=== PATIENT | male | born 1955 | race Caucasian/White ===

== ENCOUNTER 2018-02-18 15:41 | Inpatient (IN) | payer OTHER ==
[~2018-02-18] VITALS: Ht 175.3 cm; Wt 86.9 kg
[~2018-02-18 15:41] MED LIST: ATOR10TA66 PO; CEFD300C3 PO; CETI10TA17 PO; PRM25T PO; QTP100T PO; SRTR100T PO; SULF1TAB38 PO; TRZ100T PO; VILA1TAB PO
[2018-02-18] MEDS ORDERED: NS IV 1000 ML 1,000 ML IV SCH (16:11)
[2018-02-18] MEDS ORDERED: KETOROLAC 30 MG/ML VIAL IVP ONE (16:15)
--- OUTSIDE RECORDS SUMMARY | 2018-02-18 16:15 | XMS REPORT | Continuity of Care Document ---
Author Author [facility] Organization [facility] Address Unknown Phone Unavailable Care Team Providers Care Reservation Manager Name Role Phone [facility] OF Insurance Providers Payer Name Policy Number Subscriber Name Relationship Self Pay Aron Harrell 01 Self / Same As Patient Advance Directives Directive Response Recorded Date Advance Directives N 11/30/12 9:01am Health Care Power of Media Marketing Manager N 10/13/11 10:27pm Organ Donor N 10/13/11 10:27pm Problems No Known Problems or Medical conditions. Family History History Response Recorded Date/Time Hx Family Cancer Y dad -skin cancer 10/12 10:53pm Hx Family Breast Cancer N 10/13/11 10: 53pm Hx Family Lung Cancer N 10/13/11 10:53pm Hx Family Colorectal Cancer N 10/13/11 10 :53pm Hx Family Cardiac Disorders N dad had 4 bypasses 10/13/11 10:53pm Hx Family Hypertension Y mom 10/13/11 10: 53pm Hx Family Myocardial Infarction Y dad passed from [place] 10/13/11 10:53pm Social History History Response Recorded Date/Time Alcohol Use Regular Use 11/30/12 9:01am Recreational Drug Use Y marijuana 9:01am Recent Foreign Travel N 11/30/12 9:01am Recent Infectious Disease Exposure N 9:01am Allergies, Adverse Reactions, Alerts Allergen Type Severity Reaction Last Updated No Known Drug Allergies 10/13/11 Medications Medication Dose Units Route Sig Qty Days Promethazine HCl (Phenergan 25 Mg) 1 Tab PO QID PRN 10 Vilazodone Hydrochloride (Viibryd) 1 Each PO DAILY Atorvastatin Calcium (Lipitor Tablet) 10 Mg PO DAILY Quetiapine Fumarate (Seroquel 100 Mg) 1 Tab PO HS Trimethoprim/Sulfamethoxazole (Bactrim Ds) 1 Ea PO BID 12 Cefdinir 1 Each PO BID 12 Trazodone HCl (Desyrel 100 Mg) 100 Mg PO HS Sertraline HCl (Zoloft) 200 Mg PO DAILY Cetirizine HCl (Cetirizine Hcl) 10 Mg PO DAILY Immunizations Name Given Type Date of Influenza Vaccine 02/06/11 H Response Recorded Date/Time Status not known Unknown Results No Known Relevant Diagnostic Tests, Laboratory Data and/or Discharge Summary. Procedures Procedure Code Date NONEXCIS DEBRID OF WOUND, INFECT, OR BURN 86.28 10/17/11 Encounters Encounter Location Date/Time Departed Emergency Room [facility] 8:49am Discharged Inpatient [facility] 9:47pm
--- OUTSIDE RECORDS SUMMARY | 2018-02-18 16:15 | XMS REPORT ---
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.42 Active Problem Other and unspecified hyperlipidemia 272.4 Active Problem Vascular disorder of skin 709.1 Active Problem Unspecified local infection of skin and subcutaneous tissue 686.9 Active Problem Trigger finger (acquired) 727.03 Active Problem Nonspecific elevation of levels of transaminase or lactic acid dehydrogenase (LDH) 790.4 Active Problem Spontaneous ecchymoses 782.7 Active Problem Edema 782.3 Active Assessment Dental examination V72.2 Active Problem Encounter for long-term (current) use of other medications V58.69 Active Problem Dissociative disorder or reaction, 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
--- OUTSIDE RECORDS SUMMARY | 2018-02-18 16:16 | XMS REPORT | Continuity of Care Document ---
Author Author [facility] Address Unknown Phone Unavailable Allergies There is no data. Medications There is no data. Problems Date Dx Coded Attending Type Code Diagnosis Diagnosed By 03/14/2011 THANH LEE PHD 728.71 Plantar Fascial Fibromatosis 03/14/2011 LANI PADILLA DO 728.71 Plantar Fascial Fibromatosis 03/14/2011 THANH LEE PHD 728.71 Plantar Fascial Fibromatosis 03/14/2011 RAJ SINGLETON DO 728.71 Plantar Fascial Fibromatosis 03/14/2011 728.71 Plantar Fascial Fibromatosis 03/14/2011 728.71 Plantar Fascial Fibromatosis 03/14/2011 728.71 Plantar Fascial Fibromatosis 03/14/2011 728.71 Plantar Fascial Fibromatosis 03/14/2011 728.71 Plantar Fascial Fibromatosis 03/14/2011 CORNELIO TOPETE PA-C 728.71 Plantar Fascial Fibromatosis 03/14/2011 THANH LEE PHD 728.71 Plantar Fascial Fibromatosis 03/14/2011 RAJ SINGLETON DO 728.71 Plantar Fascial Fibromatosis 03/14/2011 THANH LEE PHD 728.71 Plantar Fascial Fibromatosis 03/14/2011 ARTURO WELLS APRN 728.71 Plantar Fascial Fibromatosis 03/14/2011 THANH LEE PHD 728.71 Plantar Fascial Fibromatosis 03/14/2011 THANH LEE PHD 728.71 Plantar Fascial Fibromatosis 03/14/2011 THANH LEE PHD 728.71 Plantar Fascial Fibromatosis 03/14/2011 ARTURO WELLS APRN 728.71 Plantar Fascial Fibromatosis 03/14/2011 THANH LEE PHD 728.71 Plantar Fascial Fibromatosis 03/14/2011 RAJ SINGLETON DO 728.71 Plantar Fascial Fibromatosis 03/14/2011 MARY JANE ESTATE ATTORNEY, GRETA 728.71 Plantar Fascial Fibromatosis 03/14/2011 THANH LEE PHD 728.71 Plantar Fascial Fibromatosis 03/14/2011 MARY JANE ESTATE ATTORNEY, GRETA 728.71 Plantar Fascial Fibromatosis 03/14/2011 THANH LEE PHD 728.71 Plantar Fascial Fibromatosis 03/29/2011 THANH LEE PHD 311 DEPRESSIVE DISORDER NOT ELSEWHERE CLASSIFIED 03/29/2011 THANH LEE PHD 729.5 PAIN IN LIMB 03/29/2011 LANI PADILLA DO F 311 DEPRESSIVE DISORDER NOT ELSEWHERE CLASSIFIED 03/29/2011 LANI PADILLA DO F 729.5 PAIN IN LIMB 03/29/2011 THANH LEE PHD 311 DEPRESSIVE DISORDER NOT ELSEWHERE CLASSIFIED 03/29/2011 THANH LEE PHD 729.5 PAIN IN LIMB 03/29/2011 RAJ SINGLETON DO 311 DEPRESSIVE DISORDER NOT ELSEWHERE CLASSIFIED 03/29/2011 RAJ SINGLETON DO 729.5 Pain In Limb 03/29/2011 311 DEPRESSIVE DISORDER NOT ELSEWHERE CLASSIFIED 03/29/2011 729.5 Pain In Limb 03/29/2011 311 DEPRESSIVE DISORDER NOT ELSEWHERE CLASSIFIED 03/29/2011 729.5 Pain In Limb 03/29/2011 311 DEPRESSIVE DISORDER NOT ELSEWHERE CLASSIFIED 03/29/2011 729.5 Pain In Limb 03/29/2011 311 DEPRESSIVE DISORDER NOT ELSEWHERE CLASSIFIED 03/29/2011 729.5 Pain In Limb 03/29/2011 311 DEPRESSIVE DISORDER NOT ELSEWHERE CLASSIFIED 03/29/2011 729.5 Pain In Limb 03/29/2011 OCRNELIO TOPETE PA-C 311 DEPRESSIVE DISORDER NOT ELSEWHERE CLASSIFIED 03/29/2011 CORNELIO TOPETE PA-C 729.5 Pain In Limb 03/29/2011 THANH LEE PHD 311 DEPRESSIVE DISORDER NOT ELSEWHERE CLASSIFIED 03/29/2011 THANH LEE PHD 729.5 Pain In Limb 03/29/2011 RAJ SINGLETON DO 311 DEPRESSIVE DISORDER NOT ELSEWHERE CLASSIFIED 03/29/2011 RAJ SINGLETON DO 729.5 Pain In Limb 03/29/2011 THANH LEE PHD 311 DEPRESSIVE DISORDER NOT ELSEWHERE CLASSIFIED 03/29/2011 THANH LEE PHD 729.5 Pain In Limb 03/29/2011 PRISCILLA ESTATE ATTORNEYARTURO Porras 311 DEPRESSIVE DISORDER NOT ELSEWHERE CLASSIFIED 03/29/2011 PRISCILLA ESTATE ATTORNEYARTURO Porras 729.5 Pain In Limb 03/29/2011 THANH LEE PHD 311 DEPRESSIVE DISORDER NOT ELSEWHERE CLASSIFIED 03/29/2011 THANH LEE PHD 729.5 Pain In Limb 03/29/2011 THANH LEE PHD 311 DEPRESSIVE DISORDER NOT ELSEWHERE CLASSIFIED 03/29/2011 THANH LEE PHD 729.5 Pain In Limb 03/29/2011 THANH LEE PHD 311 DEPRESSIVE DISORDER NOT ELSEWHERE CLASSIFIED 03/29/2011 THANH LEE PHD 729.5 Pain In Limb 03/29/2011 ARTURO WELLS APRN 311 DEPRESSIVE DISORDER NOT ELSEWHERE CLASSIFIED 03/29/2011 WELLS ESTATE ATTORNEYARTURO Porras 729.5 Pain In Limb 03/29/2011 THANH LEE PHD 311 DEPRESSIVE DISORDER NOT ELSEWHERE CLASSIFIED 03/29/2011 THANH LEE PHD 729.5 Pain In Limb 03/29/2011 SINGLETON DO, RAJ K 311 DEPRESSIVE DISORDER NOT ELSEWHERE CLASSIFIED 03/29/2011 SINGLETON DO, RAJ K 729.5 Pain In Limb 03/29/2011 MARY JANE ESTATE ATTORNEY, GRETA 311 DEPRESSIVE DISORDER NOT ELSEWHERE CLASSIFIED 03/29/2011 MARY JANE ESTATE ATTORNEY, GRETA 729.5 Pain In Limb 03/29/2011 THANH LEE PHD 311 DEPRESSIVE DISORDER NOT ELSEWHERE CLASSIFIED 03/29/2011 THANH LEE PHD 729.5 Pain In Limb 03/29/2011 MARY JANE ESTATE ATTORNEY, GRETA 311 DEPRESSIVE DISORDER NOT ELSEWHERE CLASSIFIED 03/29/2011 MARY JANE ESTATE ATTORNEY, GRETA 729.5 Pain In Limb 03/29/2011 THANH LEE PHD 311 DEPRESSIVE DISORDER NOT ELSEWHERE CLASSIFIED 03/29/2011 THANH LEE PHD 729.5 Pain In Limb 03/30/2011 THANH LEE PHD 296.30 MO DEPRESSIVE RECURRENT UNSPECIFIED 03/30/2011 THANH LEE PHD 304.80 SA POLYSUB DEP 03/30/2011 THANH LEE PHD 307.47 SI DYSSOMNIA NOS 03/30/2011 WERDER DO, LANI F 296.30 MO DEPRESSIVE RECURRENT UNSPECIFIED 03/30/2011 WERDER DO, LANI F 304.80 SA POLYSUB DEP 03/30/2011 WERDER DO, LANI F 307.47 SI DYSSOMNIA NOS 03/30/2011 THANH LEE PHD 296.30 MO DEPRESSIVE RECURRENT UNSPECIFIED 03/30/2011 THANH LEE PHD 304.80 SA POLYSUB DEP 03/30/2011 THANH LEE PHD 307.47 SI DYSSOMNIA NOS 03/30/2011 SINGLETON DO, RAJ K 296.30 MO DEPRESSIVE RECURRENT UNSPECIFIED 03/30/2011 SINGLETON DO, RAJ K 304.80 SA POLYSUB DEP 03/30/2011 SINGLETON DO, RAJ K 307.47 SI DYSSOMNIA NOS 03/30/2011 296.30 MO DEPRESSIVE RECURRENT UNSPECIFIED 03/30/2011 304.80 SA POLYSUB DEP 03/30/2011 307.47 SI DYSSOMNIA NOS 03/30/2011 296.30 MO DEPRESSIVE RECURRENT UNSPECIFIED 03/30/2011 304.80 SA POLYSUB DEP 03/30/2011 307.47 SI DYSSOMNIA NOS 03/30/2011 296.30 MO DEPRESSIVE RECURRENT UNSPECIFIED 03/30/2011 304.80 SA POLYSUB DEP 03/30/2011 307.47 SI DYSSOMNIA NOS 03/30/2011 296.30 MO DEPRESSIVE RECURRENT UNSPECIFIED 03/30/2011 304.80 SA POLYSUB DEP 03/30/2011 307.47 SI DYSSOMNIA NOS 03/30/2011 296.30 MO DEPRESSIVE RECURRENT UNSPECIFIED 03/30/2011 304.80 SA POLYSUB DEP 03/30/2011 307.47 SI DYSSOMNIA NOS 03/30/2011 CORNELIO TOPETE PA-C 296.30 MO DEPRESSIVE RECURRENT UNSPECIFIED 03/30/2011 CORNELIO TOPETE PA-C 304.80 SA POLYSUB DEP 03/30/2011 CORNELIO TOPETE PA-C 307.47 SI DYSSOMNIA NOS 03/30/2011 THANH LEE PHD 296.30 MO DEPRESSIVE RECURRENT UNSPECIFIED 03/30/2011 THANH LEE PHD 304.80 SA POLYSUB DEP 03/30/2011 THANH LEE PHD 307.47 SI DYSSOMNIA NOS 03/30/2011 SINGLETON DO, RAJ K 296.30 MO DEPRESSIVE RECURRENT UNSPECIFIED 03/30/2011 SINGLETON DO, RAJ K 304.80 SA POLYSUB DEP 03/30/2011 SINGLETON DO, RAJ K 307.47 SI DYSSOMNIA NOS 03/30/2011 THANH LEE PHD 296.30 MO DEPRESSIVE RECURRENT UNSPECIFIED 03/30/2011 THANH LEE PHD 304.80 SA POLYSUB DEP 03/30/2011 THANH LEE PHD 307.47 SI DYSSOMNIA NOS 03/30/2011 WELLS ESTATE ATTORNEY, ARTURO REYEZ 296.30 MO DEPRESSIVE RECURRENT UNSPECIFIED 03/30/2011 WELLS ESTATE ATTORNEY, ARTURO ETIENNEH 304.80 SA POLYSUB DEP 03/30/2011 WELLS ESTATE ATTORNEY, ARTURO REYEZ 307.47 SI DYSSOMNIA NOS 03/30/2011 THANH LEE PHD 296.30 MO DEPRESSIVE RECURRENT UNSPECIFIED 03/30/2011 THANH LEE PHD 304.80 SA POLYSUB DEP 03/30/2011 THANH LEE PHD 307.47 SI DYSSOMNIA NOS 03/30/2011 THANH LEE PHD 296.30 MO DEPRESSIVE RECURRENT UNSPECIFIED 03/30/2011 THANH LEE PHD 304.80 SA POLYSUB DEP 03/30/2011 THANH LEE PHD 307.47 SI DYSSOMNIA NOS 03/30/2011 THANH LEE PHD 296.30 MO DEPRESSIVE RECURRENT UNSPECIFIED 03/30/2011 THANH LEE PHD 304.80 SA POLYSUB DEP 03/30/2011 THANH LEE PHD 307.47 SI DYSSOMNIA NOS 03/30/2011 WELLS ESTATE ATTORNEY, ARTURO REYEZ 296.30 MO DEPRESSIVE RECURRENT UNSPECIFIED 03/30/2011 WELLS ESTATE ATTORNEY, ARTURO ETIENNEH 304.80 SA POLYSUB DEP 03/30/2011 WELLS ESTATE ATTORNEY, ARTURO REYEZ 307.47 SI DYSSOMNIA NOS 03/30/2011 THANH LEE PHD 296.30 MO DEPRESSIVE RECURRENT UNSPECIFIED 03/30/2011 THANH LEE PHD 304.80 SA POLYSUB DEP 03/30/2011 THANH LEE PHD 307.47 SI DYSSOMNIA NOS 03/30/2011 RAJ SINGLETON DO K 296.30 MO DEPRESSIVE RECURRENT UNSPECIFIED 03/30/2011 RAJ SINGLETON DO K 304.80 SA POLYSUB DEP 03/30/2011 SINGLETON DORAJ K 307.47 SI DYSSOMNIA NOS 03/30/2011 MARY JANE ESTATE ATTORNEY, GRETA 296.30 MO DEPRESSIVE RECURRENT UNSPECIFIED 03/30/2011 MARY JANE ESTATE ATTORNEY, GRETA 304.80 SA POLYSUB DEP 03/30/2011 MARY JANE ESTATE ATTORNEY, GRETA 307.47 SI DYSSOMNIA NOS 03/30/2011 THANH LEE PHD 296.30 MO DEPRESSIVE RECURRENT UNSPECIFIED 03/30/2011 THANH LEE PHD 304.80 SA POLYSUB DEP 03/30/2011 THANH LEE PHD 307.47 SI DYSSOMNIA NOS 03/30/2011 MARY JANE ESTATE ATTORNEY, GRETA 296.30 MO DEPRESSIVE RECURRENT UNSPECIFIED 03/30/2011 MARY JANE ESTATE ATTORNEY, GRETA 304.80 SA POLYSUB DEP 03/30/2011 MARY JANE ESTATE ATTORNEY, GRETA 307.47 SI DYSSOMNIA NOS 03/30/2011 THANH LEE PHD 296.30 MO DEPRESSIVE RECURRENT UNSPECIFIED 03/30/2011 THANH LEE PHD 304.80 SA POLYSUB DEP 03/30/2011 THANH LEE PHD 307.47 SI DYSSOMNIA NOS 05/29/2011 THANH LEE PHD 296.32 MO DEPRESSIVE RECURRENT MODERATE 05/29/2011 LANI PADILLA DO 296.32 MO DEPRESSIVE RECURRENT MODERATE 05/29/2011 THANH LEE PHD 296.32 MO DEPRESSIVE RECURRENT MODERATE 05/29/2011 RAJ SINGLETON DO 296.32 MO DEPRESSIVE RECURRENT MODERATE 05/29/2011 296.32 MO DEPRESSIVE RECURRENT MODERATE 05/29/2011 296.32 MO DEPRESSIVE RECURRENT MODERATE 05/29/2011 296.32 MO DEPRESSIVE RECURRENT MODERATE 05/29/2011 296.32 MO DEPRESSIVE RECURRENT MODERATE 05/29/2011 296.32 MO DEPRESSIVE RECURRENT MODERATE 05/29/2011 CORNELIO TOPETE PA-C 296.32 MO DEPRESSIVE RECURRENT MODERATE 05/29/2011 THANH LEE PHD 296.32 MO DEPRESSIVE RECURRENT MODERATE 05/29/2011 RAJ SINGLETON DO 296.32 MO DEPRESSIVE RECURRENT MODERATE 05/29/2011 THANH LEE PHD 296.32 MO DEPRESSIVE RECURRENT MODERATE 05/29/2011 WELLS ESTATE ATTORNEY, ARTURO REYEZ 296.32 MO DEPRESSIVE RECURRENT MODERATE 05/29/2011 JESUS PULIDO, THANH Irwin 296.32 MO DEPRESSIVE RECURRENT MODERATE 05/29/2011 THANH LEE PHD 296.32 MO DEPRESSIVE RECURRENT MODERATE 05/29/2011 JESUS PULIDO, THANH Irwin 296.32 MO DEPRESSIVE RECURRENT MODERATE 05/29/2011 WELLS ESTATE ATTORNEY, ARTURO REYEZ 296.32 MO DEPRESSIVE RECURRENT MODERATE 05/29/2011 JESUS PULIDO, THANH Irwin 296.32 MO DEPRESSIVE RECURRENT MODERATE 05/29/2011 RAJ SINGLETON DO 296.32 MO DEPRESSIVE RECURRENT MODERATE 05/29/2011 MARY JANE ESTATE ATTORNEY, GRETA 296.32 MO DEPRESSIVE RECURRENT MODERATE 05/29/2011 THANH LEE PHD 296.32 MO DEPRESSIVE RECURRENT MODERATE 05/29/2011 MARY JANE ESTATE ATTORNEY, GRETA 296.32 MO DEPRESSIVE RECURRENT MODERATE 05/29/2011 THANH LEE PHD 296.32 MO DEPRESSIVE RECURRENT MODERATE 10/11/2011 THANH LEE PHD 111.0 PITYRIASIS VERSICOLOR 10/11/2011 THANH LEE PHD 272.4 OTHER AND UNSPECIFIED HYPERLIPIDEMIA 10/11/2011 LANI PADILLA DO F 111.0 PITYRIASIS VERSICOLOR 10/11/2011 LANI PADILLA DO F 272.4 OTHER AND UNSPECIFIED HYPERLIPIDEMIA 10/11/2011 THANH LEE PHD 111.0 PITYRIASIS VERSICOLOR 10/11/2011 THANH LEE PHD 272.4 OTHER AND UNSPECIFIED HYPERLIPIDEMIA 10/11/2011 RAJ SINGLETON DO 111.0 PITYRIASIS VERSICOLOR 10/11/2011 ARJ SINGLETON DO 272.4 OTHER AND UNSPECIFIED HYPERLIPIDEMIA 10/11/2011 111.0 PITYRIASIS VERSICOLOR 10/11/2011 272.4 OTHER AND UNSPECIFIED HYPERLIPIDEMIA 10/11/2011 111.0 PITYRIASIS VERSICOLOR 10/11/2011 272.4 OTHER AND UNSPECIFIED HYPERLIPIDEMIA 10/11/2011 111.0 PITYRIASIS VERSICOLOR 10/11/2011 272.4 OTHER AND UNSPECIFIED HYPERLIPIDEMIA 10/11/2011 111.0 PITYRIASIS VERSICOLOR 10/11/2011 272.4 OTHER AND UNSPECIFIED HYPERLIPIDEMIA 10/11/2011 111.0 PITYRIASIS VERSICOLOR 10/11/2011 272.4 OTHER AND UNSPECIFIED HYPERLIPIDEMIA 10/11/2011 CORNELIO TOPETE PA-C 111.0 PITYRIASIS VERSICOLOR 10/11/2011 CORNELIO TOPETE PA-C 272.4 OTHER AND UNSPECIFIED HYPERLIPIDEMIA 10/11/2011 THANH LEE PHD A 111.0 PITYRIASIS VERSICOLOR 10/11/2011 THANH LEE PHD A 272.4 OTHER AND UNSPECIFIED HYPERLIPIDEMIA 10/11/2011 SINGLETON NANCY REILLYA K 111.0 PITYRIASIS VERSICOLOR 10/11/2011 RAJ SINGLETON DO K 272.4 OTHER AND UNSPECIFIED HYPERLIPIDEMIA 10/11/2011 THANH LEE PHD A 111.0 PITYRIASIS VERSICOLOR 10/11/2011 THANH LEE PHD A 272.4 OTHER AND UNSPECIFIED HYPERLIPIDEMIA 10/11/2011 PRISCILLA LESTER ARTURO AISSATUO 111.0 PITYRIASIS VERSICOLOR 10/11/2011 PRISCILLA LESTER ARTURO AISSATOU 272.4 OTHER AND UNSPECIFIED HYPERLIPIDEMIA 10/11/2011 THANH LEE PHD A 111.0 PITYRIASIS VERSICOLOR 10/11/2011 THANH LEE PHD 272.4 OTHER AND UNSPECIFIED HYPERLIPIDEMIA 10/11/2011 THANH LEE PHD A 111.0 PITYRIASIS VERSICOLOR 10/11/2011 THANH LEE PHD A 272.4 OTHER AND UNSPECIFIED HYPERLIPIDEMIA 10/11/2011 THANH LEE PHD A 111.0 PITYRIASIS VERSICOLOR 10/11/2011 THANH LEE PHD A 272.4 OTHER AND UNSPECIFIED HYPERLIPIDEMIA 10/11/2011 PRISCILLA LESTER ARTURO AISSATOU 111.0 PITYRIASIS VERSICOLOR 10/11/2011 PRISCILLA LESTER ARTURO AISSATOU 272.4 OTHER AND UNSPECIFIED HYPERLIPIDEMIA 10/11/2011 THANH LEE PHD A 111.0 PITYRIASIS VERSICOLOR 10/11/2011 THANH LEE PHD A 272.4 OTHER AND UNSPECIFIED HYPERLIPIDEMIA 10/11/2011 SINGLETON NANCY REILLYA K 111.0 PITYRIASIS VERSICOLOR 10/11/2011 RAJ SINGLETON DO 272.4 OTHER AND UNSPECIFIED HYPERLIPIDEMIA 10/11/2011 MARY JANE ESTATE ATTORNEY, GRETA 111.0 PITYRIASIS VERSICOLOR 10/11/2011 MARY JANE ESTATE ATTORNEY, GRETA 272.4 OTHER AND UNSPECIFIED HYPERLIPIDEMIA 10/11/2011 THANH LEE PHD 111.0 PITYRIASIS VERSICOLOR 10/11/2011 THANH LEE PHD 272.4 OTHER AND UNSPECIFIED HYPERLIPIDEMIA 10/11/2011 MARY JANE ESTATE ATTORNEY, GRETA 111.0 PITYRIASIS VERSICOLOR 10/11/2011 MARY JANE ESTATE ATTORNEY, GRETA 272.4 OTHER AND UNSPECIFIED HYPERLIPIDEMIA 10/11/2011 THANH LEE PHD 111.0 PITYRIASIS VERSICOLOR 10/11/2011 THANH LEE PHD 272.4 OTHER AND UNSPECIFIED HYPERLIPIDEMIA 10/21/2011 THANH LEE PHD 686.9 UNSPECIFIED LOCAL INFECTION OF SKIN AND SUBCUTANEOUS TISSUE 10/21/2011 LANI PADILLA DO 686.9 UNSPECIFIED LOCAL INFECTION OF SKIN AND SUBCUTANEOUS TISSUE 10/21/2011 THANH LEE PHD 686.9 UNSPECIFIED LOCAL INFECTION OF SKIN AND SUBCUTANEOUS TISSUE 10/21/2011 RAJ SINGLETON DO 686.9 UNSPECIFIED LOCAL INFECTION OF SKIN AND SUBCUTANEOUS TISSUE 10/21/2011 686.9 UNSPECIFIED LOCAL INFECTION OF SKIN AND SUBCUTANEOUS TISSUE 10/21/2011 686.9 UNSPECIFIED LOCAL INFECTION OF SKIN AND SUBCUTANEOUS TISSUE 10/21/2011 686.9 UNSPECIFIED LOCAL INFECTION OF SKIN AND SUBCUTANEOUS TISSUE 10/21/2011 686.9 UNSPECIFIED LOCAL INFECTION OF SKIN AND SUBCUTANEOUS TISSUE 10/21/2011 686.9 UNSPECIFIED LOCAL INFECTION OF SKIN AND SUBCUTANEOUS TISSUE 10/21/2011 CORNELIO TOPETE PA-C 686.9 UNSPECIFIED LOCAL INFECTION OF SKIN AND SUBCUTANEOUS TISSUE 10/21/2011 THANH LEE PHD 686.9 UNSPECIFIED LOCAL INFECTION OF SKIN AND SUBCUTANEOUS TISSUE 10/21/2011 RAJ SINGLETON DO 686.9 UNSPECIFIED LOCAL INFECTION OF SKIN AND SUBCUTANEOUS TISSUE 10/21/2011 THANH LEE PHD 686.9 UNSPECIFIED LOCAL INFECTION OF SKIN AND SUBCUTANEOUS TISSUE 10/21/2011 ARTURO WELLS APRN 686.9 UNSPECIFIED LOCAL INFECTION OF SKIN AND SUBCUTANEOUS TISSUE 10/21/2011 THANH LEE PHD 686.9 UNSPECIFIED LOCAL INFECTION OF SKIN AND SUBCUTANEOUS TISSUE 10/21/2011 THANH LEE PHD 686.9 UNSPECIFIED LOCAL INFECTION OF SKIN AND SUBCUTANEOUS TISSUE 10/21/2011 THANH LEE PHD 686.9 UNSPECIFIED LOCAL INFECTION OF SKIN AND SUBCUTANEOUS TISSUE 10/21/2011 ARTURO WELLS APRN 686.9 UNSPECIFIED LOCAL INFECTION OF SKIN AND SUBCUTANEOUS TISSUE 10/21/2011 THANH LEE PHD 686.9 UNSPECIFIED LOCAL INFECTION OF SKIN AND SUBCUTANEOUS TISSUE 10/21/2011 SINGLETON RAJ REILLY 686.9 UNSPECIFIED LOCAL INFECTION OF SKIN AND SUBCUTANEOUS TISSUE 10/21/2011 GRETA HINTON APRN 686.9 UNSPECIFIED LOCAL INFECTION OF SKIN AND SUBCUTANEOUS TISSUE 10/21/2011 THANH LEE PHD 686.9 UNSPECIFIED LOCAL INFECTION OF SKIN AND SUBCUTANEOUS TISSUE 10/21/2011 GRETA HINTON APRN 686.9 UNSPECIFIED LOCAL INFECTION OF SKIN AND SUBCUTANEOUS TISSUE 10/21/2011 THANH LEE PHD 686.9 UNSPECIFIED LOCAL INFECTION OF SKIN AND SUBCUTANEOUS TISSUE 11/06/2011 THANH LEE PHD 782.3 EDEMA 11/06/2011 THANH LEE PHD 782.7 petichiae 11/06/2011 WERDER DO LANI F 782.3 EDEMA 11/06/2011 [facility] F 782.7 petichiae 11/06/2011 THANH LEE PHD 782.3 EDEMA 11/06/2011 THANH LEE PHD 782.7 petichiae 11/06/2011 SINGLETON DO, RAJ K 782.3 Edema 11/06/2011 SINGLETON DO, RAJ K 782.7 Petichiae 11/06/2011 782.3 Edema 11/06/2011 782.7 Petichiae 11/06/2011 782.3 Edema 11/06/2011 782.7 Petichiae 11/06/2011 782.3 Edema 11/06/2011 782.7 Petichiae 11/06/2011 782.3 Edema 11/06/2011 782.7 Petichiae 11/06/2011 782.3 Edema 11/06/2011 782.7 Petichiae 11/06/2011 CORNELIO TOPETE PA-C 782.3 Edema 11/06/2011 CORNELIO TOPETE PA-C 782.7 Petichiae 11/06/2011 BOEKHOUT PHD, THANH Irwin 782.3 Edema 11/06/2011 BOEKHOUT PHD, THANH Irwin 782.7 Petichiae 11/06/2011 SINGLETON DO, RAJ K 782.3 Edema 11/06/2011 SINGLETON DO, RAJ K 782.7 Petichiae 11/06/2011 BOEKHOUT PHD, THANH A 782.3 Edema 11/06/2011 BOEKHOUT PHD, THANH Irwin 782.7 Petichiae 11/06/2011 WELLS ESTATE ATTORNEY, ARTURO ETIENNEH 782.3 Edema 11/06/2011 WELLS ESTATE ATTORNEY, ARTURO AISSATOU 782.7 Petichiae 11/06/2011 BOEKHOUT PHD, THANH A 782.3 Edema 11/06/2011 BOEKHOUT PHD, THANH A 782.7 Petichiae 11/06/2011 BOEKHOUT PHD, THANH A 782.3 Edema 11/06/2011 BOEOUT PHD, THANH A 782.7 Petichiae 11/06/2011 BOEKHOUT PHD, THANH A 782.3 Edema 11/06/2011 BOEOUT PHD, THANH A 782.7 Petichiae 11/06/2011 WELLS ESTATE ATTORNEY, ARTURO AISSATOU 782.3 Edema 11/06/2011 WELLS ESTATE ATTORNEY, ARTURO AISSATOU 782.7 Petichiae 11/06/2011 BOEOUT PHD, THAHN A 782.3 Edema 11/06/2011 BOEOUT PHD, THANH A 782.7 Petichiae 11/06/2011 SINGLETON DO, RAJ K 782.3 Edema 11/06/2011 SINGLETON DO, RAJ K 782.7 Petichiae 11/06/2011 MARY JANE ESTATE ATTORNEY, GRETA 782.3 Edema 11/06/2011 MARY JANE ESTATE ATTORNEY, GRETA 782.7 Petichiae 11/06/2011 BOEKHOUT PHD, THANH A 782.3 Edema 11/06/2011 THANH LEE PHD 782.7 Petichiae 11/06/2011 GRETA HINTON APRN 782.3 Edema 11/06/2011 GRETA HINTON APRN 782.7 Petichiae 11/06/2011 THANH LEE PHD 782.3 Edema 11/06/2011 THANH LEE PHD 782.7 Petichiae 11/20/2011 THANH LEE PHD 709.1 VASCULAR DISORDERS OF SKIN 11/20/2011 LANI PADILLA DO 709.1 VASCULAR DISORDERS OF SKIN 11/20/2011 THANH LEE PHD 709.1 VASCULAR DISORDERS OF SKIN 11/20/2011 RAJ SINGLETON DO 709.1 Vascular Disorders Of Skin 11/20/2011 709.1 Vascular Disorders Of Skin 11/20/2011 709.1 Vascular Disorders Of Skin 11/20/2011 709.1 Vascular Disorders Of Skin 11/20/2011 709.1 Vascular Disorders Of Skin 11/20/2011 709.1 Vascular Disorders Of Skin 11/20/2011 EFREM CHANCE, CORNELIO Kwok 709.1 Vascular Disorders Of Skin 11/20/2011 THANH LEE PHD 709.1 Vascular Disorders Of Skin 11/20/2011 RAJ SINGLETON DO 709.1 Vascular Disorders Of Skin 11/20/2011 THANH LEE PHD 709.1 Vascular Disorders Of Skin 11/20/2011 ARTURO WELLS APRN 709.1 Vascular Disorders Of Skin 11/20/2011 THANH LEE PHD 709.1 Vascular Disorders Of Skin 11/20/2011 THANH LEE PHD 709.1 Vascular Disorders Of Skin 11/20/2011 THAHN LEE PHD 709.1 Vascular Disorders Of Skin 11/20/2011 ARTURO WELLS APRN 709.1 Vascular Disorders Of Skin 11/20/2011 THANH LEE PHD 709.1 Vascular Disorders Of Skin 11/20/2011 RAJ SINGLETON DO 709.1 Vascular Disorders Of Skin 11/20/2011 GRETA HINTON APRN 709.1 Vascular Disorders Of Skin 11/20/2011 THANH LEE PHD 709.1 Vascular Disorders Of Skin 11/20/2011 GRETA HINTON APRN 709.1 Vascular Disorders Of Skin 11/20/2011 THANH LEE PHD 709.1 Vascular Disorders Of Skin 2012 THANH LEE PHD 296.31 MO DEPRESSIVE RECURRENT MILD 2012 LANI PADILLA DO 296.31 MO DEPRESSIVE RECURRENT MILD 2012 THANH LEE PHD 296.31 MO DEPRESSIVE RECURRENT MILD 2012 RAJ SINGLETON DO 296.31 MO DEPRESSIVE RECURRENT MILD 2012 296.31 MO DEPRESSIVE RECURRENT MILD 2012 296.31 MO DEPRESSIVE RECURRENT MILD 2012 296.31 MO DEPRESSIVE RECURRENT MILD 2012 296.31 MO DEPRESSIVE RECURRENT MILD 2012 296.31 MO DEPRESSIVE RECURRENT MILD 2012 CORNELIO TOPETE PA-C 296.31 MO DEPRESSIVE RECURRENT MILD 2012 THANH LEE PHD 296.31 MO DEPRESSIVE RECURRENT MILD 2012 RAJ SINGLETON DO 296.31 MO DEPRESSIVE RECURRENT MILD 2012 THANH LEE PHD 296.31 MO DEPRESSIVE RECURRENT MILD 2012 ARTURO WELLS APRN 296.31 MO DEPRESSIVE RECURRENT MILD 2012 THANH LEE PHD 296.31 MO DEPRESSIVE RECURRENT MILD 2012 THANH LEE PHD 296.31 MO DEPRESSIVE RECURRENT MILD 2012 THANH LEE PHD 296.31 MO DEPRESSIVE RECURRENT MILD 2012 ARTURO WELLS APRN 296.31 MO DEPRESSIVE RECURRENT MILD 2012 THANH LEE PHD 296.31 MO DEPRESSIVE RECURRENT MILD 2012 RAJ SINGLETON DO 296.31 MO DEPRESSIVE RECURRENT MILD 2012 GRETA HINTON APRN 296.31 MO DEPRESSIVE RECURRENT MILD 2012 THANH LEE PHD 296.31 MO DEPRESSIVE RECURRENT MILD 2012 GRETA HINTON APRN 296.31 MO DEPRESSIVE RECURRENT MILD 2012 THANH LEE PHD 296.31 MO DEPRESSIVE RECURRENT MILD 11/30/2012 VITALY ELIAS, PARUL Larson Ot 276.51 DEHYDRATION 11/30/2012 PARUL HAIDER MD Ot 787.03 VOMITING ALONE 11/30/2012 PARUL HAIDER MD Ot 789.00 ABDOMINAL PAIN, UNSPECIFIED SITE 01/18/2013 727.03 TRIGGER FINGER (ACQUIRED) 01/18/2013 727.03 TRIGGER FINGER (ACQUIRED) 01/18/2013 727.03 TRIGGER FINGER (ACQUIRED) 01/18/2013 CORNELIO TOPETE PA-C 727.03 TRIGGER FINGER (ACQUIRED) 01/18/2013 JESUS PULIDO, THANH A 727.03 TRIGGER FINGER (ACQUIRED) 01/18/2013 RAJ SINGLETON DO 727.03 TRIGGER FINGER (ACQUIRED) 01/18/2013 JESUS PULIDO, THANH A 727.03 TRIGGER FINGER (ACQUIRED) 01/18/2013 ARTURO WELLS APRN 727.03 TRIGGER FINGER (ACQUIRED) 01/18/2013 JESUS PULIDO, THANH A 727.03 TRIGGER FINGER (ACQUIRED) 01/18/2013 THANH LEE PHD A 727.03 TRIGGER FINGER (ACQUIRED) 01/18/[facility] 727.03 TRIGGER FINGER (ACQUIRED) 01/18/2013 ARTURO WELLS APRN 727.03 TRIGGER FINGER (ACQUIRED) 01/18/2013 [facility] 727.03 TRIGGER FINGER (ACQUIRED) 01/18/2013 RAJ SINGLETON DO 727.03 TRIGGER FINGER (ACQUIRED) 01/18/2013 MARY JANE LESTER GRETA 727.03 TRIGGER FINGER (ACQUIRED) 01/18/2013 JESUS PULIDO THANH A 727.03 TRIGGER FINGER (ACQUIRED) 01/18/2013 MARY JANE LESTER GRETA 727.03 TRIGGER FINGER (ACQUIRED) 01/18/2013 JESUS PULIDO, THANH A 727.03 TRIGGER FINGER (ACQUIRED) 01/19/2013 790.4 ABNORMAL LFT ( ELEVATED) 01/19/2013 790.4 ABNORMAL LFT ( ELEVATED) 01/19/2013 CORNELIO TOPETE PA-C 790.4 ABNORMAL LFT (ELEVATED) 01/19/2013 THANH LEE PHD 790.4 ABNORMAL LFT (ELEVATED) 01/19/2013 RAJ SINGLETON DO 790.4 ABNORMAL LFT (ELEVATED) 01/19/2013 [facility], THANH A 790.4 ABNORMAL LFT (ELEVATED) 01/19/2013 PRISCILLA LESTER ARTURO ETIENNEH 790.4 ABNORMAL LFT (ELEVATED) 01/19/2013 [facility], THANH A 790.4 ABNORMAL LFT (ELEVATED) 01/19/2013 [facility], THANH A 790.4 ABNORMAL LFT (ELEVATED) 01/19/2013 [facility], THANH A 790.4 ABNORMAL LFT (ELEVATED) 01/19/2013 PRISCILLA LESTER ARTURO AISSATOU 790.4 ABNORMAL LFT (ELEVATED) 01/19/2013 PHD, THANH A 790.4 ABNORMAL LFT (ELEVATED) 01/19/2013 RAJ SINGLETON DO 790.4 ABNORMAL LFT (ELEVATED) 01/19/2013 GRETA HINTON APRN 790.4 ABNORMAL LFT (ELEVATED) 01/19/2013 [facility] PHD, THANH A 790.4 ABNORMAL LFT (ELEVATED) 01/19/2013 GRETA HINTON APRN 790.4 ABNORMAL LFT (ELEVATED) 01/19/2013 [facility] PHD, THANH A 790.4 ABNORMAL LFT (ELEVATED) 01/22/2013 070.70 HEPATITIS C, UNSPEC 01/22/2013 CORNELIO TOPETE PA-C 070.70 HEPATITIS C, UNSPEC 01/22/2013 JESUS PHD, THANH A 070.70 HEPATITIS C, UNSPEC 01/22/2013 RAJ SINGLETON DO 070.70 HEPATITIS C, UNSPEC 01/22/2013 PHD, THANH A 070.70 HEPATITIS C, UNSPEC 01/22/2013 PRISCILLA LESTER ARTURO AISSATOU 070.70 HEPATITIS C, UNSPEC 01/22/2013 [facility] PHD, THANH A 070.70 HEPATITIS C, UNSPEC 01/22/2013 [facility] PHD, THANH A 070.70 HEPATITIS C, UNSPEC 01/22/2013 [facility] PHD, THANH A 070.70 HEPATITIS C, UNSPEC 01/22/2013 ARTURO WELLS APRN 070.70 HEPATITIS C, UNSPEC 01/22/2013 PHD, THANH A 070.70 HEPATITIS C, UNSPEC 01/22/2013 RAJ SINGLETON DO 070.70 HEPATITIS C, UNSPEC 01/22/2013 MARY JANE ESTATE ATTORNEY, GRETA 070.70 HEPATITIS C, UNSPEC 01/22/2013 JESUS PULIDO, THANH Irwin 070.70 HEPATITIS C, UNSPEC 01/22/2013 MARY JANE ESTATE ATTORNEY, GRETA 070.70 HEPATITIS C, UNSPEC 01/22/2013 JESUS PULIDO, THANH Irwin 070.70 HEPATITIS C, UNSPEC 03/18/2013 RAJ SINGLETON DO 307.42 PERSISTENT DISORDER OF INITIATING OR MAINTAINING SLEEP 03/18/2013 THANH LEE PHD 307.42 PERSISTENT DISORDER OF INITIATING OR MAINTAINING SLEEP 03/18/2013 ARTURO WELLS APRN 307.42 PERSISTENT DISORDER OF INITIATING OR MAINTAINING SLEEP 03/18/2013 THANH LEE PHD 307.42 PERSISTENT DISORDER OF INITIATING OR MAINTAINING SLEEP 03/18/2013 THANH LEE PHD 307.42 PERSISTENT DISORDER OF INITIATING OR MAINTAINING SLEEP 03/18/2013 THANH LEE PHD 307.42 PERSISTENT DISORDER OF INITIATING OR MAINTAINING SLEEP 03/18/2013 ARTURO WELLS APRN 307.42 PERSISTENT DISORDER OF INITIATING OR MAINTAINING SLEEP 03/18/2013 THANH LEE PHD 307.42 PERSISTENT DISORDER OF INITIATING OR MAINTAINING SLEEP 03/18/2013 RAJ SINGLETON DO 307.42 PERSISTENT DISORDER OF INITIATING OR MAINTAINING SLEEP 03/18/2013 MARY JANE LESTER GRETA 307.42 PERSISTENT DISORDER OF INITIATING OR MAINTAINING SLEEP 03/18/2013 THANH LEE PHD 307.42 PERSISTENT DISORDER OF INITIATING OR MAINTAINING SLEEP 03/18/2013 MARY JANE ESTATE ATTORNEY, GRETA 307.42 PERSISTENT DISORDER OF INITIATING OR MAINTAINING SLEEP 03/18/2013 THANH LEE PHD 307.42 PERSISTENT DISORDER OF INITIATING OR MAINTAINING SLEEP 03/25/2013 RAJ SINGLETON DO 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 WITH INFLAMMATION 03/25/2013 THANH LEE PHD 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 WITH INFLAMMATION 03/25/2013 ARTURO WELLS APRN 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 WITH INFLAMMATION 03/25/2013 THANH LEE PHD 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 WITH INFLAMMATION 03/25/2013 THANH LEE PHD 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 WITH INFLAMMATION 03/25/2013 JESUS PULIDO, THANH Irwin 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 WITH INFLAMMATION 03/25/2013 PRISCILLA LESTER ARTURO AISSATOU 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 WITH INFLAMMATION 03/25/2013 JESUS PULIDO, THANH Irwin 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 WITH INFLAMMATION 03/25/2013 RAJ SINGLETON DO 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 WITH INFLAMMATION 03/25/2013 GRETA HINTON APRN 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 WITH INFLAMMATION 03/25/2013 THANH LEE PHD 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 WITH INFLAMMATION 03/25/2013 GRETA HINTON APRN 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 WITH INFLAMMATION 03/25/2013 HTANH LEE PHD 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 WITH INFLAMMATION 07/26/2013 ARTURO WELLS APRN 300.00 AN ANXIETY UNSPEC 07/26/2013 JESUS PULIDO, THANH A 300.00 AN ANXIETY UNSPEC 07/26/2013 JESUS PULIDO, THANH A 300.00 AN ANXIETY UNSPEC 07/26/2013 JESUS PULIDO, THANH A 300.00 AN ANXIETY UNSPEC 07/26/2013 ARTURO WELLS APRN 300.00 AN ANXIETY UNSPEC 07/26/2013 BOEGRAYSON PULIDO, THANH A 300.00 AN ANXIETY UNSPEC 07/26/2013 RAJ SINGLETON DO 300.00 AN ANXIETY UNSPEC 07/26/2013 GRETA HINTON APRN 300.00 AN ANXIETY UNSPEC 07/26/2013 BOEGRAYSON PULIDO, THANH A 300.00 AN ANXIETY UNSPEC 07/26/2013 GRETA HINTON APRN 300.00 AN ANXIETY UNSPEC 07/26/2013 JESUS PULIDO, THANH A 300.00 AN ANXIETY UNSPEC 11/30/2013 THANH LEE PHD V58.69 MEDICATION HIGH RISK 11/30/2013 ARTURO WELLS APRN V58.69 MEDICATION HIGH RISK 11/30/2013 THANH LEE PHD V58.69 MEDICATION HIGH RISK 11/30/2013 RAJ SINGLETON DO V58.69 MEDICATION HIGH RISK 11/30/2013 GRETA HINTON APRN V58.69 MEDICATION HIGH RISK 11/30/2013 JESUS PHD, THANH Irwin V58.69 MEDICATION HIGH RISK 11/30/2013 GRETA HINTON APRN V58.69 MEDICATION HIGH RISK 11/30/2013 JESUS PHD, THANH Irwin V58.69 MEDICATION HIGH RISK 04/07/2014 GRETA HINTON APRN 300.15 DS DISSOCIATIVE DIS NOS 04/07/2014 JESUS PULIDO, THANH Irwin 300.15 DS DISSOCIATIVE DIS NOS 04/07/2014 GRETA HINTON APRN 300.15 DS DISSOCIATIVE DIS NOS 04/07/2014 JESUS PULIDO, THANH Irwin 300.15 DS DISSOCIATIVE DIS NOS Procedures Code [place] [address] PSYCH PHARM MGMT 04/17/2012 50913 INDIV PSYTX 45/50 MIN 04/27/2012 75805 ROUTINE VENIPUNCTURE 05/29/2012 77143 CMP 05/29/2012 64105 LIPID PANEL 05/29/2012 [id number] GFR CALC (RESULT ONLY) 05/29/2012 98581 PSYTX PT&/FAMILY 45 MINUTES 06/22/2012 59678 PSYTX PT&/FAMILY 45 MINUTES 08/03/2012 93882 PSYCH IND W/MED CK 20 09/28/2012 10113 ROUTINE VENIPUNCTURE 01/19/2013 25495 CMP 01/19/2013 28614 LIPID PANEL 01/19/2013 3550106 GFR CALC (RESULT ONLY) 01/19/2013 66690 ROUTINE VENIPUNCTURE 01/22/2013 92292 FERRITIN 01/22/2013 28282 IRON SERUM 01/22/2013 30588 IRON BNDNG CAP 01/22/2013 [id number] HCV INDEX (RESULT ONLY) 01/22/2013 05610 HEPATITIS PROFILE 01/22/2013 IRGROUP IRON GROUP (Iron,TIBC, Ferritin) 01/25/2013 41297 ROUTINE VENIPUNCTURE 02/25/2013 73112 CBC 02/25/2013 55222 PT/INR 02/25/2013 45452 HEP C PCR QUANT (SERIAL) 03/02/2013 64391 PSYTX PT&/FAMILY 45 MINUTES 03/15/2013 96037 PSYTX PT&/FAMILY 45 MINUTES 05/24/2013 46193 PSYTX PT&/FAMILY 45 MINUTES 08/05/2013 02595 PSYTX PT&/FAMILY 45 MINUTES 09/30/2013 37090 PSYTX PT&/FAMILY 45 MINUTES 12/01/2013 76064 ROUTINE VENIPUNCTURE 12/31/2013 89106 CBC 12/31/2013 6535172 GFR CALC (RESULT ONLY) 12/31/2013 20455 CMP 12/31/2013 44944 LIPID PANEL 12/31/2013 02939 IRON SERUM 12/31/2013 27583 IRON BNDNG CAP 12/31/2013 12253 FERRITIN 12/31/2013 [id number] HCV INDEX (RESULT ONLY) 12/31/2013 73615 HEPATITIS PROFILE 12/31/2013 83827 PSYTX PT&/FAMILY 45 MINUTES 01/28/2014 33545 ROUTINE VENIPUNCTURE 02/15/2014 IRGROUP IRON GROUP (Iron,TIBC, Ferritin) 02/15/2014 [id number] GFR CALC (RESULT ONLY) 02/16/2014 98555 CMP 02/16/2014 62862 PSYTX PT&/FAMILY 45 MINUTES 04/19/2014 59610 PSYTX PT&/FAMILY 45 MINUTES 06/17/2014 Results There is no data. Encounters ACCT No. Visit Date/Time Discharge Status Pt. Type Provider Facility Loc./Unit Complaint [id number] 06/17/2014 13:26:00 06/17/2014 23:59:59 CLS Outpatient THANH LEE PHD [id number] 05/19/2014 15:54:00 05/19/2014 23:59:59 CLS Outpatient GRETA HINTON APRN [id number] 04/19/2014 09:49:00 04/19/2014 23:59:59 CLS Outpatient THANH LEE PHD [id number] 04/07/2014 14:04:00 04/07/2014 23:59:59 CLS Outpatient GRETA HINTON APRN [id number] 02/15/2014 14:46:00 02/15/2014 23:59:59 CLS Outpatient RAJ SINGLETON DO [id number] 01/28/2014 12:54:00 01/28/2014 23:59:59 CLS Outpatient THANH LEE PHD [id number] 12/31/2013 12:27:00 12/31/2013 23:59:59 CLS Outpatient ARTURO WELLS APRN [id number] 11/30/2013 14:05:00 11/30/2013 23:59:59 CLS Outpatient THANH LEE PHD [id number] 09/30/2013 13:52:00 09/30/2013 23:59:59 CLS Outpatient THANH LEE PHD [id number] 08/04/2013 13:55:00 08/04/2013 23:59:59 CLS Outpatient THANH LEE PHD [id number] 07/26/2013 11:22:00 07/26/2013 23:59:59 CLS Outpatient ARTURO WELLS APRN [id number] 05/21/2013 12:47:00 05/21/2013 23:59:59 CLS Outpatient THANH LEE PHD [id number] 03/25/2013 09:42:00 03/25/2013 23:59:59 CLS Outpatient MANI RAJ REILLY Lamine [id number] 03/12/2013 12:42:00 03/12/2013 23:59:59 CLS Outpatient THANH LEE PHD [id number] 02/25/2013 14:41:00 02/25/2013 23:59:59 CLS Outpatient CORNELIO TOPETE PA-C [id number] 07/31/2012 15:44:00 07/31/2012 23:59:59 CLS Outpatient [id number] 06/26/2012 10:41:00 06/26/2012 23:59:59 CLS Outpatient MANI RAJ REILLY [id number] 06/19/2012 10:42:00 06/19/2012 23:59:59 CLS Outpatient THANH LEE PHD [id number] 05/29/2012 09:43:00 05/29/2012 23:59:59 CLS Outpatient LANI PADILLA DO Doreen [id number] 04/15/2012 17:01:00 04/15/2012 23:59:59 CLS Outpatient THANH LEE PHD [id number] 01/23/2013 11:07:00 Document Registration [id number] 01/19/2013 08:08:00 Document Registration [id number] 01/18/2013 16:10:00 Document Registration [id number] 09/21/2012 15:07:00 Document Registration [id number] 11/30/2012 08:49:00 11/30/2012 11:15:00 DIS Emergency VITALY ELIAS, PARUL Larson [facility] ER VOMITING [id number] 02/18/2018 15:41:00 ACT Emergency NANO ELIAS, MICKY Browne [facility] ER LLQ SHARP PAIN
--- NOTE | 2018-02-18 16:17 | ED Abdominal Pain ---
General Chief Complaint: Abdominal/GI Problems Stated Complaint: LLQ SHARP PAIN Nursing Triage Note: PT STATES HE IS EXPERIENCING LLQ PAIN THAT BEGAN LAST NIGHT. PAIN IS REPORTED SHARP IN NATURE Sepsis Screen: No Definite Risk Source of Information: Patient, Family (daughter) Exam Limitations: No Limitations History of Present Illness Date Seen by Provider: Feb 18, 2018 Time Seen by Provider: 16:06 Initial Comments The patient presents to the ER by private conveyance with chief complaint that since yesterday evening around 9:00 [place] was sitting around and started having some aggressively worsening sharp pain to his left lower quadrant. No problems with bowel movements or dysuria. Bowel movements does not help either. No nausea vomiting. No fevers or chills. No history of abdominal surgeries. No history of diverticula or colonoscopies. He takes olanzapine for mood, mirtazapine for sleep and atorvastatin for cholesterol. It is not worse with movement but it is worse with pushing on his belly. His last oral intake was last night prior to the pain. He is not taking anything for the pain. Allergies and Home Medications Allergies Coded Allergies: No Known Drug Allergies (Unverified , 10/13/11) Home Medications Atorvastatin Calcium 10 Mg Tablet, 10 MG PO DAILY, (Reported) Promethazine Hcl 25 Mg Tablet, 1 TAB PO QID PRN Prescribed by: PARUL HAIDER on 11/30/12 1106 Quetiapine Fumarate 100 Mg Tablet, 1 TAB PO HS, (Reported) Vilazodone Hydrochloride 1 Each Tab.ds.pk, 1 EACH PO DAILY, (Reported) Patient Home Medication List Home Medication List Reviewed: Yes Review of Systems Review of Systems Constitutional: No chills, No diaphoresis, No fever EENTM: No Blurred Vision, No Double Vision Respiratory: Denies Cough, Denies Shortness of Air Cardiovascular: Denies Chest Pain, Denies Irregular Heart Rate, Denies Lightheadedness Gastrointestinal: Denies Constipated, Denies Diarrhea, Denies Nausea; Poor Appetite Genitourinary: Denies Burning, Denies Discharge, Denies Drainage Musculoskeletal: No back pain, No joint pain Past Rltooxs-Rblrxq-Ylijsq Hx Patient Social History Alcohol Use: Occasionally Uses Alcohol Beverage of Choice: Beer Recreational Drug Use: No Smoking Status: Never a Smoker Recent Foreign Travel: No Contact w/Someone Who Travel: No Recent Infectious Disease Expo: No Immunizations Up To Date Date of Influenza Vaccine: Feb 06, 2011 Past Medical History Reproductive Disorders: No Gastroesophageal Reflux Depression Family Medical History No Pertinent Family Hx Physical Exam Vital Signs Vital Signs - First Documented 02/18/18 16:06 Temp 98.0 Pulse 86 Resp 20 B/P (MAP) 140/78 (98) Pulse Ox 97 O2 Delivery Room Air Capillary Refill : Less Than 3 Seconds Height/Weight/BMI Height: 5'9.00" Weight: 193lbs. oz. 87.836408jq; BMI Method:Stated General Appearance: WD/WN, mild distress HEENT: PERRL/EOMI, pharynx normal Neck: non-tender, normal inspection Respiratory: chest non-tender, lungs clear, normal breath sounds, no respiratory distress, no accessory muscle use Cardiovascular: normal peripheral pulses, regular rate, rhythm Peripheral Pulses: 2+ Radial Pulses (R), 2+ Radial Pulses (L) Gastrointestinal: normal bowel sounds, no organomegaly, guarding (left lower quadrant); No rebound; tenderness (left lower quadrant), other (negative psoas sign or other mesenteric signs.) Extremities: normal range of motion, non-tender Neurologic/Psychiatric: alert, normal mood/affect, oriented x 3 Skin: normal color, warm/dry Focused Exam Lactate Level 02/18/18 16:55: Lactic Acid Level 1.27 Lactic Acid Level Laboratory Tests Test 02/18/18 16:55 Lactic Acid Level 1.27 MMOL/L (0.50-2.00) Progress/Results/Core Measures Results/Orders Lab Results Laboratory Tests Test 02/18/18 16:20 02/18/18 16:55 02/18/18 17:35 Range/Units White Blood Count 12.7 H 4.3-11.0 10^3/uL Red Blood Count 5.21 4.35-5.85 10^6/uL Hemoglobin 16.8 13.3-17.7 G/DL Hematocrit 48 40-54 % Mean Corpuscular Volume 92 80-99 FL Mean Corpuscular Hemoglobin 32 25-34 PG Mean Corpuscular Hemoglobin Concent 35 32-36 G/DL Red Cell Distribution Width 13.1 10.0-14.5 % Platelet Count 220 130-400 10^3/uL Mean Platelet Volume 9.4 7.4-10.4 FL Neutrophils (%) (Auto) 83 H 42-75 % Lymphocytes (%) (Auto) 8 L 12-44 % Monocytes (%) (Auto) 8 0-12 % Eosinophils (%) (Auto) 1 0-10 % Basophils (%) (Auto) 0 0-10 % Neutrophils # (Auto) 10.5 H 1.8-7.8 X 10^3 Lymphocytes # (Auto) 1.1 1.0-4.0 X 10^3 Monocytes # (Auto) 1.0 0.0-1.0 X 10^3 Eosinophils # (Auto) 0.1 0.0-0.3 10^3/uL Basophils # (Auto) 0.0 0.0-0.1 10^3/uL Sodium Level 138 135-145 MMOL/L Potassium Level 3.9 3.6-5.0 MMOL/L Chloride Level 105 98-107 MMOL/L Carbon Dioxide Level 22 21-32 MMOL/L Anion Gap 11 5-14 MMOL/L Blood Urea Nitrogen 9 7-18 MG/DL Creatinine 0.93 0.60-1.30 MG/DL Estimat Glomerular Filtration Rate > 60 BUN/Creatinine Ratio 10 Glucose Level 107 H 70-105 MG/DL Calcium Level 9.5 8.5-10.1 MG/DL Corrected Calcium 9.1 8.5-10.1 MG/DL Magnesium Level 2.2 1.8-2.4 MG/DL Total Bilirubin 1.3 H 0.1-1.0 MG/DL Aspartate Amino Transf (AST/SGOT) 17 5-34 U/L Alanine Aminotransferase (ALT/SGPT) 24 0-55 U/L Alkaline Phosphatase 85 40-136 U/L Total Protein 7.8 6.4-8.2 GM/DL Albumin 4.5 3.2-4.5 GM/DL Lactic Acid Level 1.27 0.50-2.00 MMOL/L Urine Color YELLOW Urine Clarity CLEAR Urine pH 5 5-9 Urine Specific [place] 1.005 L 1.016-1.022 Urine Protein 1+ H NEGATIVE Urine Glucose (UA) NEGATIVE NEGATIVE Urine Ketones 1+ H NEGATIVE Urine Nitrite NEGATIVE NEGATIVE Urine Bilirubin NEGATIVE NEGATIVE Urine Urobilinogen NORMAL NORMAL MG/DL Urine Leukocyte Esterase 2+ H NEGATIVE Urine RBC (Auto) 2+ H NEGATIVE Urine RBC 5-10 H /HPF Urine WBC 5-10 H /HPF Urine Crystals NONE /LPF Urine Bacteria FEW H /HPF Urine Casts NONE /LPF Urine Mucus NEGATIVE /LPF Urine Culture Indicated YES My Orders Orders - MICKY MCGILL Ct Abdomen/Pelvis W (02/18/18 16:11) Saline Lock/Iv-Start (02/18/18 16:11) Cbc With Automated Diff (02/18/18 16:11) Comprehensive Metabolic Panel (02/18/18 16:11) Lactic Acid Analyzer (02/18/18 16:11) Magnesium (02/18/18 16:11) Ua Culture If Indicated (02/18/18 16:11) Saline Lock/Iv-Start (02/18/18 16:11) Ns Iv 1000 Ml (Sodium Chloride 0.9%) (02/18/18 16:11) Ketorolac Injection (Toradol Injection) (02/18/18 16:15) Iohexol Injection (Omnipaque 350 Mg/Ml 1 (02/18/18 17:00) Ns (Ivpb) (Sodium Chloride 0.9%) (02/18/18 17:00) Metronidazole 500mg/100ml Ivpb (Flagyl 5 (02/18/18 18:00) Ciprofloxacin Iv 400mg/200ml (Cipro Iv S (02/18/18 18:00) Urine Culture (02/18/18 17:35) Medications Given in ED Current Medications Medications Dose Ordered Sig/Jan Route Start Time Stop Time Status Last Admin Dose Admin Ciprofloxacin/ Dextrose 200 ml @ 200 mls/hr ONCE ONCE IV 02/18/18 18:00 02/18/18 18:59 DC 02/18/18 18:25 200 MLS/HR Iohexol 100 ml ONCE ONCE IV 02/18/18 17:00 02/18/18 17:02 DC 02/18/18 17:11 100 ML Ketorolac Tromethamine 15 mg ONCE ONCE IVP 02/18/18 16:15 02/18/18 16:16 DC 02/18/18 16:31 15 MG Sodium Chloride 250 ml ONCE ONCE IV 02/18/18 17:00 02/18/18 17:02 DC 02/18/18 17:11 80 ML Vital Signs/I&O 02/18/18 16:06 Temp 98.0 Pulse 86 Resp 20 B/P (MAP) 140/78 (98) Pulse Ox 97 O2 Delivery Room Air Blood Pressure Mean: 98 Progress Progress Note : Time: 16:18 Progress Note Toradol for pain, 1 L normal saline IV, nothing by mouth and will get a CT of the abdomen pelvis with labs and urinalysis. Magnesium in case he has a low potassium. Diagnostic Imaging Diagonstic Imaging: CT (with contrast) Plain Films/CT/US/NM/MRI: abdomen, pelvis Comments VIA [facility]. [place] NAME: PRANAY HARRELL [facility] REC#: [id number] PT STATUS: REG ER : 1955 PHYSICIAN: MICKY MCGILL MD ADMIT DATE: 02/18/18/ER Draft Date of Exam:02/18/18 CT ABDOMEN/PELVIS W PROCEDURE: CT abdomen and pelvis with contrast. TECHNIQUE: Multiple contiguous axial images were obtained through the abdomen and pelvis after administration of intravenous contrast. INDICATION: Left lower quadrant pain. COMPARISON: None available. FINDINGS: Lower chest: There are a few scattered calcified granulomas within the right lung base. Otherwise, the lungs are clear. Peritoneum: No free intraperitoneal air or fluid. Liver and biliary system: There is a benign cavernous type hemangioma in the posterior superior right hepatic lobe, measuring 3.1 x 2.4 cm. The gallbladder is normal. No biliary duct dilation. Spleen and Pancreas: Spleen is normal. The pancreas enhances normally without mass lesion or peripancreatic inflammatory changes. Adrenals: Normal. tract: The kidneys enhance normally without suspicious mass or obstruction. Urinary bladder is distended without wall thickening. Prostate is normal. GI tract: Stomach is decompressed. No bowel obstruction. Sigmoid and descending colon diverticulosis with associated wall thickening and surrounding inflammation is indicative of acute diverticulitis. There is a solitary focus of loculated extraluminal air adjacent to the area of diverticulitis compatible with microperforation. No abscess formation. Normal appendix. Vasculature and Lymph nodes: Normal caliber aorta. No abdominal or pelvic lymphadenopathy. Musculoskeletal: No concerning osseous lesion. IMPRESSION: Acute diverticulitis of the sigmoid colon. There is a solitary punctate focus of contained microperforation. No abscess formation or bowel obstruction. Dictated on workstation # [id number] Dict: 02/18/18 174 Trans: 02/18/181747 [facility] [id number] Interpreted by: CRISTIANA BASILIO MD Electronically signed by: Reviewed: Reviewed by Me Departure Communication (Admissions) Time/Spoke to Admitting Phy: 17:55 Discussed case lab imaging findings with Dr. Chaves and he agrees with antibiotics and observation stay. He says that since the patient doesn't have any medical history he be willing to admit the patient himself and he will swing by the ER shortly to speak with the patient. Impression Primary Impression: Diverticulitis of intestine Qualified Codes: K57.20 - Diverticulitis of large intestine with perforation and abscess without bleeding Disposition: ADMITTED INPATIENT Condition: Stable Admissions Decision to Admit Reason: Admit from ER (General) Decision to Admit/Date: Feb 18, 2018 Time/Decision to Admit Time: 17:56 Departure-Patient Inst. Referrals: [facility] (PCP/Family) Primary Care Physician Copy Copies To 1: RAJ SINGLETON TITUS J Feb 18, 2018 16:17
[2018-02-18 16:34] LABS: BASOPHILS % (AUTO) 0 % (0-10); EOSINOPHILS # (AUTO) 0.1 10^3/uL (0.0-0.3); EOSINOPHILS % (AUTO) 1 % (0-10); HEMATOCRIT 48 % (40-54); HEMOGLOBIN 16.8 G/DL (13.3-17.7); LYMPHOCYTES # (AUTO) 1.1 X 10^3 (1.0-4.0); LYMPHOCYTES % (AUTO) 8 % (12-44); MEAN CORPUSCULAR HEMOGLOBIN 32 PG (25-34); MEAN CORPUSCULAR HGB CONC 35 G/DL (32-36); MEAN CORPUSCULAR VOLUME 92 FL (80-99); MEAN PLATELET VOLUME 9.4 FL (7.4-10.4); MONOCYTES % (AUTO) 8 % (0-12); NEUTROPHILS # (AUTO) 10.5 X 10^3 (1.8-7.8); NEUTROPHILS % (AUTO) 83 % (42-75); PLATELET COUNT 220 10^3/uL (130-400); RED BLOOD COUNT 5.21 10^6/uL (4.35-5.85); RED CELL DISTRIBUTION WIDTH 13.1 % (10.0-14.5); WHITE BLOOD COUNT 12.7 10^3/uL (4.3-11.0)
[2018-02-18 16:57] LABS: ALANINE AMINOTRANSFERASE 24 U/L (0-55); ALBUMIN 4.5 GM/DL (3.2-4.5); ALKALINE PHOSPHATASE 85 U/L (40-136); BILIRUBIN,TOTAL 1.3 MG/DL (0.1-1.0); BUN/CREATININE RATIO 10; CALCIUM 9.5 MG/DL (8.5-10.1); CARBON DIOXIDE 22 MMOL/L (21-32); CHLORIDE 105 MMOL/L (98-107); CREATININE SERUM 0.93 MG/DL (0.60-1.30); GFR ESTIMATED > 60; GLUCOSE 107 MG/DL (70-105); MAGNESIUM 2.2 MG/DL (1.8-2.4); POTASSIUM 3.9 MMOL/L (3.6-5.0); SODIUM 138 MMOL/L (135-145); TOTAL PROTEIN 7.8 GM/DL (6.4-8.2)
[2018-02-18] MEDS ORDERED: NS 250 ML (IVPB) BAG IV ONE (17:00)
[2018-02-18] MEDS ORDERED: IOHEXOL 350 MG/ML 100 ML (OMNIPAQUE 350) VIAL IV ONE (17:00)
--- NOTE | 2018-02-18 17:49 | Diagnostic Imaging Report ---
PROCEDURE: CT abdomen and pelvis with contrast. TECHNIQUE: Multiple contiguous axial images were obtained through the abdomen and pelvis after administration of intravenous contrast. INDICATION: Left lower quadrant pain. COMPARISON: None available. FINDINGS: Lower chest: There are a few scattered calcified granulomas within the right lung base. Otherwise, the lungs are clear. Peritoneum: No free intraperitoneal air or fluid. Liver and biliary system: There is a benign cavernous type hemangioma in the posterior superior right hepatic lobe, measuring 3.1 x 2.4 cm. The gallbladder is normal. No biliary duct dilation. Spleen and Pancreas: Spleen is normal. The pancreas enhances normally without mass lesion or peripancreatic inflammatory changes. Adrenals: Normal. tract: The kidneys enhance normally without suspicious mass or obstruction. Urinary bladder is distended without wall thickening. Prostate is normal. GI tract: Stomach is decompressed. No bowel obstruction. Sigmoid and descending colon diverticulosis with associated wall thickening and surrounding inflammation is indicative of acute diverticulitis. There is a solitary focus of loculated extraluminal air adjacent to the area of diverticulitis compatible with microperforation. No abscess formation. Normal appendix. Vasculature and Lymph nodes: Normal caliber aorta. No abdominal or pelvic lymphadenopathy. Musculoskeletal: No concerning osseous lesion. IMPRESSION: Acute diverticulitis of the sigmoid colon. There is a solitary punctate focus of contained microperforation. No abscess formation or bowel obstruction. Dictated by: Dictated on workstation # [id number]
[2018-02-18 17:52] LABS: BILIRUBIN,URINE NEGATIVE (NEGATIVE); CLARITY,URINE CLEAR; COLOR,URINE YELLOW; GLUCOSE, URINE (UA) NEGATIVE (NEGATIVE); KETONES,URINE 1+ (NEGATIVE); LEUKOCYTE ESTERASE ,URINE 2+ (NEGATIVE); NITRITE,URINE NEGATIVE (NEGATIVE); PH,URINE 5 (5-9); PROTEIN,URINE 1+ (NEGATIVE); UROBILINOGEN,URINE NORMAL (NORMAL)
[2018-02-18] MEDS ORDERED: CIPROFLOXACIN IV 400MG/200ML 200 ML IV ONE (18:00)
[2018-02-18] MEDS ORDERED: metroNIDAZOLE 500MG/100ML IVPB 100 ML IV ONE (18:00)
[2018-02-18 18:05] LABS: BACTERIA,URINE FEW /HPF
[2018-02-18] MEDS ORDERED: ONDANSETRON 4 MG/2 ML (SDV) Z0FRAN IVP PRN (18:30)
--- NOTE | 2018-02-18 18:35 | History & Physical-Surgical ---
History of Present Illness History of Present Illness Reason for visit/HPI HPI per ED:The patient presents to the ER by private conveyance with chief complaint that since yesterday evening around 9:00 [place] was sitting around and started having some aggressively worsening sharp pain to his left lower quadrant. No problems with bowel movements or dysuria. Bowel movements does not help either. No nausea vomiting. No fevers or chills. No history of abdominal surgeries. No history of diverticula or colonoscopies. He takes olanzapine for mood, mirtazapine for sleep and atorvastatin for cholesterol. It is not worse with movement but it is worse with pushing on his belly. His last oral intake was last night prior to the pain. He is not taking anything for the pain. When I spoke to pt he states pain is 6 out of 10, worse with movement. He denies any radiation of the pain. He says he has never had pain like this before; he had a colonoscopy at 48 but nothing since then. He thinks he was told he had polyps, but never told he needed a repeat of the colonoscopy. Date of Admission 02/18/18 Time Seen by Provider: 17:56 I consulted on this patient on 02/18/18 18:30 Attending Physician Admitting Physician [place] [place] Consult Allergies and Home Medications Allergies Coded Allergies: No Known Drug Allergies (Unverified , 10/13/11) Home Medications Atorvastatin Calcium 10 Mg Tablet, 10 MG PO DAILY, (Reported) Promethazine Hcl 25 Mg Tablet, 1 TAB PO QID PRN Prescribed by: PARUL HAIDER on 11/30/12 1106 Quetiapine Fumarate 100 Mg Tablet, 1 TAB PO HS, (Reported) Vilazodone Hydrochloride 1 Each Tab.ds.pk, 1 EACH PO DAILY, (Reported) Patient Home Medication List Home Medication List Reviewed: Yes Past Dopuxiy-Pucswu-Nmdlzk Hx Patient Social History Alcohol Use: Occasionally Uses Recreational Drug Use: No Smoking Status: Never a Smoker Recent Foreign Travel: No Contact w/Someone Who Travel: No Recent Infectious Disease Expo: No Immunizations Up To Date Date of Influenza Vaccine: Feb 06, 2011 Seasonal Allergies Seasonal Allergies: No Surgeries Surgeries: Orthopedic (thumb and shoulder) Respiratory History of Respiratory Disorde: No Cardiovascular History of Cardiac Disorders: No Neurological History of Neurological Disord: No Reproductive System Hx Reproductive Disorders: No Gastrointestinal Gastrointestinal Disorders: Gastroesophageal Reflux Musculoskeletal History of Musculoskeletal Dis: No Endocrine History of Endocrine Disorders: No HEENT History of HEENT Disorders: No Cancer History of Cancer: No Psychosocial History of Psychiatric Problem: No Behavioral Health Disorders: Depression Integumentary History of Skin or Integumenta: Yes Skin/Integumentary Disorders: Eczema Blood Transfusions History of Blood Disorders: No Family Medical History Significant Family History: CAD Over 55 Years Old (Father), Stroke (Mother) Review of Systems Constitutional: chills; No diaphoresis, No weakness EENTM: No double vision, No eye pain, No mouth swelling, No epistaxis Respiratory: No dyspnea on exertion, No hemoptysis, No short of breath Cardiovascular: No chest pain, No edema, No palpitations Gastrointestinal: LLQ, abdominal pain, diarrhea; No melena, No vomiting Genitourinary: No dysuria, No frequency Musculoskeletal: joint pain, joint swelling, muscle stiffness Skin: dryness; No hx of skin cancer Psychiatric/Neurological: Denies Anxiety, Denies Depressed, Denies Seizure, Denies Tremors pt denies any abnormal bleeding or bruising, denies heat or cold intolerance Physical Exam Vital Signs Vital Signs - First Documented 02/18/18 16:06 Temp 98.0 Pulse 86 Resp 20 B/P (MAP) 140/78 (98) Pulse Ox 97 O2 Delivery Room Air Capillary Refill : Less Than 3 Seconds Height, Weight, BMI Height: 5'9.00" Weight: 193lbs. oz. 87.756635ii; BMI Method:Stated General Appearance: WD/WN, Mild Distress Eyes: Bilateral Eye PERRL, Bilateral Eye EOMI HEENT: Pharynx Normal, Moist Mucous Membranes Neck: Full Range of Motion, Normal Inspection, Non Tender, Supple Respiratory: Chest Non Tender, Lungs Clear, Normal Breath Sounds, No Accessory Muscle Use, No Respiratory Distress Cardiovascular: Regular Rate, Rhythm, No Edema, Normal Peripheral Pulses Gastrointestinal: Normal Bowel Sounds, No Organomegaly, Soft, Guarding ( voluntary with deep palpation); No Rebound; Tenderness (LLQ) Extremity: Normal Capillary Refill, Non Tender, No Calf Tenderness, No Pedal Edema Neurologic/Psychiatric: Alert, Oriented x3, No Motor/Sensory Deficits, Normal Mood/Affect, intake clerk II-XII Norm as Tested Skin: Normal Color, Warm/Dry Lymphatic: No Adenopathy (neck, axilla or groin) Data Review Labs Laboratory Tests 02/18/18 16:20: White Blood Count 12.7H, Red Blood Count 5.21, Hemoglobin 16.8, Hematocrit 48, Mean Corpuscular Volume 92, Mean Corpuscular Hemoglobin 32, Mean Corpuscular Hemoglobin Concent 35, Red Cell Distribution Width 13.1, Platelet Count 220, Mean Platelet Volume 9.4, Neutrophils (%) (Auto) 83H, Lymphocytes (%) (Auto) 8L , Monocytes (%) (Auto) 8, Eosinophils (%) (Auto) 1, Basophils (%) (Auto) 0, Neutrophils # (Auto) 10.5H, Lymphocytes # (Auto) 1.1, Monocytes # (Auto) 1.0, Eosinophils # (Auto) 0.1, Basophils # (Auto) 0.0, Sodium Level 138, Potassium Level 3.9, Chloride Level 105, Carbon Dioxide Level 22, Anion Gap 11, Blood Urea Nitrogen 9, Creatinine 0.93, Estimat Glomerular Filtration Rate > 60, BUN/ Creatinine Ratio 10, Glucose Level 107H, Calcium Level 9.5, Corrected Calcium 9.1, Magnesium Level 2.2, Total Bilirubin 1.3H, Aspartate Amino Transf (AST/SGOT ) 17, Alanine Aminotransferase (ALT/SGPT) 24, Alkaline Phosphatase 85, Total Protein 7.8, Albumin 4.5 02/18/18 16:55: Lactic Acid Level 1.27 02/18/18 17:35: Urine Color YELLOW, Urine Clarity CLEAR, Urine pH 5, Urine Specific [place] 1.005L, Urine Protein 1+H, Urine Glucose (UA) NEGATIVE, Urine Ketones 1+H, Urine Nitrite NEGATIVE, Urine Bilirubin NEGATIVE, Urine Urobilinogen NORMAL, Urine Leukocyte Esterase 2+H, Urine RBC (Auto) 2+H, Urine RBC 5-10H, Urine WBC 5 -10H, Urine Crystals NONE, Urine Bacteria FEWH, Urine Casts NONE, Urine Mucus NEGATIVE, Urine Culture Indicated YES Assessment/Plan Assessment/Plan Admission Diagonsis Acute Diverticulitis Admission Status: Observation Assessment/Plan Acute Diverticulitis Plan is to admit for observation, NPO, IV fluids, IV ABX, pain control with IV meds, anti-emetics. When pt's WBC comes down and pain improves we can start on liquid diet and advance slowly. I spoke to pt regarding decreasing red meat (which increases pressure as it moves through colon, thereby worsening diverticulitis) and he will need a colonoscopy as an outpt for screening (he is 5-10 yrs overdue). He understood our plan and all questions answered to his and his 's satisfaction. ALBERTO WHITE DO Feb 18, 2018 18:35
--- OUTSIDE RECORDS SUMMARY | 2018-02-18 19:09 | XMS REPORT | Continuity of Care Document ---
Author Author [facility] Address Unknown Phone Unavailable Allergies There [...] 728.71 Plantar Fascial Fibromatosis 03/14/2011 MARY JANE [employer] S[employer] PROGRAM COORDINATOR, GRETA 728.71 Plantar Fascial Fibromatosis 03/14/2011 THANH LEE PHD 728.71 Plantar Fascial Fibromatosis 03/14/2011 [employer] PROGRAM COORDINATOR, GRETA 728.71 Plantar Fascial Fibromatosis 03/14/2011 THANH [...] CLASSIFIED 03/29/2011 729.5 Pain In Limb 03/29/2011 CORNELIO TOPETE PA-C 311 DEPRESSIVE DISORDER NOT ELSEWHERE [...] PHD 729.5 Pain In Limb 03/29/2011 PRISCILLA [employer] PROGRAM COORDINATORARTURO Porras 311 DEPRESSIVE DISORDER NOT ELSEWHERE CLASSIFIED 03/29/2011 [employer] PROGRAM COORDINATORARTURO Porras 729.5 Pain In Limb 03/29/2011 THANH [...] DEPRESSIVE DISORDER NOT ELSEWHERE CLASSIFIED 03/29/2011 WELLS [employer] PROGRAM COORDINATORARTURO Porras 729.5 Pain In Limb 03/29/2011 THANH LEE PHD 311 DEPRESSIVE DISORDER NOT ELSEWHERE CLASSIFIED 03/29/2011 THANH LEE PHD 729.5 Pain In Limb 03/29/2011 SINGLETON DO, RAJ K 311 DEPRESSIVE DISORDER NOT ELSEWHERE CLASSIFIED 03/29/2011 SINGLETON DO, RAJ K 729.5 Pain In Limb 03/29/2011 [employer] PROGRAM COORDINATOR, GRETA 311 DEPRESSIVE DISORDER NOT ELSEWHERE CLASSIFIED 03/29/2011 [employer] S[employer] PROGRAM COORDINATOR, GRETA 729.5 Pain In Limb 03/29/2011 THANH LEE PHD 311 DEPRESSIVE DISORDER NOT ELSEWHERE CLASSIFIED 03/29/2011 THANH LEE PHD 729.5 Pain In Limb 03/29/2011 [employer] PROGRAM COORDINATOR, GRETA 311 DEPRESSIVE DISORDER NOT ELSEWHERE CLASSIFIED 03/29/2011 [employer] PROGRAM COORDINATOR, GRETA 729.5 Pain In Limb 03/29/2011 THANH [...] LEE PHD 304.80 SA POLYSUB DEP 03/30/2011 THNAH LEE PHD 307.47 SI DYSSOMNIA NOS 03/30/2011 [employer] COORDINATOR, ARTURO REYEZ 296.30 MO DEPRESSIVE RECURRENT UNSPECIFIED 03/30/2011 [employer] PROGRAM COORDINATOR, ARTURO ETIENNEH 304.80 SA POLYSUB DEP 03/30/2011 [employer] PROGRAM COORDINATOR, ARTURO REYEZ 307.47 SI DYSSOMNIA NOS 03/30/2011 [...] PHD 307.47 SI DYSSOMNIA NOS 03/30/2011 [employer] PROGRAM COORDINATOR, ARTURO REYEZ 296.30 MO DEPRESSIVE RECURRENT UNSPECIFIED 03/30/2011 [employer] PROGRAM COORDINATOR, ARTURO ETIENNEH 304.80 SA POLYSUB DEP 03/30/2011 [employer] PROGRAM COORDINATOR, ARTURO REYEZ 307.47 SI DYSSOMNIA NOS 03/30/2011 THANH LEE PHD 296.30 MO DEPRESSIVE RECURRENT UNSPECIFIED 03/30/2011 THANH LEE PHD 304.80 SA POLYSUB DEP 03/30/2011 THANH LEE PHD 307.47 SI DYSSOMNIA NOS 03/30/2011 RAJ SINGLETON DO K 296.30 MO DEPRESSIVE RECURRENT UNSPECIFIED 03/30/2011 RAJ SINGLETON DO K 304.80 SA POLYSUB DEP 03/30/2011 SINGLETON DORAJ K 307.47 SI DYSSOMNIA NOS 03/30/2011 [employer] PROGRAM COORDINATOR, GRETA 296.30 MO DEPRESSIVE RECURRENT UNSPECIFIED 03/30/2011 [employer] PROGRAM COORDINATOR, GRETA 304.80 SA POLYSUB DEP 03/30/2011 [employer] PROGRAM COORDINATOR, GRETA 307.47 SI DYSSOMNIA NOS 03/30/2011 THANH LEE PHD 296.30 MO DEPRESSIVE RECURRENT UNSPECIFIED 03/30/2011 THANH LEE PHD 304.80 SA POLYSUB DEP 03/30/2011 THANH LEE PHD 307.47 SI DYSSOMNIA NOS 03/30/2011 [employer] PROGRAM COORDINATOR, GRETA 296.30 MO DEPRESSIVE RECURRENT UNSPECIFIED 03/30/2011 [employer] S[employer] PROGRAM COORDINATOR, GRETA 304.80 SA POLYSUB DEP 03/30/2011 [employer] S[employer] PROGRAM COORDINATOR, GRETA 307.47 SI DYSSOMNIA NOS 03/30/2011 THANH [...] 296.32 MO DEPRESSIVE RECURRENT MODERATE 05/29/2011 [employer] PROGRAM COORDINATOR, ARTURO REYEZ 296.32 MO DEPRESSIVE RECURRENT MODERATE 05/29/2011 JESUS PULIDO, THANH Irwin 296.32 MO DEPRESSIVE RECURRENT MODERATE 05/29/2011 THANH LEE PHD 296.32 MO DEPRESSIVE RECURRENT MODERATE 05/29/2011 JESUS PULIDO, THANH Irwin 296.32 MO DEPRESSIVE RECURRENT MODERATE 05/29/2011 [employer] PROGRAM COORDINATOR, ARTURO REYEZ 296.32 MO DEPRESSIVE RECURRENT MODERATE 05/29/2011 JESUS PULIDO, THANH Irwin 296.32 MO DEPRESSIVE RECURRENT MODERATE 05/29/2011 RAJ SINGLETON DO 296.32 MO DEPRESSIVE RECURRENT MODERATE 05/29/2011 [employer] PROGRAM COORDINATOR, GRETA 296.32 MO DEPRESSIVE RECURRENT MODERATE 05/29/2011 THANH LEE PHD 296.32 MO DEPRESSIVE RECURRENT MODERATE 05/29/2011 [employer] PROGRAM COORDINATOR, GRETA 296.32 MO DEPRESSIVE RECURRENT MODERATE 05/29/2011 [...] RAJ SINGLETON DO 111.0 PITYRIASIS VERSICOLOR 10/11/2011 RAJ SINGLETON DO [...] A 272.4 OTHER AND UNSPECIFIED HYPERLIPIDEMIA 10/11/2011 PRISCLILA LESTER ARTURO AISSATOU 111.0 PITYRIASIS VERSICOLOR 10/11/2011 PRISCILLA LESTER ARTURO AISSATOU 272.4 OTHER AND UNSPECIFIED HYPERLIPIDEMIA 10/11/2011 THANH LEE PHD A 111.0 PITYRIASIS VERSICOLOR 10/11/2011 THANH LEE PHD A 272.4 OTHER AND UNSPECIFIED HYPERLIPIDEMIA 10/11/2011 SINGLETON NANCY REILLYA K 111.0 PITYRIASIS VERSICOLOR 10/11/2011 RAJ SINGLETON DO 272.4 OTHER AND UNSPECIFIED HYPERLIPIDEMIA 10/11/2011 [employer] PROGRAM COORDINATOR, GRETA 111.0 PITYRIASIS VERSICOLOR 10/11/2011 [employer] S[employer] PROGRAM COORDINATOR, GRETA 272.4 OTHER AND UNSPECIFIED HYPERLIPIDEMIA 10/11/2011 THANH LEE PHD 111.0 PITYRIASIS VERSICOLOR 10/11/2011 THANH LEE PHD 272.4 OTHER AND UNSPECIFIED HYPERLIPIDEMIA 10/11/2011 [employer] S[employer] PROGRAM COORDINATOR, GRETA 111.0 PITYRIASIS VERSICOLOR 10/11/2011 [employer] PROGRAM COORDINATOR, GRETA 272.4 OTHER AND UNSPECIFIED HYPERLIPIDEMIA 10/11/2011 [...] WERDER DO LANI F 782.3 EDEMA 11/06/2011 [facility] DO LANI F 782.7 petichiae 11/06/2011 THANH [...] PHD, THANH Irwin 782.7 Petichiae 11/06/2011 [employer]GRAM COORDINATOR, ARTURO ETIENNEH 782.3 Edema 11/06/2011 [employer] PROGRAM COORDINATOR, ARTURO AISSATOU 782.7 Petichiae 11/06/2011 [facility] PHD, THANH A 782.3 Edema 11/06/2011 [facility] PHD, THANH A 782.7 Petichiae 11/06/2011 [facility] PHD, THANH A 782.3 Edema 11/06/2011 [facility] PHD, THANH A 782.7 Petichiae 11/06/2011 [facility] PHD, HTANH A 782.3 Edema 11/06/2011 [facility] PHD, THANH A 782.7 Petichiae 11/06/2011 [employer] PROGRAM COORDINATOR, ARTURO AISSATOU 782.3 Edema 11/06/2011 [employer] PROGRAM COORDINATOR, ARTURO AISSATOU 782.7 Petichiae 11/06/2011 [facility] PHD, THANH A 782.3 Edema 11/06/2011 [facility] PHD, THANH A 782.7 Petichiae 11/06/2011 SINGLETON DO, RAJ K 782.3 Edema 11/06/2011 SINGLETON DO, RAJ K 782.7 Petichiae 11/06/2011 [employer] PROGRAM COORDINATOR, GRETA 782.3 Edema 11/06/2011 [employer] S[employer] PROGRAM COORDINATOR, GRETA 782.7 Petichiae 11/06/2011 [facility] PHD, THANH [...] PHD A 727.03 TRIGGER FINGER (ACQUIRED) 01/18/2013 [facility] , THANH A 727.03 TRIGGER FINGER (ACQUIRED) 01/18/2013 ARTURO WELLS APRN 727.03 TRIGGER FINGER (ACQUIRED) 01/18/2013 [facility] , THANH A 727.03 TRIGGER FINGER (ACQUIRED) [...] SINGLETON DO 790.4 ABNORMAL LFT (ELEVATED) 01/19/2013 [facility] PHD, THANH A 790.4 ABNORMAL LFT (ELEVATED) 01/19/2013 PRISCILLA LESTER ARTURO ETIENNEH 790.4 ABNORMAL LFT (ELEVATED) 01/19/2013 [facility] PHD, THANH A 790.4 ABNORMAL LFT (ELEVATED) 01/19/2013 [facility] PHD, THANH A 790.4 ABNORMAL LFT (ELEVATED) 01/19/2013 [facility] PHD, THANH A 790.4 ABNORMAL LFT (ELEVATED) 01/19/2013 PRISCILLA LESTER ARTURO AISSATOU 790.4 ABNORMAL LFT (ELEVATED) 01/19/2013 PHD, THANH A 790.4 ABNORMAL LFT (ELEVATED) 01/19/2013 RAJ SINGLETON DO 790.4 ABNORMAL LFT (ELEVATED) 01/19/2013 GRETA HINTON APRN 790.4 ABNORMAL LFT (ELEVATED) 01/19/2013 [facility] PHD, THANH A 790.4 ABNORMAL LFT (ELEVATED) 01/19/2013 GRETA HINTON APRN 790.4 ABNORMAL LFT (ELEVATED) 01/19/2013 [facility] PHD, THANH A 790.4 ABNORMAL LFT [...] 070.70 HEPATITIS C, UNSPEC 01/22/2013 [employer] PROGRAM COORDINATOR, GRETA 070.70 HEPATITIS C, UNSPEC 01/22/2013 JESUS PULIDO, THANH Irwin 070.70 HEPATITIS C, UNSPEC 01/22/2013 [employer] PROGRAM COORDINATOR, GRETA 070.70 HEPATITIS C, UNSPEC 01/22/2013 JESUS [...] OR MAINTAINING SLEEP 03/18/2013 MARY JANE LESTER GREAT 307.42 PERSISTENT DISORDER OF INITIATING OR MAINTAINING SLEEP 03/18/2013 THANH LEE PHD 307.42 PERSISTENT DISORDER OF INITIATING OR MAINTAINING SLEEP 03/18/2013 [employer] PROGRAM COORDINATOR, GRETA 307.42 PERSISTENT DISORDER OF INITIATING OR [...] Procedures Code [place] [address] PSYCH PHARM MGMT 04/17/2012 45754 INDIV PSYTX 45/50 MIN 04/27/2012 09384 ROUTINE VENIPUNCTURE 05/29/2012 87832 CMP 05/29/2012 37948 LIPID PANEL 05/29/2012 [id number] GFR CALC (RESULT ONLY) 05/29/2012 73733 PSYTX PT&/FAMILY 45 MINUTES 06/22/2012 50015 PSYTX PT&/FAMILY 45 MINUTES 08/03/2012 25628 PSYCH IND W/MED CK 20 09/28/2012 57010 ROUTINE VENIPUNCTURE 01/19/2013 88046 CMP 01/19/2013 00628 LIPID PANEL 01/19/2013 [id number] GFR CALC (RESULT ONLY) 01/19/2013 54935 ROUTINE VENIPUNCTURE 01/22/2013 28992 FERRITIN 01/22/2013 35768 IRON SERUM 01/22/2013 46173 IRON BNDNG CAP 01/22/2013 [id number] HCV INDEX (RESULT ONLY) 01/22/2013 39573 HEPATITIS PROFILE 01/22/2013 [facility] IRON GROUP (Iron,TIBC, Ferritin) 01/25/2013 36757 ROUTINE VENIPUNCTURE 02/25/2013 12830 CBC 02/25/2013 93724 PT/INR 02/25/2013 44906 HEP C PCR QUANT (SERIAL) 03/02/2013 31089 PSYTX PT&/FAMILY 45 MINUTES 03/15/2013 43458 PSYTX PT&/FAMILY 45 MINUTES 05/24/2013 48859 PSYTX PT&/FAMILY 45 MINUTES 08/05/2013 90626 PSYTX PT&/FAMILY 45 MINUTES 09/30/2013 06265 PSYTX PT&/FAMILY 45 MINUTES 12/01/2013 73080 ROUTINE VENIPUNCTURE 12/31/2013 01387 CBC 12/31/2013 [id number] GFR CALC (RESULT ONLY) 12/31/2013 12751 CMP 12/31/2013 51939 LIPID PANEL 12/31/2013 65590 IRON SERUM 12/31/2013 61243 IRON BNDNG CAP 12/31/2013 50402 FERRITIN 12/31/2013 3699856 HCV INDEX (RESULT ONLY) 12/31/2013 06211 HEPATITIS PROFILE 12/31/2013 21010 PSYTX PT&/FAMILY 45 MINUTES 01/28/2014 63771 ROUTINE VENIPUNCTURE 02/15/2014 [facility] IRON GROUP (Iron,TIBC, Ferritin) 02/15/2014 [id number] GFR CALC (RESULT ONLY) 02/16/2014 79991 CMP 02/16/2014 61196 PSYTX PT&/FAMILY 45 MINUTES 04/19/2014 29243 PSYTX PT&/FAMILY 45 MINUTES 06/17/2014 Results There is no data. Encounters ACCT No. Visit Date/Time Discharge Status Pt. Type Provider Facility Loc./Unit Complaint [id number] 06/17/2014 13:26:00 06/17/2014 23:59:59 CLS Outpatient THANH LEE PHD [id number] 05/19/2014 15:54:00 05/19/2014 23:59:59 CLS Outpatient GRETA HINTON APRN [id number] 04/19/2014 09:49:00 04/19/2014 23:59:59 CLS Outpatient THANH LEE PHD [id number] 04/07/2014 14:04:00 04/07/2014 23:59:59 CLS Outpatient GRETA HINTON APRN [id number] 02/15/2014 14:46:00 02/15/2014 23:59:59 CLS Outpatient RAJ SINGLETON DO [id number] 01/28/2014 12:54:00 01/28/2014 23:59:59 CLS Outpatient THANH LEE PHD [id number] 12/31/2013 12:27:00 12/31/2013 23:59:59 CLS Outpatient ARTURO WELLS APRN [id number] 11/30/2013 14:05:00 11/30/2013 23:59:59 CLS Outpatient THANH LEE PHD [id number] 09/30/2013 13:52:00 09/30/2013 23:59:59 CLS Outpatient THANH LEE PHD [id number] 08/04/2013 13:55:00 08/04/2013 23:59:59 CLS Outpatient THANH LEE PHD [id number] 07/26/2013 11:22:00 07/26/2013 23:59:59 CLS Outpatient ARTURO WELLS APRN [id number] 05/21/2013 12:47:00 05/21/2013 23:59:59 CLS Outpatient THANH LEE PHD [id number] 03/25/2013 09:42:00 03/25/2013 23:59:59 CLS Outpatient MANI RAJ REILLY Lamine [id number] 03/12/2013 12:42:00 03/12/2013 23:59:59 CLS Outpatient HTANH LEE PHD [id number] 02/25/2013 14:41:00 02/25/2013 23:59:59 CLS Outpatient CORNELIO TOPETE PA-C [id number] 07/31/2012 15:44:00 07/31/2012 23:59:59 CLS Outpatient [id number] 06/26/2012 10:41:00 06/26/2012 23:59:59 CLS Outpatient MANI RAJ REILLY [id number] 06/19/2012 10:42:00 06/19/2012 23:59:59 CLS Outpatient THANH LEE PHD [id number] 05/29/2012 09:43:00 05/29/2012 23:59:59 CLS Outpatient LANI PADILLA DO Doreen [id number] 04/15/2012 17:01:00 04/15/2012 23:59:59 CLS Outpatient THANH LEE PHD [id number] 01/23/2013 11:07:00 Document Registration [id number] 01/19/2013 08:08:00 Document Registration [id number] 01/18/2013 16:10:00 Document Registration [id number] 09/21/2012 15:07:00 Document Registration [id number] 11/30/2012 08:49:00 11/30/2012 11:15:00 DIS Emergency VITALY ELIAS, PARUL Larson [facility] ER VOMITING [id number] 02/18/2018 18:27:00 ACT Inpatient ALBERTO WHITE DO [facility] 4TH DIVERTICULITIS
[2018-02-18 19:15] VITALS: BP 124/74
[2018-02-18] MEDS: LACTATED RINGERS 1,000 ML IV SCH (20:25)
[2018-02-18] MEDS: morphine INJ 4 MG/ML 1 ML (VIAL/SYRINGE) IVP PRN ×2 (20:30→22:46)
[2018-02-18] MEDS: metroNIDAZOLE 500MG/100ML IVPB 100 ML IV SCH (22:14)
[2018-02-18 23:49] VITALS: BP 108/65
[2018-02-19] MEDS: morphine INJ 4 MG/ML 1 ML (VIAL/SYRINGE) IVP PRN ×8 (01:34→23:13)
[2018-02-19] MEDS: LACTATED RINGERS 1,000 ML IV SCH ×5 (01:34→20:44)
[2018-02-19 04:09] VITALS: BP 119/72
[2018-02-19] MEDS: metroNIDAZOLE 500MG/100ML IVPB 100 ML IV SCH ×3 (05:19→22:56)
[2018-02-19 05:59] LABS: BASOPHILS % (AUTO) 0 % (0-10); EOSINOPHILS % (AUTO) 0 % (0-10); HEMATOCRIT 42 % (40-54); HEMOGLOBIN 14.3 G/DL (13.3-17.7); LYMPHOCYTES % (AUTO) 10 % (12-44); MEAN CORPUSCULAR HEMOGLOBIN 32 PG (25-34); MEAN CORPUSCULAR HGB CONC 34 G/DL (32-36); MEAN CORPUSCULAR VOLUME 94 FL (80-99); MEAN PLATELET VOLUME 9.6 FL (7.4-10.4); MONOCYTES # (AUTO) 1.1 X 10^3 (0.0-1.0); MONOCYTES % (AUTO) 11 % (0-12); NEUTROPHILS % (AUTO) 79 % (42-75); PLATELET COUNT 175 10^3/uL (130-400); RED BLOOD COUNT 4.46 10^6/uL (4.35-5.85); WHITE BLOOD COUNT 10.1 10^3/uL (4.3-11.0)
[2018-02-19 06:41] LABS: ALANINE AMINOTRANSFERASE 17 U/L (0-55); ALBUMIN 3.5 GM/DL (3.2-4.5); ALKALINE PHOSPHATASE 63 U/L (40-136); BILIRUBIN,TOTAL 1.4 MG/DL (0.1-1.0); BUN/CREATININE RATIO 12; CALCIUM 8.5 MG/DL (8.5-10.1); CARBON DIOXIDE 18 MMOL/L (21-32); CHLORIDE 105 MMOL/L (98-107); CREATININE SERUM 0.83 MG/DL (0.60-1.30); GFR ESTIMATED > 60; GLUCOSE 118 MG/DL (70-105); POTASSIUM 3.6 MMOL/L (3.6-5.0); SODIUM 136 MMOL/L (135-145); TOTAL PROTEIN 5.8 GM/DL (6.4-8.2)
[2018-02-19] MEDS: CIPROFLOXACIN IV 400MG/200ML 200 ML IV SCH ×2 (07:36→18:15)
[2018-02-19 08:00] VITALS: BP 119/72
[2018-02-19] MEDS ORDERED: ATOR20TA66 PO (08:49)
[2018-02-19] MEDS ORDERED: MIRT30TA6 PO (08:49)
[2018-02-19] MEDS ORDERED: OLAN20TA16 PO (08:49)
--- NOTE | 2018-02-19 10:37 | Progress Note ---
Subjective Time Seen by Provider: 10:01 Subjective/Events-last exam Pt seen and examined, states he still has moderate LLQ pain. He thinks it might be "a little better" than yesterday. Pt denies N/V and has not had any flatus or BM. Review of Systems General: No Chills, No Night Sweats Pulmonary: No Dyspnea, No Cough Cardiovascular: No: Chest Pain, Palpitations Gastrointestinal: Abdominal Pain Focused Exam Lactate Level 02/18/18 16:55: Lactic Acid Level 1.27 Objective Exam Vital Signs Date Time Temp Pulse Resp B/P (MAP) Pulse Ox O2 Delivery O2 Flow Rate FiO2 02/19/18 09:18 99.8 02/19/18 08:00 Room Air 02/19/18 08:00 100.3 95 18 119/72 (88) 95 Room Air 02/19/18 04:09 98.3 87 17 119/72 (88) 95 Room Air 02/18/18 23:49 99.8 99 18 108/65 (79) 95 Room Air 02/18/18 20:30 99.7 02/18/18 19:15 100.8 98 16 124/74 (91) 97 Room Air 02/18/18 19:15 Room Air 02/18/18 19:09 98.0 89 20 125/79 (98) 97 Room Air 02/18/18 16:06 98.0 86 20 140/78 (98) 97 Room Air I & O 02/19/18 07:00 Intake Total 2400 ml Balance 2400 ml Capillary Refill : Less Than 3 Seconds General Appearance: WD/WN, Mild Distress HEENT: Pharynx Normal, Moist Mucous Membranes Neck: Full Range of Motion, Normal Inspection, Non Tender, Supple Respiratory: Chest Non Tender, Lungs Clear, Normal Breath Sounds, No Accessory Muscle Use, No Respiratory Distress Cardiovascular: Regular Rate, Rhythm, No Edema, Normal Peripheral Pulses Peripheral Pulses: 2+ Radial Pulses (R), 2+ Radial Pulses (L) Gastrointestinal: normal bowel sounds, no organomegaly, guarding (left lower quadrant); No rebound; tenderness (left lower quadrant), other (negative psoas sign or other mesenteric signs.) Extremity: Normal Capillary Refill, Non Tender, No Calf Tenderness, No Pedal Edema Neurologic/Psychiatric: Alert, Oriented x3, No Motor/Sensory Deficits, Normal Mood/Affect, can patcher II-XII Norm as Tested Skin: Normal Color, Warm/Dry Lymphatic: No Adenopathy (neck, axilla or groin) Results Lab Laboratory Tests 02/18/18 16:20: White Blood Count 12.7H, Red Blood Count 5.21, Hemoglobin 16.8, Hematocrit 48, Mean Corpuscular Volume 92, Mean Corpuscular Hemoglobin 32, Mean Corpuscular Hemoglobin Concent 35, Red Cell Distribution Width 13.1, Platelet Count 220, Mean Platelet Volume 9.4, Neutrophils (%) (Auto) 83H, Lymphocytes (%) (Auto) 8L , Monocytes (%) (Auto) 8, Eosinophils (%) (Auto) 1, Basophils (%) (Auto) 0, Neutrophils # (Auto) 10.5H, Lymphocytes # (Auto) 1.1, Monocytes # (Auto) 1.0, Eosinophils # (Auto) 0.1, Basophils # (Auto) 0.0, Sodium Level 138, Potassium Level 3.9, Chloride Level 105, Carbon Dioxide Level 22, Anion Gap 11, Blood Urea Nitrogen 9, Creatinine 0.93, Estimat Glomerular Filtration Rate > 60, BUN/ Creatinine Ratio 10, Glucose Level 107H, Calcium Level 9.5, Corrected Calcium 9.1, Magnesium Level 2.2, Total Bilirubin 1.3H, Aspartate Amino Transf (AST/SGOT ) 17, Alanine Aminotransferase (ALT/SGPT) 24, Alkaline Phosphatase 85, Total Protein 7.8, Albumin 4.5 02/18/18 16:55: Lactic Acid Level 1.27 02/18/18 17:35: Urine Color YELLOW, Urine Clarity CLEAR, Urine pH 5, Urine Specific Hamel 1.005L, Urine Protein 1+H, Urine Glucose (UA) NEGATIVE, Urine Ketones 1+H, Urine Nitrite NEGATIVE, Urine Bilirubin NEGATIVE, Urine Urobilinogen NORMAL, Urine Leukocyte Esterase 2+H, Urine RBC (Auto) 2+H, Urine RBC 5-10H, Urine WBC 5 -10H, Urine Crystals NONE, Urine Bacteria FEWH, Urine Casts NONE, Urine Mucus NEGATIVE, Urine Culture Indicated YES 02/19/18 05:15: White Blood Count 10.1, Red Blood Count 4.46, Hemoglobin 14.3, Hematocrit 42, Mean Corpuscular Volume 94, Mean Corpuscular Hemoglobin 32, Mean Corpuscular Hemoglobin Concent 34, Red Cell Distribution Width 13.0, Platelet Count 175, Mean Platelet Volume 9.6, Neutrophils (%) (Auto) 79H, Lymphocytes (%) (Auto) 10L , Monocytes (%) (Auto) 11, Eosinophils (%) (Auto) 0, Basophils (%) (Auto) 0, Neutrophils # (Auto) 8.0H, Lymphocytes # (Auto) 1.0, Monocytes # (Auto) 1.1H, Eosinophils # (Auto) 0.0, Basophils # (Auto) 0.0, Sodium Level 136, Potassium Level 3.6, Chloride Level 105, Carbon Dioxide Level 18L, Anion Gap 13, Blood Urea Nitrogen 10, Creatinine 0.83, Estimat Glomerular Filtration Rate > 60, BUN/ Creatinine Ratio 12, Glucose Level 118H, Calcium Level 8.5, Corrected Calcium 8.9, Total Bilirubin 1.4H, Aspartate Amino Transf (AST/SGOT) 12, Alanine Aminotransferase (ALT/SGPT) 17, Alkaline Phosphatase 63, Total Protein 5.8L, Albumin 3.5 Assessment/Plan Assessment/Plan Assessment/Plan Acute Diverticulitis Pt still has moderate LLQ pain; CT shows contained small perforation and his pain is all in LLQ, no surgery needed at this time. Will continue NPO, IV fluids, IV ABX, pain control with IV meds, anti-emetics. WBC is normal but pain hasn't improved; will keep on ice chips only for now. I spoke to pt regarding decreasing red meat (which increases pressure as it moves through colon, thereby worsening diverticulitis) and he will need a colonoscopy as an outpt for screening (he is 5-10 yrs overdue). Clinical Quality Measures DVT/VTE Risk/Contraindication: Risk Factor Score Per Nursin RFS Level Per Nursing on Admit: 2=Moderate ALBERTO WHITE DO Feb 19, 2018 10:37
[2018-02-19 12:00] VITALS: BP 145/73
[2018-02-19 15:55] VITALS: BP 128/64
[2018-02-19 19:55] VITALS: BP 124/80
[2018-02-20 00:39] VITALS: BP 111/67
[2018-02-20 04:06] VITALS: BP 134/68
[2018-02-20] MEDS: LACTATED RINGERS 1,000 ML IV SCH ×4 (04:32→23:43)
[2018-02-20] MEDS: morphine INJ 4 MG/ML 1 ML (VIAL/SYRINGE) IVP PRN ×7 (05:55→23:47)
[2018-02-20] MEDS: metroNIDAZOLE 500MG/100ML IVPB 100 ML IV SCH ×3 (05:57→21:25)
[2018-02-20] MEDS: CIPROFLOXACIN IV 400MG/200ML 200 ML IV SCH ×2 (06:55→18:25)
[2018-02-20 08:00] VITALS: BP 109/70
--- NOTE | 2018-02-20 08:28 | Progress Note ---
Subjective Date Seen by Provider: Feb 20, 2018 Time Seen by Provider: 07:55 Subjective/Events-last exam Pt seen and evaluated by me (student), he reports he is still having LLQ pain rated 5/10. Denies N/V. No bowel movements. Denies fevers or chills. Dr. Chaves I evaluated pt at 10:01, pt states he is feeling better but still with the LLQ. He would like to eat and also wants to get out of here. Review of Systems General: No Chills, No Fatigue, No Malaise HEENT: No Head Aches, No Dysphasia Pulmonary: No Dyspnea, No Cough Cardiovascular: No: Chest Pain, Palpitations Gastrointestinal: Abdominal Pain; No: Nausea, Vomiting Genitourinary: No Dysuria, No Frequency Musculoskeletal: No: neck pain, back pain Neurological: No: Weakness, Numbness, Incoordination, Change in speech, Confusion Focused Exam Lactate Level 02/18/18 16:55: Lactic Acid Level 1.27 Objective Exam Vital Signs Date Time Temp Pulse Resp B/P (MAP) Pulse Ox O2 Delivery O2 Flow Rate FiO2 02/20/18 04:06 98.2 85 20 134/68 (90) 94 Room Air 02/20/18 00:39 97.5 84 20 111/67 (82) 95 Room Air 02/19/18 20:00 Room Air 02/19/18 19:55 99.4 86 22 124/80 (95) 94 Room Air 02/19/18 16:38 99.6 02/19/18 15:55 101.4 85 13 128/64 (85) 94 02/19/18 14:28 100.1 02/19/18 12:00 100.3 82 20 145/73 (97) 94 Room Air 02/19/18 09:18 99.8 I & O 02/20/18 07:00 Intake Total 2600 ml Output Total 2300 ml Balance 300 ml Capillary Refill : Less Than 3 Seconds General Appearance: No Apparent Distress, WD/WN HEENT: PERRL/EOMI, Pharynx Normal, Moist Mucous Membranes Neck: Full Range of Motion, Normal Inspection, Non Tender, Supple Respiratory: Chest Non Tender, Lungs Clear, Normal Breath Sounds, No Accessory Muscle Use, No Respiratory Distress Cardiovascular: Regular Rate, Rhythm, No Edema, Normal Peripheral Pulses Peripheral Pulses: 2+ Radial Pulses (R), 2+ Radial Pulses (L) Gastrointestinal: normal bowel sounds, no organomegaly, guarding (left lower quadrant); No rebound; tenderness (left lower quadrant, localized pain just to this side, however he is very tender with even light palpation.), other ( negative psoas sign or other mesenteric signs.) Extremity: Normal Capillary Refill, Non Tender, No Calf Tenderness, No Pedal Edema Neurologic/Psychiatric: Alert, Oriented x3, No Motor/Sensory Deficits, Normal Mood/Affect, 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 I discussed the reasons why he could not eat and why he was going to have to spend more time in the hospital. We discussed the possible course of repeated diverticulitis attacks and possible need for surgery in future. That is what we are trying to avoid at this time. He understood but was obviously dissapointed about not eating and not going home. I did a full physical exam and agree with findings; plus updated some to my exam. Pt will need a colonoscopy as an outpt for screening (he is 5-10 yrs overdue). 02/20/18 student A/P: Pt still reporting LLQ abdominal pain rated 5/10. Will continue NPO (except ice chips), IV fluids, and symptom control and reassess tomorrow. Clinical Quality Measures DVT/VTE Risk/Contraindication: Risk Factor Score Per Nursin RFS Level Per Nursing on Admit: 2=Moderate DOMINGA MENESES MEDICAL STUDENT Feb 20, 2018 08:28 ALBERTO CHAVES DO Feb 20, 2018 10:30
[2018-02-20 12:00] VITALS: BP 121/74
[2018-02-20 16:15] VITALS: BP 111/70
[2018-02-20 19:53] VITALS: BP 108/71
[2018-02-21 00:02] VITALS: BP 135/74
[2018-02-21 03:24] VITALS: BP 117/68
[2018-02-21] MEDS: metroNIDAZOLE 500MG/100ML IVPB 100 ML IV SCH ×3 (05:01→22:15)
[2018-02-21] MEDS: CIPROFLOXACIN IV 400MG/200ML 200 ML IV SCH ×2 (06:02→18:29)
[2018-02-21 06:03] LABS: BASOPHILS % (AUTO) 0 % (0-10); EOSINOPHILS # (AUTO) 0.2 10^3/uL (0.0-0.3); EOSINOPHILS % (AUTO) 3 % (0-10); HEMATOCRIT 40 % (40-54); HEMOGLOBIN 13.9 G/DL (13.3-17.7); LYMPHOCYTES # (AUTO) 1.4 X 10^3 (1.0-4.0); LYMPHOCYTES % (AUTO) 21 % (12-44); MEAN CORPUSCULAR HGB CONC 35 G/DL (32-36); MEAN CORPUSCULAR VOLUME 94 FL (80-99); MEAN PLATELET VOLUME 9.8 FL (7.4-10.4); MONOCYTES # (AUTO) 0.7 X 10^3 (0.0-1.0); MONOCYTES % (AUTO) 11 % (0-12); NEUTROPHILS # (AUTO) 4.2 X 10^3 (1.8-7.8); NEUTROPHILS % (AUTO) 66 % (42-75); PLATELET COUNT 170 10^3/uL (130-400); RED BLOOD COUNT 4.28 10^6/uL (4.35-5.85); RED CELL DISTRIBUTION WIDTH 12.8 % (10.0-14.5); WHITE BLOOD COUNT 6.5 10^3/uL (4.3-11.0)
[2018-02-21] MEDS: morphine INJ 4 MG/ML 1 ML (VIAL/SYRINGE) IVP PRN ×3 (06:03→22:16)
[2018-02-21 06:04] LABS: MEAN CORPUSCULAR HEMOGLOBIN 32 PG (25-34)
[2018-02-21 06:20] LABS: ALANINE AMINOTRANSFERASE 12 U/L (0-55); ALBUMIN 3.5 GM/DL (3.2-4.5); ALKALINE PHOSPHATASE 56 U/L (40-136); BILIRUBIN,TOTAL 0.9 MG/DL (0.1-1.0); BUN/CREATININE RATIO 9; CARBON DIOXIDE 18 MMOL/L (21-32); CHLORIDE 104 MMOL/L (98-107); GFR ESTIMATED > 60; GLUCOSE 91 MG/DL (70-105); POTASSIUM 3.8 MMOL/L (3.6-5.0); SODIUM 136 MMOL/L (135-145); TOTAL PROTEIN 6.4 GM/DL (6.4-8.2)
[2018-02-21 08:38] VITALS: BP 117/79
[2018-02-21] MEDS: LACTATED RINGERS 1,000 ML IV SCH ×3 (09:02→16:53)
[2018-02-21 11:52] VITALS: BP 114/76
[2018-02-21 16:44] VITALS: BP 132/77
[2018-02-21 20:55] VITALS: BP 127/77
--- NOTE | 2018-02-21 22:18 | Progress Note ---
Subjective Date Seen by Provider: Feb 21, 2018 Time Seen by Provider: 14:17 Subjective/Events-last exam patient feeling better. Continues to have less pain in the LLQ, but not completely gone yet. wbc normal range today. wanting food. Denies n/v feve sweats chills shortness of breath or chest pain. Objective Exam Vital Signs Date Time Temp Pulse Resp B/P (MAP) Pulse Ox O2 Delivery O2 Flow Rate FiO2 02/21/18 20:55 98.3 62 18 127/77 (94) 97 Room Air 02/21/18 20:00 Room Air 02/21/18 16:44 98.2 67 18 132/77 (95) 94 Room Air 02/21/18 11:52 98.7 63 18 114/76 (89) 96 Room Air 02/21/18 08:38 99.4 68 18 117/79 (92) 96 Room Air 02/21/18 07:39 Room Air 02/21/18 03:24 98.0 65 18 117/68 (84) 95 Room Air 02/21/18 00:14 97.7 02/21/18 00:02 100.0 73 20 135/74 (94) 98 Room Air I & O 02/21/18 07:00 Intake Total 2550 ml Output Total 3450 ml Balance -900 ml Capillary Refill : Less Than 3 SecondsLess Than 3 Seconds General Appearance: No Apparent Distress, WD/WN HEENT: PERRL/EOMI, Pharynx Normal, Moist Mucous Membranes Neck: Full Range of Motion, Normal Inspection, Non Tender, Supple Respiratory: Chest Non Tender, Lungs Clear, Normal Breath Sounds, No Accessory Muscle Use, No Respiratory Distress Cardiovascular: Regular Rate, Rhythm, No Edema, Normal Peripheral Pulses Peripheral Pulses: 2+ Radial Pulses (R), 2+ Radial Pulses (L) Gastrointestinal: normal bowel sounds, no organomegaly; No rebound; tenderness (left lower quadrant, pain left lower quadrant), other (negative psoas sign or other mesenteric signs.) Extremity: Normal Capillary Refill, Non Tender, No Calf Tenderness, No Pedal Edema Neurologic/Psychiatric: Alert, Oriented x3, No Motor/Sensory Deficits, Normal Mood/Affect, 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 Skin: Normal Color, Warm/Dry Lymphatic: No Adenopathy (neck, axilla or groin) Results Lab Laboratory Tests 02/21/18 05:27: White Blood Count 6.5, Red Blood Count 4.28L, Hemoglobin 13.9, Hematocrit 40, Mean Corpuscular Volume 94, Mean Corpuscular Hemoglobin 32, Mean Corpuscular Hemoglobin Concent 35, Red Cell Distribution Width 12.8, Platelet Count 170, Mean Platelet Volume 9.8, Neutrophils (%) (Auto) 66, Lymphocytes (%) (Auto) 21, Monocytes (%) (Auto) 11, Eosinophils (%) (Auto) 3, Basophils (%) (Auto) 0, Neutrophils # (Auto) 4.2, Lymphocytes # (Auto) 1.4, Monocytes # (Auto) 0.7, Eosinophils # (Auto) 0.2, Basophils # (Auto) 0.0, Sodium Level 136, Potassium Level 3.8, Chloride Level 104, Carbon Dioxide Level 18L, Anion Gap 14, Blood Urea Nitrogen 7, Creatinine 0.80, Estimat Glomerular Filtration Rate > 60, BUN/ Creatinine Ratio 9, Glucose Level 91, Calcium Level 9.0, Corrected Calcium 9.4, Total Bilirubin 0.9, Aspartate Amino Transf (AST/SGOT) 12, Alanine Aminotransferase (ALT/SGPT) 12, Alkaline Phosphatase 56, Total Protein 6.4, Albumin 3.5 Microbiology 02/18/18 Urine Culture - Final, Complete NO GROWTH Assessment/Plan Assessment/Plan Assessment/Plan acute diverticultiits llq abdominal pain. patient states pain conntinues to improve wbc in normal range will start on clear liquids but informed patient to keep it limited continue abx Clinical Quality Measures DVT/VTE Risk/Contraindication: Risk Factor Score Per Nursin RFS Level Per Nursing on Admit: 2=Moderate MOE VILLA DO Feb 21, 2018 22:18
[2018-02-22] VITALS: BP 112/75
[2018-02-22] MEDS: LACTATED RINGERS 1,000 ML IV SCH ×4 (03:53→22:43)
[2018-02-22 04:00] VITALS: BP 121/67
--- NOTE | 2018-02-22 04:35 | Progress Note ---
Subjective Date Seen by Provider: Feb 22, 2018 Time Seen by Provider: 04:33 Subjective/Events-last exam feeling about the same as yesterday. tolerating clears. Had a bm. Denies n/v fever sweats chills shortness of breath or chest pain. Objective Exam Vital Signs Date Time Temp Pulse Resp B/P (MAP) Pulse Ox O2 Delivery O2 Flow Rate FiO2 02/22/18 04:00 99.4 59 20 121/67 (85) 95 Room Air 02/22/18 00:00 99.5 60 20 112/75 (87) 95 Room Air 02/21/18 20:55 98.3 62 18 127/77 (94) 97 Room Air 02/21/18 20:00 Room Air 02/21/18 16:44 98.2 67 18 132/77 (95) 94 Room Air 02/21/18 11:52 98.7 63 18 114/76 (89) 96 Room Air 02/21/18 08:38 99.4 68 18 117/79 (92) 96 Room Air 02/21/18 07:39 Room Air I & O 02/22/18 07:00 Intake Total 2044 ml Output Total 2300 ml Balance -256 ml Capillary Refill : Less Than 3 SecondsLess Than 3 Seconds General Appearance: No Apparent Distress, WD/WN HEENT: PERRL/EOMI, Pharynx Normal, Moist Mucous Membranes Neck: Full Range of Motion, Normal Inspection, Non Tender, Supple Respiratory: Chest Non Tender, Lungs Clear, Normal Breath Sounds, No Accessory Muscle Use, No Respiratory Distress Cardiovascular: Regular Rate, Rhythm, No Edema, Normal Peripheral Pulses Peripheral Pulses: 2+ Radial Pulses (R), 2+ Radial Pulses (L) Gastrointestinal: normal bowel sounds, no organomegaly; No rebound; tenderness (left lower quadrant, pain left lower quadrant about same as yesterday.), other (negative psoas sign or other mesenteric signs.) Extremity: Normal Capillary Refill, Non Tender, No Calf Tenderness, No Pedal Edema Neurologic/Psychiatric: Alert, Oriented x3, No Motor/Sensory Deficits, Normal Mood/Affect, rope tier II-XII Norm as Tested Skin: Normal Color, Warm/Dry Lymphatic: No Adenopathy (neck, axilla or groin) Results Lab Laboratory Tests 02/21/18 05:27: White Blood Count 6.5, Red Blood Count 4.28L, Hemoglobin 13.9, Hematocrit 40, Mean Corpuscular Volume 94, Mean Corpuscular Hemoglobin 32, Mean Corpuscular Hemoglobin Concent 35, Red Cell Distribution Width 12.8, Platelet Count 170, Mean Platelet Volume 9.8, Neutrophils (%) (Auto) 66, Lymphocytes (%) (Auto) 21, Monocytes (%) (Auto) 11, Eosinophils (%) (Auto) 3, Basophils (%) (Auto) 0, Neutrophils # (Auto) 4.2, Lymphocytes # (Auto) 1.4, Monocytes # (Auto) 0.7, Eosinophils # (Auto) 0.2, Basophils # (Auto) 0.0, Sodium Level 136, Potassium Level 3.8, Chloride Level 104, Carbon Dioxide Level 18L, Anion Gap 14, Blood Urea Nitrogen 7, Creatinine 0.80, Estimat Glomerular Filtration Rate > 60, BUN/ Creatinine Ratio 9, Glucose Level 91, Calcium Level 9.0, Corrected Calcium 9.4, Total Bilirubin 0.9, Aspartate Amino Transf (AST/SGOT) 12, Alanine Aminotransferase (ALT/SGPT) 12, Alkaline Phosphatase 56, Total Protein 6.4, Albumin 3.5 Microbiology 02/18/18 Urine Culture - Final, Complete NO GROWTH Assessment/Plan Assessment/Plan Assessment/Plan acute diverticultiits llq abdominal pain. pain about same as yesterday- pain control repeat labs in am stay on clear today continue abx Clinical Quality Measures DVT/VTE Risk/Contraindication: Risk Factor Score Per Nursin RFS Level Per Nursing on Admit: 2=Moderate MOE VILLA DO Feb 22, 2018 04:35
[2018-02-22] MEDS: metroNIDAZOLE 500MG/100ML IVPB 100 ML IV SCH ×3 (05:51→22:43)
[2018-02-22] MEDS: morphine INJ 4 MG/ML 1 ML (VIAL/SYRINGE) IVP PRN (05:54)
[2018-02-22] MEDS: CIPROFLOXACIN IV 400MG/200ML 200 ML IV SCH ×2 (07:01→18:45)
[2018-02-22 08:00] VITALS: BP 112/74
[2018-02-22 12:28] VITALS: BP 136/63
[2018-02-22 16:00] VITALS: BP 134/74
[2018-02-22 20:00] VITALS: BP 119/70
[2018-02-23] VITALS: BP 114/66
[2018-02-23 04:00] VITALS: BP 131/77
[2018-02-23] MEDS: metroNIDAZOLE 500MG/100ML IVPB 100 ML IV SCH ×2 (05:32→15:04)
[2018-02-23] MEDS: LACTATED RINGERS 1,000 ML IV SCH ×2 (05:32→11:48)
[2018-02-23 06:25] LABS: HEMOGLOBIN 13.1 G/DL (13.3-17.7); MEAN PLATELET VOLUME 9.8 FL (7.4-10.4); RED BLOOD COUNT 4.14 10^6/uL (4.35-5.85); RED CELL DISTRIBUTION WIDTH 12.5 % (10.0-14.5); WHITE BLOOD COUNT 4.8 10^3/uL (4.3-11.0)
[2018-02-23] MEDS: CIPROFLOXACIN IV 400MG/200ML 200 ML IV SCH (06:44)
[2018-02-23 06:54] LABS: BUN/CREATININE RATIO 7; CALCIUM 8.7 MG/DL (8.5-10.1); CARBON DIOXIDE 21 MMOL/L (21-32); CHLORIDE 109 MMOL/L (98-107); CREATININE SERUM 0.71 MG/DL (0.60-1.30); GFR ESTIMATED > 60; GLUCOSE 110 MG/DL (70-105); POTASSIUM 3.2 MMOL/L (3.6-5.0); SODIUM 137 MMOL/L (135-145)
[2018-02-23 08:28] VITALS: BP 124/74
--- NOTE | 2018-02-23 11:10 | Progress Note ---
Subjective Time Seen by Provider: 11:01 Subjective/Events-last exam Pt seen and examined, states he feels "great". He is tolerating clears, +BM and states no pain "unless I move". Pt is eager to go home. Review of Systems General: No Chills Pulmonary: No Dyspnea, No Cough Cardiovascular: No: Chest Pain Gastrointestinal: No: Nausea, Vomiting, Diarrhea, Constipation Objective Exam Vital Signs Date Time Temp Pulse Resp B/P (MAP) Pulse Ox O2 Delivery O2 Flow Rate FiO2 02/23/18 08:28 98.0 70 18 124/74 (91) 96 Room Air 02/23/18 04:00 98.9 63 20 131/77 (95) 95 Room Air 02/23/18 00:00 98.2 59 20 114/66 (82) 95 Room Air 02/22/18 20:00 Room Air 02/22/18 20:00 98.4 61 20 119/70 (86) 96 Room Air 02/22/18 16:00 100.5 60 24 134/74 (94) 97 Room Air 02/22/18 12:28 98.6 68 20 136/63 (87) 96 Room Air I & O 02/23/18 07:00 Intake Total 4180 ml Output Total 2075 ml Balance 2105 ml Capillary Refill : Less Than 3 SecondsLess Than 3 Seconds General Appearance: No Apparent Distress, WD/WN HEENT: PERRL/EOMI, Pharynx Normal, Moist Mucous Membranes Respiratory: Chest Non Tender, Lungs Clear, Normal Breath Sounds, No Accessory Muscle Use, No Respiratory Distress Cardiovascular: Regular Rate, Rhythm, No Edema, Normal Peripheral Pulses Peripheral Pulses: 2+ Radial Pulses (R), 2+ Radial Pulses (L) Gastrointestinal: normal bowel sounds, no organomegaly; No rebound; tenderness (left lower quadrant very minimal even with deep palpation), other Extremity: Normal Capillary Refill, Non Tender, No Calf Tenderness, No Pedal Edema Neurologic/Psychiatric: Alert, Oriented x3, No Motor/Sensory Deficits, Normal Mood/Affect, 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 Norm as Tested Skin: Normal Color, Warm/Dry Lymphatic: No Adenopathy (neck, axilla or groin) Results Lab Laboratory Tests 02/23/18 05:39: White Blood Count 4.8, Red Blood Count 4.14L, Hemoglobin 13.1L, Hematocrit 39L, Mean Corpuscular Volume 93, Mean Corpuscular Hemoglobin 32, Mean Corpuscular Hemoglobin Concent 34, Red Cell Distribution Width 12.5, Platelet Count 211, Mean Platelet Volume 9.8, Sodium Level 137, Potassium Level 3.2L, Chloride Level 109H, Carbon Dioxide Level 21, Anion Gap 7, Blood Urea Nitrogen 5L, Creatinine 0.71, Estimat Glomerular Filtration Rate > 60, BUN/Creatinine Ratio 7 , Glucose Level 110H, Calcium Level 8.7 Microbiology 02/18/18 Urine Culture - Final, Complete NO GROWTH Assessment/Plan Assessment/Plan Assessment/Plan Acute diverticultiits LLQ abdominal pain. Pain is much improved will switch to oral ABX and start soft diet; if he tolerates diet he can go home today. Clinical Quality Measures DVT/VTE Risk/Contraindication: Risk Factor Score Per Nursin RFS Level Per Nursing on Admit: 2=Moderate ALBERTO WHITE DO Feb 23, 2018 11:10
[2018-02-23] MEDS ORDERED: CIPR-242 PO (11:15)
[2018-02-23] MEDS ORDERED: METR500T PO (11:15)
--- NOTE | 2018-02-23 11:16 | Discharge Inst-Surgical ---
Discharge Inst-Surgical Depart Medication/Instructions New, Converted or Re-Newed RX: Transmitted to Pharmacy Patient Instructions Follow up Appt: Make appointment for 1 week. Instructions: No strenuous activity. May shower in 24 hours, no tub bath or soaking. Use incentive spirometer at home as directed. No Smoking Symptoms to Report: Appetite Changes, Extremity Discoloration, Numbness/Tingling, Swelling Increased , Bleeding Excessive, Eyesight Changes, Pain Increased, Urine Color Change, Constipation(Persistent), Fever over 101 degree F, Pain/Pressure in chest, Urinating Difficulty, Cough Up/Vomit Blood, Heart Beat Irreg/Pounding, Pain/ Pressure in jaw, Cramps in feet or legs, Lightheadedness, Pain/Pressure in shoulder, Diarrhea(Persistent), Memory Changes Suddenly, Questions/Concerns, Weight gain consecutive days, Dizziness/Fainting, Nausea/Vomiting, Shortness of Breath, Weight gain over 2 pounds If questions or concerns contact your physician Or seek help at emergency department. Activity Activity as Tolerated: Yes Diet Discharge Diet: Low Residue Skin/Wound Care Bathing Instructions: ALBERTO Waddell DO Feb 23, 2018 11:16
[2018-02-23 12:43] VITALS: BP 128/64
--- OUTSIDE RECORDS SUMMARY | 2018-02-25 14:45 | XMS REPORT | Continuity of Care Document ---
Author Author [facility] of [facility] of [facility] Address Unknown Phone Unavailable Allergies Active Description Code Type Severity Reaction Onset Reported/Identified Relationship to Patient Clinical Status Yes No Known Drug Allergies [id number] Drug Allergy Unknown N/A 10/13/2011 Medications There is no data. Problems Date [...] 728.71 Plantar Fascial Fibromatosis 03/14/2011 MARY JANE SPORTS EQUIPMENT REPAIRER, GRETA 728.71 Plantar Fascial Fibromatosis 03/14/2011 THANH LEE PHD 728.71 Plantar Fascial Fibromatosis 03/14/2011 MARY JANE SPORTS EQUIPMENT REPAIRER, GRETA 728.71 Plantar Fascial Fibromatosis 03/14/2011 THANH [...] NOT ELSEWHERE CLASSIFIED 03/29/2011 RAJ SINGLETON DO K 729.5 Pain In Limb 03/29/2011 311 DEPRESSIVE [...] Pain In Limb 03/29/2011 RAJ SINGLETON DO K 311 DEPRESSIVE DISORDER NOT ELSEWHERE CLASSIFIED 03/29/2011 SINGLETON DO, RAJ K 729.5 Pain In Limb 03/29/2011 BOEJUDEOUT PHD, THANH A 311 DEPRESSIVE DISORDER NOT ELSEWHERE CLASSIFIED 03/29/2011 THANH LEE PHD A 729.5 Pain In Limb 03/29/2011 ARTURO WELLS APRN 311 DEPRESSIVE DISORDER NOT ELSEWHERE CLASSIFIED 03/29/2011 PRISCILLA SPORTS EQUIPMENT REPAIRERARTURO Porras 729.5 Pain In Limb 03/29/2011 BOEOUT THANH PULIDO A 311 DEPRESSIVE DISORDER NOT ELSEWHERE CLASSIFIED 03/29/2011 BOEOUT PHDTHANH A 729.5 Pain In Limb 03/29/2011 BOEOUT PHDTHANH A 311 DEPRESSIVE DISORDER NOT ELSEWHERE CLASSIFIED 03/29/2011 [facility] THANH PULIDO A 729.5 Pain In Limb 03/29/2011 BOEOUT THANH PULIDO A 311 DEPRESSIVE DISORDER NOT ELSEWHERE CLASSIFIED 03/29/2011 [facility] THANH PULIDO A 729.5 Pain In Limb 03/29/2011 ARTURO WELLS APRN 311 DEPRESSIVE DISORDER NOT ELSEWHERE CLASSIFIED 03/29/2011 WELLS ARTURO LESTER 729.5 Pain In Limb 03/29/2011 BOETHANH BARRAZA PHD A 311 DEPRESSIVE DISORDER NOT ELSEWHERE CLASSIFIED 03/29/2011 THANH LEE PHD A 729.5 Pain In Limb 03/29/2011 SINGLETON DO, RAJ K 311 DEPRESSIVE DISORDER NOT ELSEWHERE CLASSIFIED 03/29/2011 SINGLETON DO, RAJ K 729.5 Pain In Limb 03/29/2011 MARY JANE SPORTS EQUIPMENT REPAIRER, GRETA 311 DEPRESSIVE DISORDER NOT ELSEWHERE CLASSIFIED 03/29/2011 MARY JANE SPORTS EQUIPMENT REPAIRER, GRETA 729.5 Pain In Limb 03/29/2011 BOETHANH GALICIA PHD A 311 DEPRESSIVE DISORDER NOT ELSEWHERE CLASSIFIED 03/29/2011 BOETHANH GALICIA PHD A 729.5 Pain In Limb 03/29/2011 MARY JANE SPORTS EQUIPMENT REPAIRER, GRETA 311 DEPRESSIVE DISORDER NOT ELSEWHERE CLASSIFIED 03/29/2011 MARY JANE SPORTS EQUIPMENT REPAIRER, GRETA 729.5 Pain In Limb 03/29/2011 BOETHANH GALICIA PHD A 311 DEPRESSIVE DISORDER NOT ELSEWHERE CLASSIFIED 03/29/2011 THANH LEE PHD A 729.5 Pain In Limb 03/30/2011 THANH LEE PHD A 296.30 MO DEPRESSIVE RECURRENT UNSPECIFIED 03/30/2011 THANH LEE PHD 304.80 SA POLYSUB DEP 03/30/2011 THANH LEE PHD 307.47 SI DYSSOMNIA NOS 03/30/2011 LANI PADILLA DO F 296.30 MO DEPRESSIVE RECURRENT UNSPECIFIED 03/30/2011 VALERIE REILLY, LANI F 304.80 SA POLYSUB DEP 03/30/2011 LANI PADILLA DO F 307.47 SI DYSSOMNIA NOS 03/30/2011 THANH [...] PHD 296.30 MO DEPRESSIVE RECURRENT UNSPECIFIED 03/30/2011 JESUS PULIDO, THANH Irwin 304.80 SA POLYSUB DEP 03/30/2011 JESUS PULIDO, THANH Irwin 307.47 SI DYSSOMNIA NOS 03/30/2011 SINGLETON DO, RAJ K 296.30 MO DEPRESSIVE RECURRENT UNSPECIFIED 03/30/2011 SINGLETON DO, RAJ K 304.80 SA POLYSUB DEP 03/30/2011 SINGLETON DO, RAJ K 307.47 SI DYSSOMNIA NOS 03/30/2011 JESUS PULIDO, THANH Irwin 296.30 MO DEPRESSIVE RECURRENT UNSPECIFIED 03/30/2011 JESUS PULIDO, THANH Irwin 304.80 SA POLYSUB DEP 03/30/2011 JESUS PULIDO, THANH Irwin 307.47 SI DYSSOMNIA NOS 03/30/2011 WELLS TREVON, ARTURO REYEZ 296.30 MO DEPRESSIVE RECURRENT UNSPECIFIED 03/30/2011 WELLS TREVON, ARTURO REYEZ 304.80 SA POLYSUB DEP 03/30/2011 ARTURO WELLS APRN 307.47 SI DYSSOMNIA NOS 03/30/2011 THANH LEE PHD 296.30 MO DEPRESSIVE RECURRENT UNSPECIFIED 03/30/2011 JESUS PULIDO, THANH Irwin 304.80 SA POLYSUB DEP 03/30/2011 THANH ELE PHD 307.47 SI DYSSOMNIA NOS 03/30/2011 THANH LEE PHD 296.30 MO DEPRESSIVE RECURRENT UNSPECIFIED 03/30/2011 JESUS PULIDO, THANH Irwin 304.80 SA POLYSUB DEP 03/30/2011 THANH LEE PHD 307.47 SI DYSSOMNIA NOS 03/30/2011 THANH LEE PHD 296.30 MO DEPRESSIVE RECURRENT UNSPECIFIED 03/30/2011 THANH LEE PHD 304.80 SA POLYSUB DEP 03/30/2011 THANH LEE PHD 307.47 SI DYSSOMNIA NOS 03/30/2011 WELLSTISHA LESTER, ARTURO REYEZ 296.30 MO DEPRESSIVE RECURRENT UNSPECIFIED 03/30/2011 WELLS SPORTS EQUIPMENT REPAIRER, ARTURO REYEZ 304.80 SA POLYSUB DEP 03/30/2011 PRISCILLA LESTER, ARTURO REYEZ 307.47 SI DYSSOMNIA NOS 03/30/2011 THANH LEE PHD 296.30 MO DEPRESSIVE RECURRENT UNSPECIFIED 03/30/2011 THANH LEE PHD 304.80 SA POLYSUB DEP 03/30/2011 THANH LEE PHD 307.47 SI DYSSOMNIA NOS 03/30/2011 SINGLETON DO, RAJ K 296.30 MO DEPRESSIVE RECURRENT UNSPECIFIED 03/30/2011 SINGLETON DO, RAJ K 304.80 SA POLYSUB DEP 03/30/2011 SINGLETON DO, RAJ K 307.47 SI DYSSOMNIA NOS 03/30/2011 MARY JANE SPORTS EQUIPMENT REPAIRER, GRETA 296.30 MO DEPRESSIVE RECURRENT UNSPECIFIED 03/30/2011 MARY JANE SPORTS EQUIPMENT REPAIRER, GRETA 304.80 SA POLYSUB DEP 03/30/2011 MARY JANE SPORTS EQUIPMENT REPAIRER, GRETA 307.47 SI DYSSOMNIA NOS 03/30/2011 THANH LEE PHD 296.30 MO DEPRESSIVE RECURRENT UNSPECIFIED 03/30/2011 THANH LEE PHD 304.80 SA POLYSUB DEP 03/30/2011 THANH LEE PHD 307.47 SI DYSSOMNIA NOS 03/30/2011 MARY JANE SPORTS EQUIPMENT REPAIRER, GRETA 296.30 MO DEPRESSIVE RECURRENT UNSPECIFIED 03/30/2011 MARY JANE SPORTS EQUIPMENT REPAIRER, GRETA 304.80 SA POLYSUB DEP 03/30/2011 MARY JANE SPORTS EQUIPMENT REPAIRER, GRETA 307.47 SI DYSSOMNIA NOS 03/30/2011 THANH LEE PHD 296.30 MO DEPRESSIVE RECURRENT UNSPECIFIED 03/30/2011 THANH LEE PHD 304.80 SA POLYSUB DEP 03/30/2011 THANH LEE PHD 307.47 SI DYSSOMNIA NOS 05/29/2011 THANH LEE PHD 296.32 MO DEPRESSIVE RECURRENT MODERATE 05/29/2011 LANI PADILLA DO 296.32 MO DEPRESSIVE RECURRENT MODERATE 05/29/2011 THANH LEE PHD 296.32 MO DEPRESSIVE RECURRENT MODERATE 05/29/2011 RAJ SINGLETON DO K 296.32 MO DEPRESSIVE RECURRENT MODERATE 05/29/2011 296.32 MO DEPRESSIVE RECURRENT MODERATE 05/29/2011 296.32 MO DEPRESSIVE RECURRENT MODERATE 05/29/2011 296.32 MO DEPRESSIVE RECURRENT MODERATE 05/29/2011 296.32 MO DEPRESSIVE RECURRENT MODERATE 05/29/2011 296.32 MO DEPRESSIVE RECURRENT MODERATE 05/29/2011 TOPETE PA-C, CORNELIO M 296.32 MO DEPRESSIVE RECURRENT MODERATE 05/29/2011 THANH LEE PHD 296.32 MO DEPRESSIVE RECURRENT MODERATE 05/29/2011 RAJ SINGLETON DO 296.32 MO DEPRESSIVE RECURRENT MODERATE 05/29/2011 THANH LEE PHD 296.32 MO DEPRESSIVE RECURRENT MODERATE 05/29/2011 PRISCILLA LESTERARTURO 296.32 MO DEPRESSIVE RECURRENT MODERATE 05/29/2011 THANH LEE PHD 296.32 MO DEPRESSIVE RECURRENT MODERATE 05/29/2011 THANH LEE PHD 296.32 MO DEPRESSIVE RECURRENT MODERATE 05/29/2011 THANH LEE PHD 296.32 MO DEPRESSIVE RECURRENT MODERATE 05/29/2011 PRISCILLA LESTERARTURO 296.32 MO DEPRESSIVE RECURRENT MODERATE 05/29/2011 THANH LEE PHD 296.32 MO DEPRESSIVE RECURRENT MODERATE 05/29/2011 RAJ SINGLETON DO 296.32 MO DEPRESSIVE RECURRENT MODERATE 05/29/2011 MARY JANE SPORTS EQUIPMENT REPAIRER, GRETA 296.32 MO DEPRESSIVE RECURRENT MODERATE 05/29/2011 THANH LEE PHD 296.32 MO DEPRESSIVE RECURRENT MODERATE 05/29/2011 MARY JANE SPORTS EQUIPMENT REPAIRER, GRETA 296.32 MO DEPRESSIVE RECURRENT MODERATE 05/29/2011 THANH LEE PHD 296.32 MO DEPRESSIVE RECURRENT MODERATE 10/11/2011 THANH LEE PHD 111.0 PITYRIASIS VERSICOLOR 10/11/2011 THANH LEE PHD 272.4 OTHER AND UNSPECIFIED HYPERLIPIDEMIA 10/11/2011 LANI PADILLA DO 111.0 PITYRIASIS VERSICOLOR 10/11/2011 LANI PADILLA DO 272.4 OTHER AND UNSPECIFIED HYPERLIPIDEMIA 10/11/2011 THANH [...] PHD 272.4 OTHER AND UNSPECIFIED HYPERLIPIDEMIA 10/11/2011 SINGLETON DO RAJ K 111.0 PITYRIASIS VERSICOLOR 10/11/2011 SINGLETON DO RAJ K 272.4 OTHER AND UNSPECIFIED HYPERLIPIDEMIA 10/11/2011 THANH LEE PHD 111.0 PITYRIASIS VERSICOLOR 10/11/2011 THANH LEE PHD 272.4 OTHER AND UNSPECIFIED HYPERLIPIDEMIA 10/11/2011 ARTURO WELLS APRN 111.0 PITYRIASIS VERSICOLOR 10/11/2011 ARTURO WELLS APRN 272.4 OTHER AND UNSPECIFIED HYPERLIPIDEMIA 10/11/2011 THANH LEE PHD A 111.0 PITYRIASIS VERSICOLOR 10/11/2011 THANH LEE PHD 272.4 OTHER AND UNSPECIFIED HYPERLIPIDEMIA 10/11/2011 THANH LEE PHD A 111.0 PITYRIASIS VERSICOLOR 10/11/2011 THANH LEE PHD A 272.4 OTHER AND UNSPECIFIED HYPERLIPIDEMIA 10/11/2011 THANH LEE PHD A 111.0 PITYRIASIS VERSICOLOR 10/11/2011 THANH LEE PHD 272.4 OTHER AND UNSPECIFIED HYPERLIPIDEMIA 10/11/2011 PRISCILLA LESTER ARTURO AISSATOU 111.0 PITYRIASIS VERSICOLOR 10/11/2011 ARTURO WELLS APRN 272.4 OTHER AND UNSPECIFIED HYPERLIPIDEMIA 10/11/2011 THANH LEE PHD A 111.0 PITYRIASIS VERSICOLOR 10/11/2011 THANH LEE PHD 272.4 OTHER AND UNSPECIFIED HYPERLIPIDEMIA 10/11/2011 RAJ SINGLETON DO 111.0 PITYRIASIS VERSICOLOR 10/11/2011 RAJ SINGLETON DO 272.4 OTHER AND UNSPECIFIED HYPERLIPIDEMIA 10/11/2011 MARY JANE SPORTS EQUIPMENT REPAIRER, GRETA 111.0 PITYRIASIS VERSICOLOR 10/11/2011 MARY JANE SPORTS EQUIPMENT REPAIRER, GRETA 272.4 OTHER AND UNSPECIFIED HYPERLIPIDEMIA 10/11/2011 THANH LEE PHD 111.0 PITYRIASIS VERSICOLOR 10/11/2011 THANH LEE PHD 272.4 OTHER AND UNSPECIFIED HYPERLIPIDEMIA 10/11/2011 MARY JANE SPORTS EQUIPMENT REPAIRER, GRETA 111.0 PITYRIASIS VERSICOLOR 10/11/2011 MARY JANE SPORTS EQUIPMENT REPAIRER, GRETA 272.4 OTHER AND UNSPECIFIED HYPERLIPIDEMIA 10/11/2011 [...] INFECTION OF SKIN AND SUBCUTANEOUS TISSUE 10/21/2011 PRISCILLA LESTERARTURO 686.9 UNSPECIFIED LOCAL INFECTION OF SKIN AND SUBCUTANEOUS TISSUE 10/21/2011 BOEGRAYSON PULIDO, THANH Irwin 686.9 UNSPECIFIED LOCAL INFECTION OF SKIN AND SUBCUTANEOUS TISSUE 10/21/2011 BOEGRAYSON PULIDO, THANH Irwin 686.9 UNSPECIFIED LOCAL INFECTION OF SKIN AND SUBCUTANEOUS TISSUE 10/21/2011 BOEGRAYSON PULIDO, THANH Irwin 686.9 UNSPECIFIED LOCAL INFECTION OF SKIN AND SUBCUTANEOUS TISSUE 10/21/2011 PRISCILLA LESTER ARTURO REYEZ 686.9 UNSPECIFIED LOCAL INFECTION OF SKIN AND SUBCUTANEOUS TISSUE 10/21/2011 THANH LEE PHD 686.9 UNSPECIFIED LOCAL INFECTION OF SKIN AND SUBCUTANEOUS TISSUE 10/21/2011 RAJ SINGLETON DO 686.9 UNSPECIFIED LOCAL INFECTION OF SKIN AND SUBCUTANEOUS TISSUE 10/21/2011 MARY JANE LESTER, GRETA 686.9 UNSPECIFIED LOCAL INFECTION OF SKIN AND SUBCUTANEOUS TISSUE 10/21/2011 THANH LEE PHD 686.9 UNSPECIFIED LOCAL INFECTION OF SKIN AND SUBCUTANEOUS TISSUE 10/21/2011 MARY JANE LESTER, GRETA 686.9 UNSPECIFIED LOCAL INFECTION OF SKIN AND SUBCUTANEOUS TISSUE 10/21/2011 THANH LEE PHD 686.9 UNSPECIFIED LOCAL INFECTION OF SKIN AND SUBCUTANEOUS TISSUE 11/06/2011 THANH LEE PHD 782.3 EDEMA 11/06/2011 THANH LEE PHD 782.7 petichiae 11/06/2011 LANI PADILLA DO F 782.3 EDEMA 11/06/2011 LANI PADILLA DO F 782.7 petichiae 11/06/2011 THANH LEE PHD 782.3 EDEMA 11/06/2011 THANH LEE PHD 782.7 petichiae 11/06/2011 SINGLETON RAJ REILLY K 782.3 Edema 11/06/2011 SINGLETON DORAJ K 782.7 Petichiae 11/06/2011 782.3 Edema 11/06/2011 782.7 Petichiae 11/06/2011 782.3 Edema 11/06/2011 782.7 Petichiae 11/06/2011 782.3 Edema 11/06/2011 782.7 Petichiae 11/06/2011 782.3 Edema 11/06/2011 782.7 Petichiae 11/06/2011 782.3 Edema 11/06/2011 782.7 Petichiae 11/06/2011 EFREM CHANCE, CORNELIO Kwok 782.3 Edema 11/06/2011 EFREM CHANCE, CORNELIO Kwok 782.7 Petichiae 11/06/2011 BOEGRAYSON PHD, THANH A 782.3 Edema 11/06/2011 BOEOUT PHD, THANH A 782.7 Petichiae 11/06/2011 SINGLETON DO, RAJ K 782.3 Edema 11/06/2011 SINGLETON DO, RAJ K 782.7 Petichiae 11/06/2011 BOEJUDEOUT PHD, THANH A 782.3 Edema 11/06/2011 BOEJUDEOUT PHD, THANH A 782.7 Petichiae 11/06/2011 WELLS SPORTS EQUIPMENT REPAIRER, ARTURO AISSATOU 782.3 Edema 11/06/2011 WELLS SPORTS EQUIPMENT REPAIRER, [facility] 782.7 Petichiae 11/06/2011 BOEOUT PHD, THANH A 782.3 Edema 11/06/2011 [facility], THANH A 782.7 Petichiae 11/06/2011 BOEOUT PHD, THANH A 782.3 Edema 11/06/2011 BOEOUT PHD, THANH A 782.7 Petichiae 11/06/2011 BOEOUT PHD, THANH A 782.3 Edema 11/06/2011 [facility] PHD, THANH A 782.7 Petichiae 11/06/2011 WELLS SPORTS EQUIPMENT REPAIRER, [facility] 782.3 Edema 11/06/2011 WELLS SPORTS EQUIPMENT REPAIRER, [facility] 782.7 Petichiae 11/06/2011 BOEOUT PHD, THANH A 782.3 Edema 11/06/2011 BOEJUDEOUT PHD, THANH A 782.7 Petichiae 11/06/2011 SINGLETON DO, RAJ K 782.3 Edema 11/06/2011 SINGLETON DO, RAJ K 782.7 Petichiae 11/06/2011 MARY JANE SPORTS EQUIPMENT REPAIRER, GRETA 782.3 Edema 11/06/2011 MARY JANE SPORTS EQUIPMENT REPAIRER, GRETA 782.7 Petichiae 11/06/2011 THANH LEE PHD 782.3 [...] APRN 296.31 MO DEPRESSIVE RECURRENT MILD 2012 BOEKHOUT PHD, THANH A 296.31 MO DEPRESSIVE RECURRENT MILD 11/30/2012 VITALY ELIAS, PARUL Larson Ot 276.51 DEHYDRATION 11/30/2012 VITALY ELIAS, PARUL Larson Ot 787.03 VOMITING ALONE 11/30/2012 VITALY ELIAS, PARUL Larson Ot 789.00 ABDOMINAL PAIN, UNSPECIFIED SITE 01/18/2013 [...] THANH A 727.03 TRIGGER FINGER (ACQUIRED) 01/18/2013 JESUS PULIDO, THANH A 727.03 TRIGGER FINGER (ACQUIRED) 01/18/2013 JESUS PULIDO, THANH A 727.03 TRIGGER FINGER (ACQUIRED) 01/18/2013 ARTURO WELLS APRN 727.03 TRIGGER FINGER (ACQUIRED) 01/18/2013 JESUS PULIDO, THANH A 727.03 TRIGGER FINGER (ACQUIRED) 01/18/2013 RAJ SINGLETON DO 727.03 TRIGGER FINGER (ACQUIRED) 01/18/2013 GRETA HINTON APRN 727.03 TRIGGER FINGER (ACQUIRED) 01/18/2013 THANH LEE PHD A 727.03 TRIGGER FINGER (ACQUIRED) 01/18/2013 GRETA HINTON APRN 727.03 TRIGGER FINGER (ACQUIRED) 01/18/2013 THANH LEE PHD A 727.03 TRIGGER FINGER (ACQUIRED) 01/19/2013 790.4 ABNORMAL LFT ( ELEVATED) 01/19/2013 790.4 ABNORMAL LFT ( ELEVATED) 01/19/2013 CORNELIO TOPETE PA-C 790.4 ABNORMAL LFT (ELEVATED) 01/19/2013 JEANNA LEE PHDCK A 790.4 ABNORMAL LFT (ELEVATED) 01/19/2013 RAJ SINGLETON DO 790.4 ABNORMAL LFT (ELEVATED) 01/19/[facility] PHD, THANH A 790.4 ABNORMAL LFT (ELEVATED) 01/19/2013 ARTURO WELLS APRN 790.4 ABNORMAL LFT (ELEVATED) 01/19/2013 PHD, THANH A 790.4 ABNORMAL LFT (ELEVATED) 01/19/2013[facility] PHD, THANH A 790.4 ABNORMAL LFT (ELEVATED) 01/19/2013 PHD, THANH A 790.4 ABNORMAL LFT (ELEVATED) 01/19/2013 ARTURO WELLS APRN 790.4 ABNORMAL LFT (ELEVATED) 01/19/2013 [facility] PHD, THANH A 790.4 ABNORMAL LFT (ELEVATED) 01/19/2013 RAJ SINGLETON DO 790.4 ABNORMAL LFT (ELEVATED) 01/19/2013 GRETA HINTON APRN 790.4 ABNORMAL LFT (ELEVATED) 01/19/2013[facility] PHD, THANH A 790.4 ABNORMAL LFT (ELEVATED) 01/19/2013 GRETA HINTON APRN 790.4 ABNORMAL LFT (ELEVATED) 01/19/2013 [facility] PHD, THANH A 790.4 ABNORMAL LFT (ELEVATED) 01/22/2013 070.70 HEPATITIS C, UNSPEC 01/22/2013 CORNELIO TOPETE PA-C 070.70 HEPATITIS C, UNSPEC 01/22/2013[facility] PHD, THANH A 070.70 HEPATITIS C, UNSPEC 01/22/2013 RAJ SINGLETON DO 070.70 HEPATITIS C, UNSPEC 01/22/2013[facility] PHD, THANH A 070.70 HEPATITIS C, UNSPEC 01/22/2013 ARTURO WELLS APRN 070.70 HEPATITIS C, UNSPEC 01/22/2013[facility] PHD, THANH A 070.70 HEPATITIS C, UNSPEC 01/22/2013 PHD, THANH A 070.70 HEPATITIS C, UNSPEC 01/22/2013 PHD, THANH A 070.70 HEPATITIS C, UNSPEC 01/22/2013 ARTURO WELLS APRN 070.70 HEPATITIS C, UNSPEC 01/22/2013 JESUS PULIDO, THANH Irwin 070.70 HEPATITIS C, UNSPEC 01/22/2013 RAJ SINGLETON DO 070.70 HEPATITIS C, UNSPEC 01/22/2013 MARY JANE SPORTS EQUIPMENT REPAIRER, GRETA 070.70 HEPATITIS C, UNSPEC 01/22/2013 JESUS PULIDO, THANH Irwin 070.70 HEPATITIS C, UNSPEC 01/22/2013 MARY JANE SPORTS EQUIPMENT REPAIRER, GRETA 070.70 HEPATITIS C, UNSPEC 01/22/2013 JESUS [...] DISORDER OF INITIATING OR MAINTAINING SLEEP 03/18/2013 GRETA HINTON APRN 307.42 PERSISTENT DISORDER OF INITIATING OR MAINTAINING SLEEP 03/18/2013 THANH LEE PHD 307.42 PERSISTENT DISORDER OF INITIATING OR MAINTAINING SLEEP 03/18/2013 GRETA HINTON APRN 307.42 PERSISTENT DISORDER OF INITIATING OR [...] EXTREMITIES WITH INFLAMMATION 03/25/2013 PRISCILLA LESTER ARTURO REYEZ 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 WITH [...] VEINS OF LOWER EXTREMITIES WITH INFLAMMATION 07/26/2013 PRISCILLA LESTER ARTURO REYEZ 300.00 AN ANXIETY UNSPEC 07/26/2013 JESUS PULIDO, THANH Irwin 300.00 AN ANXIETY UNSPEC 07/26/2013 THANH LEE PHD 300.00 AN ANXIETY UNSPEC 07/26/2013 JESUS PULIDO, THANH Irwin 300.00 AN ANXIETY UNSPEC 07/26/2013 PRISCILLA LESTER ARTURO REYEZ 300.00 AN ANXIETY UNSPEC 07/26/2013 THANH LEE PHD 300.00 AN ANXIETY UNSPEC 07/26/2013 RAJ SINGLETON DO 300.00 AN ANXIETY UNSPEC 07/26/2013 GRETA HINTON APRN 300.00 AN ANXIETY UNSPEC 07/26/2013 JESUS PULIDO, THANH A 300.00 AN ANXIETY UNSPEC 07/26/2013 GRETA HINTON APRN 300.00 AN ANXIETY UNSPEC 07/26/2013 JESUS PULIDO, THANH A 300.00 AN ANXIETY UNSPEC 11/30/2013 THANH LEE PHD V58.69 MEDICATION HIGH RISK 11/30/2013 PRISCILLA LESTER ARTURO REYEZ V58.69 MEDICATION HIGH RISK 11/30/2013 THANH LEE PHD V58.69 MEDICATION HIGH RISK 11/30/2013 RAJ SINGLETON DO V58.69 MEDICATION HIGH RISK 11/30/2013 GRETA HINTON APRN V58.69 MEDICATION HIGH RISK 11/30/2013 JESUS PULIDO, THANH Irwin V58.69 MEDICATION HIGH RISK 11/30/2013 GRETA HINTON APRN V58.69 MEDICATION HIGH RISK 11/30/2013 JESUS PULIDO, THANH Irwin V58.69 MEDICATION HIGH RISK 04/07/2014 GRETA HINTON APRN 300.15 DS DISSOCIATIVE DIS NOS 04/07/2014 JESUS PULIDO, THANH Irwin 300.15 DS DISSOCIATIVE DIS NOS 04/07/2014 GRETA HINTON APRN 300.15 DS DISSOCIATIVE DIS NOS 04/07/2014 JESUS PULIDO, THANH Irwin 300.15 DS DISSOCIATIVE DIS NOS Procedures Code [place] [address] PSYCH PHARM MGMT 04/17/2012 61962 INDIV PSYTX 45/50 MIN 04/27/2012 65005 ROUTINE VENIPUNCTURE 05/29/2012 86933 CMP 05/29/2012 15044 LIPID PANEL 05/29/2012 [id number] GFR CALC (RESULT ONLY) 05/29/2012 87315 PSYTX PT&/FAMILY 45 MINUTES 06/22/2012 14865 PSYTX PT&/FAMILY 45 MINUTES 08/03/2012 54344 PSYCH IND W/MED CK 20 09/28/2012 97337 ROUTINE VENIPUNCTURE 01/19/2013 29018 CMP 01/19/2013 10879 LIPID PANEL 01/19/2013 [id number] GFR CALC (RESULT ONLY) 01/19/2013 94983 ROUTINE VENIPUNCTURE 01/22/2013 02945 FERRITIN 01/22/2013 80947 IRON SERUM 01/22/2013 07892 IRON BNDNG CAP 01/22/2013 [id number] HCV INDEX (RESULT ONLY) 01/22/2013 15732 HEPATITIS PROFILE 01/22/2013 IRGROUP IRON GROUP (Iron,TIBC, Ferritin) 01/25/2013 64909 ROUTINE VENIPUNCTURE 02/25/2013 61918 CBC 02/25/2013 77933 PT/INR 02/25/2013 84424 HEP C PCR QUANT (SERIAL) 03/02/2013 91040 PSYTX PT&/FAMILY 45 MINUTES 03/15/2013 33551 PSYTX PT&/FAMILY 45 MINUTES 05/24/2013 41604 PSYTX PT&/FAMILY 45 MINUTES 08/05/2013 01138 PSYTX PT&/FAMILY 45 MINUTES 09/30/2013 58272 PSYTX PT&/FAMILY 45 MINUTES 12/01/2013 49656 ROUTINE VENIPUNCTURE 12/31/2013 81552 CBC 12/31/2013 [id number] GFR CALC (RESULT ONLY) 12/31/2013 46330 CMP 12/31/2013 15820 LIPID PANEL 12/31/2013 72190 IRON SERUM 12/31/2013 01286 IRON BNDNG CAP 12/31/2013 54263 FERRITIN 12/31/2013 [id number] HCV INDEX (RESULT ONLY) 12/31/2013 50790 HEPATITIS PROFILE 12/31/2013 22319 PSYTX PT&/FAMILY 45 MINUTES 01/28/2014 49281 ROUTINE VENIPUNCTURE 02/15/2014 IRGROUP IRON GROUP (Iron,TIBC, Ferritin) 02/15/2014 [id number] GFR CALC (RESULT ONLY) 02/16/2014 95420 CMP 02/16/2014 80713 PSYTX PT&/FAMILY 45 MINUTES 04/19/2014 97317 PSYTX PT&/FAMILY 45 MINUTES 06/17/2014 Results Test Result Range Complete blood count (CBC) with automated white blood cell (WBC) differential - 02/18/18 16:20 Blood leukocytes automated count (number/volume) 12.7 10*3/uL 4.3-11.0 Blood erythrocytes automated count (number/volume) 5.21 10*6/uL 4.35-5.85 Venous blood hemoglobin measurement (mass/volume) 16.8 g/dL 13.3-17.7 Blood hematocrit (volume fraction) 48 % 40-54 Automated erythrocyte mean corpuscular volume 92 [foz_us] 80-99 Automated erythrocyte mean corpuscular hemoglobin (mass per erythrocyte) 32 pg 25-34 Automated erythrocyte mean corpuscular hemoglobin concentration measurement ( mass/volume) 35 g/dL 32-36 Automated erythrocyte distribution width ratio 13.1 % 10.0-14.5 Automated blood platelet count (count/volume) 220 10*3/uL 130-400 Automated blood platelet mean volume measurement 9.4 [foz_us] 7.4-10.4 Automated blood neutrophils/100 leukocytes 83 % 42-75 Automated blood lymphocytes/100 leukocytes 8 % 12-44 Blood monocytes/100 leukocytes 8 % 0-12 Automated blood eosinophils/100 leukocytes 1 % 0-10 Automated blood basophils/100 leukocytes 0 % 0-10 Blood neutrophils automated count (number/volume) 10.5 10*3 1.8-7.8 Blood lymphocytes automated count (number/volume) 1.1 10*3 1.0-4.0 Blood monocytes automated count (number/volume) 1.0 10*3 0.0-1.0 Automated eosinophil count 0.1 10*3/uL 0.0-0.3 Automated blood basophil count (count/volume) 0.0 10*3/uL 0.0-0.1 Comprehensive metabolic panel - 02/18/18 16:20 Serum or plasma sodium measurement (moles/volume) 138 mmol/L 135-145 Serum or plasma potassium measurement (moles/volume) 3.9 mmol/L 3.6-5.0 Serum or plasma chloride measurement (moles/volume) 105 mmol/L 98-107 Carbon dioxide 22 mmol/L 21-32 Serum or plasma anion gap determination (moles/volume) 11 mmol/L 5-14 Serum or plasma urea nitrogen measurement (mass/volume) 9 mg/dL 7-18 Serum or plasma creatinine measurement (mass/volume) 0.93 mg/dL 0.60-1.30 Serum or plasma urea nitrogen/creatinine mass ratio 10 NRG Serum or plasma creatinine measurement with calculation of estimated glomerular filtration rate > NRG Serum or plasma glucose measurement (mass/volume) 107 mg/dL 70-105 Serum or plasma calcium measurement (mass/volume) 9.5 mg/dL 8.5-10.1 Serum or plasma total bilirubin measurement (mass/volume) 1.3 mg/dL 0.1-1.0 Serum or plasma alkaline phosphatase measurement (enzymatic activity/volume) 85 U/L 40-136 Serum or plasma aspartate aminotransferase measurement (enzymatic activity/ volume) 17 U/L 5-34 Serum or plasma alanine aminotransferase measurement (enzymatic activity/volume ) 24 U/L 0-55 Serum or plasma protein measurement (mass/volume) 7.8 g/dL 6.4-8.2 Serum or plasma albumin measurement (mass/volume) 4.5 g/dL 3.2-4.5 CALCIUM CORRECTED 9.1 mg/dL 8.5-10.1 Magnesium - 02/18/18 16:20 Magnesium 2.2 mg/dL 1.8-2.4 Blood lactic acid measurement (moles/volume) - 02/18/18 16:55 Blood lactic acid measurement (moles/volume) 1.27 mmol/L 0.50-2.00 Complete urinalysis with reflex to culture - 02/18/18 17:35 Urine color determination YELLOW NRG Urine clarity determination CLEAR NRG Urine pH measurement by test strip 5 5-9 Specific gravity of urine by test strip 1.005 1.016- 1.022 Urine protein assay by test strip, semi-quantitative 1+ NEGATIVE Urine glucose detection by automated test strip NEGATIVE NEGATIVE Erythrocytes detection in urine sediment by light microscopy 2+ NEGATIVE Urine ketones detection by automated test strip 1+ NEGATIVE Urine nitrite detection by test strip NEGATIVE NEGATIVE Urine total bilirubin detection by test strip NEGATIVE NEGATIVE Urine urobilinogen measurement by automated test strip (mass/volume) NORMAL NORMAL Urine leukocyte esterase detection by dipstick 2+ NEGATIVE Automated urine sediment erythrocyte count by microscopy (number/high power field) [HPF] NRG Automated urine sediment leukocyte count by microscopy (number/high power field ) [HPF] NRG Bacteria detection in urine sediment by light microscopy FEW NRG Crystals detection in urine sediment by light microscopy NONE NRG Casts detection in urine sediment by light microscopy NONE NRG Mucus detection in urine sediment by light microscopy NEGATIVE NRG Complete urinalysis with reflex to culture YES NRG Bacterial urine culture - 02/18/18 17:35 Bacterial urine culture NG NRG Complete blood count (CBC) with automated white blood cell (WBC) differential - 02/19/18 05:15 Blood leukocytes automated count (number/volume) 10.1 10*3/uL 4.3-11.0 Blood erythrocytes automated count (number/volume) 4.46 10*6/uL 4.35-5.85 Venous blood hemoglobin measurement (mass/volume) 14.3 g/dL 13.3-17.7 Blood hematocrit (volume fraction) 42 % 40-54 Automated erythrocyte mean corpuscular volume 94 [foz_us] 80-99 Automated erythrocyte mean corpuscular hemoglobin (mass per erythrocyte) 32 pg 25-34 Automated erythrocyte mean corpuscular hemoglobin concentration measurement ( mass/volume) 34 g/dL 32-36 Automated erythrocyte distribution width ratio 13.0 % 10.0-14.5 Automated blood platelet count (count/volume) 175 10*3/uL 130-400 Automated blood platelet mean volume measurement 9.6 [foz_us] 7.4-10.4 Automated blood neutrophils/100 leukocytes 79 % 42-75 Automated blood lymphocytes/100 leukocytes 10 % 12-44 Blood monocytes/100 leukocytes 11 % 0-12 Automated blood eosinophils/100 leukocytes 0 % 0-10 Automated blood basophils/100 leukocytes 0 % 0-10 Blood neutrophils automated count (number/volume) 8.0 10*3 1.8-7.8 Blood lymphocytes automated count (number/volume) 1.0 10*3 1.0-4.0 Blood monocytes automated count (number/volume) 1.1 10*3 0.0-1.0 Automated eosinophil count 0.0 10*3/uL 0.0-0.3 Automated blood basophil count (count/volume) 0.0 10*3/uL 0.0-0.1 Comprehensive metabolic panel - 02/19/18 05:15 Serum or plasma sodium measurement (moles/volume) 136 mmol/L 135-145 Serum or plasma potassium measurement (moles/volume) 3.6 mmol/L 3.6-5.0 Serum or plasma chloride measurement (moles/volume) 105 mmol/L 98-107 Carbon dioxide 18 mmol/L 21-32 Serum or plasma anion gap determination (moles/volume) 13 mmol/L 5-14 Serum or plasma urea nitrogen measurement (mass/volume) 10 mg/dL 7-18 Serum or plasma creatinine measurement (mass/volume) 0.83 mg/dL 0.60-1.30 Serum or plasma urea nitrogen/creatinine mass ratio 12 NRG Serum or plasma creatinine measurement with calculation of estimated glomerular filtration rate > NRG Serum or plasma glucose measurement (mass/volume) 118 mg/dL 70-105 Serum or plasma calcium measurement (mass/volume) 8.5 mg/dL 8.5-10.1 Serum or plasma total bilirubin measurement (mass/volume) 1.4 mg/dL 0.1-1.0 Serum or plasma alkaline phosphatase measurement (enzymatic activity/volume) 63 U/L 40-136 Serum or plasma aspartate aminotransferase measurement (enzymatic activity/ volume) 12 U/L 5-34 Serum or plasma alanine aminotransferase measurement (enzymatic activity/volume ) 17 U/L 0-55 Serum or plasma protein measurement (mass/volume) 5.8 g/dL 6.4-8.2 Serum or plasma albumin measurement (mass/volume) 3.5 g/dL 3.2-4.5 CALCIUM CORRECTED 8.9 mg/dL 8.5-10.1 Complete blood count (CBC) with automated white blood cell (WBC) differential - 02/21/18 05:27 Blood leukocytes automated count (number/volume) 6.5 10*3/uL 4.3-11.0 Blood erythrocytes automated count (number/volume) 4.28 10*6/uL 4.35-5.85 Venous blood hemoglobin measurement (mass/volume) 13.9 g/dL 13.3-17.7 Blood hematocrit (volume fraction) 40 % 40-54 Automated erythrocyte mean corpuscular volume 94 [foz_us] 80-99 Automated erythrocyte mean corpuscular hemoglobin (mass per erythrocyte) 32 pg 25-34 Automated erythrocyte mean corpuscular hemoglobin concentration measurement ( mass/volume) 35 g/dL 32-36 Automated erythrocyte distribution width ratio 12.8 % 10.0-14.5 Automated blood platelet count (count/volume) 170 10*3/uL 130-400 Automated blood platelet mean volume measurement 9.8 [foz_us] 7.4-10.4 Automated blood neutrophils/100 leukocytes 66 % 42-75 Automated blood lymphocytes/100 leukocytes 21 % 12-44 Blood monocytes/100 leukocytes 11 % 0-12 Automated blood eosinophils/100 leukocytes 3 % 0-10 Automated blood basophils/100 leukocytes 0 % 0-10 Blood neutrophils automated count (number/volume) 4.2 10*3 1.8-7.8 Blood lymphocytes automated count (number/volume) 1.4 10*3 1.0-4.0 Blood monocytes automated count (number/volume) 0.7 10*3 0.0-1.0 Automated eosinophil count 0.2 10*3/uL 0.0-0.3 Automated blood basophil count (count/volume) 0.0 10*3/uL 0.0-0.1 Comprehensive metabolic panel - 02/21/18 05:27 Serum or plasma sodium measurement (moles/volume) 136 mmol/L 135-145 Serum or plasma potassium measurement (moles/volume) 3.8 mmol/L 3.6-5.0 Serum or plasma chloride measurement (moles/volume) 104 mmol/L 98-107 Carbon dioxide 18 mmol/L 21-32 Serum or plasma anion gap determination (moles/volume) 14 mmol/L 5-14 Serum or plasma urea nitrogen measurement (mass/volume) 7 mg/dL 7-18 Serum or plasma creatinine measurement (mass/volume) 0.80 mg/dL 0.60-1.30 Serum or plasma urea nitrogen/creatinine mass ratio 9 NRG Serum or plasma creatinine measurement with calculation of estimated glomerular filtration rate > NRG Serum or plasma glucose measurement (mass/volume) 91 mg/dL 70-105 Serum or plasma calcium measurement (mass/volume) 9.0 mg/dL 8.5-10.1 Serum or plasma total bilirubin measurement (mass/volume) 0.9 mg/dL 0.1-1.0 Serum or plasma alkaline phosphatase measurement (enzymatic activity/volume) 56 U/L 40-136 Serum or plasma aspartate aminotransferase measurement (enzymatic activity/ volume) 12 U/L 5-34 Serum or plasma alanine aminotransferase measurement (enzymatic activity/volume ) 12 U/L 0-55 Serum or plasma protein measurement (mass/volume) 6.4 g/dL 6.4-8.2 Serum or plasma albumin measurement (mass/volume) 3.5 g/dL 3.2-4.5 CALCIUM CORRECTED 9.4 mg/dL 8.5-10.1 Automated blood complete blood count (hemogram) panel - 02/23/18 05:39 Blood leukocytes automated count (number/volume) 4.8 10*3/uL 4.3-11.0 Blood erythrocytes automated count (number/volume) 4.14 10*6/uL 4.35-5.85 Venous blood hemoglobin measurement (mass/volume) 13.1 g/dL 13.3-17.7 Blood hematocrit (volume fraction) 39 % 40-54 Automated erythrocyte mean corpuscular volume 93 [foz_us] 80-99 Automated erythrocyte mean corpuscular hemoglobin (mass per erythrocyte) 32 pg 25-34 Automated erythrocyte mean corpuscular hemoglobin concentration measurement ( mass/volume) 34 g/dL 32-36 Automated erythrocyte distribution width ratio 12.5 % 10.0-14.5 Automated blood platelet count (count/volume) 211 10*3/uL 130-400 Automated blood platelet mean volume measurement 9.8 [foz_us] 7.4-10.4 Whole blood basic metabolic panel - 02/23/18 05:39 Serum or plasma sodium measurement (moles/volume) 137 mmol/L 135-145 Serum or plasma potassium measurement (moles/volume) 3.2 mmol/L 3.6-5.0 Serum or plasma chloride measurement (moles/volume) 109 mmol/L 98-107 Carbon dioxide 21 mmol/L 21-32 Serum or plasma anion gap determination (moles/volume) 7 mmol/L 5-14 Serum or plasma urea nitrogen measurement (mass/volume) 5 mg/dL 7-18 Serum or plasma creatinine measurement (mass/volume) 0.71 mg/dL 0.60-1.30 Serum or plasma urea nitrogen/creatinine mass ratio 7 NRG Serum or plasma creatinine measurement with calculation of estimated glomerular filtration rate > NRG Serum or plasma glucose measurement (mass/volume) 110 mg/dL 70-105 Serum or plasma calcium measurement (mass/volume) 8.7 mg/dL 8.5-10.1 Encounters ACCT No. Visit Date/Time Discharge Status Pt. Type Provider Facility Loc./Unit Complaint [id number] 06/17/2014 13:26:00 06/17/2014 23:59:59 [facility] Outpatient THANH LEE PHD [id number] 05/19/2014 15:54:00 05/19/2014 23:59:59 [facility] Outpatient GRETA HINTON APRN [id number] 04/19/2014 09:49:00 04/19/2014 23:59:59 [facility] Outpatient THANH LEE PHD [id number] 04/07/2014 14:04:00 04/07/2014 23:59:59 [facility] Outpatient GRETA HINTON APRN [id number] 02/15/2014 14:46:00 02/15/2014 23:59:59 CLS Outpatient RAJ SINGLETON DO [id number] 01/28/2014 12:54:00 01/28/2014 23:59:59 [facility] Outpatient THANH LEE PHD [id number] 12/31/2013 12:27:00 12/31/2013 23:59:59 [facility] Outpatient ARTURO WELLS APRN [id number] 11/30/2013 14:05:00 11/30/2013 23:59:59 [facility] Outpatient THANH LEE PHD [id number] 09/30/2013 13:52:00 09/30/2013 23:59:59 [facility] Outpatient THANH LEE PHD [id number] 08/04/2013 13:55:00 08/04/2013 23:59:59 [facility] Outpatient THANH LEE PHD [id number] 07/26/2013 11:22:00 07/26/2013 23:59:59 C[facility] Outpatient ARTURO WELLS APRN [id number] 05/21/2013 12:47:00 05/21/2013 23:59:59 [facility] Outpatient THANH LEE PHD [id number] 03/25/2013 09:42:00 03/25/2013 23:59:59 CLS Outpatient RAJ SINGLETON DO [id number] 03/12/2013 12:42:00 03/12/2013 23:59:59 [facility] Outpatient THANH LEE PHD [id number] 02/25/2013 14:41:00 02/25/2013 23:59:59 CLS Outpatient CORNELIO TOPETE PA-C [id number] 07/31/2012 15:44:00 07/31/2012 23:59:59 CLS Outpatient [id number] 06/26/2012 10:41:00 06/26/2012 23:59:59 CLS Outpatient RAJ SINGLETON DO [id number] 06/19/2012 10:42:00 06/19/2012 23:59:59 [facility] Outpatient THANH LEE PHD [id number] 05/29/2012 09:43:00 05/29/2012 23:59:59 CLS Outpatient LANI PADILLA DO [id number] 04/15/2012 17:01:00 04/15/2012 23:59:59 CLS Outpatient THANH LEE PHD [id number] 01/23/2013 11:07:00 Document Registration [id number] 01/19/2013 08:08:00 Document Registration [id number] 01/18/2013 16:10:00 Document Registration [id number] 09/21/2012 15:07:00 Document Registration [id number] 02/18/2018 19:15:00 02/23/2018 15:55:00 DIS Inpatient ALBERTO WHITE DO [facility] 4TH DIVERTICULITIS [id number] 11/30/2012 08:49:00 11/30/2012 11:15:00 DIS Emergency VITALY ELIAS, PARUL Larson [facility] ER VOMITING
--- NOTE | 2018-03-09 16:22 | Discharge Summary ---
Diagnosis/Chief Complaint Date of Admission Feb 18, 2018 at 19:15 Date of Discharge Feb 23, 2018 at 15:55 Admission Diagnosis Admission Diagnosis Acute Diverticulitis Discharge Diagnosis Acute Diverticulitis with mini-perforation Reason Hospital Visit HPI per ED:The patient presents to the ER by private conveyance with chief complaint that since yesterday evening around 9:00 [place] was sitting around and started having some aggressively worsening sharp pain to his left lower quadrant. No problems with bowel movements or dysuria. Bowel movements does not help either. No nausea vomiting. No fevers or chills. No history of abdominal surgeries. No history of diverticula or colonoscopies. He takes olanzapine for mood, mirtazapine for sleep and atorvastatin for cholesterol. It is not worse with movement but it is worse with pushing on his belly. His last oral intake was last night prior to the pain. He is not taking anything for the pain. When I spoke to pt he states pain is 6 out of 10, worse with movement. He denies any radiation of the pain. He says he has never had pain like this before; he had a colonoscopy at 48 but nothing since then. He thinks he was told he had polyps, but never told he needed a repeat of the colonoscopy. Discharge Summary Procedures: none Discharge Physical Examination Allergies: Coded Allergies: No Known Drug Allergies (Unverified , 10/13/11) General Appearance: Alert, Oriented X3 HEENT: PERRLA, EOMI Cardiovascular: Regular Rate, No Murmurs Abdominal: Normal Bowel Sounds, Soft Hospital Course Patient is a 63-year-old male who presented on February 18 with left lower quadrant pain, elevated white count and CT scan was read as acute diverticulitis with small perforation. Patient was admitted to the hospital with IV fluids IV antibiotics pain control and he was nothing by mouth. Plan was to make sure that he did not develop into an acute abdomen he only had localized tenderness. Waiting to make sure he did not have diffuse tenderness which would indicate need for surgery. Patient slowly over the next few days improved; pain got better, white count came down. Once this occurred we were able to finally start feeding him liquids. Once he was tolerating liquids and passing gas, he then had a bowel movement and subsequently was started on a soft diet. He was sent home in stable condition, to follow-up in the office to schedule a colonoscopy because has not had one needs one for screening and to look at the diverticula. Discharge Instructions to patient/family Please see electronic discharge instructions given to patient. Discharge Medications Reviewed and agree with Discharge Medication list on patient's Discharge Instruction sheet Clinical Quality Measures DVT/VTE Risk/Contraindication: Risk Factor Score Per Nursin RFS Level Per Nursing on Admit: 2=Moderate ALBERTO WHITE DO Mar 09, 2018 16:22
== END 2018-02-23 15:55 | disposition home or self-care (01) | DRG 392 ==
LOC: ER 15:41 → EDUNIT# 15:41 → UNDOADMOB 18:27 → 4TH 18:27 → UNDOADMOB 19:15 → 4TH 19:15 → UNDODISOB 02-23 15:55
PROVIDERS: ADMIT Surgery; ATTEND Surgery
DX: K57.20 Diverticulitis of large intestine with perforation and abscess without bleeding (principal); K21.9 Gastro-esophageal reflux disease without esophagitis; F32.9 Major depressive disorder, single episode, unspecified; Z79.899 Other long term (current) drug therapy
CPT/HCPCS: 36415; 74177; 80048; 80053; 81000; 83605; 83735; 85025; 85027; 87088; 96374

== ENCOUNTER 2018-03-26 14:33 | Outpatient (CLI) | payer OTHER ==
[~2018-03-26] VITALS: Ht 175.3 cm; Wt 86.6 kg
[~2018-03-26 14:33] MED LIST changes: +ATOR20TA66 PO; +CIPR-242 PO; +METR500T PO; +MIRT30TA6 PO; +OLAN20TA16 PO
== END 2018-03-26 14:39 | disposition home or self-care (01) ==
LOC: PREOP 14:33
PROVIDERS: ATTEND Surgery
DX: Z01.818 Encounter for other preprocedural examination (principal)

== ENCOUNTER → 2018-03-30 | Day surgery (SDC) | payer OTHER ==
[~2018-03-30] VITALS: Ht 175.3 cm; Wt 86.6 kg
[~2018-03-30] MED LIST changes: +LACTATED RINGERS 1,000 ML IV ONE; +LACTATED RINGERS 1,000 ML IV STA; +LIDOCAINE PF 2% 5 ML (XYLOCAINE) VIAL ONE; +proPOfol 200 MG/20 ML (DIPRIVAN) VIAL IV ONE
--- OUTSIDE RECORDS SUMMARY | 2018-03-30 11:52 | XMS REPORT | Continuity of Care Document ---
Author Author Formerly [facility] Address Unknown Phone Unavailable Allergies Active Description Code Type Severity Reaction Onset Reported/Identified Relationship to Patient Clinical Status Yes No Known Drug Allergies [id number] Drug Allergy Unknown N/A 10/13/2011 Medications There [...] 728.71 Plantar Fascial Fibromatosis 03/14/2011 MARY JANE FOAM TANK LAMINATOR, GRETA 728.71 Plantar Fascial Fibromatosis 03/14/2011 THANH LEE PHD 728.71 Plantar Fascial Fibromatosis 03/14/2011 MARY JANE FOAM TANK LAMINATOR, GRETA 728.71 Plantar Fascial Fibromatosis 03/14/2011 THANH [...] DEPRESSIVE DISORDER NOT ELSEWHERE CLASSIFIED 03/29/2011 PRISCILLA FOAM TANK LAMINATORARTURO Porras 729.5 Pain In Limb 03/29/2011 [facility] THANH PULIDO A 311 DEPRESSIVE DISORDER NOT ELSEWHERE CLASSIFIED 03/29/2011 [facility] PHDTHANH A 729.5 Pain In Limb 03/29/2011 [facility]EOUT PHDTHANH A 311 DEPRESSIVE DISORDER NOT ELSEWHERE CLASSIFIED 03/29/2011 [facility] THANH PULIDO A 729.5 Pain In Limb 03/29/2011 BOEOUT THANH PULIDO A 311 DEPRESSIVE DISORDER NOT ELSEWHERE CLASSIFIED 03/29/2011 [facility] THANH PULIDO A 729.5 Pain In Limb [...] 729.5 Pain In Limb 03/29/2011 MARY JANE FOAM TANK LAMINATOR, GRETA 311 DEPRESSIVE DISORDER NOT ELSEWHERE CLASSIFIED 03/29/2011 MARY JANE FOAM TANK LAMINATOR, GRETA 729.5 Pain In Limb 03/29/2011 BOETHANH GALICIA PHD A 311 DEPRESSIVE DISORDER NOT ELSEWHERE CLASSIFIED 03/29/2011 BOETHANH GALICIA PHD A 729.5 Pain In Limb 03/29/2011 MARY JANE FOAM TANK LAMINATOR, GRETA 311 DEPRESSIVE DISORDER NOT ELSEWHERE CLASSIFIED 03/29/2011 MARY JANE FOAM TANK LAMINATOR, GRETA 729.5 Pain In Limb 03/29/2011 BOETHANH [...] PHD 296.30 MO DEPRESSIVE RECURRENT UNSPECIFIED 03/30/2011 THAHN LEE PHD 304.80 SA POLYSUB DEP 03/30/2011 [...] 296.30 MO DEPRESSIVE RECURRENT UNSPECIFIED 03/30/2011 WELLS FOAM TANK LAMINATOR, ARTURO REYEZ 304.80 SA POLYSUB DEP 03/30/2011 [...] 307.47 SI DYSSOMNIA NOS 03/30/2011 MARY JANE FOAM TANK LAMINATOR, GRETA 296.30 MO DEPRESSIVE RECURRENT UNSPECIFIED 03/30/2011 MARY JANE FOAM TANK LAMINATOR, GRETA 304.80 SA POLYSUB DEP 03/30/2011 MARY JANE FOAM TANK LAMINATOR, GRETA 307.47 SI DYSSOMNIA NOS 03/30/2011 THANH LEE PHD 296.30 MO DEPRESSIVE RECURRENT UNSPECIFIED 03/30/2011 THANH LEE PHD 304.80 SA POLYSUB DEP 03/30/2011 THANH LEE PHD 307.47 SI DYSSOMNIA NOS 03/30/2011 MARY JANE FOAM TANK LAMINATOR, GRETA 296.30 MO DEPRESSIVE RECURRENT UNSPECIFIED 03/30/2011 MARY JANE FOAM TANK LAMINATOR, GRETA 304.80 SA POLYSUB DEP 03/30/2011 MARY JANE FOAM TANK LAMINATOR, GRETA 307.47 SI DYSSOMNIA NOS 03/30/2011 THANH [...] MO DEPRESSIVE RECURRENT MODERATE 05/29/2011 MARY JANE FOAM TANK LAMINATOR, GRETA 296.32 MO DEPRESSIVE RECURRENT MODERATE 05/29/2011 THANH LEE PHD 296.32 MO DEPRESSIVE RECURRENT MODERATE 05/29/2011 MARY JANE FOAM TANK LAMINATOR, GRETA 296.32 MO DEPRESSIVE RECURRENT MODERATE 05/29/2011 [...] OTHER AND UNSPECIFIED HYPERLIPIDEMIA 10/11/2011 MARY JANE FOAM TANK LAMINATOR, GRETA 111.0 PITYRIASIS VERSICOLOR 10/11/2011 MARY JANE FOAM TANK LAMINATOR, GRETA 272.4 OTHER AND UNSPECIFIED HYPERLIPIDEMIA 10/11/2011 THANH LEE PHD 111.0 PITYRIASIS VERSICOLOR 10/11/2011 THANH LEE PHD 272.4 OTHER AND UNSPECIFIED HYPERLIPIDEMIA 10/11/2011 MARY JANE FOAM TANK LAMINATOR, GRETA 111.0 PITYRIASIS VERSICOLOR 10/11/2011 MARY JANE FOAM TANK LAMINATOR, GRETA 272.4 OTHER AND UNSPECIFIED HYPERLIPIDEMIA 10/11/2011 THANH LEE PHD 111.0 PITYRIASIS VERSICOLOR 10/11/2011 THANH LEE PHD 272.4 OTHER AND UNSPECIFIED HYPERLIPIDEMIA 10/21/2011 THANH LEE PHD 686.9 UNSPECIFIED LOCAL INFECTION OF SKIN AND SUBCUTANEOUS TISSUE 10/21/2011 LNAI PADILLA DO 686.9 UNSPECIFIED LOCAL INFECTION OF [...] INFECTION OF SKIN AND SUBCUTANEOUS TISSUE 10/21/2011 THAHN LEE PHD 686.9 UNSPECIFIED LOCAL INFECTION OF [...] PHD, THANH A 782.7 Petichiae 11/06/2011 WELLS FOAM TANK LAMINATOR, ARTURO AISSATOU 782.3 Edema 11/06/2011 WELLS FOAM TANK LAMINATOR, [facility] 782.7 Petichiae 11/06/2011 [facility] PHD, THANH A 782.3 Edema 11/06/2011 [facility] PHD, THANH A 782.7 Petichiae 11/06/2011 [facility] PHD, THANH A 782.3 Edema 11/06/2011 [facility] PHD, THANH A 782.7 Petichiae 11/06/2011 [facility] PHD, THANH A 782.3 Edema 11/06/2011 [facility] PHD, THANH A 782.7 Petichiae 11/06/2011 WELLS FOAM TANK LAMINATOR, [facility] 782.3 Edema 11/06/2011 WELLS FOAM TANK LAMINATOR, [facility] 782.7 Petichiae 11/06/2011 [facility] PHD, THANH A 782.3 Edema 11/06/2011 BOEJUDEOUT PHD, THANH A 782.7 Petichiae 11/06/2011 SINGLETON DO, RAJ K 782.3 Edema 11/06/2011 SINGLETON DO, RAJ K 782.7 Petichiae 11/06/2011 MARY JANE FOAM TANK LAMINATOR, GRETA 782.3 Edema 11/06/2011 MARY JANE FOAM TANK LAMINATOR, GRETA 782.7 Petichiae 11/06/2011 THANH LEE PHD [...] PHD 296.31 MO DEPRESSIVE RECURRENT MILD 2012 LNAI PADILLA DO 296.31 MO DEPRESSIVE RECURRENT MILD [...] RAJ SINGLETON DO 790.4 ABNORMAL LFT (ELEVATED) 01/19/2013[facility] PHD, THANH A 790.4 ABNORMAL LFT (ELEVATED) 01/19/2013 ARTURO WELLS APRN 790.4 ABNORMAL LFT (ELEVATED) 01/19/2013 PHD, THANH A 790.4 ABNORMAL LFT (ELEVATED) 01/19/2013[facility] PHD, THANH A 790.4 ABNORMAL LFT (ELEVATED) 01/19/2013 PHD, THANH A 790.4 ABNORMAL LFT (ELEVATED) 01/19/2013 ARTURO WELLS APRN 790.4 ABNORMAL LFT (ELEVATED) 01/19/2013 [facility] PHD, THANH A 790.4 ABNORMAL LFT (ELEVATED) 01/19/2013 RAJ SINGLETON DO 790.4 ABNORMAL LFT (ELEVATED) 01/19/2013 GRETA HINTON APRN 790.4 ABNORMAL LFT (ELEVATED) 01/19/2013[facility] PHD, THANH A 790.4 ABNORMAL LFT (ELEVATED) 01/19/2013 GRETA HINTON APRN 790.4 ABNORMAL LFT (ELEVATED) 01/19/2013 [facility] PHD, THANH A 790.4 ABNORMAL LFT (ELEVATED) 01/22/2013 070.70 HEPATITIS C, UNSPEC 01/22/2013 CORNELIO TOPETE PA-C 070.70 HEPATITIS C, UNSPEC 01/22/2013[facility] PHD, THANH A 070.70 HEPATITIS C, UNSPEC 01/22/2013 RAJ SINGLETON DO 070.70 HEPATITIS C, UNSPEC 01/22/2013[facility] PHD, THANH A 070.70 HEPATITIS C, UNSPEC 01/22/2013 ARTURO WELLS APRN 070.70 HEPATITIS C, UNSPEC 01/22/2013[facility] PHD, THANH A 070.70 HEPATITIS C, UNSPEC 01/22/2013 PHD, THANH A 070.70 HEPATITIS C, UNSPEC 01/22/2013 PHD, THANH A 070.70 HEPATITIS C, UNSPEC 01/22/2013 ARTURO WELLS APRN 070.70 HEPATITIS C, UNSPEC 01/22/2013 JESUS PULIDO, THANH Irwin 070.70 HEPATITIS C, UNSPEC 01/22/2013 RAJ SINGLETON DO 070.70 HEPATITIS C, UNSPEC 01/22/2013 MARY JANE FOAM TANK LAMINATOR, GRETA 070.70 HEPATITIS C, UNSPEC 01/22/2013 JESUS PULIDO, THANH Irwin 070.70 HEPATITIS C, UNSPEC 01/22/2013 MARY JANE FOAM TANK LAMINATOR, GRETA 070.70 HEPATITIS C, UNSPEC 01/22/2013 JESUS [...] SINGLETON DO V58.69 MEDICATION HIGH RISK 11/30/2013 MARY JANE FOAM TANK LAMINATOR, GRETA V58.69 MEDICATION HIGH RISK 11/30/2013 JESUS PHD, THANH Irwin V58.69 MEDICATION HIGH RISK 11/30/2013 MARY JANE FOAM TANK LAMINATOR, GRETA V58.69 MEDICATION HIGH RISK 11/30/2013 JESUS PHD, THANH Irwin V58.69 MEDICATION HIGH RISK 04/07/2014 MARY JANE LESTER, GRETA 300.15 DS DISSOCIATIVE DIS NOS 04/07/2014 JESUS PHD, THANH Irwin 300.15 DS DISSOCIATIVE DIS NOS 04/07/2014 MARY JANE LESTER, GRETA 300.15 DS DISSOCIATIVE DIS NOS 04/07/2014 JESUS PHD, THANH Irwin 300.15 DS DISSOCIATIVE DIS NOS 02/23/2018 CINDY REILLY, ALBERTO B Ot F32.9 MAJOR DEPRESSIVE DISORDER, SINGLE EPISOD 02/23/2018 CINDY REILLY, ALBERTO B Ot K21.9 GASTRO-ESOPHAGEAL REFLUX DISEASE WITHOUT 02/23/2018 DELMARIVEL DO, ALBERTO B Ot 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 02/23/2018 DELMARIVEL DO, ALBERTO B Ot R82.99 OTHER ABNORMAL FINDINGS IN URINE 02/23/2018 CINDY REILLY, ALBERTO B Ot Z79.899 OTHER PENITENTIARY (CURRENT) DRUG THERAPY 02/25/2018 CINDY REILLY, ALBERTO B Ot F32.9 MAJOR DEPRESSIVE DISORDER, SINGLE EPISOD 02/25/2018 JOLEENMARIVEL REILLY, ALBERTO B Ot K21.9 GASTRO-ESOPHAGEAL REFLUX DISEASE WITHOUT 02/25/2018 DELMAN DO, ALBERTO B Ot 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 02/25/2018 DELMAN DO, ALBERTO B Ot R82.99 OTHER ABNORMAL FINDINGS IN URINE 02/25/2018 DELMARIVEL DO, ALBERTO B Ot Z79.899 OTHER PENITENTIARY (CURRENT) DRUG THERAPY 03/26/2018 CINDY REILLY ALBERTO B Ot Z01.818 ENCOUNTER FOR OTHER PREPROCEDURAL EXAMIN Procedures Code [place] [address] PSYCH PHARM MGMT 04/17/2012 62888 INDIV PSYTX 45/50 MIN 04/27/2012 48463 ROUTINE VENIPUNCTURE 05/29/2012 91514 CMP 05/29/2012 24987 LIPID PANEL 05/29/2012 [id number] GFR CALC (RESULT ONLY) 05/29/2012 23392 PSYTX PT&/FAMILY 45 MINUTES 06/22/2012 87491 PSYTX PT&/FAMILY 45 MINUTES 08/03/2012 48654 PSYCH IND W/MED CK 20 09/28/2012 52759 ROUTINE VENIPUNCTURE 01/19/2013 39564 CMP 01/19/2013 28315 LIPID PANEL 01/19/2013 5914791 GFR CALC (RESULT ONLY) 01/19/2013 36473 ROUTINE VENIPUNCTURE 01/22/2013 87112 FERRITIN 01/22/2013 41693 IRON SERUM 01/22/2013 87821 IRON BNDNG CAP 01/22/2013 1073419 HCV INDEX (RESULT ONLY) 01/22/2013 31237 HEPATITIS PROFILE 01/22/2013 IRGROUP IRON GROUP (Iron,TIBC, Ferritin) 01/25/2013 83456 ROUTINE VENIPUNCTURE 02/25/2013 64075 CBC 02/25/2013 86445 PT/INR 02/25/2013 22248 HEP C PCR QUANT (SERIAL) 03/02/2013 55480 PSYTX PT&/FAMILY 45 MINUTES 03/15/2013 61615 PSYTX PT&/FAMILY 45 MINUTES 05/24/2013 14626 PSYTX PT&/FAMILY 45 MINUTES 08/05/2013 79184 PSYTX PT&/FAMILY 45 MINUTES 09/30/2013 67618 PSYTX PT&/FAMILY 45 MINUTES 12/01/2013 45224 ROUTINE VENIPUNCTURE 12/31/2013 59359 CBC 12/31/2013 8720558 GFR CALC (RESULT ONLY) 12/31/2013 34661 CMP 12/31/2013 82777 LIPID PANEL 12/31/2013 10187 IRON SERUM 12/31/2013 85391 IRON BNDNG CAP 12/31/2013 17873 FERRITIN 12/31/2013 2296974 HCV INDEX (RESULT ONLY) 12/31/2013 95246 HEPATITIS PROFILE 12/31/2013 76809 PSYTX PT&/FAMILY 45 MINUTES 01/28/2014 65568 ROUTINE VENIPUNCTURE 02/15/2014 IRGROUP IRON GROUP (Iron,TIBC, Ferritin) 02/15/2014 [id number] GFR CALC (RESULT ONLY) 02/16/2014 46463 CMP 02/16/2014 83107 PSYTX PT&/FAMILY 45 MINUTES 04/19/2014 07921 PSYTX PT&/FAMILY 45 MINUTES 06/17/2014 Results Test [...] Status Pt. Type Provider Facility Loc./Unit Complaint [id number] 06/17/2014 13:26:00 06/17/2014 23:59:59 CLS Outpatient THANH LEE PHD [id number] 05/19/2014 15:54:00 05/19/2014 23:59:59 CLS Outpatient MARY JANE GRETA LESTER [id number] 04/19/2014 09:49:00 04/19/2014 23:59:59 CLS Outpatient THANH LEE PHD [id number] 04/07/2014 14:04:00 04/07/2014 23:59:59 CLS Outpatient GRETA HINTON APRN [id number] 02/15/2014 14:46:00 02/15/2014 23:59:59 CLS Outpatient RAJ SINGLETON DO [id number] 01/28/2014 12:54:00 01/28/2014 23:59:59 CLS Outpatient THANH LEE PHD [id number] 12/31/2013 12:27:00 12/31/2013 23:59:59 CLS Outpatient WELLS FOAM TANK LAMINATORARTURO [id number] 11/30/2013 14:05:00 11/30/2013 23:59:59 CLS Outpatient THANH LEE PHD [id number] 09/30/2013 13:52:00 09/30/2013 23:59:59 CLS Outpatient THANH LEE PHD [id number] 08/04/2013 13:55:00 08/04/2013 23:59:59 CLS Outpatient THANH LEE PHD [id number] 07/26/2013 11:22:00 07/26/2013 23:59:59 CLS Outpatient WELLS FOAM TANK LAMINATORARTURO [id number] 05/21/2013 12:47:00 05/21/2013 23:59:59 CLS Outpatient THANH LEE PHD [id number] 03/25/2013 09:42:00 03/25/2013 23:59:59 CLS Outpatient RAJ SINGLETON DO [id number] 03/12/2013 12:42:00 03/12/2013 23:59:59 CLS Outpatient THANH LEE PHD [id number] 02/25/2013 14:41:00 02/25/2013 23:59:59 CLS Outpatient CORNELIO TOPETE PA-C [id number] 07/31/2012 15:44:00 07/31/2012 23:59:59 CLS Outpatient [id number] 06/26/2012 10:41:00 06/26/2012 23:59:59 CLS Outpatient MANI RAJ REILLY [id number] 06/19/2012 10:42:00 06/19/2012 23:59:59 CLS Outpatient THANH LEE PHD [id number] 05/29/2012 09:43:00 05/29/2012 23:59:59 CLS Outpatient VALERIE LANI [id number] 04/15/2012 17:01:00 04/15/2012 23:59:59 CLS Outpatient THANH LEE PHD [id number] 01/23/2013 11:07:00 Document Registration [id number] 01/19/2013 08:08:00 Document Registration [id number] 01/18/2013 16:10:00 Document Registration [id number] 09/21/2012 15:07:00 Document Registration [id number] 03/26/2018 14:33:00 03/26/2018 14:39:00 DIS Outpatient ALBERTO WHITE DO [facility] PREOP COLONOSCOPY [id number] 02/18/2018 19:15:00 02/23/2018 15:55:00 DIS Inpatient ALBERTO WHITE DO [facility] 4TH DIVERTICULITIS [id number] 11/30/2012 08:49:00 11/30/2012 11:15:00 DIS Emergency PARUL HAIDER MD [facility] ER VOMITING [id number] 03/30/2018 13:00:00 PEN Preadmit ALBERTO WHITE DO [facility] ENDO SCREENING
[2018-03-30 12:14] VITALS: BP 127/82
--- NOTE | 2018-03-30 12:23 | Progress Note-Pre Operative ---
Pre-Operative Progress Note H&P Reviewed The H&P was reviewed, patient examined and no changes noted. Time Seen by Provider: 12:21 Date H&P Reviewed: Mar 30, 2018 Time H&P Reviewed: 12:22 Pre-Operative Diagnosis: Screening colonoscopy ALBERTO WHITE DO Mar 30, 2018 12:23
--- NOTE | 2018-03-30 14:07 | Progress Note-Post Operative ---
Post-Operative Progess Note Surgeon (s)/Manufacturing Production Technician (s) Surgeon ALBERTO WHITE DO Manufacturing Production Technician: none Pre-Operative Diagnosis Screening colonoscopy Post-Operative Diagnosis Polyps Diverticula Int Hemorrhoids Procedure & Operative Findings Date of Procedure 03/30/18 Procedure Performed/Findings Colon with snare Colon with tattoo Anesthesia Type IV sedation by DOCUMENTATION SPECIALIST Estimated Blood Loss Estimated blood loss (mL): scant Specimens/Packing Specimens Removed polyps - Desc, Transverse, ascending ALBERTO WHITE DO Mar 30, 2018 14:07
--- NOTE | 2018-03-30 14:08 | Endoscopy Discharge Instruct ---
Endo Procedure/Findings Findings 1.: Polyp 2.: Diverticulosis 3.: Internal Hemorrhoids Discharge Instructions - Activity: You might feel a little sleepy until tomorrow. This is due to the medicine you received to relax you. Until tomorrow, you should: NOT drive a car, operate machinery or power tools. NOT drink any alcoholic beverages. NOT make any important decisions or sign importortant papers. Do not return to work until tomorrow, unless otherwise instructed. Resume previous activities tomorrow. Diet: Start by taking liquids. If you tolerate liquids, advance to solid food. Make appointment for one week. Instructions: 1.: Colonoscopy in 1 year Notify Physician - If you experience excessive bleeding, unusual abdominal pain, fever, or chest pain, contact your doctor immediately. Follow-Up: - I have received and understand the above instructions and will call my doctor if I have any further questions. Patient Signature Date Nurse Signature Other (Relationship) ALBERTO WHITE DO Mar 30, 2018 14:08
[2018-03-30 14:20] VITALS: BP 109/68
--- NOTE | 2018-03-30 14:42 | Anesthesia-General Post-Op ---
MAC Patient Condition Mental Status/LOC: Same as Preop Cardiovascular: Satisfactory Nausea/Vomiting: Absent Respiratory: Satisfactory Pain: Controlled Complications: Absent Post Op Complications Complications None Follow Up Care/Instructions Patient Instructions None needed. Anesthesiology Discharge Order Discharge Order Patient is doing well, no complaints, stable vital signs, no apparent adverse anesthesia problems. No complications reported per nursing. JOANNA BAY CRNA Mar 30, 2018 14:42
[2018-03-30 14:50] VITALS: BP 125/79
[2018-03-30 14:55] VITALS: BP 125/79
--- NOTE | 2018-03-31 04:42 | OPERATIVE REPORT ---
DATE OF SERVICE: PREOPERATIVE DIAGNOSES: 1. Screening colonoscopy: 2. History of diverticula. POSTOPERATIVE DIAGNOSES: 1. Colon polyps. 2. Diverticula. 3. Internal hemorrhoids. PROCEDURE: Colonoscopy with snare polypectomy. SURGEON: Eduardo Chaves DO. CLIENT SUPPORT MANAGER: None. ANESTHESIA: IV sedation by the SHAREPOINT CONSULTANT. SPECIMEN: Multiple polyps, I believe about 4 polyps from the transverse colon, one from the descending colon, two from the ascending colon and then another 4 to 5 from the transverse colon. BLOOD LOSS: Scant. FLUIDS: Per anesthesia. POSTOPERATIVE CONDITION: Stable. INDICATION FOR PROCEDURE: The patient is a 63-year-old male who has had a colonoscopy in over probably 15 years and needed one for screening. He did have a history of diverticula. FINDINGS: The patient had large diverticula in the sigmoid and descending colon, but then he had multiple polyps, most of them were small, but he had 2 or 3 very large polyps, large polyps from the transverse colon. He had two in the ascending colon and one polyp in the descending colon and anywhere from 3 to 9 in the transverse colon, unsure of how many we took out. PROCEDURE NOTE: After informed consent was obtained, the patient was brought to the endoscopy suite, placed in the bed left lateral decubitus position. He was administered IV sedation by the SHAREPOINT CONSULTANT who then monitored his vitals the entire time, heart rate, blood pressure and pulse ox and the scope was inserted through the rectum and into the sigmoid up to the descending colon and on the way up, saw some diverticula and took a picture of this and then noted a polyp in the descending colon, did snare polypectomy to this, continued up to the transverse colon, saw another large polyp, did snare polypectomy of this and then sought two or three more polyps, removed these as well. I then continued all the way to the cecum. In the ascending colon, saw 2 polyps, did a snare polypectomy of these and then pushed toward the cecum, took a picture of the appendiceal orifice, noted the ileocecal valve and then slowly withdrew the scope insufflating to look circumferentially at the crabtree looking at the cecum up the ascending colon to the hepatic flexure and then into the transverse colon, saw two or three more large polyps, couple of them had to be taken in one or two bites, removed all of them, they look like they are bigger than 1 cm, finally we able to get all the polyps. There was a little bit of bleeding from the bottom of the polyps, but removed them all. Then continued down the transverse colon, splenic flexure into descending colon, then down into sigmoid and finally in the rectum, retroflexed in the rectal vault, saw some minimal internal hemorrhoids, took a picture of this. At this point, then removed the scope. The patient tolerated the procedure and he was recovered in the endoscopy suite and then sent home in stable condition. Job ID: [id number] DocumentID: [id number] Dictated Date: 03/30/2018 21:53:28 Oncology Technician Date: 03/31/2018 04:42:21 Dictated By: DO DARIO DIXON
== END | disposition home or self-care (01) ==
LOC: ENDO 11:45
PROVIDERS: ATTEND Surgery
DX: Z12.11 Encounter for screening for malignant neoplasm of colon (principal); D12.4 Benign neoplasm of descending colon; D12.3 Benign neoplasm of transverse colon; D12.2 Benign neoplasm of ascending colon; K57.30 Diverticulosis of large intestine without perforation or abscess without bleeding; K64.8 Other hemorrhoids; E78.5 Hyperlipidemia, unspecified; F32.9 Major depressive disorder, single episode, unspecified; Z87.19 Personal history of other diseases of the digestive system; Z86.19 Personal history of other infectious and parasitic diseases
CPT/HCPCS: 88305

== ENCOUNTER 2019-03-08 05:46 | Outpatient (CLI) | payer OTHER ==
[~2019-03-08] VITALS: Ht 175 cm; Wt 85.0 kg
[~2019-03-08 05:46] MED LIST changes: -LACTATED RINGERS 1,000 ML IV ONE; -LACTATED RINGERS 1,000 ML IV STA; -LIDOCAINE PF 2% 5 ML (XYLOCAINE) VIAL ONE; -OLAN20TA16 PO; +OLAN20TA34 PO; -proPOfol 200 MG/20 ML (DIPRIVAN) VIAL IV ONE
[2019-03-08] MEDS ORDERED: MIRT15TA6 PO (14:59)
[2019-03-08] MEDS ORDERED: DULO20CA19 PO (14:59)
[2019-03-08] MEDS ORDERED: ATOR20TA66 PO (15:02)
== END 2019-03-08 15:30 | disposition home or self-care (01) ==
LOC: PREOP 05:46
PROVIDERS: ATTEND Surgery
DX: Z01.818 Encounter for other preprocedural examination (principal)

== ENCOUNTER 2019-03-15 07:43 | Day surgery (SDC) | payer OTHER ==
[~2019-03-15] VITALS: Ht 175 cm; Wt 85.0 kg
[~2019-03-15 07:43] MED LIST changes: +DULO20CA19 PO; +MIRT15TA6 PO
[2019-03-15 07:55] VITALS: BP 133/80
[2019-03-15] MEDS ORDERED: LACTATED RINGERS 1,000 ML IV PRN (08:00)
[2019-03-15] MEDS ORDERED: LACTATED RINGERS 1,000 ML IV ONE (08:03)
--- NOTE | 2019-03-15 08:52 | Progress Note-Pre Operative ---
Pre-Operative Progress Note H&P Reviewed The H&P was reviewed, patient examined and no changes noted. Time Seen by Provider: 08:50 Date H&P Reviewed: Mar 15, 2019 Time H&P Reviewed: 08:51 Pre-Operative Diagnosis: pesonal hx of colon polyps ALBERTO WHITE DO Mar 15, 2019 08:52
[2019-03-15] MEDS ORDERED: PROPOFOL INJECTION 50 ML IV ONE (09:42)
[2019-03-15] MEDS ORDERED: MIDAZOLAM 2 MG/2 ML (VERSED) VIAL ONE (09:42)
[2019-03-15 10:10] VITALS: BP 108/71
--- NOTE | 2019-03-15 10:14 | Progress Note-Post Operative ---
Post-Operative Progess Note Surgeon (s)/Sister Superior (s) Surgeon ALBERTO WHITE DO Sister Superior: none Pre-Operative Diagnosis pesonal hx of colon polyps Post-Operative Diagnosis Polyp diverticula internal hemorrhoids Procedure & Operative Findings Date of Procedure 03/15/19 Procedure Performed/Findings colon with hot bx Anesthesia Type IV sedation by PUBLIC SPEAKING INSTRUCTOR Estimated Blood Loss Estimated blood loss (mL): scant Specimens/Packing Specimens Removed Descending colon polyp ALBERTO WHITE DO Mar 15, 2019 10:14
[2019-03-15 10:15] VITALS: BP 108/69
--- NOTE | 2019-03-15 10:15 | Endoscopy Discharge Instruct ---
Endo Procedure/Findings Findings 1.: Polyp 2.: Diverticulosis 3.: Internal Hemorrhoids Discharge Instructions - Activity: You might feel a little sleepy until tomorrow. This is due to the medicine you received to relax you. Until tomorrow, you should: NOT drive a car, operate machinery or power tools. NOT drink any alcoholic beverages. NOT make any important decisions or sign importortant papers. Do not return to work until tomorrow, unless otherwise instructed. Resume previous activities tomorrow. Diet: Start by taking liquids. If you tolerate liquids, advance to solid food. make an appointment for one week Notify Physician - If you experience excessive bleeding, unusual abdominal pain, fever, or chest pain, contact your doctor immediately. ALBERTO WHITE DO Mar 15, 2019 10:15
[2019-03-15 10:25] VITALS: BP 118/74
[2019-03-15 10:30] VITALS: BP 118/81
[2019-03-15 10:50] VITALS: BP 118/81
--- NOTE | 2019-03-17 00:16 | OPERATIVE REPORT ---
DATE OF SERVICE: 03/15/2019 PREOPERATIVE DIAGNOSIS: History of multiple polyps. POSTOPERATIVE DIAGNOSES: 1. Colon polyp. 2. Diverticula. 3. Internal hemorrhoids. PROCEDURE: Colonoscopy with hot biopsy. SURGEON: Eduardo Chaves DO. COUNTER INSTALLER: None. ANESTHESIA: IV sedation by the SIGNALS OFFICER. SPECIMEN: Polyp from the descending colon. BLOOD LOSS: Scant. FLUIDS: Per anesthesia. POSTOPERATIVE CONDITION: Stable. INDICATION FOR PROCEDURE: The patient is a 64-year-old male who had multiple polyps removed during his last colonoscopy, so may need a repeat in one year. FINDINGS: The patient had one polyp in the descending colon. He also had diverticula throughout the colon and he had some internal hemorrhoids. PROCEDURE NOTE: After informed consent was obtained, the patient was brought to the endoscopy suite and placed in bed in the left lateral decubitus position. He was administered IV sedation by the SIGNALS OFFICER who then monitored his vitals the entire time, heart rate, blood pressure and pulse ox and the scope was inserted, pushed all the way about 150 cm, able to get to the cecum. On the way in, noted diverticula, took a picture of this, able to get all the way to cecum, took a picture of appendiceal orifice, noted the ileocecal valve and then slowly withdrew the scope insufflating the circumferential wall looking at the cecum, up the ascending colon to the hepatic flexure, then down the transverse colon, the splenic flexure into the descending colon. In the descending colon, saw small polyp, I elected to do a hot biopsy of this, able to remove it almost completely and then continued down through the sigmoid into the rectum. Retroflexed the rectal vault, saw some minimal internal hemorrhoids, took a picture of this and then removed the scope. The patient tolerated the procedure, recovered in endoscopy suite. Job ID: [id number] DocumentID: [id number] Dictated Date: 03/16/2019 17:17:40 Cold Rolling Supervisor Date: 03/17/2019 00:15:39 Dictated By: EDUARDO CHAVES DO [facility]
== END 2019-03-15 11:00 ==
LOC: ENDO 07:43
PROVIDERS: ATTEND Surgery
DX: Z12.11 Encounter for screening for malignant neoplasm of colon (principal); D12.4 Benign neoplasm of descending colon; K57.30 Diverticulosis of large intestine without perforation or abscess without bleeding; K64.8 Other hemorrhoids; F32.9 Major depressive disorder, single episode, unspecified; E78.5 Hyperlipidemia, unspecified; Z86.010 Personal history of colon polyps; Z80.9 Family history of malignant neoplasm, unspecified; Z83.3 Family history of diabetes mellitus; Z79.899 Other long term (current) drug therapy
CPT/HCPCS: 88305

== ENCOUNTER 2020-01-01 18:57 | Emergency (ER) | payer OTHER ==
[~2020-01-01] VITALS: Ht 175 cm; Wt 86.4 kg
[2020-01-01 19:00] VITALS: BP 174/94
--- OUTSIDE RECORDS SUMMARY | 2020-01-01 19:02 | XMS REPORT ---
Author Author Aron Mendes Doctor Organization [facility] Address Unknown Phone Unavailable Care Team Providers Care Homicide Squad Lieutenant Name Role Phone Migration, Doctor Unavailable Unavailable PROBLEMS Type Condition ICD9-CM Code ILN45-VD Code Onset Dates Condition S tatus SNOMED Code Problem Nonspecific elevation of lev els of transaminase or lactic acid dehydrogenase (LDH) 790.4 Active 87122736 2 Problem Encounter for long-term (current) use of other medications V58.69 Active 255291746 Problem Edema 782.3 Active 385188529 Problem Spontaneous ecchymoses 782.7 Active 322448113 Problem Trigger finger (acquired) 727.03 Acti ve 8375993 Problem 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 Active 16355775 Problem 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 .42 Active 88749866 Problem 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 Active 07061246 Problem Unspecified local infection of skin and subcutaneous tissu e 686.9 Active 092103401 Problem Unspecified viral hepatitis C without hepatic coma 070.70 Active 87199431 Problem Vascular disorder of skin 709.1 Acti ve 25058212 Problem Dissociative disorder or reaction, 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 Active 62356473 Problem Anxiety state, unspecified 300.00 Act bessy 263003604 Problem Other and unspecified hyperlipidemia 272.4 Active 52286582 Problem Major depressive disorder, recurrent episode, mild 296.31 Active 39107756 ALLERGIES No Information ENCOUNTERS Encounter Location Date Diagnosis [facility] [address] [facility] [id number] [address] [place] [address] [id number] Nov, Encounter for other specifie d administrative purpose Z02.89 [facility] [address] [facility] [id number] [address] [place] [address] [id number] October, Dental examination Z01.20 an d Dental caries K02.9 [facility] [address] [facility] [id number] [address] [place] [address] Jan, Edema 782.3 and Family histo ry of coronary artery disease V17.3 [facility] [address] [id number] [address] [place] [address] Jan, Edema 782.3 and Family histo ry of coronary artery disease V17.3 [facility] [address] [id number] [address] [place] [address] [id number] Dec, Dental examination V72.2 [facility] [address] [id number] [address] [place] [address] Sep, [facility] [address] [id number] [address] [place] [address] Sep, [facility] [address] [id number] [address] [place] [address] Aug, [facility] [address] [id number] [address] [place] [address] Aug, [facility] [address] [id number] [address] [place] [address] Jun, [facility] [address] [id number] [address] [place] [address] Jun, [facility] [address] [id number] [address] [place] [address] Jun, [facility] [address] [id number] [address] [place] [address] Jun, [facility] [address] [id number] [address] [place] [address] May, [facility] [address] [id number] [address] [place] [address] May, [facility] [address] [id number] [address] [place] [address] Apr, [facility] [address] [id number] [address] [place] [address] Apr, [facility] [address] [id number] [address] [place] [address], [place] [address] Mar, [facility] [address] [id number] [address] [place] [address], [place] [address] Mar, [facility] [address] [id number] [address] [place] [address], [place] [address] Feb, [facility] [address] [id number] [address] [place] [address], [place] [address] Feb, [facility] [address] [id number] [address] [place] [address], [place] [address] Feb, [facility] [address] [id number] [address] [place] [address], [place] [address] Jan, [facility] [address] [id number] [address] [place] [address], [place] [address] Jan, [facility] [address] [id number] [address] [place] [address], [place] [address] Jan, [facility] [address] [id number] [address] [place] [address], [place] [address] Dec, [facility] [address] [id number] [address] [place] [address], [place] [address] Dec, [facility] [address] [id number] [address] [place] [address], [place] [address] Nov, [facility] [address] [id number] [address] [place] [address], [place] [address] Nov, [facility] [address] [id number] [address] [place] [address], [place] [address] Nov, [facility] [address] [id number] [address] [place] [address], [place] [address] Nov, [facility] [address] [id number] [address] [place] [address], [place] [address] Nov, [facility] [address] [id number] [address] [place] [address], [place] [address] Nov, [facility] [address] [id number] [address] [place] [address], [place] [address] October, [facility] [address] [id number] [address] [place] [address], [place] [address] October, [facility] [address] [id number] [address] [place] [address], [place] [address] Sep, [facility] [address] [id number] [address] [place] [address], [place] [address] Sep, [facility] [address] [id number] [address] [place] [address], [place] [address] Jul, [facility] [address] [id number] [address] [place] [address], [place] [address] Jul, [facility] [address] [id number] [address] [place] [address], [place] [address] Jul, [facility] [address] [id number] [address] [place] [address], [place] [address] Jul, [facility] [address] [id number] [address] [place] [address], [place] [address] May, [facility] [address] [id number] [address] [place] [address], [place] [address] May, [facility] [address] [id number] [address] [place] [address], [place] [address] May, [facility] [address] [id number] [address] [place] [address], [place] [address] May, [facility] [address] [id number] [address] [place] [address], [place] [address] Mar, [facility] [address] [id number] [address] [place] [address], [place] [address] Mar, [facility] [address] [id number] [address] [place] [address], [place] [address] Mar, [facility] [address] [id number] [address] [place] [address] [place] [address] 10 Mar, 2013 [facility] [address] [id number] [address] [place] [address], [place] [address] 04 Mar, 2013 [facility] [address] [id number] [address] [place] [address], [place] [address] 24 Feb, 2013 [facility] [address] [id number] [address] [place] [address], [place] [address] 19 Feb, 2013 [facility] [address] [id number] [address] [place] [address], [place] [address] 16 Feb, 2013 [facility] [address] [id number] [address] [place] [address], [place] [address] Jan, [facility] [address] [id number] [address] [place] [address], [place] [address] Jan, [facility] [place] [address] [id number] [address] [place] [address], [place] [address] Jan, [facility] [address] [id number] [address] [place] [address], [place] [address] Jan, [facility] [address] [id number] [address] [place] [address], [place] [address] Jan, [facility] [place] [address] [id number] [address] [place] [address], [place] [address] Jan, [facility] [address] [id number] [address] [place] [address], [place] [address] Jan, [facility] [address] [id number] [address] [place] [address], [place] [address] Dec, [facility] [address] [id number] [address] [place] [address], [place] [address] Dec, [facility] [address] [id number] [address] [place] [address], [place] [address] Dec, [facility] [address] [id number] [address] [place] [address], [place] [address] Nov, [facility] [address] [id number] [address] [place] [address], [place] [address] October, [facility] [address] [id number] [address] [place] [address], [place] [address] October, [facility] [address] [id number] [address] [place] [address], [place] [address] Sep, [facility] [address] [id number] [address] [place] [address], [place] [address] Jul, [facility] [address] [id number] [address] [place] [address], [place] [address] Jul, [facility] [address] [id number] [address] [place] [address], [place] [address] Jun, [facility] [address] [id number] [address] [place] [address], [place] [address] Jun, [facility] [place] [address] [id number] [address] [place] [address], [place] [address] Jun, [facility] [place] [address] [id number] [address] [place] [address], [place] [address] Jun, [facility] [address] [id number] [address] [place] [address], [place] [address] Jun, [facility] [address] [id number] [address] [place] [address], [place] [address] May, [facility] [address] [id number] [address] [place] [address], [place] [address] May, [facility] [address] [id number] [address] [place] [address], [place] [address] May, [facility] [address] [id number] [address] [place] [address], [place] [address] May, [facility] [address] [id number] [address] [place] [address], [place] [address] Apr, [facility] [address] [id number] [place] [address] 20 Apr, 2012 [facility] [address] [id number] [address] [place] [address], [place] [address] 16 Apr, 2012 [facility] [address] [id number] [address] [place] [address], [place] [address] 16 Apr, 2012 [facility] [address] [id number] [address] [place] [address], [place] [address] 13 Apr, 2012 [facility] [address] [id number] [address] [place] [address] 13 Apr, 2012 [facility] [address] [id number] [address] [place] [address], [place] [address] 13 Apr, 2012 [facility] [address] [id number] [address] [place] [address] 13 Apr, 2012 [facility] [address] [id number] [address] [place] [address], [place] [address] Apr, [facility] [address] [id number] [address] [place] [address] Apr, [facility] [address] [id number] [address] [place] [address], [place] [address] Mar, [facility] [address] [id number] [address] [place] [address], [place] [address] Mar, [facility] [address] [id number] [address] [place] [address] Mar, [facility] [address] [id number] [address] [place] [address] Mar, [facility] [address] [id number] [address] [place] [address], [place] [address] Mar, [facility] [address] [id number] [address] [place] [address] Mar, [facility] [address] [id number] [address] [place] [address] Mar, [facility] [address] [id number] [address] [place] [address], [place] [address] Mar, [facility] [place] [address] [id number] [address] [place] [address], [place] [address] Feb, [facility] [address] [id number] [address] [place] [address], [place] [address] Jan, [facility] [place] [address] [id number] [address] [place] [address], [place] [address] Jan, [facility] [address] [id number] [address] [place] [address], [place] [address] Dec, [facility] [place] [address] [id number] [address] [place] [address], [place] [address] Nov, [facility] [place] [address] [id number] [address] [place] [address], [place] [address] Nov, [facility] [place] [address] [id number] [address] [place] [address], [place] [address] Nov, [facility] [place] [address] [id number] [address] [place] [address], [place] [address] Nov, [facility] [place] [address] [id number] [address] [place] [address], [place] [address] Nov, [facility] [address] [id number] [address] [place] [address], [place] [address] Nov, [facility] [place] [address] [id number] [address] [place] [address], [place] [address] October, [facility] [address] [id number] [address] [place] [address], [place] [address] October, [facility] [address] [id number] [address] [place] [address], [place] [address] October, [facility] [address] [id number] [address] [place] [address], [place] [address] October, [facility] [address] [id number] [address] [place] [address], [place] [address] October, [facility] [address] [id number] [address] [place] [address], [place] [address] October, [facility] [address] [id number] [address] [place] [address], [place] [address] October, [facility] [address] [id number] [address] [place] [address], [place] [address] Sep, [facility] [address] [id number] [address] [place] [address], [place] [address] Sep, [facility] [address] [id number] [address] [place] [address], [place] [address] Aug, [facility] [address] [id number] [address] [place] [address], [place] [address] 15 Aug, 2011 [facility] [address] [id number] [address] [place] [address], [place] [address] Aug, [facility] [address] [id number] [address] [place] [address], [place] [address] Aug, [facility] [address] [id number] [address] [place] [address], [place] [address] Jul, [facility] [address] [id number] [address] [place] [address], [place] [address] Jul, [facility] [address] [id number] [address] [place] [address], [place] [address] Jul, [facility] [address] [id number] [address] [place] [address], [place] [address] Jul, [facility] [address] [id number] [address] [place] [address], [place] [address] May, [facility] [address] [id number] [address] [place] [address], [place] [address] May, [facility] [address] [id number] [address] [place] [address], [place] [address] May, [facility] [address] [id number] [address] [place] [address] Apr, [facility] [address] [facility] [id number] [address] [place] [address] Mar, [facility] [address] [facility] [id number] [address] [place] [address] Mar, IMMUNIZATIONS No Known Immunizations SOCIAL HISTORY Never Assessed REASON FOR VISIT PLAN OF CARE VITAL SIGNS MEDICATIONS Unknown Medications RESULTS No Results PROCEDURES No Known procedures INSTRUCTIONS MEDICATIONS ADMINISTERED No Known Medications MEDICAL (GENERAL) HISTORY Type Description Date Medical History depression Medical History hyperlipidemia Hospitalization History staph in right leg
--- OUTSIDE RECORDS SUMMARY | 2020-01-01 19:02 | XMS REPORT ---
Author Author Aron Mendes Doctor Organization [facility] Address Unknown Phone Unavailable Care Team Providers Care [employer] Faculty Member Name Role Phone Migration, Doctor Unavailable Unavailable PROBLEMS Type Condition ICD9-CM Code QEX25-TD Code Onset Dates Condition S tatus SNOMED Code Problem Nonspecific elevation of lev els of transaminase or lactic acid dehydrogenase (LDH) 790.4 Active 84917519 2 Problem Encounter for long-term (current) use of other medications V58.69 Active 419236155 Problem Edema 782.3 Active 288500394 Problem Spontaneous ecchymoses 782.7 Active 155713524 Problem Trigger finger (acquired) 727.03 Acti ve 3924467 Problem 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 Active 22031470 Problem 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 .42 Active 83213764 Problem 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 Active 31620869 Problem Unspecified local infection of skin and subcutaneous tissu e 686.9 Active 469920076 Problem Unspecified viral hepatitis C without hepatic coma 070.70 Active 60125045 Problem Vascular disorder of skin 709.1 Acti ve 71127179 Problem Dissociative disorder or reaction, 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 Active 54685081 Problem Anxiety state, unspecified 300.00 Act bessy 934581211 Problem Other and unspecified hyperlipidemia 272.4 Active 38327651 Problem Major depressive disorder, recurrent episode, mild 296.31 Active 49090724 ALLERGIES No Information ENCOUNTERS Encounter Location Date Diagnosis [facility] [address] [facility] [id number] [address] [place] [address] [id number] Nov, Encounter for other specifie d administrative purpose Z02.89 [facility] [address] [facility] [id number] [address] [place] [address] [id number] October, Dental examination Z01.20 an d Dental caries K02.9 [facility] [address] [facility] [id number] [address] [place] [phone] Jan, Edema 782.3 and Family histo ry of coronary artery disease V17.3 [facility] [address] [id number] [address] [place] [phone] Jan, Edema 782.3 and Family histo ry of coronary artery disease V17.3 [facility] [address] [id number] [address] [place] [address] [id number] Dec, Dental examination V72.2 [facility] [address] [id number] [address] [place] [phone] Sep, [facility] [address] [id number] [address] [place] [phone] Sep, [facility] [address] [id number] [address] [place] [phone] Aug, [facility] [address] [id number] [address] [place] [phone] Aug, [facility] [address] [id number] [address] [place] [phone] Jun, [facility] [address] [id number] [address] [place] [phone] Jun, [facility] [address] [id number] [address] [place] [phone] Jun, [facility] [address] [id number] [address] [place] [phone] Jun, [facility] [address] [id number] [address] [place] [phone] May, [facility] [address] [id number] [address] [place] [phone] May, [facility] [address] [id number] [address] [place] [phone] Apr, [facility] [address] [id number] [address] [place] [phone] Apr, [facility] [address] [id number] [address] [place] [address], [place] [address] Mar, [facility] [address] [id number] [address] [place] [address], [place] [address] Mar, [facility] [address] [id number] [address] [place] [address], [place] [address] Feb, [facility] [address] [id number] [address] [place] [address], [place] [address] Feb, [facility] [address] [id number] [address] [place] [address], [place] [address] Feb, [facility] [address] [id number] [address] [place] [address], [place] [address] Jan, [facility] [address] [id number] [address] [place] [address], [place] [address] Jan, [facility] [address] [id number] [address] [place] [address], [place] [address] Jan, [facility] [address] [id number] [address] [place] [address], [place] [address] Dec, [facility] [address] [id number] [address] [place] [address], [place] [address] Dec, [facility] [address] [id number] [address] [place] [address], [place] [address] Nov, [facility] [address] [id number] [address] [place] [address], [place] [address] Nov, [facility] [address] [id number] [address] [place] [address], [place] [address] Nov, [facility] [address] [id number] [address] [place] [address], [place] [address] Nov, [facility] [address] [id number] [address] [place] [address], [place] [address] Nov, [facility] [address] [id number] [address] [place] [address], [place] [address] Nov, [facility] [address] [id number] [address] [place] [address], [place] [address] October, [facility] [address] [id number] [address] [place] [address], [place] [address] October, [facility] [address] [id number] [address] [place] [address], [place] [address] Sep, [facility] [address] [id number] [address] [place] [address], [place] [address] Sep, [facility] [address] [id number] [address] [place] [address], [place] [address] Jul, [facility] [address] [id number] [address] [place] [address], [place] [address] Jul, [facility] [address] [id number] [address] [place] [address], [place] [address] Jul, [facility] [address] [id number] [address] [place] [address], [place] [address] Jul, [facility] [address] [id number] [address] [place] [address], [place] [address] May, [facility] [address] [id number] [address] [place] [address], [place] [address] May, [facility] [address] [id number] [address] [place] [address], [place] [address] May, [facility] [address] [id number] [address] [place] [address], [place] [address] May, [facility] [address] [id number] [address] [place] [address], [place] [address] Mar, [facility] [address] [id number] [address] [place] [address], [place] [address] Mar, [facility] [address] [id number] [address] [place] [address], [place] [address] Mar, [facility] [address] [id number] [address] [place] [address] [place] [address] 10 Mar, 2013 [facility] [address] [id number] [address] [place] [address], [place] [address] 04 Mar, 2013 [facility] [address] [id number] [address] [place] [address], [place] [address] 24 Feb, 2013 [facility] [address] [id number] [address] [place] [address], [place] [address] 19 Feb, 2013 [facility] [address] [id number] [address] [place] [address], [place] [address] 16 Feb, 2013 [facility] [address] [id number] [address] [place] [address], [place] [address] Jan, [facility] [address] [id number] [address] [place] [address], [place] [address] Jan, [facility] [address] [id number] [address] [place] [address], [place] [address] Jan, [facility] [address] [id number] [address] [place] [address], [place] [address] Jan, [facility] [address] [id number] [address] [place] [address], [place] [address] Jan, [facility] [address] [id number] [address] [place] [address], [place] [address] Jan, [facility] [address] [id number] [address] [place] [address], [place] [address] Jan, [facility] [address] [id number] [address] [place] [address], [place] [address] Dec, [facility] [address] [id number] [address] [place] [address], [place] [address] Dec, [facility] [address] [id number] [address] [place] [address], [place] [address] Dec, [facility] [address] [id number] [address] [place] [address], [place] [address] Nov, [facility] [address] [id number] [address] [place] [address], [place] [address] October, [facility] [address] [id number] [address] [place] [address], [place] [address] October, [facility] [address] [id number] [address] [place] [address], [place] [address] Sep, [facility] [address] [id number] [address] [place] [address], [place] [address] Jul, [facility] [address] [id number] [address] [place] [address], [place] [address] Jul, [facility] [address] [id number] [address] [place] [address], [place] [address] Jun, [facility] [address] [id number] [address] [place] [address], [place] [address] Jun, [facility] [address] [id number] [address] [place] [address], [place] [address] Jun, [facility] [address] [id number] [address] [place] [address], [place] [address] Jun, [facility] [address] [id number] [address] [place] [address], [place] [address] Jun, [facility] [address] [id number] [address] [place] [address], [place] [address] May, [facility] [address] [id number] [address] [place] [address], [place] [address] May, [facility] [address] [id number] [address] [place] [address], [place] [address] May, [facility] [address] [id number] [address] [place] [address], [place] [address] May, [facility] [address] [id number] [address] [place] [address], [place] [address] Apr, [facility] [address] [id number] [address] [address] 20 Apr, 2012 [facility] [address] [id number] [address] [place] [address], [place] [address] 16 Apr, 2012 [facility] [address] [id number] [address] [place] [address], [place] [address] 16 Apr, 2012 [facility] [address] [id number] [address] [place] [address], [place] [address] 13 Apr, 2012 [facility] [address] [id number] [address] [place] [id number] 13 Apr, 2012 [facility] [address] [id number] [address] [place] [address], [place] [address] 13 Apr, 2012 [facility] [address] [id number] [address] [place] [id number] 13 Apr, 2012 [facility] [address] [id number] [address] [place] [address], [place] [address] Apr, [facility] [address] [id number] [address] [place] [address] Apr, [facility] [address] [id number] [address] [place] [address], [place] [address] Mar, [facility] [address] [id number] [address] [place] [address], [place] [address] Mar, [facility] [address] [id number] [address] [place] [address] Mar, [facility] [address] [id number] [address] [place] [address] Mar, [facility] [address] [id number] [address] [place] [address], [place] [address] Mar, [facility] [address] [id number] [address] [place] [phone] Mar, [facility] [address] [id number] [address] [place] [address] Mar, [facility] [address] [id number] [address] [place] [address], [place] [address] Mar, [facility] [address] [id number] [address] [place] [address], [place] [address] Feb, [facility] [address] [id number] [address] [place] [address], [place] [address] Jan, [facility] [address] [id number] [address] [place] [address], [place] [address] Jan, [facility] [address] [id number] [address] [place] [address], [place] [address] Dec, [facility] [address] [id number] [address] [place] [address], [place] [address] Nov, [facility] [address] [id number] [address] [place] [address], [place] [address] Nov, [facility] [address] [id number] [address] [place] [address], [place] [address] Nov, [facility] [address] [id number] [address] [place] [address], [place] [address] Nov, [facility] [address] [id number] [address] [place] [address], [place] [address] Nov, [facility] [address] [id number] [address] [place] [address], [place] [address] Nov, [facility] [address] [id number] [address] [place] [address], [place] [address] October, [facility] [address] [id number] [address] [place] [address], [place] [address] October, [facility] [address] [id number] [address] [place] [address], [place] [address] October, [facility] [address] [id number] [address] [place] [address], [place] [address] October, [facility] [address] [id number] [address] [place] [address], [place] [address] October, [facility] [address] [id number] [address] [place] [address], [place] [address] October, [facility] [address] [id number] [address] [place] [address], [place] [address] October, [facility] [address] [id number] [address] [place] [address], [place] [address] Sep, [facility] [address] [id number] [address] [place] [address], [place] [address] Sep, [facility] [address] [id number] [address] [place] [address], [place] [address] Aug, [facility] [address] [id number] [address] [place] [address], [place] [address] 15 Aug, 2011 [facility] [address] [id number] [address] [place] [address], [place] [address] Aug, [facility] [address] [id number] [address] [place] [address], [place] [address] Aug, [facility] [address] [id number] [address] [place] [address], [place] [address] Jul, [facility] [address] [id number] [address] [place] [address], [place] [address] Jul, [facility] [address] [id number] [address] [place] [address], [place] [address] Jul, [facility] [address] [id number] [address] [place] [address], [place] [address] Jul, [facility] [address] [id number] [address] [place] [address], [place] [address] May, [facility] [address] [id number] [address] [place] [address], [place] [address] May, [facility] [address] [id number] [address] [place] [address], [place] [address] May, [facility] [address] [id number] [address] [place] [address] Apr, [facility] [address] [facility] [id number] [address] [place] [address] Mar, [facility] [address] [facility] [id number] [address] [place] [address] Mar, IMMUNIZATIONS No Known Immunizations SOCIAL HISTORY Never Assessed REASON FOR VISIT PLAN OF CARE VITAL SIGNS MEDICATIONS Unknown Medications RESULTS No Results PROCEDURES No Known procedures INSTRUCTIONS MEDICATIONS ADMINISTERED No Known Medications MEDICAL (GENERAL) HISTORY Type Description Date Medical History depression Medical History hyperlipidemia Hospitalization History staph in right leg
--- OUTSIDE RECORDS SUMMARY | 2020-01-01 19:03 | XMS REPORT ---
Author Author Aron LEE [facility] Address [address] [place] [address] Care Team Providers Care District Ranger Name Role Phone HTANH LEE Unavailable PROBLEMS Type Condition ICD9-CM Code ULL89-LU Code Onset Dates Condition S tatus SNOMED Code Problem Nonspecific elevation of lev els of transaminase or lactic acid dehydrogenase (LDH) 790.4 Active 97295786 2 Problem Encounter for long-term (current) use of other medications V58.69 Active 594312499 Problem Edema 782.3 Active 480193692 Problem Spontaneous ecchymoses 782.7 Active 606112446 Problem Trigger finger (acquired) 727.03 Acti ve 2993324 Problem 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 Active 41983667 Problem 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 .42 Active 88534270 Problem 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 Active 42401211 Problem Unspecified local infection of skin and subcutaneous tissu e 686.9 Active 157459151 Problem Unspecified viral hepatitis C without hepatic coma 070.70 Active 67282705 Problem Vascular disorder of skin 709.1 Acti ve 58112623 Problem Dissociative disorder or reaction, 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 Active 79933613 Problem Anxiety state, unspecified 300.00 Act bessy 889756451 Problem Other and unspecified hyperlipidemia 272.4 Active 16407084 Problem Major depressive disorder, recurrent episode, mild 296.31 Active 07689801 ALLERGIES No Information ENCOUNTERS Encounter Location Date Diagnosis [facility] [id number] [place] [id number] Nov, Encounter for other specifie d administrative purpose Z02.89 [facility] [address] [facility] [id number] [address] [place] [address] [id number] October, Dental examination Z01.20 an d Dental caries K02.9 [facility] [address] [id number] [address] [place] [id number] 14 Jan, 2015 Edema 782.3 and Family histo ry of coronary artery disease V17.3 [facility] [address] [id number] [address] [place] [id number] 07 Jan, 2015 Edema 782.3 and Family histo ry of coronary artery disease V17.3 [facility] [address] [id number] [address] [place] [address] [id number] Dec, Dental examination V72.2 [facility] [address] [id number] [address] [place] [address] Sep, [facility] [address] [id number] [address] [place] [address] Sep, [facility] [address] [id number] [address] [place] [address] Aug, [facility] [address] [id number] [address] [place] [address] Aug, [facility] [address] [id number] [address] [place] [phone] Jun, [facility] [address] [id number] [address] [place] [phone] Jun, [facility] [address] [id number] [address] [place] [address] Jun, [facility] [address] [id number] [address] [place] [address] Jun, [facility] [address] [id number] [address] [place] [phone] May, [facility] [address] [id number] [address] [place] [phone] May, [facility] [address] [id number] [address] [place] [phone] Apr, [facility] [address] [id number] [address] [place] [address] [place] [address] Apr, [facility] [address] [id number] [address] [place] [address], [place] [address] Mar, [facility] [address] [id number] [address] [place] [address], [place] [address] Mar, [facility] [address] [id number] [address] [place] [address], [place] [address] Feb, [facility] [address] [id number] [address] [place] [address], [place] [address] Feb, [facility] [address] [id number] [address] [place] [address], [place] [address] Feb, [facility] [address] [id number] [address] [place] [address], [place] [address] Jan, [facility] [address] [id number] [address] [place] [address], [place] [address] Jan, [facility] [address] [id number] [address] [place] [address], [place] [address] Jan, [facility] [address] [id number] [address] [place] [address], [place] [address] Dec, [facility] [address] [id number] [address] [place] [address], [place] [address] Dec, [facility] [address] [id number] [address] [place] [address], [place] [address] Nov, [facility] [address] [id number] [address] [place] [address], [place] [address] Nov, [facility] [address] [id number] [address] [place] [address], [place] [address] Nov, [facility] [address] [id number] [address] [place] [address], [place] [address] Nov, [facility] [address] [id number] [address] [place] [address], [place] [address] Nov, [facility] [address] [id number] [address] [place] [address], [place] [address] Nov, [facility] [address] [id number] [address] [place] [address], [place] [address] October, [facility] [address] [id number] [address] [place] [address], [place] [address] October, [facility] [address] [id number] [address] [place] [address], [place] [address] Sep, [facility] [address] [id number] [address] [place] [address], [place] [address] Sep, [facility] [address] [id number] [address] [place] [address], [place] [address] Jul, [facility] [address] [id number] [address] [place] [address], [place] [address] Jul, [facility] [address] [id number] [address] [place] [address], [place] [address] Jul, [facility] [address] [id number] [address] [place] [address], [place] [address] Jul, [facility] [address] [id number] [address] [place] [address], [place] [address] May, [facility] [address] [id number] [address] [place] [address], [place] [address] May, [facility] [address] [id number] [address] [place] [address], [place] [address] May, [facility] [address] [id number] [address] [place] [address], [place] [address] May, [facility] [address] [id number] [address] [place] [address], [place] [address] Mar, [facility] [address] [id number] [address] [place] [address], [place] [address] Mar, [facility] [address] [id number] [address] [place] [address], [place] [address] Mar, [facility] [address] [id number] [address] [place] [address], [place] [address] Mar, [facility] [address] [id number] [address] [place] [address], [place] [address] 04 Mar, 2013 [facility] [address] [id number] [address] [place] [address], [place] [address] 24 Feb, 2013 [facility] [address] [id number] [address] [place] [address], [place] [address] 19 Feb, 2013 [facility] [address] [id number] [address] [place] [address], [place] [address] 16 Feb, 2013 [facility] [address] [id number] [address] [place] [address], [place] [address] Jan, [facility] [address] [id number] [address] [place] [address], [place] [address] Jan, [facility] [address] [id number] [address] [place] [address], [place] [address] Jan, [facility] [address] [id number] [address] [place] [address], [place] [address] Jan, [facility] [address] [id number] [address] [place] [address], [place] [address] Jan, [facility] [address] [id number] [address] [place] [address], [place] [address] Jan, [facility] [address] [id number] [address] [place] [address], [place] [address] Jan, [facility] [address] [id number] [address] [place] [address], [place] [address] Dec, [facility] [address] [id number] [address] [place] [address], [place] [address] Dec, [facility] [address] [id number] [address] [place] [address], [place] [address] Dec, [facility] [address] [id number] [address] [place] [address], [place] [address] 10 Nov, 2012 [facility] [address] [id number] [address] [place] [address], [place] [address] October, [facility] [address] [id number] [address] [place] [address], [place] [address] October, [facility] [address] [id number] [address] [place] [address], [place] [address] Sep, [facility] [address] [id number] [address] [place] [address], [place] [address] Jul, [facility] [address] [id number] [address] [place] [address], [place] [address] Jul, [facility] [address] [id number] [address] [place] [address], [place] [address] Jun, [facility] [address] [id number] [address] [place] [address], [place] [address] Jun, [facility] [address] [id number] [address] [place] [address], [place] [address] Jun, [facility] [address] [id number] [address] [place] [address], [place] [address] Jun, [facility] [address] [id number] [address] [place] [address], [place] [address] Jun, [facility] [address] [id number] [address] [place] [address], [place] [address] May, [facility] [address] [id number] [address] [place] [address], [place] [address] May, [facility] [address] [id number] [address] [place] [address], [place] [address] May, [facility] [address] [id number] [address] [place] [address], [place] [address] May, [facility] [address] [id number] [address] [place] [address], [place] [address] 20 Apr, 2012 [facility] [address] [id number] [address] [place] [address], [place] [address] 20 Apr, 2012 [facility] [address] [id number] [address] [place] [address], [place] [address] 16 Apr, 2012 [facility] [address] [id number] [address] [place] [address], [place] [address] 16 Apr, 2012 [facility] [address] [id number] [address] [place] [address], [place] [address] 13 Apr, 2012 [facility] [address] [id number] [address] [place] [address], [place] [address] 13 Apr, 2012 [facility] [address] [id number] [address] [place] [address], [place] [address] 13 Apr, 2012 [facility] [address] [id number] [address] [place] [address], [place] [address] Apr, [facility] [address] [id number] [address] [place] [address], [place] [address] Apr, [facility] [address] [id number] [address] [place] [address], [place] [address] Apr, [facility] [address] [id number] [address] [place] [address], [place] [address] Mar, [facility] [address] [id number] [address] [place] [address], [place] [address] Mar, [facility] [address] [id number] [address] [place] [address] Mar, [facility] [address] [id number] [address] [place] [address], [place] [address] Mar, [facility] [address] [id number] [address] [place] [address], [place] [address] Mar, [facility] [address] [id number] [address] [place] [address], [place] [address] 10 Mar, 2012 [facility] [address] [id number] [address] [place] [address], [place] [address] Mar, [facility] [address] [id number] [address] [place] [address], [place] [address] Mar, [facility] [address] [id number] [address] [place] [address], [place] [address] Feb, [facility] [address] [id number] [address] [place] [address], [place] [address] Jan, [facility] [address] [id number] [address] [place] [address], [place] [address] Jan, [facility] [address] [id number] [address] [place] [address], [place] [address] Dec, [facility] [address] [id number] [address] [place] [address], [place] [address] Nov, [facility] [address] [id number] [address] [place] [address], [place] [address] Nov, [facility] [address] [id number] [address] [place] [address], [place] [address] Nov, [facility] [address] [id number] [address] [place] [address], [place] [address] Nov, [facility] [address] [id number] [address] [place] [address], [place] [address] Nov, [facility] [address] [id number] [address] [place] [address], [place] [address] Nov, [facility] [address] [id number] [address] [place] [address], [place] [address] October, [facility] [address] [id number] [address] [place] [address], [place] [address] October, [facility] [address] [id number] [address] [place] [address], [place] [address] October, [facility] [address] [id number] [address] [place] [address], [place] [address] October, [facility] [address] [id number] [address] [place] [address], [place] [address] October, [facility] [address] [id number] [address] [place] [address], [place] [address] October, [facility] [address] [id number] [address] [place] [address], [place] [address] October, [facility] [address] [id number] [address] [place] [address], [place] [address] Sep, [facility] [address] [id number] [address] [place] [address], [place] [address] Sep, [facility] [address] [id number] [address] [place] [address], [place] [address] Aug, [facility] [address] [id number] [address] [place] [address], [place] [address] Aug, [facility] [address] [id number] [address] [place] [address], [place] [address] Aug, [facility] [address] [id number] [address] [place] [address], [place] [address] Aug, [facility] [address] [id number] [address] [place] [address], [place] [address] Jul, [facility] [address] [id number] [address] [place] [address], [place] [address] Jul, [facility] [address] [id number] [address] [place] [address], [place] [address] Jul, [facility] [address] [id number] [address] [place] [address], [place] [address] Jul, [facility] [address] [id number] [address] [place] [address], [place] [address] May, [facility] [address] [id number] [address] [place] [address], [place] [address] May, [facility] [address] [id number] [address] [place] [address] May, [facility] [address] [facility] [id number] [address] [place] [address] Apr, [facility] [address] [facility] [id number] [address] [place] [address] Mar, [facility] [address] [facility] [id number] [address] [place] [address] Mar, IMMUNIZATIONS No Known Immunizations SOCIAL HISTORY Never Assessed REASON FOR VISIT PLAN OF CARE VITAL SIGNS MEDICATIONS Unknown Medications RESULTS No Results PROCEDURES No Known procedures INSTRUCTIONS MEDICATIONS ADMINISTERED No Known Medications MEDICAL (GENERAL) HISTORY Type Description Date Medical History depression Medical History hyperlipidemia Hospitalization History staph in right leg
--- OUTSIDE RECORDS SUMMARY | 2020-01-01 19:03 | XMS REPORT ---
Author Author Aron Mendes Doctor Organization [facility] Address Unknown Phone Unavailable Care Team Providers Care Kosher Inspector Name Role Phone Migration, Doctor Unavailable Unavailable PROBLEMS Type Condition ICD9-CM Code JVR64-CB Code Onset Dates Condition S tatus SNOMED Code Problem Nonspecific elevation of lev els of transaminase or lactic acid dehydrogenase (LDH) 790.4 Active 80703607 2 Problem Encounter for long-term (current) use of other medications V58.69 Active 084788589 Problem Edema 782.3 Active 685242138 Problem Spontaneous ecchymoses 782.7 Active 130467666 Problem Trigger finger (acquired) 727.03 Acti ve 9741994 Problem 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 Active 66799923 Problem 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 .42 Active 25665978 Problem 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 Active 64296805 Problem Unspecified local infection of skin and subcutaneous tissu e 686.9 Active 689822204 Problem Unspecified viral hepatitis C without hepatic coma 070.70 Active 72222656 Problem Vascular disorder of skin 709.1 Acti ve 44243361 Problem Dissociative disorder or reaction, 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 [id number] [address] [place] [address] [phone] Nov, Encounter for other specifie d administrative purpose Z02.89 [facility] [address] [facility] [id number] [address] [place] [address] [id number] October, Dental examination Z01.20 an d Dental caries K02.9 [facility] [address] [facility] [id number] [address] [place] [phone] Jan, Edema 782.3 and Family histo ry of coronary artery disease V17.3 [facility] [address] [id number] [address] [place] [phone] Jan, Edema 782.3 and Family histo ry of coronary artery disease V17.3 [facility] [address] [id number] [address] [place] [address] [id number] Dec, Dental examination V72.2 [facility] [address] [id number] [address] [place] [phone] Sep, [facility] [address] [id number] [address] [place] [phone] Sep, [facility] [address] [id number] [address] [place] [phone] Aug, [facility] [address] [id number] [address] [place] [phone] Aug, [facility] [address] [id number] [address] [place] [phone] Jun, [facility] [address] [id number] [address] [place] [phone] Jun, [facility] [address] [id number] [address] [place] [phone] Jun, [facility] [address] [id number] [address] [place] [phone] Jun, [facility] [address] [id number] [address] [place] [phone] May, [facility] [address] [id number] [address] [place] [phone] May, [facility] [address] [id number] [address] [place] [phone] Apr, [facility] [address] [id number] [address] [place] [phone] Apr, [facility] [address] [id number] [address] [place] [address], [place] [address] Mar, [facility] [address] [id number] [address] [place] [address], [place] [address] Mar, [facility] [address] [id number] [address] [place] [address], [place] [address] Feb, [facility] [address] [id number] [address] [place] [address], [place] [phone] Feb, [facility] [address] [id number] [address] [place] [address], [place] [address] Feb, [facility] [address] [id number] [address] [place] [address], [place] [phone] Jan, [facility] [address] [id number] [address] [place] [address], [place] [address] Jan, [facility] [address] [id number] [address] [place] [address], [place] [address] Jan, [facility] [address] [id number] [address] [place] [address], [place] [address] Dec, [facility] [address] [id number] [address] [place] [address], [place] [address] Dec, [facility] [address] [id number] [address] [place] [address], [place] [address] Nov, [facility] [address] [id number] [address] [place] [address], [place] [address] Nov, [facility] [address] [id number] [address] [place] [address], [place] [address] Nov, [facility] [address] [id number] [address] [place] [address], [place] [address] Nov, [facility] [address] [id number] [address] [place] [address], [place] [address] Nov, [facility] [address] [id number] [address] [place] [address], [place] [address] Nov, [facility] [address] [id number] [address] [place] [address], [place] [address] October, [facility] [address] [id number] [address] [place] [address], [place] [address] October, [facility] [address] [id number] [address] [place] [address], [place] [address] Sep, [facility] [address] [id number] [address] [place] [address], [place] [address] Sep, [facility] [address] [id number] [address] [place] [address], [place] [address] Jul, [facility] [address] [id number] [address] [place] [address], [place] [address] Jul, [facility] [address] [id number] [address] [place] [address], [place] [address] Jul, [facility] [address] [id number] [address] [place] [address], [place] [address] Jul, [facility] [address] [id number] [address] [place] [address], [place] [address] May, [facility] [address] [id number] [address] [place] [address], [place] [phone] May, [facility] [address] [id number] [address] [place] [address], [place] [address] May, [facility] [address] [id number] [address] [place] [address], [place] [address] May, [facility] [address] [id number] [address] [place] [address], [place] [address] Mar, [facility] [address] [id number] [address] [place] [address], [place] [address] Mar, [facility] [address] [id number] [address] [place] [address], [place] [address] Mar, [facility] [address] [id number] [address] [place] [address] [place] [phone] 10 Mar, 2013 [facility] [address] [id number] [address] [place] [address], [place] [address] 04 Mar, 2013 [facility] [address] [id number] [address] [place] [address], [place] [address] 24 Feb, 2013 [facility] [address] [id number] [address] [place] [address], [place] [address] 19 Feb, 2013 [facility] [address] [id number] [address] [place] [address], [place] [address] 16 Feb, 2013 [facility] [address] [id number] [address] [place] [address], [place] [address] Jan, [facility] [address] [id number] [address] [place] [address], [place] [address] Jan, [facility] [address] [id number] [address] [place] [address], [place] [phone] Jan, [facility] [address] [id number] [address] [place] [address], [place] [address] Jan, [facility] [address] [id number] [address] [place] [address], [place] [address] Jan, [facility] [address] [id number] [address] [place] [address], [place] [address] Jan, [facility] [address] [id number] [address] [place] [address], [place] [address] Jan, [facility] [address] [id number] [address] [place] [address], [place] [address] Dec, [facility] [address] [id number] [address] [place] [address], [place] [address] Dec, [facility] [address] [id number] [address] [place] [address], [place] [address] Dec, [facility] [address] [id number] [address] [place] [address], [place] [address] Nov, [facility] [address] [id number] [address] [place] [address], [place] [address] October, [facility] [address] [id number] [address] [place] [address], [place] [address] October, [facility] [address] [id number] [address] [place] [address], [place] [address] Sep, [facility] [address] [id number] [address] [place] [address], [place] [address] Jul, [facility] [address] [id number] [address] [place] [address], [place] [address] Jul, [facility] [address] [id number] [address] [place] [address], [place] [address] Jun, [facility] [address] [id number] [address] [place] [address], [place] [address] Jun, [facility] [address] [id number] [address] [place] [address], [place] [address] Jun, [facility] [address] [id number] [address] [place] [address], [place] [address] Jun, [facility] [address] [id number] [address] [place] [address], [place] [address] Jun, [facility] [address] [id number] [address] [place] [address], [place] [address] May, [facility] [address] [id number] [address] [place] [address], [place] [address] May, [facility] [address] [id number] [address] [place] [address], [place] [address] May, [facility] [address] [id number] [address] [place] [address], [place] [address] May, [facility] [address] [id number] [address] [place] [address], [place] [address] Apr, [facility] [address] [id number] [place] [address] 20 Apr, 2012 [facility] [address] [id number] [address] [place] [address], [place] [address] 16 Apr, 2012 [facility] [address] [id number] [address] [place] [address], [place] [address] 16 Apr, 2012 [facility] [address] [id number] [address] [place] [address], [place] [address] 13 Apr, 2012 [facility] [address] [id number] [address] [place] [phone] 13 Apr, 2012 [facility] [address] [id number] [address] [place] [address], [place] [address] 13 Apr, 2012 [facility] [address] [id number] [address] [place] [phone] 13 Apr, 2012 [facility] [address] [id number] [address] [place] [address], [place] [address] Apr, [facility] [address] [id number] [address] [place] [phone] Apr, [facility] [address] [id number] [address] [place] [address], [place] [phone] Mar, [facility] [address] [id number] [address] [place] [address], [place] [address] Mar, [facility] [address] [id number] [address] [place] [phone] Mar, [facility] [address] [id number] [address] [place] [phone] Mar, [facility] [address] [id number] [address] [place] [address], [place] [address] Mar, [facility] [address] [id number] [address] [place] [phone] Mar, [facility] [address] [id number] [address] [place] [phone] Mar, [facility] [address] [id number] [address] [place] [address], [place] [address] Mar, [facility] [address] [id number] [address] [place] [address], [place] [address] Feb, [facility] [address] [id number] [address] [place] [address], [place] [address] Jan, [facility] [address] [id number] [address] [place] [address], [place] [address] Jan, [facility] [address] [id number] [address] [place] [address], [place] [address] Dec, [facility] [address] [id number] [address] [place] [address], [place] [phone] Nov, [facility] [address] [id number] [address] [place] [address], [place] [address] Nov, [facility] [address] [id number] [address] [place] [address], [place] [address] Nov, [facility] [address] [id number] [address] [place] [address], [place] [address] Nov, [facility] [address] [id number] [address] [place] [address], [place] [address] Nov, [facility] [address] [id number] [address] [place] [address], [place] [address] Nov, [facility] [address] [id number] [address] [place] [address], [place] [address] October, [facility] [address] [id number] [address] [place] [address], [place] [address] October, [facility] [address] [id number] [address] [place] [address], [place] [address] October, [facility] [address] [id number] [address] [place] [address], [place] [address] October, [facility] [address] [id number] [address] [place] [address], [place] [address] October, [facility] [address] [id number] [address] [place] [address], [place] [address] October, [facility] [address] [id number] [address] [place] [address], [place] [address] October, [facility] [address] [id number] [address] [place] [address], [place] [address] Sep, [facility] [address] [id number] [address] [place] [address], [place] [address] Sep, [facility] [address] [id number] [address] [place] [address], [place] [address] Aug, [facility] [address] [id number] [address] [place] [address], [place] [address] 15 Aug, 2011 [facility] [address] [id number] [address] [place] [address], [place] [address] Aug, [facility] [address] [id number] [address] [place] [address], [place] [address] Aug, [facility] [address] [id number] [address] [place] [address], [place] [phone] Jul, [facility] [address] [id number] [address] [place] [address], [place] [address] Jul, [facility] [address] [id number] [address] [place] [address], [place] [address] Jul, [facility] [address] [id number] [address] [place] [address], [place] [address] Jul, [facility] [address] [id number] [address] [place] [address], [place] [address] May, [facility] [address] [id number] [address] [place] [address], [place] [address] May, [facility] [address] [id number] [address] [place] [address], [place] [address] May, [facility] [address] [id number] [address] [place] [phone] Apr, [facility] [address] [facility] [id number] [address] [place] [phone] Mar, [facility] [address] [facility] [id number] [address] [place] [phone] Mar, IMMUNIZATIONS No Known Immunizations SOCIAL HISTORY Never Assessed REASON FOR VISIT PLAN OF CARE VITAL SIGNS Height 69 in 2013-03-25 Weight 195.4 lbs 2013-03-25 Temperature 97.4 degrees Fahrenheit 2013-03-25 Heart Rate 84 bpm 2013-03-25 Respiratory Rate 18 2013-03-25 Blood pressure systolic 118 mmHg 2013-03-25 Blood pressure diastolic 72 mmHg 2013-03-25 MEDICATIONS Unknown Medications RESULTS No Results PROCEDURES No Known procedures INSTRUCTIONS MEDICATIONS ADMINISTERED No Known Medications MEDICAL (GENERAL) HISTORY Type Description Date Medical History depression Medical History hyperlipidemia Hospitalization History staph in right leg
--- OUTSIDE RECORDS SUMMARY | 2020-01-01 19:03 | XMS REPORT ---
Author Author Aron Lackey [facility] Address [address] [place] [address] Care Team Providers Care Cutting Supervisor Name Role Phone DaryaDARIAEN Unavailable PROBLEMS Type Condition ICD9-CM Code FNW18-PV Code Onset Dates Condition S tatus SNOMED Code Problem Nonspecific elevation of lev els of transaminase or lactic acid dehydrogenase (LDH) 790.4 Active 79626882 2 Problem Encounter for long-term (current) use of other medications V58.69 Active 157566108 Problem Edema 782.3 Active 259943064 Problem Spontaneous ecchymoses 782.7 Active 797272102 Problem Trigger finger (acquired) 727.03 Acti ve 1115899 Problem 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 Active 54050259 Problem 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 .42 Active 93887311 Problem 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 Active 80232243 Problem Unspecified local infection of skin and subcutaneous tissu e 686.9 Active 179407301 Problem Unspecified viral hepatitis C without hepatic coma 070.70 Active 63291546 Problem Vascular disorder of skin 709.1 Acti ve 65733590 Problem Dissociative disorder or reaction, 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 Active 62045389 Problem Anxiety state, unspecified 300.00 Act bessy 439790945 Problem Other and unspecified hyperlipidemia 272.4 Active 58443518 Problem Major depressive disorder, recurrent episode, mild 296.31 Active 12099614 ALLERGIES No Information ENCOUNTERS Encounter Location Date Diagnosis [facility] [id number] [place] [id number] Nov, Encounter for other specifie d administrative purpose Z02.89 [facility] [address] [id number] [address] [place] [address] [id number] October, Dental examination Z01.20 an d Dental caries K02.9 [facility] [address] [id number] [address] [place] [id number] 14 Jan, 2015 Edema 782.3 and Family histo ry of coronary artery disease V17.3 [facility] [address] [id number] [address] [place] [id number] 07 Jan, 2015 Edema 782.3 and Family histo ry of coronary artery disease V17.3 [facility] [address] [id number] [address] [place] [address] [id number] Dec, Dental examination V72.2 [facility] [address] [id number] [address] [place] [id number] Sep, [facility] [address] [id number] [address] [place] [id number] Sep, [facility] [address] [id number] [address] [place] [id number] Aug, [facility] [address] [id number] [address] [place] [id number] Aug, [facility] [address] [id number] [address] [place] [id number] Jun, [facility] [address] [id number] [address] [place] [phone] Jun, [facility] [address] [id number] [address] [place] [id number] Jun, [facility] [address] [id number] [address] [place] [id number] Jun, [facility] [address] [id number] [address] [place] [phone] May, [facility] [address] [id number] [address] [place] [id number] May, [facility] [address] [id number] [address] [place] [id number] Apr, [facility] [address] [id number] [address] [place] [address], [place] [address] Apr, [facility] [address] [id number] [address] [place] [address], [place] [address] Mar, [facility] [address] [id number] [address] [place] [address], [place] [address] Mar, [facility] [address] [id number] [address] [place] [address], [place] [address] Feb, [facility] [address] [id number] [address] [place] [address], [place] [address] Feb, [facility] [address] [id number] [address] [place] [address], [place] [address] Feb, [facility] [address] [id number] [address] [place] [address], [place] [address] Jan, [facility] [address] [id number] [address] [place] [address], [place] [address] Jan, [facility] [address] [id number] [address] [place] [address], [place] [address] Jan, [facility] [address] [id number] [address] [place] [address], [place] [address] Dec, [facility] [address] [id number] [address] [place] [address], [place] [address] Dec, [facility] [address] [id number] [address] [place] [address], [place] [address] Nov, [facility] [address] [id number] [address] [place] [address], [place] [address] Nov, [facility] [address] [id number] [address] [place] [address], [place] [address] Nov, [facility] [address] [id number] [address] [place] [address], [place] [address] Nov, [facility] [address] [id number] [address] [place] [address], [place] [address] Nov, [facility] [address] [id number] [address] [place] [address], [place] [address] Nov, [facility] [address] [id number] [address] [place] [address], [place] [address] October, [facility] [address] [id number] [address] [place] [address], [place] [address] October, [facility] [address] [id number] [address] [place] [address], [place] [address] Sep, [facility] [address] [id number] [address] [place] [address], [place] [address] Sep, [facility] [address] [id number] [address] [place] [address], [place] [address] Jul, [facility] [address] [id number] [address] [place] [address], [place] [address] Jul, [facility] [address] [id number] [address] [place] [address], [place] [address] Jul, [facility] [address] [id number] [address] [place] [address], [place] [address] Jul, [facility] [address] [id number] [address] [place] [address], [place] [address] May, [facility] [address] [id number] [address] [place] [address], [place] [address] May, [facility] [address] [id number] [address] [place] [address], [place] [address] May, [facility] [address] [id number] [address] [place] [address], [place] [address] May, [facility] [address] [id number] [address] [place] [address], [place] [address] Mar, [facility] [address] [id number] [address] [place] [address], [place] [address] Mar, [facility] [address] [id number] [address] [place] [address] [place] [address] 10 Mar, 2013 [facility] [address] [id number] [address] [place] [address], [place] [address] 10 Mar, 2013 [facility] [address] [id number] [address] [place] [address], [place] [address] 04 Mar, 2013 [facility] [address] [id number] [address] [place] [address], [place] [address] 24 Feb, 2013 [facility] [address] [id number] [address] [place] [address], [place] [address] 19 Feb, 2013 [facility] [address] [id number] [address] [place] [address], [place] [address] 16 Feb, 2013 [facility] [address] [id number] [address] [place] [address], [place] [address] Jan, [facility] [address] [id number] [address] [place] [address], [place] [address] Jan, [facility] [address] [id number] [address] [place] [address], [place] [address] Jan, [facility] [address] [id number] [address] [place] [address], [place] [address] Jan, [facility] [address] [id number] [address] [place] [address], [place] [address] Jan, [facility] [address] [id number] [address] [place] [address], [place] [address] Jan, [facility] [address] [id number] [address] [place] [address], [place] [address] Jan, [facility] [address] [id number] [address] [place] [address], [place] [address] Dec, [facility] [address] [id number] [address] [place] [address], [place] [address] Dec, [facility] [address] [id number] [address] [place] [address], [place] [address] Dec, [facility] [address] [id number] [address] [place] [address], [place] [address] 10 Nov, 2012 [facility] [address] [id number] [address] [place] [address], [place] [address] October, [facility] [address] [id number] [address] [place] [address], [place] [address] October, [facility] [address] [id number] [address] [place] [address], [place] [address] Sep, [facility] [address] [id number] [address] [place] [address], [place] [address] Jul, [facility] [address] [id number] [address] [place] [address], [place] [address] Jul, [facility] [address] [id number] [address] [place] [address], [place] [address] Jun, [facility] [address] [id number] [address] [place] [address], [place] [address] Jun, [facility] [address] [id number] [address] [place] [address], [place] [address] Jun, [facility] [address] [id number] [address] [place] [address], [place] [address] Jun, [facility] [address] [id number] [address] [place] [address], [place] [address] Jun, [facility] [address] [id number] [address] [place] [address], [place] [address] May, [facility] [address] [id number] [address] [place] [address], [place] [address] May, [facility] [address] [id number] [address] [place] [address], [place] [address] May, [facility] [address] [id number] [address] [place] [address], [place] [address] 14 May, 2012 [facility] [address] [id number] [place] [address] 20 Apr, 2012 [facility] [address] [id number] [address] [place] [address], [place] [address] 20 Apr, 2012 [facility] [address] [id number] [address] [place] [address], [place] [address] 16 Apr, 2012 [facility] [address] [id number] [address] [place] [address], [place] [address] 16 Apr, 2012 [facility] [address] [id number] [address] [place] [id number] 13 Apr, 2012 [facility] [address] [id number] [address] [place] [address], [place] [address] Apr, [facility] [address] [id number] [address] [place] [id number] 13 Apr, 2012 [facility] [address] [id number] [address] [place] [address], [place] [address] Apr, [facility] [address] [id number] [address] [place] [address] Apr, [facility] [address] [id number] [address] [place] [id number] 07 Apr, 2012 [facility] [address] [id number] [address] [place] [address], [place] [address] Mar, [facility] [address] [id number] [address] [place] [id number] Mar, [facility] [address] [id number] [address] [place] [address] Mar, [facility] [address] [id number] [address] [place] [address], [place] [address] Mar, [facility] [address] [id number] [address] [place] [address] Mar, [facility] [address] [id number] [address] [place] [id number] 10 Mar, 2012 [facility] [address] [id number] [address] [place] [address], [place] [address] Mar, [facility] [address] [id number] [address] [place] [address], [place] [address] Mar, [facility] [address] [id number] [address] [place] [address], [place] [address] Feb, [facility] [address] [id number] [address] [place] [address], [place] [address] Jan, [facility] [address] [id number] [address] [place] [address], [place] [address] Jan, [facility] [address] [id number] [address] [place] [address], [place] [address] Dec, [facility] [address] [id number] [address] [place] [address], [place] [address] Nov, [facility] [address] [id number] [address] [place] [address], [place] [address] Nov, [facility] [address] [id number] [address] [place] [address], [place] [address] Nov, [facility] [address] [id number] [address] [place] [address], [place] [address] Nov, [facility] [address] [id number] [address] [place] [address], [place] [address] Nov, [facility] [address] [id number] [address] [place] [address], [place] [address] Nov, [facility] [address] [id number] [address] [place] [address], [place] [address] October, [facility] [address] [id number] [address] [place] [address], [place] [address] October, [facility] [address] [id number] [address] [place] [address], [place] [address] October, [facility] [address] [id number] [address] [place] [address], [place] [address] October, [facility] [address] [id number] [address] [place] [address], [place] [address] October, [facility] [address] [id number] [address] [place] [address], [place] [address] October, [facility] [address] [id number] [address] [place] [address], [place] [address] October, [facility] [address] [id number] [address] [place] [address], [place] [address] Sep, [facility] [address] [id number] [address] [place] [address], [place] [address] Sep, [facility] [address] [id number] [address] [place] [address], [place] [address] Aug, [facility] [address] [id number] [address] [place] [address], [place] [address] 15 Aug, 2011 [facility] [address] [id number] [address] [place] [address], [place] [address] Aug, [facility] [address] [id number] [address] [place] [address], [place] [address] Aug, [facility] [address] [id number] [address] [place] [address], [place] [address] Jul, [facility] [address] [id number] [address] [place] [address], [place] [address] Jul, [facility] [address] [id number] [address] [place] [address], [place] [address] Jul, [facility] [address] [id number] [address] [place] [address], [place] [address] Jul, [facility] [address] [id number] [address] [place] [address], [place] [address] May, [facility] [address] [id number] [address] [place] [address], [place] [address] May, [facility] [address] [id number] [address] [place] [address] May, [facility] [address] [facility] [id number] [address] [place] [address] Apr, [facility] [address] [facility] [id number] [address] [place] [address] Mar, [facility] [address] [facility] [id number] [address] [place] [address] Mar, IMMUNIZATIONS No Known Immunizations SOCIAL HISTORY Never Assessed REASON FOR VISIT PLAN OF CARE VITAL SIGNS MEDICATIONS Unknown Medications RESULTS No Results PROCEDURES No Known procedures INSTRUCTIONS MEDICATIONS ADMINISTERED No Known Medications MEDICAL (GENERAL) HISTORY Type Description Date Medical History depression Medical History hyperlipidemia Hospitalization History staph in right leg
--- OUTSIDE RECORDS SUMMARY | 2020-01-01 19:03 | XMS REPORT ---
Author Author Aron Lackey [facility] Address [address] [place] [address] Care Team Providers [employer] Name Role Phone DaryaDARIAEN Unavailable PROBLEMS Type Condition ICD9-CM Code BKI02-BH Code Onset Dates Condition S tatus SNOMED Code Problem Nonspecific elevation of lev els of transaminase or lactic acid dehydrogenase (LDH) 790.4 Active 31168141 2 Problem Encounter for long-term (current) use of other medications V58.69 Active 297057512 Problem Edema 782.3 Active 708022962 Problem Spontaneous ecchymoses 782.7 Active 444098016 Problem Trigger finger (acquired) 727.03 Acti ve 0584736 Problem 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 Active 17985673 Problem 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 .42 Active 04822026 Problem 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 Active 99204602 Problem Unspecified local infection of skin and subcutaneous tissu e 686.9 Active 758704578 Problem Unspecified viral hepatitis C without hepatic coma 070.70 Active 87369057 Problem Vascular disorder of skin 709.1 Acti ve 37199545 Problem Dissociative disorder or reaction, 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 Active 83338269 Problem Anxiety state, unspecified 300.00 Act bessy 850494319 Problem Other and unspecified hyperlipidemia 272.4 Active 54116996 Problem Major depressive disorder, recurrent episode, mild 296.31 Active 01822916 ALLERGIES No Information ENCOUNTERS Encounter Location Date Diagnosis [facility] [id number] [place] [id number] Nov, Encounter for other specifie d administrative purpose Z02.89 [facility] [address] [id number] [address] [place] [address] [id number] October, Dental examination Z01.20 an d Dental caries K02.9 [facility] [address] [id number] [address] [place] [id number] 14 Jan, 2015 Edema 782.3 and Family histo ry of coronary artery disease V17.3 [facility] [address] [id number] [address] [place] [id number] 07 Jan, 2015 Edema 782.3 and Family histo ry of coronary artery disease V17.3 [facility] [address] [id number] [address] [place] [address] [id number] Dec, Dental examination V72.2 [facility] [address] [id number] [address] [place] [address] Sep, [facility] [address] [id number] [address] [place] [address] Sep, [facility] [address] [id number] [address] [place] [address] Aug, [facility] [address] [id number] [address] [place] [address] Aug, [facility] [address] [id number] [address] [place] [phone] Jun, [facility] [address] [id number] [address] [place] [address] Jun, [facility] [address] [id number] [address] [place] [address] Jun, [facility] [address] [id number] [address] [place] [phone] Jun, [facility] [address] [id number] [address] [place] [phone] May, [facility] [address] [id number] [address] [place] [phone] May, [facility] [address] [id number] [address] [place] [phone] Apr, [facility] [address] [id number] [address] [place] [address], [place] [address] Apr, [facility] [address] [id number] [address] [place] [address], [place] [address] Mar, [facility] [address] [id number] [address] [place] [address], [place] [address] Mar, [facility] [address] [id number] [address] [place] [address], [place] [address] Feb, [facility] [address] [id number] [address] [place] [address], [place] [address] Feb, [facility] [address] [id number] [address] [place] [address], [place] [address] Feb, [facility] [address] [id number] [address] [place] [address], [place] [address] Jan, [facility] [address] [id number] [address] [place] [address], [place] [address] Jan, [facility] [address] [id number] [address] [place] [address], [place] [address] Jan, [facility] [address] [id number] [address] [place] [address], [place] [address] Dec, [facility] [address] [id number] [address] [place] [address], [place] [address] Dec, [facility] [address] [id number] [address] [place] [address], [place] [address] Nov, [facility] [address] [id number] [address] [place] [address], [place] [address] Nov, [facility] [address] [id number] [address] [place] [address], [place] [address] Nov, [facility] [address] [id number] [address] [place] [address], [place] [address] Nov, [facility] [address] [id number] [address] [place] [address], [place] [address] Nov, [facility] [address] [id number] [address] [place] [address], [place] [address] Nov, [facility] [address] [id number] [address] [place] [address], [place] [address] October, [facility] [address] [id number] [address] [place] [address], [place] [address] October, [facility] [address] [id number] [address] [place] [address], [place] [address] Sep, [facility] [address] [id number] [address] [place] [address], [place] [address] Sep, [facility] [address] [id number] [address] [place] [address], [place] [address] Jul, [facility] [address] [id number] [address] [place] [address], [place] [address] Jul, [facility] [address] [id number] [address] [place] [address], [place] [address] Jul, [facility] [address] [id number] [address] [place] [address], [place] [address] Jul, [facility] [address] [id number] [address] [place] [address], [place] [address] May, [facility] [address] [id number] [address] [place] [address], [place] [address] May, [facility] [address] [id number] [address] [place] [address], [place] [address] May, [facility] [address] [id number] [address] [place] [address], [place] [address] May, [facility] [address] [id number] [address] [place] [address], [place] [address] Mar, [facility] [address] [id number] [address] [place] [address], [place] [address] Mar, [facility] [address] [id number] [address] [place] [address] [place] [address] 10 Mar, 2013 [facility] [address] [id number] [address] [place] [address], [place] [address] 10 Mar, 2013 [facility] [address] [id number] [address] [place] [address], [place] [address] 04 Mar, 2013 [facility] [address] [id number] [address] [place] [address], [place] [address] 24 Feb, 2013 [facility] [address] [id number] [address] [place] [address], [place] [address] 19 Feb, 2013 [facility] [address] [id number] [address] [place] [address], [place] [address] 16 Feb, 2013 [facility] [address] [id number] [address] [place] [address], [place] [address] Jan, [facility] [address] [id number] [address] [place] [address], [place] [address] Jan, [facility] [address] [id number] [address] [place] [address], [place] [address] Jan, [facility] [address] [id number] [address] [place] [address], [place] [address] Jan, [facility] [address] [id number] [address] [place] [address], [place] [address] Jan, [facility] [address] [id number] [address] [place] [address], [place] [address] Jan, [facility] [address] [id number] [address] [place] [address], [place] [address] Jan, [facility] [address] [id number] [address] [place] [address], [place] [address] Dec, [facility] [address] [id number] [address] [place] [address], [place] [address] Dec, [facility] [address] [id number] [address] [place] [address], [place] [address] Dec, [facility] [address] [id number] [address] [place] [address], [place] [address] 10 Nov, 2012 [facility] [address] [id number] [address] [place] [address], [place] [address] October, [facility] [address] [id number] [address] [place] [address], [place] [address] October, [facility] [address] [id number] [address] [place] [address], [place] [address] Sep, [facility] [address] [id number] [address] [place] [address], [place] [address] Jul, [facility] [address] [id number] [address] [place] [address], [place] [address] Jul, [facility] [address] [id number] [address] [place] [address], [place] [address] Jun, [facility] [address] [id number] [address] [place] [address], [place] [address] Jun, [facility] [address] [id number] [address] [place] [address], [place] [address] Jun, [facility] [address] [id number] [address] [place] [address], [place] [address] Jun, [facility] [address] [id number] [address] [place] [address], [place] [address] Jun, [facility] [address] [id number] [address] [place] [address], [place] [address] May, [facility] [address] [id number] [address] [place] [address], [place] [address] May, [facility] [address] [id number] [address] [place] [address], [place] [address] May, [facility] [address] [id number] [address] [place] [address], [place] [address] 14 May, 2012 [facility] [address] [id number] [place] [address] 20 Apr, 2012 [facility] [address] [id number] [address] [place] [address], [place] [address] 20 Apr, 2012 [facility] [address] [id number] [address] [place] [address], [place] [address] 16 Apr, 2012 [facility] [address] [id number] [address] [place] [address], [place] [address] 16 Apr, 2012 [facility] [address] [id number] [address] [place] [address] 13 Apr, 2012 [facility] [address] [id number] [address] [place] [address], [place] [address] Apr, [facility] [address] [id number] [address] [place] [address] 13 Apr, 2012 [facility] [address] [id number] [address] [place] [address], [place] [address] Apr, [facility] [address] [id number] [address] [place] [address] Apr, [facility] [address] [id number] [address] [place] [address] 07 Apr, 2012 [facility] [address] [id number] [address] [place] [address], [place] [address] Mar, [facility] [address] [id number] [address] [place] [address] Mar, [facility] [address] [id number] [address] [place] [address] Mar, [facility] [address] [id number] [address] [place] [address], [place] [address] Mar, [facility] [address] [id number] [address] [place] [address] Mar, [facility] [address] [id number] [address] [place] [address] 10 Mar, 2012 [facility] [address] [id number] [address] [place] [address], [place] [address] Mar, [facility] [address] [id number] [address] [place] [address], [place] [address] Mar, [facility] [address] [id number] [address] [place] [address], [place] [address] Feb, [facility] [address] [id number] [address] [place] [address], [place] [address] Jan, [facility] [address] [id number] [address] [place] [address], [place] [address] Jan, [facility] [address] [id number] [address] [place] [address], [place] [address] Dec, [facility] [address] [id number] [address] [place] [address], [place] [address] Nov, [facility] [address] [id number] [address] [place] [address], [place] [address] Nov, [facility] [address] [id number] [address] [place] [address], [place] [address] Nov, [facility] [address] [id number] [address] [place] [address], [place] [address] Nov, [facility] [address] [id number] [address] [place] [address], [place] [address] Nov, [facility] [address] [id number] [address] [place] [address], [place] [address] Nov, [facility] [address] [id number] [address] [place] [address], [place] [address] October, [facility] [address] [id number] [address] [place] [address], [place] [address] October, [facility] [address] [id number] [address] [place] [address], [place] [address] October, [facility] [address] [id number] [address] [place] [address], [place] [address] October, [facility] [address] [id number] [address] [place] [address], [place] [address] October, [facility] [address] [id number] [address] [place] [address], [place] [address] October, [facility] [address] [id number] [address] [place] [address], [place] [address] October, [facility] [address] [id number] [address] [place] [address], [place] [address] Sep, [facility] [address] [id number] [address] [place] [address], [place] [address] Sep, [facility] [address] [id number] [address] [place] [address], [place] [address] Aug, [facility] [address] [id number] [address] [place] [address], [place] [address] 15 Aug, 2011 [facility] [address] [id number] [address] [place] [address], [place] [address] Aug, [facility] [address] [id number] [address] [place] [address], [place] [address] Aug, [facility] [address] [id number] [address] [place] [address], [place] [address] Jul, [facility] [address] [id number] [address] [place] [address], [place] [address] Jul, [facility] [address] [id number] [address] [place] [address], [place] [address] Jul, [facility] [address] [id number] [address] [place] [address], [place] [address] Jul, [facility] [address] [id number] [address] [place] [address], [place] [address] May, [facility] [address] [id number] [address] [place] [address], [place] [address] May, [facility] [address] [id number] [address] [place] [address] May, [facility] [address] [facility] [id number] [address] [place] [address] Apr, [facility] [address] [facility] [id number] [address] [place] [address] Mar, [facility] [address] [facility] [id number] [address] [place] [address] Mar, IMMUNIZATIONS No Known Immunizations SOCIAL HISTORY Never Assessed REASON FOR VISIT PLAN OF CARE VITAL SIGNS MEDICATIONS Unknown Medications RESULTS No Results PROCEDURES No Known procedures INSTRUCTIONS MEDICATIONS ADMINISTERED No Known Medications MEDICAL (GENERAL) HISTORY Type Description Date Medical History depression Medical History hyperlipidemia Hospitalization History staph in right leg
--- OUTSIDE RECORDS SUMMARY | 2020-01-01 19:03 | XMS REPORT ---
Author Author Aron LEE [facility] Address [address] [place] [address] Care Team Providers Care Surveillance Director Name Role Phone THANH LEE Unavailable PROBLEMS Type Condition ICD9-CM Code PIA88-YA Code Onset Dates Condition S tatus SNOMED Code Problem Nonspecific elevation of lev els of transaminase or lactic acid dehydrogenase (LDH) 790.4 Active 33746555 2 Problem Encounter for long-term (current) use of other medications V58.69 Active 925966557 Problem Edema 782.3 Active 657877429 Problem Spontaneous ecchymoses 782.7 Active 158733124 Problem Trigger finger (acquired) 727.03 Acti ve 9102093 Problem 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 Active 05772422 Problem 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 .42 Active 72087287 Problem 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 Active 23136107 Problem Unspecified local infection of skin and subcutaneous tissu e 686.9 Active 361521165 Problem Unspecified viral hepatitis C without hepatic coma 070.70 Active 34734795 Problem Vascular disorder of skin 709.1 Acti ve 14823158 Problem Dissociative disorder or reaction, 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 Active 60304780 Problem Anxiety state, unspecified 300.00 Act bessy 955020229 Problem Other and unspecified hyperlipidemia 272.4 Active 76751929 Problem Major depressive disorder, recurrent episode, mild 296.31 Active 07355352 ALLERGIES No Information ENCOUNTERS Encounter Location Date Diagnosis [facility] [id number] [place] [address] [id number] Nov, Encounter for other specifie d administrative purpose Z02.89 [facility] [address] [facility] [id number] [address] [place] [address] [id number] October, Dental examination Z01.20 an d Dental caries K02.9 [facility] [address] [id number] [address] [place] [address] 14 Jan, 2015 Edema 782.3 and Family histo ry of coronary artery disease V17.3 [facility] [address] [id number] [address] [place] [address] 07 Jan, 2015 Edema 782.3 and Family histo ry of coronary artery disease V17.3 [facility] [address] [id number] [address] [place] [address] [id number] Dec, Dental examination V72.2 [facility] [address] [id number] [address] [place] [address] Sep, [facility] [address] [id number] [address] [place] [address] Sep, [facility] [address] [id number] [address] [place] [address] Aug, [facility] [address] [id number] [address] [place] [address] Aug, [facility] [address] [id number] [address] [place] [address] Jun, [facility] [address] [id number] [address] [place] [address] Jun, [facility] [address] [id number] [address] [place] [address] Jun, [facility] [address] [id number] [address] [place] [address] Jun, [facility] [address] [id number] [address] [place] [address] May, [facility] [address] [id number] [address] [place] [address] May, [facility] [address] [id number] [address] [place] [address] Apr, [facility] [address] [id number] [address] [place] [address] [place] [address] Apr, [facility] [address] [id number] [address] [place] [address], [place] [address] Mar, [facility] [address] [id number] [address] [place] [address], [place] [address] Mar, [facility] [address] [id number] [address] [place] [address], [place] [address] Feb, [facility] [address] [id number] [address] [place] [address], [place] [address] Feb, [facility] [address] [id number] [address] [place] [address], [place] [address] Feb, [facility] [address] [id number] [address] [place] [address], [place] [address] Jan, [facility] [address] [id number] [address] [place] [address], [place] [address] Jan, [facility] [address] [id number] [address] [place] [address], [place] [address] Jan, [facility] [address] [id number] [address] [place] [address], [place] [address] Dec, [facility] [address] [id number] [address] [place] [address], [place] [address] Dec, [facility] [address] [id number] [address] [place] [address], [place] [address] Nov, [facility] [address] [id number] [address] [place] [address], [place] [address] Nov, [facility] [address] [id number] [address] [place] [address], [place] [address] Nov, [facility] [address] [id number] [address] [place] [address], [place] [address] Nov, [facility] [address] [id number] [address] [place] [address], [place] [address] Nov, [facility] [address] [id number] [address] [place] [address], [place] [address] Nov, [facility] [address] [id number] [address] [place] [address], [place] [address] October, [facility] [address] [id number] [address] [place] [address], [place] [address] October, [facility] [address] [id number] [address] [place] [address], [place] [address] Sep, [facility] [address] [id number] [address] [place] [address], [place] [address] Sep, [facility] [address] [id number] [address] [place] [address], [place] [address] Jul, [facility] [address] [id number] [address] [place] [address], [place] [address] Jul, [facility] [address] [id number] [address] [place] [address], [place] [address] Jul, [facility] [address] [id number] [address] [place] [address], [place] [address] Jul, [facility] [address] [id number] [address] [place] [address], [place] [address] May, [facility] [address] [id number] [address] [place] [address], [place] [address] May, [facility] [address] [id number] [address] [place] [address], [place] [address] May, [facility] [address] [id number] [address] [place] [address], [place] [address] May, [facility] [address] [id number] [address] [place] [address], [place] [address] Mar, [facility] [address] [id number] [address] [place] [address], [place] [address] Mar, [facility] [address] [id number] [address] [place] [address], [place] [address] Mar, [facility] [address] [id number] [address] [place] [address], [place] [address] Mar, [facility] [address] [id number] [address] [place] [address], [place] [address] 04 Mar, 2013 [facility] [address] [id number] [address] [place] [address], [place] [address] 24 Feb, 2013 [facility] [address] [id number] [address] [place] [address], [place] [address] 19 Feb, 2013 [facility] [address] [id number] [address] [place] [address], [place] [address] 16 Feb, 2013 [facility] [address] [id number] [address] [place] [address], [place] [address] Jan, [facility] [address] [id number] [address] [place] [address], [place] [address] Jan, [facility] [address] [id number] [address] [place] [address], [place] [address] Jan, [facility] [address] [id number] [address] [place] [address], [place] [address] Jan, [facility] [address] [id number] [address] [place] [address], [place] [address] Jan, [facility] [address] [id number] [address] [place] [address], [place] [address] Jan, [facility] [address] [id number] [address] [place] [address], [place] [address] Jan, [facility] [address] [id number] [address] [place] [address], [place] [address] Dec, [facility] [address] [id number] [address] [place] [address], [place] [address] Dec, [facility] [address] [id number] [address] [place] [address], [place] [address] Dec, [facility] [address] [id number] [address] [place] [address], [place] [address] 10 Nov, 2012 [facility] [address] [id number] [address] [place] [address], [place] [address] October, [facility] [address] [id number] [address] [place] [address], [place] [address] October, [facility] [address] [id number] [address] [place] [address], [place] [address] Sep, [facility] [address] [id number] [address] [place] [address], [place] [address] Jul, [facility] [address] [id number] [address] [place] [address], [place] [address] Jul, [facility] [address] [id number] [address] [place] [address], [place] [address] Jun, [facility] [address] [id number] [address] [place] [address], [place] [address] Jun, [facility] [address] [id number] [address] [place] [address], [place] [address] Jun, [facility] [address] [id number] [address] [place] [address], [place] [address] Jun, [facility] [address] [id number] [address] [place] [address], [place] [address] Jun, [facility] [address] [id number] [address] [place] [address], [place] [address] May, [facility] [address] [id number] [address] [place] [address], [place] [address] May, [facility] [address] [id number] [address] [place] [address], [place] [address] May, [facility] [address] [id number] [address] [place] [address], [place] [address] May, [facility] [address] [id number] [address] [place] [address], [place] [address] 20 Apr, 2012 [facility] [address] [id number] [address] [place] [address], [place] [address] 20 Apr, 2012 [facility] [address] [id number] [address] [place] [address], [place] [address] 16 Apr, 2012 [facility] [address] [id number] [address] [place] [address], [place] [address] 16 Apr, 2012 [facility] [address] [id number] [address] [place] [address], [place] [address] 13 Apr, 2012 [facility] [address] [id number] [address] [place] [address], [place] [address] 13 Apr, 2012 [facility] [address] [id number] [address] [place] [address], [place] [address] 13 Apr, 2012 [facility] [address] [id number] [address] [place] [address], [place] [address] Apr, [facility] [address] [id number] [address] [place] [address], [place] [address] Apr, [facility] [address] [id number] [address] [place] [address], [place] [address] Apr, [facility] [address] [id number] [address] [place] [address], [place] [address] Mar, [facility] [address] [id number] [address] [place] [address], [place] [address] Mar, [facility] [address] [id number] [address] [place] [address] Mar, [facility] [address] [id number] [address] [place] [address], [place] [address] Mar, [facility] [address] [id number] [address] [place] [address], [place] [address] Mar, [facility] [address] [id number] [address] [place] [address], [place] [address] 10 Mar, 2012 [facility] [address] [id number] [address] [place] [address], [place] [address] Mar, [facility] [address] [id number] [address] [place] [address], [place] [address] Mar, [facility] [address] [id number] [address] [place] [address], [place] [address] Feb, [facility] [address] [id number] [address] [place] [address], [place] [address] Jan, [facility] [address] [id number] [address] [place] [address], [place] [address] Jan, [facility] [address] [id number] [address] [place] [address], [place] [address] Dec, [facility] [address] [id number] [address] [place] [address], [place] [address] Nov, [facility] [address] [id number] [address] [place] [address], [place] [address] Nov, [facility] [address] [id number] [address] [place] [address], [place] [address] Nov, [facility] [address] [id number] [address] [place] [address], [place] [address] Nov, [facility] [address] [id number] [address] [place] [address], [place] [address] Nov, [facility] [address] [id number] [address] [place] [address], [place] [address] Nov, [facility] [address] [id number] [address] [place] [address], [place] [address] October, [facility] [address] [id number] [address] [place] [address], [place] [address] October, [facility] [address] [id number] [address] [place] [address], [place] [address] October, [facility] [address] [id number] [address] [place] [address], [place] [address] October, [facility] [address] [id number] [address] [place] [address], [place] [address] October, [facility] [address] [id number] [address] [place] [address], [place] [address] October, [facility] [address] [id number] [address] [place] [address], [place] [address] October, [facility] [address] [id number] [address] [place] [address], [place] [address] Sep, [facility] [address] [id number] [address] [place] [address], [place] [address] Sep, [facility] [address] [id number] [address] [place] [address], [place] [address] Aug, [facility] [address] [id number] [address] [place] [address], [place] [address] Aug, [facility] [address] [id number] [address] [place] [address], [place] [address] Aug, [facility] [address] [id number] [address] [place] [address], [place] [address] Aug, [facility] [address] [id number] [address] [place] [address], [place] [address] Jul, [facility] [address] [id number] [address] [place] [address], [place] [address] Jul, [facility] [address] [id number] [address] [place] [address], [place] [address] Jul, [facility] [address] [id number] [address] [place] [address], [place] [address] Jul, [facility] [address] [id number] [address] [place] [address], [place] [address] May, [facility] [address] [id number] [address] [place] [address], [place] [address] May, [facility] [address] [id number] [address] [place] [address] May, [facility] [address] [facility] [id number] [address] [place] [address] Apr, [facility] [address] [facility] [id number] [address] [place] [address] Mar, [facility] [address] [facility] [id number] [address] [place] [address] Mar, IMMUNIZATIONS No Known Immunizations SOCIAL HISTORY Never Assessed REASON FOR VISIT PLAN OF CARE VITAL SIGNS MEDICATIONS Unknown Medications RESULTS No Results PROCEDURES Procedure Date Ordered Result Body Site PSYTX PT&/FAMILY 45 MINUTES December 28, 2012 INSTRUCTIONS MEDICATIONS ADMINISTERED No Known Medications MEDICAL (GENERAL) HISTORY Type Description Date Medical History depression Medical History hyperlipidemia Hospitalization History staph in right leg
--- OUTSIDE RECORDS SUMMARY | 2020-01-01 19:03 | XMS REPORT ---
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 Name Role Phone Migration, Doctor Unavailable Unavailable PROBLEMS Type Condition ICD9-CM Code UVR04-CZ Code Onset Dates Condition S tatus SNOMED Code Problem Nonspecific elevation of lev els of transaminase or lactic acid dehydrogenase (LDH) 790.4 Active 92707803 2 Problem Encounter for long-term (current) use of other medications V58.69 Active 148775901 Problem Edema 782.3 Active 134022702 Problem Spontaneous ecchymoses 782.7 Active 014321716 Problem Trigger finger (acquired) 727.03 Acti ve 6213302 Problem 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 Active 58789261 Problem 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 .42 Active 02261511 Problem 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 Active 01805452 Problem Unspecified local infection of skin and subcutaneous tissu e 686.9 Active 901245114 Problem Unspecified viral hepatitis C without hepatic coma 070.70 Active 34907660 Problem Vascular disorder of skin 709.1 Acti ve 03283116 Problem Dissociative disorder or reaction, 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 Active 80002493 Problem Anxiety state, unspecified 300.00 Act bessy 194365342 Problem Other and unspecified hyperlipidemia 272.4 Active 87925555 Problem Major depressive disorder, recurrent episode, mild 296.31 Active 39402148 ALLERGIES No Information ENCOUNTERS Encounter Location Date Diagnosis [facility] [address] [facility] [id number] [address] [place] [address] [id number] Nov, Encounter for other specifie d administrative purpose Z02.89 [facility] [address] [facility] [id number] [address] [place] [address] [id number] October, Dental examination Z01.20 an d Dental caries K02.9 [facility] [address] [facility] [id number] [address] [place] [address] Jan, Edema 782.3 and Family histo ry of coronary artery disease V17.3 [facility] [address] [id number] [address] [place] [address] Jan, Edema 782.3 and Family histo ry of coronary artery disease V17.3 [facility] [address] [id number] [address] [place] [address] [id number] Dec, Dental examination V72.2 [facility] [address] [id number] [address] [place] [address] Sep, [facility] [address] [id number] [address] [place] [address] Sep, [facility] [address] [id number] [address] [place] [address] Aug, [facility] [address] [id number] [address] [place] [address] Aug, [facility] [address] [id number] [address] [place] [address] Jun, [facility] [address] [id number] [address] [place] [address] Jun, [facility] [address] [id number] [address] [place] [address] Jun, [facility] [address] [id number] [address] [place] [address] Jun, [facility] [address] [id number] [address] [place] [address] May, [facility] [address] [id number] [address] [place] [address] May, [facility] [address] [id number] [address] [place] [address] Apr, [facility] [address] [id number] [address] [place] [address] Apr, [facility] [address] [id number] [address] [place] [address], [place] [address] Mar, [facility] [address] [id number] [address] [place] [address], [place] [address] Mar, [facility] [address] [id number] [address] [place] [address], [place] [address] Feb, [facility] [address] [id number] [address] [place] [address], [place] [address] Feb, [facility] [address] [id number] [address] [place] [address], [place] [address] Feb, [facility] [address] [id number] [address] [place] [address], [place] [address] Jan, [facility] [address] [id number] [address] [place] [address], [place] [address] Jan, [facility] [address] [id number] [address] [place] [address], [place] [address] Jan, [facility] [address] [id number] [address] [place] [address], [place] [address] Dec, [facility] [address] [id number] [address] [place] [address], [place] [address] Dec, [facility] [address] [id number] [address] [place] [address], [place] [address] Nov, [facility] [address] [id number] [address] [place] [address], [place] [address] Nov, [facility] [address] [id number] [address] [place] [address], [place] [address] Nov, [facility] [address] [id number] [address] [place] [address], [place] [address] Nov, [facility] [address] [id number] [address] [place] [address], [place] [address] Nov, [facility] [address] [id number] [address] [place] [address], [place] [address] Nov, [facility] [address] [id number] [address] [place] [address], [place] [address] October, [facility] [address] [id number] [address] [place] [address], [place] [address] October, [facility] [address] [id number] [address] [place] [address], [place] [address] Sep, [facility] [address] [id number] [address] [place] [address], [place] [address] Sep, [facility] [address] [id number] [address] [place] [address], [place] [address] Jul, [facility] [address] [id number] [address] [place] [address], [place] [address] Jul, [facility] [address] [id number] [address] [place] [address], [place] [address] Jul, [facility] [address] [id number] [address] [place] [address], [place] [address] Jul, [facility] [address] [id number] [address] [place] [address], [place] [address] May, [facility] [address] [id number] [address] [place] [address], [place] [address] May, [facility] [address] [id number] [address] [place] [address], [place] [address] May, [facility] [address] [id number] [address] [place] [address], [place] [address] May, [facility] [address] [id number] [address] [place] [address], [place] [address] Mar, [facility] [address] [id number] [address] [place] [address], [place] [address] Mar, [facility] [address] [id number] [address] [place] [address], [place] [address] Mar, [facility] [address] [id number] [address] [place] [address] [place] [address] 10 Mar, 2013 [facility] [address] [id number] [address] [place] [address], [place] [address] 04 Mar, 2013 [facility] [address] [id number] [address] [place] [address], [place] [address] 24 Feb, 2013 [facility] [address] [id number] [address] [place] [address], [place] [address] 19 Feb, 2013 [facility] [address] [id number] [address] [place] [address], [place] [address] 16 Feb, 2013 [facility] [address] [id number] [address] [place] [address], [place] [address] Jan, [facility] [address] [id number] [address] [place] [address], [place] [address] Jan, [facility] [address] [id number] [address] [place] [address], [place] [address] Jan, [facility] [address] [id number] [address] [place] [address], [place] [address] Jan, [facility] [address] [id number] [address] [place] [address], [place] [address] Jan, [facility] [address] [id number] [address] [place] [address], [place] [address] Jan, [facility] [address] [id number] [address] [place] [address], [place] [address] Jan, [facility] [address] [id number] [address] [place] [address], [place] [address] Dec, [facility] [address] [id number] [address] [place] [address], [place] [address] Dec, [facility] [address] [id number] [address] [place] [address], [place] [address] Dec, [facility] [address] [id number] [address] [place] [address], [place] [address] Nov, [facility] [address] [id number] [address] [place] [address], [place] [address] October, [facility] [address] [id number] [address] [place] [address], [place] [address] October, [facility] [address] [id number] [address] [place] [address], [place] [address] Sep, [facility] [address] [id number] [address] [place] [address], [place] [address] Jul, [facility] [address] [id number] [address] [place] [address], [place] [address] Jul, [facility] [address] [id number] [address] [place] [address], [place] [address] Jun, [facility] [address] [id number] [address] [place] [address], [place] [address] Jun, [facility] [address] [id number] [address] [place] [address], [place] [address] Jun, [facility] [address] [id number] [address] [place] [address], [place] [address] Jun, [facility] [address] [id number] [address] [place] [address], [place] [address] Jun, [facility] [address] [id number] [address] [place] [address], [place] [address] May, [facility] [address] [id number] [address] [place] [address], [place] [address] May, [facility] [address] [id number] [address] [place] [address], [place] [address] May, [facility] [address] [id number] [address] [place] [address], [place] [address] May, [facility] [address] [id number] [address] [place] [address], [place] [address] Apr, [facility] [address] [id number] [address] [address] 20 Apr, 2012 [facility] [address] [id number] [address] [place] [address], [place] [address] 16 Apr, 2012 [facility] [address] [id number] [address] [place] [address], [place] [address] 16 Apr, 2012 [facility] [address] [id number] [address] [place] [address], [place] [address] 13 Apr, 2012 [facility] [address] [id number] [address] [place] [address] 13 Apr, 2012 [facility] [address] [id number] [address] [place] [address], [place] [address] 13 Apr, 2012 [facility] [address] [id number] [address] [place] [address] 13 Apr, 2012 [facility] [address] [id number] [address] [place] [address], [place] [address] Apr, [facility] [address] [id number] [address] [place] [address] Apr, [facility] [address] [id number] [address] [place] [address], [place] [address] Mar, [facility] [address] [id number] [address] [place] [address], [place] [address] Mar, [facility] [address] [id number] [address] [place] [address] Mar, [facility] [address] [id number] [address] [place] [address] Mar, [facility] [address] [id number] [address] [place] [address], [place] [address] Mar, [facility] [address] [id number] [address] [place] [address] Mar, [facility] [address] [id number] [address] [place] [address] Mar, [facility] [address] [id number] [address] [place] [address], [place] [address] Mar, [facility] [address] [id number] [address] [place] [address], [place] [address] Feb, [facility] [address] [id number] [address] [place] [address], [place] [address] Jan, [facility] [address] [id number] [address] [place] [address], [place] [address] Jan, [facility] [address] [id number] [address] [place] [address], [place] [address] Dec, [facility] [address] [id number] [address] [place] [address], [place] [address] Nov, [facility] [address] [id number] [address] [place] [address], [place] [address] Nov, [facility] [address] [id number] [address] [place] [address], [place] [address] Nov, [facility] [address] [id number] [address] [place] [address], [place] [address] Nov, [facility] [address] [id number] [address] [place] [address], [place] [address] Nov, [facility] [address] [id number] [address] [place] [address], [place] [address] Nov, [facility] [address] [id number] [address] [place] [address], [place] [address] October, [facility] [address] [id number] [address] [place] [address], [place] [address] October, [facility] [address] [id number] [address] [place] [address], [place] [address] October, [facility] [address] [id number] [address] [place] [address], [place] [address] October, [facility] [address] [id number] [address] [place] [address], [place] [address] October, [facility] [address] [id number] [address] [place] [address], [place] [address] October, [facility] [address] [id number] [address] [place] [address], [place] [address] October, [facility] [address] [id number] [address] [place] [address], [place] [address] Sep, [facility] [address] [id number] [address] [place] [address], [place] [address] Sep, [facility] [address] [id number] [address] [place] [address], [place] [address] Aug, [facility] [address] [id number] [address] [place] [address], [place] [address] 15 Aug, 2011 [facility] [address] [id number] [address] [place] [address], [place] [address] Aug, [facility] [address] [id number] [address] [place] [address], [place] [address] Aug, [facility] [address] [id number] [address] [place] [address], [place] [address] Jul, [facility] [address] [id number] [address] [place] [address], [place] [address] Jul, [facility] [address] [id number] [address] [place] [address], [place] [address] Jul, [facility] [address] [id number] [address] [place] [address], [place] [address] Jul, [facility] [address] [id number] [address] [place] [address], [place] [address] May, [facility] [address] [id number] [address] [place] [address], [place] [address] May, [facility] [address] [id number] [address] [place] [address], [place] [address] May, [facility] [address] [id number] [address] [place] [address] Apr, [facility] [address] [facility] [id number] [address] [place] [address] Mar, [facility] [address] [facility] [id number] [address] [place] [address] Mar, IMMUNIZATIONS No Known Immunizations SOCIAL HISTORY Never Assessed REASON FOR VISIT PLAN OF CARE VITAL SIGNS MEDICATIONS Unknown Medications RESULTS No Results PROCEDURES Procedure Date Ordered Result Body Site LIPID PANEL Jan 19, 2013 COMPREHEN METABOLIC PANEL Jan 19, 2013 VENIPUNCT, ROUTINE* Jan 19, 2013 INSTRUCTIONS MEDICATIONS ADMINISTERED No Known Medications MEDICAL (GENERAL) HISTORY Type Description Date Medical History depression Medical History hyperlipidemia Hospitalization History staph in right leg
--- OUTSIDE RECORDS SUMMARY | 2020-01-01 19:03 | XMS REPORT ---
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 Role Phone THANH LEE Unavailable PROBLEMS Type Condition ICD9-CM Code NFM28-TD Code Onset Dates Condition S tatus SNOMED Code Problem Nonspecific elevation of lev els of transaminase or lactic acid dehydrogenase (LDH) 790.4 Active 72368025 2 Problem Encounter for long-term (current) use of other medications V58.69 Active 486997765 Problem Edema 782.3 Active 139751339 Problem Spontaneous ecchymoses 782.7 Active 710639676 Problem Trigger finger (acquired) 727.03 Acti ve 0530654 Problem 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 Active 28383392 Problem 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 .42 Active 88593203 Problem 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 Active 93585954 Problem Unspecified local infection of skin and subcutaneous tissu e 686.9 Active 533404797 Problem Unspecified viral hepatitis C without hepatic coma 070.70 Active 52331935 Problem Vascular disorder of skin 709.1 Acti ve 04351335 Problem Dissociative disorder or reaction, 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 Active 94551935 Problem Anxiety state, unspecified 300.00 Act bessy 561127662 Problem Other and unspecified hyperlipidemia 272.4 Active 12913064 Problem Major depressive disorder, recurrent episode, mild 296.31 Active [id number] ALLERGIES No Information ENCOUNTERS Encounter Location Date Diagnosis [facility] [id number] [place] [id number] Nov, Encounter for other specifie d administrative purpose Z02.89 [facility] [address] [facility] [id number] [address] [place] [address] [id number] October, Dental examination Z01.20 an d Dental caries K02.9 [facility] [address] [id number] [address] [place] [id number] 14 Jan, 2015 Edema 782.3 and Family histo ry of coronary artery disease V17.3 [facility] [address] [id number] [address] [place] [id number] 07 Jan, 2015 Edema 782.3 and Family histo ry of coronary artery disease V17.3 [facility] [address] [id number] [address] [place] [address] [id number] Dec, Dental examination V72.2 [facility] [address] [id number] [address] [place] [id number] Sep, [facility] [address] [id number] [address] [place] [id number] Sep, [facility] [address] [id number] [address] [place] [id number] Aug, [facility] [address] [id number] [address] [place] [id number] Aug, [facility] [address] [id number] [address] [place] [id number] Jun, [facility] [address] [id number] [address] [place] [id number] Jun, [facility] [address] [id number] [address] [place] [id number] Jun, [facility] [address] [id number] [address] [place] [id number] Jun, [facility] [address] [id number] [address] [place] [id number] May, [facility] [address] [id number] [address] [place] [id number] May, [facility] [address] [id number] [address] [place] [id number] Apr, [facility] [address] [id number] [address] [place] [address] [place] [address] Apr, [facility] [address] [id number] [address] [place] [address], [place] [address] Mar, [facility] [address] [id number] [address] [place] [address], [place] [address] Mar, [facility] [address] [id number] [address] [place] [address], [place] [address] Feb, [facility] [address] [id number] [address] [place] [address], [place] [address] Feb, [facility] [address] [id number] [address] [place] [address], [place] [address] Feb, [facility] [address] [id number] [address] [place] [address], [place] [address] Jan, [facility] [address] [id number] [address] [place] [address], [place] [address] Jan, [facility] [address] [id number] [address] [place] [address], [place] [address] Jan, [facility] [address] [id number] [address] [place] [address], [place] [address] Dec, [facility] [address] [id number] [address] [place] [address], [place] [address] Dec, [facility] [address] [id number] [address] [place] [address], [place] [address] Nov, [facility] [address] [id number] [address] [place] [address], [place] [address] Nov, [facility] [address] [id number] [address] [place] [address], [place] [address] Nov, [facility] [address] [id number] [address] [place] [address], [place] [address] Nov, [facility] [address] [id number] [address] [place] [address], [place] [address] Nov, [facility] [address] [id number] [address] [place] [address], [place] [address] Nov, [facility] [address] [id number] [address] [place] [address], [place] [address] October, [facility] [address] [id number] [address] [place] [address], [place] [address] October, [facility] [address] [id number] [address] [place] [address], [place] [address] Sep, [facility] [address] [id number] [address] [place] [address], [place] [address] Sep, [facility] [address] [id number] [address] [place] [address], [place] [address] Jul, [facility] [address] [id number] [address] [place] [address], [place] [address] Jul, [facility] [address] [id number] [address] [place] [address], [place] [address] Jul, [facility] [address] [id number] [address] [place] [address], [place] [address] Jul, [facility] [address] [id number] [address] [place] [address], [place] [address] May, [facility] [address] [id number] [address] [place] [address], [place] [address] May, [facility] [address] [id number] [address] [place] [address], [place] [address] May, [facility] [address] [id number] [address] [place] [address], [place] [address] May, [facility] [address] [id number] [address] [place] [address], [place] [address] Mar, [facility] [address] [id number] [address] [place] [address], [place] [address] Mar, [facility] [address] [id number] [address] [place] [address], [place] [address] Mar, [facility] [address] [id number] [address] [place] [address], [place] [address] Mar, [facility] [address] [id number] [address] [place] [address], [place] [address] 04 Mar, 2013 [facility] [address] [id number] [address] [place] [address], [place] [address] 24 Feb, 2013 [facility] [address] [id number] [address] [place] [address], [place] [address] 19 Feb, 2013 [facility] [address] [id number] [address] [place] [address], [place] [address] 16 Feb, 2013 [facility] [address] [id number] [address] [place] [address], [place] [address] Jan, [facility] [address] [id number] [address] [place] [address], [place] [address] Jan, [facility] [address] [id number] [address] [place] [address], [place] [address] Jan, [facility] [address] [id number] [address] [place] [address], [place] [address] Jan, [facility] [address] [id number] [address] [place] [address], [place] [address] Jan, [facility] [address] [id number] [address] [place] [address], [place] [address] Jan, [facility] [address] [id number] [address] [place] [address], [place] [address] Jan, [facility] [address] [id number] [address] [place] [address], [place] [address] Dec, [facility] [address] [id number] [address] [place] [address], [place] [address] Dec, [facility] [address] [id number] [address] [place] [address], [place] [address] Dec, [facility] [address] [id number] [address] [place] [address], [place] [address] 10 Nov, 2012 [facility] [address] [id number] [address] [place] [address], [place] [address] October, [facility] [address] [id number] [address] [place] [address], [place] [address] October, [facility] [address] [id number] [address] [place] [address], [place] [address] Sep, [facility] [address] [id number] [address] [place] [address], [place] [address] Jul, [facility] [address] [id number] [address] [place] [address], [place] [address] Jul, [facility] [address] [id number] [address] [place] [address], [place] [address] Jun, [facility] [address] [id number] [address] [place] [address], [place] [address] Jun, [facility] [address] [id number] [address] [place] [address], [place] [address] Jun, [facility] [address] [id number] [address] [place] [address], [place] [address] Jun, [facility] [address] [id number] [address] [place] [address], [place] [address] Jun, [facility] [address] [id number] [address] [place] [address], [place] [address] May, [facility] [address] [id number] [address] [place] [address], [place] [address] May, [facility] [address] [id number] [address] [place] [address], [place] [address] May, [facility] [address] [id number] [address] [place] [address], [place] [address] May, [facility] [address] [id number] [address] [place] [address], [place] [address] 20 Apr, 2012 [facility] [address] [id number] [address] [place] [address], [place] [address] 20 Apr, 2012 [facility] [address] [id number] [address] [place] [address], [place] [address] 16 Apr, 2012 [facility] [address] [id number] [address] [place] [address], [place] [address] 16 Apr, 2012 [facility] [address] [id number] [address] [place] [address], [place] [address] 13 Apr, 2012 [facility] [address] [id number] [address] [place] [address], [place] [address] 13 Apr, 2012 [facility] [address] [id number] [address] [place] [address], [place] [address] 13 Apr, 2012 [facility] [address] [id number] [address] [place] [address], [place] [address] Apr, [facility] [address] [id number] [address] [place] [address], [place] [address] Apr, [facility] [address] [id number] [address] [place] [address], [place] [address] Apr, [facility] [address] [id number] [address] [place] [address], [place] [address] Mar, [facility] [address] [id number] [address] [place] [address], [place] [address] Mar, [facility] [address] [id number] [address] [place] [address] Mar, [facility] [address] [id number] [address] [place] [address], [place] [address] Mar, [facility] [address] [id number] [address] [place] [address], [place] [address] Mar, [facility] [address] [id number] [address] [place] [address], [place] [address] 10 Mar, 2012 [facility] [address] [id number] [address] [place] [address], [place] [address] Mar, [facility] [address] [id number] [address] [place] [address], [place] [address] Mar, [facility] [address] [id number] [address] [place] [address], [place] [address] Feb, [facility] [address] [id number] [address] [place] [address], [place] [address] Jan, [facility] [address] [id number] [address] [place] [address], [place] [address] Jan, [facility] [address] [id number] [address] [place] [address], [place] [address] Dec, [facility] [address] [id number] [address] [place] [address], [place] [address] Nov, [facility] [address] [id number] [address] [place] [address], [place] [address] Nov, [facility] [address] [id number] [address] [place] [address], [place] [address] Nov, [facility] [address] [id number] [address] [place] [address], [place] [address] Nov, [facility] [address] [id number] [address] [place] [address], [place] [address] Nov, [facility] [address] [id number] [address] [place] [address], [place] [address] Nov, [facility] [address] [id number] [address] [place] [address], [place] [address] October, [facility] [address] [id number] [address] [place] [address], [place] [address] October, [facility] [address] [id number] [address] [place] [address], [place] [address] October, [facility] [address] [id number] [address] [place] [address], [place] [address] October, [facility] [address] [id number] [address] [place] [address], [place] [address] October, [facility] [address] [id number] [address] [place] [address], [place] [address] October, [facility] [address] [id number] [address] [place] [address], [place] [address] October, [facility] [address] [id number] [address] [place] [address], [place] [address] Sep, [facility] [address] [id number] [address] [place] [address], [place] [address] Sep, [facility] [address] [id number] [address] [place] [address], [place] [address] Aug, [facility] [address] [id number] [address] [place] [address], [place] [address] Aug, [facility] [address] [id number] [address] [place] [address], [place] [address] Aug, [facility] [address] [id number] [address] [place] [address], [place] [address] Aug, [facility] [address] [id number] [address] [place] [address], [place] [address] Jul, [facility] [address] [id number] [address] [place] [address], [place] [address] Jul, [facility] [address] [id number] [address] [place] [address], [place] [address] Jul, [facility] [address] [id number] [address] [place] [address], [place] [address] Jul, [facility] [address] [id number] [address] [place] [address], [place] [address] May, [facility] [address] [id number] [address] [place] [address], [place] [address] May, [facility] [address] [id number] [address] [place] [address] May, [facility] [address] [facility] [id number] [address] [place] [address] Apr, [facility] [address] [facility] [id number] [address] [place] [address] Mar, [facility] [address] [facility] [id number] [address] [place] [address] Mar, IMMUNIZATIONS No Known Immunizations SOCIAL HISTORY Never Assessed REASON FOR VISIT PLAN OF CARE VITAL SIGNS MEDICATIONS Unknown Medications RESULTS No Results PROCEDURES Procedure Date Ordered Result Body Site PSYTX PT&/FAMILY 45 MINUTES May 21, 2013 INSTRUCTIONS MEDICATIONS ADMINISTERED No Known Medications MEDICAL (GENERAL) HISTORY Type Description Date Medical History depression Medical History hyperlipidemia Hospitalization History staph in right leg
--- OUTSIDE RECORDS SUMMARY | 2020-01-01 19:04 | XMS REPORT ---
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 Name Role Phone Migration, Doctor Unavailable Unavailable PROBLEMS Type Condition ICD9-CM Code BJA82-BD Code Onset Dates Condition S tatus SNOMED Code Problem Nonspecific elevation of lev els of transaminase or lactic acid dehydrogenase (LDH) 790.4 Active 84622155 2 Problem Encounter for long-term (current) use of other medications V58.69 Active 320616788 Problem Edema 782.3 Active 302662759 Problem Spontaneous ecchymoses 782.7 Active 288708093 Problem Trigger finger (acquired) 727.03 Acti ve 1937809 Problem 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 Active 40973418 Problem 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 .42 Active 51072897 Problem 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 Active 20248010 Problem Unspecified local infection of skin and subcutaneous tissu e 686.9 Active 811177647 Problem Unspecified viral hepatitis C without hepatic coma 070.70 Active 43886663 Problem Vascular disorder of skin 709.1 Acti ve 40562390 Problem Dissociative disorder or reaction, 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 Active 51930075 Problem Anxiety state, unspecified 300.00 Act bessy 993057363 Problem Other and unspecified hyperlipidemia 272.4 Active 57130637 Problem Major depressive disorder, recurrent episode, mild 296.31 Active 08404534 ALLERGIES No Information ENCOUNTERS Encounter Location Date Diagnosis [facility] [address] [facility] [id number] [address] [place] [address] [id number] Nov, Encounter for other specifie d administrative purpose Z02.89 [facility] [address] [facility] [id number] [address] [place] [address] [id number] October, Dental examination Z01.20 an d Dental caries K02.9 [facility] [address] [facility] [id number] [address] [place] [address] Jan, Edema 782.3 and Family histo ry of coronary artery disease V17.3 [facility] [address] [id number] [address] [place] [address] Jan, Edema 782.3 and Family histo ry of coronary artery disease V17.3 [facility] [address] [id number] [address] [place] [address] [id number] Dec, Dental examination V72.2 [facility] [address] [id number] [address] [place] [address] Sep, [facility] [address] [id number] [address] [place] [address] Sep, [facility] [address] [id number] [address] [place] [address] Aug, [facility] [address] [id number] [address] [place] [address] Aug, [facility] [address] [id number] [address] [place] [id number] Jun, [facility] [address] [id number] [address] [place] [address] Jun, [facility] [address] [id number] [address] [place] [address] Jun, [facility] [address] [id number] [address] [place] [address] Jun, [facility] [address] [id number] [address] [place] [address] May, [facility] [address] [id number] [address] [place] [address] May, [facility] [address] [id number] [address] [place] [address] Apr, [facility] [address] [id number] [address] [place] [address] Apr, [facility] [address] [id number] [address] [place] [address], [place] [address] Mar, [facility] [address] [id number] [address] [place] [address], [place] [address] Mar, [facility] [address] [id number] [address] [place] [address], [place] [address] Feb, [facility] [address] [id number] [address] [place] [address], [place] [address] Feb, [facility] [address] [id number] [address] [place] [address], [place] [address] Feb, [facility] [address] [id number] [address] [place] [address], [place] [address] Jan, [facility] [address] [id number] [address] [place] [address], [place] [address] Jan, [facility] [address] [id number] [address] [place] [address], [place] [address] Jan, [facility] [address] [id number] [address] [place] [address], [place] [address] Dec, [facility] [address] [id number] [address] [place] [address], [place] [address] Dec, [facility] [address] [id number] [address] [place] [address], [place] [address] Nov, [facility] [address] [id number] [address] [place] [address], [place] [address] Nov, [facility] [address] [id number] [address] [place] [address], [place] [address] Nov, [facility] [address] [id number] [address] [place] [address], [place] [address] Nov, [facility] [address] [id number] [address] [place] [address], [place] [address] Nov, [facility] [address] [id number] [address] [place] [address], [place] [address] Nov, [facility] [address] [id number] [address] [place] [address], [place] [address] October, [facility] [address] [id number] [address] [place] [address], [place] [address] October, [facility] [address] [id number] [address] [place] [address], [place] [address] Sep, [facility] [address] [id number] [address] [place] [address], [place] [address] Sep, [facility] [address] [id number] [address] [place] [address], [place] [address] Jul, [facility] [address] [id number] [address] [place] [address], [place] [address] Jul, [facility] [address] [id number] [address] [place] [address], [place] [address] Jul, [facility] [address] [id number] [address] [place] [address], [place] [address] Jul, [facility] [address] [id number] [address] [place] [address], [place] [address] May, [facility] [address] [id number] [address] [place] [address], [place] [address] May, [facility] [address] [id number] [address] [place] [address], [place] [address] May, [facility] [address] [id number] [address] [place] [address], [place] [address] May, [facility] [address] [id number] [address] [place] [address], [place] [address] Mar, [facility] [address] [id number] [address] [place] [address], [place] [address] Mar, [facility] [address] [id number] [address] [place] [address], [place] [address] Mar, [facility] [address] [id number] [address] [place] [address] [place] [address] 10 Mar, 2013 [facility] [address] [id number] [address] [place] [address], [place] [address] 04 Mar, 2013 [facility] [address] [id number] [address] [place] [address], [place] [address] 24 Feb, 2013 [facility] [address] [id number] [address] [place] [address], [place] [address] 19 Feb, 2013 [facility] [address] [id number] [address] [place] [address], [place] [address] 16 Feb, 2013 [facility] [address] [id number] [address] [place] [address], [place] [address] Jan, [facility] [address] [id number] [address] [place] [address], [place] [address] Jan, [facility] [address] [id number] [address] [place] [address], [place] [address] Jan, [facility] [address] [id number] [address] [place] [address], [place] [address] Jan, [facility] [address] [id number] [address] [place] [address], [place] [address] Jan, [facility] [address] [id number] [address] [place] [address], [place] [address] Jan, [facility] [address] [id number] [address] [place] [address], [place] [address] Jan, [facility] [address] [id number] [address] [place] [address], [place] [address] Dec, [facility] [address] [id number] [address] [place] [address], [place] [address] Dec, [facility] [address] [id number] [address] [place] [address], [place] [address] Dec, [facility] [address] [id number] [address] [place] [address], [place] [address] Nov, [facility] [address] [id number] [address] [place] [address], [place] [address] October, [facility] [address] [id number] [address] [place] [address], [place] [address] October, [facility] [address] [id number] [address] [place] [address], [place] [address] Sep, [facility] [address] [id number] [address] [place] [address], [place] [address] Jul, [facility] [address] [id number] [address] [place] [address], [place] [address] Jul, [facility] [address] [id number] [address] [place] [address], [place] [address] Jun, [facility] [address] [id number] [address] [place] [address], [place] [address] Jun, [facility] [address] [id number] [address] [place] [address], [place] [address] Jun, [facility] [address] [id number] [address] [place] [address], [place] [address] Jun, [facility] [address] [id number] [address] [place] [address], [place] [address] Jun, [facility] [address] [id number] [address] [place] [address], [place] [address] May, [facility] [address] [id number] [address] [place] [address], [place] [address] May, [facility] [address] [id number] [address] [place] [address], [place] [address] May, [facility] [address] [id number] [address] [place] [address], [place] [address] May, [facility] [address] [id number] [address] [place] [address], [place] [address] Apr, [facility] [address] [id number] [place] [address] 20 Apr, 2012 [facility] [address] [id number] [address] [place] [address], [place] [address] 16 Apr, 2012 [facility] [address] [id number] [address] [place] [address], [place] [address] 16 Apr, 2012 [facility] [address] [id number] [address] [place] [address], [place] [address] 13 Apr, 2012 [facility] [address] [id number] [address] [place] [address] 13 Apr, 2012 [facility] [address] [id number] [address] [place] [address], [place] [address] 13 Apr, 2012 [facility] [address] [id number] [address] [place] [address] 13 Apr, 2012 [facility] [address] [id number] [address] [place] [address], [place] [address] Apr, [facility] [address] [id number] [address] [place] [address] Apr, [facility] [address] [id number] [address] [place] [address], [place] [address] Mar, [facility] [address] [id number] [address] [place] [address], [place] [address] Mar, [facility] [address] [id number] [address] [place] [address] Mar, [facility] [address] [id number] [address] [place] [address] Mar, [facility] [address] [id number] [address] [place] [address], [place] [address] Mar, [facility] [address] [id number] [address] [place] [address] Mar, [facility] [address] [id number] [address] [place] [address] Mar, [facility] [address] [id number] [address] [place] [address], [place] [address] Mar, [facility] [address] [id number] [address] [place] [address], [place] [address] Feb, [facility] [address] [id number] [address] [place] [address], [place] [address] Jan, [facility] [address] [id number] [address] [place] [address], [place] [address] Jan, [facility] [address] [id number] [address] [place] [address], [place] [address] Dec, [facility] [address] [id number] [address] [place] [address], [place] [address] Nov, [facility] [address] [id number] [address] [place] [address], [place] [address] Nov, [facility] [address] [id number] [address] [place] [address], [place] [address] Nov, [facility] [address] [id number] [address] [place] [address], [place] [address] Nov, [facility] [address] [id number] [address] [place] [address], [place] [address] Nov, [facility] [address] [id number] [address] [place] [address], [place] [address] Nov, [facility] [address] [id number] [address] [place] [address], [place] [address] October, [facility] [address] [id number] [address] [place] [address], [place] [address] October, [facility] [address] [id number] [address] [place] [address], [place] [address] October, [facility] [address] [id number] [address] [place] [address], [place] [address] October, [facility] [address] [id number] [address] [place] [address], [place] [address] October, [facility] [address] [id number] [address] [place] [address], [place] [address] October, [facility] [address] [id number] [address] [place] [address], [place] [address] October, [facility] [address] [id number] [address] [place] [address], [place] [address] Sep, [facility] [address] [id number] [address] [place] [address], [place] [address] Sep, [facility] [address] [id number] [address] [place] [address], [place] [address] Aug, [facility] [address] [id number] [address] [place] [address], [place] [address] 15 Aug, 2011 [facility] [address] [id number] [address] [place] [address], [place] [address] Aug, [facility] [address] [id number] [address] [place] [address], [place] [address] Aug, [facility] [address] [id number] [address] [place] [address], [place] [address] Jul, [facility] [address] [id number] [address] [place] [address], [place] [address] Jul, [facility] [address] [id number] [address] [place] [address], [place] [address] Jul, [facility] [address] [id number] [address] [place] [address], [place] [address] Jul, [facility] [address] [id number] [address] [place] [address], [place] [address] May, [facility] [address] [id number] [address] [place] [address], [place] [address] May, [facility] [address] [id number] [address] [place] [address], [place] [address] May, [facility] [address] [id number] [address] [place] [address] Apr, [facility] [address] [facility] [id number] [address] [place] [address] Mar, [facility] [address] [facility] [id number] [address] [place] [address] Mar, IMMUNIZATIONS No Known Immunizations SOCIAL HISTORY Never Assessed REASON FOR VISIT PLAN OF CARE VITAL SIGNS Height 69 in 2011-11-06 Weight 182.75 lbs 2011-11-06 Temperature 98 degrees Fahrenheit 2011-11-06 Heart Rate 60 bpm 2011-11-06 Respiratory Rate 20 2011-11-06 Blood pressure systolic 108 mmHg 2011-11-06 Blood pressure diastolic 74 mmHg 2011-11-06 MEDICATIONS Unknown Medications RESULTS No Results PROCEDURES Procedure Date Ordered Result Body Site COMPLETE CBC W/AUTO DIFF WBC November 06, 2011 PROTHROMBIN TIME November 06, 2011 ASSAY THYROID STIM HORMONE November 06, 2011 NATRIURETIC PEPTIDE November 06, 2011 COMPREHEN METABOLIC PANEL November 06, 2011 VENIPUNCT, ROUTINE* November 06, 2011 INSTRUCTIONS MEDICATIONS ADMINISTERED No Known Medications MEDICAL (GENERAL) HISTORY Type Description Date Medical History depression Medical History hyperlipidemia Hospitalization History staph in right leg
--- OUTSIDE RECORDS SUMMARY | 2020-01-01 19:04 | XMS REPORT ---
Author Author Aron LEE [facility] Address [address] [place] [address] Care Team Providers Care Category Manager Name Role Phone THANH LEE Unavailable PROBLEMS Type Condition ICD9-CM Code MMI58-LR Code Onset Dates Condition S tatus SNOMED Code Problem Nonspecific elevation of lev els of transaminase or lactic acid dehydrogenase (LDH) 790.4 Active 23494625 2 Problem Encounter for long-term (current) use of other medications V58.69 Active 824347465 Problem Edema 782.3 Active 936505216 Problem Spontaneous ecchymoses 782.7 Active 692198857 Problem Trigger finger (acquired) 727.03 Acti ve 9374608 Problem 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 Active 09829287 Problem 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 .42 Active 62945898 Problem 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 Active 36197244 Problem Unspecified local infection of skin and subcutaneous tissu e 686.9 Active 658609324 Problem Unspecified viral hepatitis C without hepatic coma 070.70 Active 20724591 Problem Vascular disorder of skin 709.1 Acti ve 47688127 Problem Dissociative disorder or reaction, 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 Active 34133002 Problem Anxiety state, unspecified 300.00 Act bessy 979801860 Problem Other and unspecified hyperlipidemia 272.4 Active 15146471 Problem Major depressive disorder, recurrent episode, mild 296.31 Active 35932502 ALLERGIES No Information ENCOUNTERS Encounter Location Date Diagnosis [facility] [id number] [place] [id number] Nov, Encounter for other specifie d administrative purpose Z02.89 [facility] [address] [facility] [id number] [address] [place] [address] [id number] October, Dental examination Z01.20 an d Dental caries K02.9 [facility] [address] [id number] [address] [place] [address] 14 Jan, 2015 Edema 782.3 and Family histo ry of coronary artery disease V17.3 [facility] [address] [id number] [address] [place] [address] 07 Jan, 2015 Edema 782.3 and Family histo ry of coronary artery disease V17.3 [facility] [address] [id number] [address] [place] [address] [id number] Dec, Dental examination V72.2 [facility] [address] [id number] [address] [place] [address] Sep, [facility] [address] [id number] [address] [place] [address] Sep, [facility] [address] [id number] [address] [place] [address] Aug, [facility] [address] [id number] [address] [place] [address] Aug, [facility] [address] [id number] [address] [place] [address] Jun, [facility] [address] [id number] [address] [place] [address] Jun, [facility] [address] [id number] [address] [place] [address] Jun, [facility] [address] [id number] [address] [place] [address] Jun, [facility] [address] [id number] [address] [place] [address] May, [facility] [address] [id number] [address] [place] [address] May, [facility] [address] [id number] [address] [place] [address] Apr, [facility] [address] [id number] [address] [place] [address] [place] [address] Apr, [facility] [address] [id number] [address] [place] [address], [place] [address] Mar, [facility] [address] [id number] [address] [place] [address], [place] [address] Mar, [facility] [address] [id number] [address] [place] [address], [place] [address] Feb, [facility] [address] [id number] [address] [place] [address], [place] [address] Feb, [facility] [address] [id number] [address] [place] [address], [place] [address] Feb, [facility] [address] [id number] [address] [place] [address], [place] [address] Jan, [facility] [address] [id number] [address] [place] [address], [place] [address] Jan, [facility] [address] [id number] [address] [place] [address], [place] [address] Jan, [facility] [address] [id number] [address] [place] [address], [place] [address] Dec, [facility] [address] [id number] [address] [place] [address], [place] [address] Dec, [facility] [address] [id number] [address] [place] [address], [place] [address] Nov, [facility] [address] [id number] [address] [place] [address], [place] [address] Nov, [facility] [address] [id number] [address] [place] [address], [place] [address] Nov, [facility] [address] [id number] [address] [place] [address], [place] [address] Nov, [facility] [address] [id number] [address] [place] [address], [place] [address] Nov, [facility] [address] [id number] [address] [place] [address], [place] [address] Nov, [facility] [address] [id number] [address] [place] [address], [place] [address] October, [facility] [address] [id number] [address] [place] [address], [place] [address] October, [facility] [address] [id number] [address] [place] [address], [place] [address] Sep, [facility] [address] [id number] [address] [place] [address], [place] [address] Sep, [facility] [address] [id number] [address] [place] [address], [place] [address] Jul, [facility] [address] [id number] [address] [place] [address], [place] [address] Jul, [facility] [address] [id number] [address] [place] [address], [place] [address] Jul, [facility] [address] [id number] [address] [place] [address], [place] [address] Jul, [facility] [address] [id number] [address] [place] [address], [place] [address] May, [facility] [address] [id number] [address] [place] [address], [place] [address] May, [facility] [address] [id number] [address] [place] [address], [place] [address] May, [facility] [address] [id number] [address] [place] [address], [place] [address] May, [facility] [address] [id number] [address] [place] [address], [place] [address] Mar, [facility] [address] [id number] [address] [place] [address], [place] [address] Mar, [facility] [address] [id number] [address] [place] [address], [place] [address] Mar, [facility] [address] [id number] [address] [place] [address], [place] [address] Mar, [facility] [address] [id number] [address] [place] [address], [place] [address] 04 Mar, 2013 [facility] [address] [id number] [address] [place] [address], [place] [address] 24 Feb, 2013 [facility] [address] [id number] [address] [place] [address], [place] [address] 19 Feb, 2013 [facility] [address] [id number] [address] [place] [address], [place] [address] 16 Feb, 2013 [facility] [address] [id number] [address] [place] [address], [place] [address] Jan, [facility] [address] [id number] [address] [place] [address], [place] [address] Jan, [facility] [address] [id number] [address] [place] [address], [place] [address] Jan, [facility] [address] [id number] [address] [place] [address], [place] [address] Jan, [facility] [address] [id number] [address] [place] [address], [place] [address] Jan, [facility] [address] [id number] [address] [place] [address], [place] [address] Jan, [facility] [address] [id number] [address] [place] [address], [place] [address] Jan, [facility] [address] [id number] [address] [place] [address], [place] [address] Dec, [facility] [address] [id number] [address] [place] [address], [place] [address] Dec, [facility] [address] [id number] [address] [place] [address], [place] [address] Dec, [facility] [address] [id number] [address] [place] [address], [place] [address] 10 Nov, 2012 [facility] [address] [id number] [address] [place] [address], [place] [address] October, [facility] [address] [id number] [address] [place] [address], [place] [address] October, [facility] [address] [id number] [address] [place] [address], [place] [address] Sep, [facility] [address] [id number] [address] [place] [address], [place] [address] Jul, [facility] [address] [id number] [address] [place] [address], [place] [address] Jul, [facility] [address] [id number] [address] [place] [address], [place] [address] Jun, [facility] [address] [id number] [address] [place] [address], [place] [address] Jun, [facility] [address] [id number] [address] [place] [address], [place] [address] Jun, [facility] [address] [id number] [address] [place] [address], [place] [address] Jun, [facility] [address] [id number] [address] [place] [address], [place] [address] Jun, [facility] [address] [id number] [address] [place] [address], [place] [address] May, [facility] [address] [id number] [address] [place] [address], [place] [address] May, [facility] [address] [id number] [address] [place] [address], [place] [address] May, [facility] [address] [id number] [address] [place] [address], [place] [address] May, [facility] [address] [id number] [address] [place] [address], [place] [address] 20 Apr, 2012 [facility] [address] [id number] [address] [place] [address], [place] [address] 20 Apr, 2012 [facility] [address] [id number] [address] [place] [address], [place] [address] 16 Apr, 2012 [facility] [address] [id number] [address] [place] [address], [place] [address] 16 Apr, 2012 [facility] [address] [id number] [address] [place] [address], [place] [address] 13 Apr, 2012 [facility] [address] [id number] [address] [place] [address], [place] [address] 13 Apr, 2012 [facility] [address] [id number] [address] [place] [address], [place] [address] 13 Apr, 2012 [facility] [address] [id number] [address] [place] [address], [place] [address] Apr, [facility] [address] [id number] [address] [place] [address], [place] [address] Apr, [facility] [address] [id number] [address] [place] [address], [place] [address] Apr, [facility] [address] [id number] [address] [place] [address], [place] [address] Mar, [facility] [address] [id number] [address] [place] [address], [place] [address] Mar, [facility] [address] [id number] [address] [place] [address] Mar, [facility] [address] [id number] [address] [place] [address], [place] [address] Mar, [facility] [address] [id number] [address] [place] [address], [place] [address] Mar, [facility] [address] [id number] [address] [place] [address], [place] [address] 10 Mar, 2012 [facility] [address] [id number] [address] [place] [address], [place] [address] Mar, [facility] [address] [id number] [address] [place] [address], [place] [address] Mar, [facility] [address] [id number] [address] [place] [address], [place] [address] Feb, [facility] [address] [id number] [address] [place] [address], [place] [address] Jan, [facility] [address] [id number] [address] [place] [address], [place] [address] Jan, [facility] [address] [id number] [address] [place] [address], [place] [address] Dec, [facility] [address] [id number] [address] [place] [address], [place] [address] Nov, [facility] [address] [id number] [address] [place] [address], [place] [address] Nov, [facility] [address] [id number] [address] [place] [address], [place] [address] Nov, [facility] [address] [id number] [address] [place] [address], [place] [address] Nov, [facility] [address] [id number] [address] [place] [address], [place] [address] Nov, [facility] [address] [id number] [address] [place] [address], [place] [address] Nov, [facility] [address] [id number] [address] [place] [address], [place] [address] October, [facility] [address] [id number] [address] [place] [address], [place] [address] October, [facility] [address] [id number] [address] [place] [address], [place] [address] October, [facility] [address] [id number] [address] [place] [address], [place] [address] October, [facility] [address] [id number] [address] [place] [address], [place] [address] October, [facility] [address] [id number] [address] [place] [address], [place] [address] October, [facility] [address] [id number] [address] [place] [address], [place] [address] October, [facility] [address] [id number] [address] [place] [address], [place] [address] Sep, [facility] [address] [id number] [address] [place] [address], [place] [address] Sep, [facility] [address] [id number] [address] [place] [address], [place] [address] Aug, [facility] [address] [id number] [address] [place] [address], [place] [address] Aug, [facility] [address] [id number] [address] [place] [address], [place] [address] Aug, [facility] [address] [id number] [address] [place] [address], [place] [address] Aug, [facility] [address] [id number] [address] [place] [address], [place] [address] Jul, [facility] [address] [id number] [address] [place] [address], [place] [address] Jul, [facility] [address] [id number] [address] [place] [address], [place] [address] Jul, [facility] [address] [id number] [address] [place] [address], [place] [address] Jul, [facility] [address] [id number] [address] [place] [address], [place] [address] May, [facility] [address] [id number] [address] [place] [address], [place] [address] May, [facility] [address] [id number] [address] [place] [address] May, [facility] [address] [facility] [id number] [address] [place] [address] Apr, [facility] [address] [facility] [id number] [address] [place] [address] Mar, [facility] [address] [facility] [id number] [address] [place] [address] Mar, IMMUNIZATIONS No Known Immunizations SOCIAL HISTORY Never Assessed REASON FOR VISIT PLAN OF CARE VITAL SIGNS MEDICATIONS Unknown Medications RESULTS No Results PROCEDURES Procedure Date Ordered Result Body Site PSYTX PT&/FAMILY 45 MINUTES Jun 17, 2014 INSTRUCTIONS MEDICATIONS ADMINISTERED No Known Medications MEDICAL (GENERAL) HISTORY Type Description Date Medical History depression Medical History hyperlipidemia Hospitalization History [facility]aph in right leg
--- OUTSIDE RECORDS SUMMARY | 2020-01-01 19:04 | XMS REPORT ---
Author Author Aron ANDINO Organization [facility] Address [address] [place] [address] Care Team Providers Care Management Scientist Name Role Phone SHEEBA ANDINO Unavailable PROBLEMS Type Condition ICD9-CM Code OGS14-JF Code Onset Dates Condition S tatus SNOMED Code Problem Nonspecific elevation of lev els of transaminase or lactic acid dehydrogenase (LDH) 790.4 Active 86611503 2 Problem Encounter for long-term (current) use of other medications V58.69 Active 828717185 Problem Edema 782.3 Active 440239020 Problem Spontaneous ecchymoses 782.7 Active 311905914 Problem Trigger finger (acquired) 727.03 Acti ve 6341131 Problem 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 Active 44161098 Problem 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 .42 Active 98842169 Problem 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 Active 30499780 Problem Unspecified local infection of skin and subcutaneous tissu e 686.9 Active 853368143 Problem Unspecified viral hepatitis C without hepatic coma 070.70 Active 32759253 Problem Vascular disorder of skin 709.1 Acti ve 84785288 Problem Dissociative disorder or reaction, 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 Active 07659616 Problem Anxiety state, unspecified 300.00 Act bessy 657428221 Problem Other and unspecified hyperlipidemia 272.4 Active 06167599 Problem Major depressive disorder, recurrent episode, mild 296.31 Active 46194921 ALLERGIES No Information ENCOUNTERS Encounter Location Date Diagnosis [facility] [address] [id number] [address] [place] [address] [id number] Nov, Encounter for other specifie d administrative purpose Z02.89 [facility] [address] [id number] [address] [place] [address] [id number] October, Dental examination Z01.20 an d Dental caries K02.9 [facility] [address] [facility] [id number] [address] [place] [id number] 14 Jan, 2015 Edema 782.3 and Family histo ry of coronary artery disease V17.3 [facility] [address] [id number] [address] [place] [id number] 07 Jan, 2015 Edema 782.3 and Family histo ry of coronary artery disease V17.3 [facility] [address] [id number] [address] [place] [address] [phone] Dec, Dental examination V72.2 [facility] [address] [id number] [address] [place] [phone] Sep, [facility] [address] [id number] [address] [place] [phone] Sep, [facility] [address] [id number] [address] [place] [phone] Aug, [facility] [address] [id number] [address] [place] [phone] Aug, [facility] [address] [id number] [address] [place] [phone] Jun, [facility] [address] [id number] [address] [place] [phone] Jun, [facility] [address] [id number] [address] [place] [phone] Jun, [facility] [address] [id number] [address] [place] [phone] Jun, [facility] [address] [id number] [address] [place] [phone] May, [facility] [address] [id number] [address] [place] [phone] May, [facility] [address] [id number] [address] [place] [phone] Apr, [facility] [address] [id number] [address] [place] [phone] Apr, [facility] [address] [id number] [address] [place] [address], [place] [address] Mar, [facility] [address] [id number] [address] [place] [address], [place] [address] Mar, [facility] [address] [id number] [address] [place] [address], [place] [address] Feb, [facility] [address] [id number] [address] [place] [address], [place] [address] Feb, [facility] [address] [id number] [address] [place] [address], [place] [address] Feb, [facility] [address] [id number] [address] [place] [address], [place] [address] Jan, [facility] [address] [id number] [address] [place] [address], [place] [address] Jan, [facility] [address] [id number] [address] [place] [address], [place] [address] Jan, [facility] [address] [id number] [address] [place] [address], [place] [address] Dec, [facility] [address] [id number] [address] [place] [address], [place] [address] Dec, [facility] [address] [id number] [address] [place] [address], [place] [address] Nov, [facility] [address] [id number] [address] [place] [address], [place] [address] Nov, [facility] [address] [id number] [address] [place] [address], [place] [address] Nov, [facility] [address] [id number] [address] [place] [address], [place] [address] Nov, [facility] [address] [id number] [address] [place] [address], [place] [address] Nov, [facility] [address] [id number] [address] [place] [address], [place] [address] Nov, [facility] [address] [id number] [address] [place] [address], [place] [address] October, [facility] [address] [id number] [address] [place] [address], [place] [address] October, [facility] [address] [id number] [address] [place] [address], [place] [address] Sep, [facility] [address] [id number] [address] [place] [address], [place] [address] Sep, [facility] [address] [id number] [address] [place] [address], [place] [address] Jul, [facility] [address] [id number] [address] [place] [address], [place] [address] Jul, [facility] [address] [id number] [address] [place] [address], [place] [address] Jul, [facility] [address] [id number] [address] [place] [address], [place] [address] Jul, [facility] [address] [id number] [address] [place] [address], [place] [address] May, [facility] [address] [id number] [address] [place] [address], [place] [address] May, [facility] [address] [id number] [address] [place] [address], [place] [address] May, [facility] [address] [id number] [address] [place] [address], [place] [address] May, [facility] [address] [id number] [address] [place] [address], [place] [address] 17 Mar, 2013 [facility] [address] [id number] [address] [place] [address], [place] [address] 17 Mar, 2013 [facility] [address] [id number] [address] [place] [address], [place] [address] 10 Mar, 2013 [facility] [address] [id number] [address] [place] [address], [place] [address] 10 Mar, 2013 [facility] [address] [id number] [address] [place] [address], [place] [address] 04 Mar, 2013 [facility] [address] [id number] [address] [place] [address], [place] [address] 24 Feb, 2013 [facility] [address] [id number] [address] [place] [address], [place] [address] 19 Feb, 2013 [facility] [address] [id number] [address] [place] [address], [place] [address] 16 Feb, 2013 [facility] [address] [id number] [address] [place] [address], [place] [address] Jan, [facility] [address] [id number] [address] [place] [address], [place] [address] Jan, [facility] [address] [id number] [address] [place] [address], [place] [address] Jan, [facility] [address] [id number] [address] [place] [address], [place] [address] Jan, [facility] [address] [id number] [address] [place] [address], [place] [address] Jan, [facility] [address] [id number] [address] [place] [address], [place] [address] Jan, [facility] [address] [id number] [address] [place] [address], [place] [address] Jan, [facility] [address] [id number] [address] [place] [address], [place] [address] Dec, [facility] [address] [id number] [address] [place] [address], [place] [address] Dec, [facility] [address] [id number] [address] [place] [address], [place] [address] Dec, [facility] [address] [id number] [address] [place] [address], [place] [address] 10 Nov, 2012 [facility] [address] [id number] [address] [place] [address], [place] [address] October, [facility] [address] [id number] [address] [place] [address], [place] [address] October, [facility] [address] [id number] [address] [place] [address], [place] [address] Sep, [facility] [address] [id number] [address] [place] [address], [place] [address] Jul, [facility] [address] [id number] [address] [place] [address], [place] [address] Jul, [facility] [address] [id number] [address] [place] [address], [place] [address] 24 Jun, 2012 [facility] [address] [id number] [address] [place] [address], [place] [address] Jun, [facility] [address] [id number] [address] [place] [address], [place] [address] Jun, [facility] [address] [id number] [address] [place] [address], [place] [address] Jun, [facility] [address] [id number] [address] [place] [address], [place] [address] Jun, [facility] [address] [id number] [address] [place] [address], [place] [address] May, [facility] [address] [id number] [address] [place] [address], [place] [address] May, [facility] [address] [id number] [address] [place] [address], [place] [address] May, [facility] [address] [id number] [address] [place] [address], [place] [address] 14 May, 2012 [facility] [address] [id number] [address] [place] [address], [place] [address] Apr, [facility] [address] [id number] [address] [place] [address], [place] [address] 20 Apr, 2012 [facility] [address] [id number] [address] [place] [address], [place] [address] 16 Apr, 2012 [facility] [address] [id number] [address] [place] [address], [place] [address] 16 Apr, 2012 [facility] [address] [id number] [address] [place] [address], [place] [address] 13 Apr, 2012 [facility] [address] [id number] [address] [place] [address], [place] [address] 13 Apr, 2012 [facility] [address] [id number] [address] [place] [address], [place] [address] 13 Apr, 2012 [facility] [address] [id number] [address] [place] [address], [place] [address] Apr, [facility] [address] [id number] [address] [place] [address], [place] [address] Apr, [facility] [address] [id number] [address] [place] [address], [place] [address] Apr, [facility] [address] [id number] [address] [place] [address], [place] [address] Mar, [facility] [address] [id number] [address] [place] [address], [place] [address] Mar, [facility] [address] [id number] [address] [place] [address], [place] [address] Mar, [facility] [address] [id number] [address] [place] [address], [place] [address] Mar, [facility] [address] [id number] [address] [place] [address], [place] [address] Mar, [facility] [address] [id number] [address] [place] [address], [place] [address] Mar, [facility] [address] [id number] [address] [place] [address] Mar, [facility] [address] [id number] [address] [place] [address], [place] [address] Mar, [facility] [address] [id number] [address] [place] [address], [place] [address] Feb, [facility] [address] [id number] [address] [place] [address], [place] [address] Jan, [facility] [address] [id number] [address] [place] [address], [place] [address] Jan, [facility] [address] [id number] [address] [place] [address], [place] [address] Dec, [facility] [address] [id number] [address] [place] [address], [place] [address] Nov, [facility] [address] [id number] [address] [place] [address], [place] [address] Nov, [facility] [address] [id number] [address] [place] [address], [place] [address] Nov, [facility] [address] [id number] [address] [place] [address], [place] [address] Nov, [facility] [address] [id number] [address] [place] [address], [place] [address] Nov, [facility] [address] [id number] [address] [place] [address], [place] [address] Nov, [facility] [address] [id number] [address] [place] [address], [place] [address] October, [facility] [address] [id number] [address] [place] [address], [place] [address] October, [facility] [address] [id number] [address] [place] [address], [place] [address] October, [facility] [address] [id number] [address] [place] [address], [place] [address] October, [facility] [address] [id number] [address] [place] [address], [place] [address] October, [facility] [address] [id number] [address] [place] [address], [place] [address] October, [facility] [address] [id number] [address] [place] [address], [place] [address] October, [facility] [address] [id number] [address] [place] [address], [place] [address] Sep, [facility] [address] [id number] [address] [place] [address], [place] [address] Sep, [facility] [address] [id number] [address] [place] [address], [place] [address] Aug, [facility] [address] [id number] [address] [place] [address], [place] [address] Aug, [facility] [address] [id number] [address] [place] [address], [place] [address] Aug, [facility] [address] [id number] [address] [place] [address], [place] [address] Aug, [facility] [address] [id number] [address] [place] [address], [place] [address] Jul, [facility] [address] [id number] [address] [place] [address], [place] [address] Jul, [facility] [address] [id number] [address] [place] [address], [place] [address] Jul, [facility] [address] [id number] [address] [place] [address], [place] [address] Jul, [facility] [address] [id number] [address] [place] [address], [place] [address] May, [facility] [address] [id number] [address] [place] [address], [place] [address] May, [facility] [address] [id number] [address] [place] [address], [place] [address] May, [facility] [address] [facility] [id number] [address] [place] [address] Apr, [facility] [address] [facility] [id number] [address] [place] [address] Mar, [facility] [address] [facility] [id number] [address] [place] [address] Mar, IMMUNIZATIONS No Known Immunizations SOCIAL HISTORY Never Assessed REASON FOR VISIT PLAN OF CARE VITAL SIGNS Height 69 in 2011-11-20 Weight 189 lbs 2011-11-20 Temperature 97.3 degrees Fahrenheit 2011-11-20 Heart Rate 74 bpm 2011-11-20 Respiratory Rate 18 2011-11-20 Blood pressure systolic 96 mmHg 2011-11-20 Blood pressure diastolic 60 mmHg 2011-11-20 MEDICATIONS Unknown Medications RESULTS No Results PROCEDURES No Known procedures INSTRUCTIONS MEDICATIONS ADMINISTERED No Known Medications MEDICAL (GENERAL) HISTORY Type Description Date Medical History depression Medical History hyperlipidemia Hospitalization History staph in right leg
--- OUTSIDE RECORDS SUMMARY | 2020-01-01 19:04 | XMS REPORT ---
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 Name Role Phone SHEEBA ANDINO Unavailable PROBLEMS Type Condition ICD9-CM Code IXC37-WH Code Onset Dates Condition S tatus SNOMED Code Problem Nonspecific elevation of lev els of transaminase or lactic acid dehydrogenase (LDH) 790.4 Active 03128979 2 Problem Encounter for long-term (current) use of other medications V58.69 Active 975658731 Problem Edema 782.3 Active 691425866 Problem Spontaneous ecchymoses 782.7 Active 118727337 Problem Trigger finger (acquired) 727.03 Acti ve 6529625 Problem 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 Active 78962684 Problem 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 .42 Active 76761955 Problem 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 Active 40113799 Problem Unspecified local infection of skin and subcutaneous tissu e 686.9 Active 674824237 Problem Unspecified viral hepatitis C without hepatic coma 070.70 Active 70507368 Problem Vascular disorder of skin 709.1 Acti ve 83723667 Problem Dissociative disorder or reaction, 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 Active 31187681 Problem Anxiety state, unspecified 300.00 Act bessy 551352982 Problem Other and unspecified hyperlipidemia 272.4 Active 92831540 Problem Major depressive disorder, recurrent episode, mild 296.31 Active [id number] ALLERGIES No Information ENCOUNTERS Encounter Location Date Diagnosis [facility] [address] [id number] [address] [place] [address] [id number] Nov, Encounter for other specifie d administrative purpose Z02.89 [facility] [address] [id number] [address] [place] [address] [id number] October, Dental examination Z01.20 an d Dental caries K02.9 [facility] [address] [facility] [id number] [address] [place] [id number] 14 Jan, 2015 Edema 782.3 and Family histo ry of coronary artery disease V17.3 [facility] [address] [id number] [address] [place] [id number] 07 Jan, 2015 Edema 782.3 and Family histo ry of coronary artery disease V17.3 [facility] [address] [id number] [address] [place] [address] [id number] Dec, Dental examination V72.2 [facility] [address] [id number] [address] [place] [id number] Sep, [facility] [address] [id number] [address] [place] [id number] Sep, [facility] [address] [id number] [address] [place] [id number] Aug, [facility] [address] [id number] [address] [place] [phone] Aug, [facility] [address] [id number] [address] [place] [phone] Jun, [facility] [address] [id number] [address] [place] [phone] Jun, [facility] [address] [id number] [address] [place] [phone] Jun, [facility] [address] [id number] [address] [place] [id number] Jun, [facility] [address] [id number] [address] [place] [id number] May, [facility] [address] [id number] [address] [place] [id number] May, [facility] [address] [id number] [address] [place] [phone] Apr, [facility] [address] [id number] [address] [place] [id number] Apr, [facility] [address] [id number] [address] [place] [address], [place] [address] Mar, [facility] [address] [id number] [address] [place] [address], [place] [id number] Mar, [facility] [address] [id number] [address] [place] [address], [place] [id number] Feb, [facility] [address] [id number] [address] [place] [address], [place] [id number] Feb, [facility] [address] [id number] [address] [place] [address], [place] [id number] Feb, [facility] [address] [id number] [address] [place] [address], [place] [address] Jan, [facility] [address] [id number] [address] [place] [address], [place] [id number] Jan, [facility] [address] [id number] [address] [place] [address], [place] [id number] Jan, [facility] [address] [id number] [address] [place] [address], [place] [id number] Dec, [facility] [address] [id number] [address] [place] [address], [place] [id number] Dec, [facility] [address] [id number] [address] [place] [address], [place] [id number] Nov, [facility] [address] [id number] [address] [place] [address], [place] [id number] Nov, [facility] [address] [id number] [address] [place] [address], [place] [address] Nov, [facility] [address] [id number] [address] [place] [address], [place] [address] Nov, [facility] [address] [id number] [address] [place] [address], [place] [address] Nov, [facility] [address] [id number] [address] [place] [address], [place] [id number] Nov, [facility] [address] [id number] [address] [place] [address], [place] [address] October, [facility] [address] [id number] [address] [place] [address], [place] [id number] October, [facility] [address] [id number] [address] [place] [address], [place] [address] Sep, [facility] [address] [id number] [address] [place] [address], [place] [id number] Sep, [facility] [address] [id number] [address] [place] [address], [place] [address] Jul, [facility] [address] [id number] [address] [place] [address], [place] [id number] Jul, [facility] [address] [id number] [address] [place] [address], [place] [address] Jul, [facility] [address] [id number] [address] [place] [address], [place] [address] Jul, [facility] [address] [id number] [address] [place] [address], [place] [id number] May, [facility] [address] [id number] [address] [place] [address], [place] [id number] May, [facility] [address] [id number] [address] [place] [address], [place] [id number] May, [facility] [address] [id number] [address] [place] [address], [place] [address] May, [facility] [address] [id number] [address] [place] [address], [place] [id number] 17 Mar, 2013 [facility] [address] [id number] [address] [place] [address], [place] [id number] 17 Mar, 2013 [facility] [address] [id number] [address] [place] [address], [place] [id number] 10 Mar, 2013 [facility] [address] [id number] [address] [place] [address], [place] [id number] 10 Mar, 2013 [facility] [address] [id number] [address] [place] [address], [place] [id number] 04 Mar, 2013 [facility] [address] [id number] [address] [place] [address], [place] [id number] 24 Feb, 2013 [facility] [address] [id number] [address] [place] [address], [place] [id number] 19 Feb, 2013 [facility] [address] [id number] [address] [place] [address], [place] [id number] 16 Feb, 2013 [facility] [address] [id number] [address] [place] [address], [place] [id number] Jan, [facility] [address] [id number] [address] [place] [address], [place] [id number] Jan, [facility] [address] [id number] [address] [place] [address], [place] [id number] Jan, [facility] [address] [id number] [address] [place] [address], [place] [id number] Jan, [facility] [address] [id number] [address] [place] [address], [place] [address] Jan, [facility] [address] [id number] [address] [place] [address], [place] [address] Jan, [facility] [address] [id number] [address] [place] [address], [place] [address] Jan, [facility] [address] [id number] [address] [place] [address], [place] [address] Dec, [facility] [address] [id number] [address] [place] [address], [place] [address] Dec, [facility] [address] [id number] [address] [place] [address], [place] [address] Dec, [facility] [address] [id number] [address] [place] [address], [place] [id number] 10 Nov, 2012 [facility] [address] [id number] [address] [place] [address], [place] [address] October, [facility] [address] [id number] [address] [place] [address], [place] [id number] October, [facility] [address] [id number] [address] [place] [address], [place] [address] Sep, [facility] [address] [id number] [address] [place] [address], [place] [id number] Jul, [facility] [address] [id number] [address] [place] [address], [place] [id number] Jul, [facility] [address] [id number] [address] [place] [address], [place] [id number] 24 Jun, 2012 [facility] [address] [id number] [address] [place] [address], [place] [id number] Jun, [facility] [address] [id number] [address] [place] [address], [place] [id number] Jun, [facility] [address] [id number] [address] [place] [address], [place] [address] Jun, [facility] [address] [id number] [address] [place] [address], [place] [id number] Jun, [facility] [address] [id number] [address] [place] [address], [place] [address] May, [facility] [address] [id number] [address] [place] [address], [place] [id number] May, [facility] [address] [id number] [address] [place] [address], [place] [address] May, [facility] [address] [id number] [address] [place] [address], [place] [id number] 14 May, 2012 [facility] [address] [id number] [address] [place] [address], [place] [address] Apr, [facility] [address] [id number] [address] [place] [address], [place] [id number] 20 Apr, 2012 [facility] [address] [id number] [address] [place] [address], [place] [id number] 16 Apr, 2012 [facility] [address] [id number] [address] [place] [address], [place] [id number] 16 Apr, 2012 [facility] [address] [id number] [address] [place] [address], [place] [id number] 13 Apr, 2012 [facility] [address] [id number] [address] [place] [address], [place] [address] 13 Apr, 2012 [facility] [address] [id number] [address] [place] [address], [place] [id number] 13 Apr, 2012 [facility] [address] [id number] [address] [place] [address], [place] [address] Apr, [facility] [address] [id number] [address] [place] [address], [place] [address] Apr, [facility] [address] [id number] [address] [place] [address], [place] [address] Apr, [facility] [address] [id number] [address] [place] [address], [place] [address] Mar, [facility] [address] [id number] [address] [place] [address], [place] [address] Mar, [facility] [address] [id number] [address] [place] [address], [place] [address] Mar, [facility] [address] [id number] [address] [place] [address], [place] [address] Mar, [facility] [address] [id number] [address] [place] [address], [place] [address] Mar, [facility] [address] [id number] [address] [place] [address], [place] [address] Mar, [facility] [address] [id number] [address] [place] [id number] Mar, [facility] [address] [id number] [address] [place] [address], [place] [id number] Mar, [facility] [address] [id number] [address] [place] [address], [place] [address] Feb, [facility] [address] [id number] [address] [place] [address], [place] [address] Jan, [facility] [address] [id number] [address] [place] [address], [place] [address] Jan, [facility] [address] [id number] [address] [place] [address], [place] [address] Dec, [facility] [address] [id number] [address] [place] [address], [place] [address] Nov, [facility] [address] [id number] [address] [place] [address], [place] [address] Nov, [facility] [address] [id number] [address] [place] [address], [place] [address] Nov, [facility] [address] [id number] [address] [place] [address], [place] [address] Nov, [facility] [address] [id number] [address] [place] [address], [place] [address] Nov, [facility] [address] [id number] [address] [place] [address], [place] [address] Nov, [facility] [address] [id number] [address] [place] [address], [place] [address] October, [facility] [address] [id number] [address] [place] [address], [place] [address] October, [facility] [address] [id number] [address] [place] [address], [place] [address] October, [facility] [address] [id number] [address] [place] [address], [place] [address] October, [facility] [address] [id number] [address] [place] [address], [place] [address] October, [facility] [address] [id number] [address] [place] [address], [place] [address] October, [facility] [address] [id number] [address] [place] [address], [place] [address] October, [facility] [address] [id number] [address] [place] [address], [place] [address] Sep, [facility] [address] [id number] [address] [place] [address], [place] [address] Sep, [facility] [address] [id number] [address] [place] [address], [place] [address] Aug, [facility] [address] [id number] [address] [place] [address], [place] [address] Aug, [facility] [address] [id number] [address] [place] [address], [place] [address] Aug, [facility] [address] [id number] [address] [place] [address], [place] [address] Aug, [facility] [address] [id number] [address] [place] [address], [place] [id number] Jul, [facility] [address] [id number] [address] [place] [address], [place] [address] Jul, [facility] [address] [id number] [address] [place] [address], [place] [address] Jul, [facility] [address] [id number] [address] [place] [address], [place] [address] Jul, [facility] [address] [id number] [address] [place] [address], [place] [address] May, [facility] [address] [id number] [address] [place] [address], [place] [address] May, [facility] [address] [id number] [address] [place] [address], [place] [address] May, [facility] [address] [facility] [id number] [address] [place] [id number] Apr, [facility] [address] [facility] [id number] [address] [place] [id number] Mar, [facility] [address] [facility] [id number] [address] [place] [id number] Mar, IMMUNIZATIONS No Known Immunizations SOCIAL HISTORY Never Assessed REASON FOR VISIT PLAN OF CARE VITAL SIGNS MEDICATIONS Unknown Medications RESULTS No Results PROCEDURES No Known procedures INSTRUCTIONS MEDICATIONS ADMINISTERED No Known Medications MEDICAL (GENERAL) HISTORY Type Description Date Medical History depression Medical History hyperlipidemia Hospitalization History staph in right leg
--- OUTSIDE RECORDS SUMMARY | 2020-01-01 19:04 | XMS REPORT ---
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 Name Role Phone Migration, Doctor Unavailable Unavailable PROBLEMS Type Condition ICD9-CM Code OTQ21-OS Code Onset Dates Condition S tatus SNOMED Code Problem Nonspecific elevation of lev els of transaminase or lactic acid dehydrogenase (LDH) 790.4 Active 48569753 2 Problem Encounter for long-term (current) use of other medications V58.69 Active 502678815 Problem Edema 782.3 Active 771735045 Problem Spontaneous ecchymoses 782.7 Active 706985779 Problem Trigger finger (acquired) 727.03 Acti ve 1885341 Problem 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 Active 65657657 Problem 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 .42 Active 78719129 Problem 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 Active 27764745 Problem Unspecified local infection of skin and subcutaneous tissu e 686.9 Active 592880765 Problem Unspecified viral hepatitis C without hepatic coma 070.70 Active 05963904 Problem Vascular disorder of skin 709.1 Acti ve 52100376 Problem Dissociative disorder or reaction, 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 Active 19495195 Problem Anxiety state, unspecified 300.00 Act bessy 242319206 Problem Other and unspecified hyperlipidemia 272.4 Active 64250717 Problem Major depressive disorder, recurrent episode, mild 296.31 Active 65615390 ALLERGIES No Information ENCOUNTERS Encounter Location Date Diagnosis [facility] [address] [facility] [id number] [address] [place] [address] [id number] Nov, Encounter for other specifie d administrative purpose Z02.89 [facility] [address] [facility] [id number] [address] [place] [address] [id number] October, Dental examination Z01.20 an d Dental caries K02.9 [facility] [address] [facility] [id number] [address] [place] [id number] Jan, Edema 782.3 and Family histo ry of coronary artery disease V17.3 [facility] [address] [id number] [address] [place] [id number] Jan, Edema 782.3 and Family histo ry of coronary artery disease V17.3 [facility] [address] [id number] [address] [place] [address] [id number] Dec, Dental examination V72.2 [facility] [address] [id number] [address] [place] [id number] Sep, [facility] [address] [id number] [address] [place] [id number] Sep, [facility] [address] [id number] [address] [place] [id number] Aug, [facility] [address] [id number] [address] [place] [phone] Aug, [facility] [address] [id number] [address] [place] [id number] Jun, [facility] [address] [id number] [address] [place] [id number] Jun, [facility] [address] [id number] [address] [place] [id number] Jun, [facility] [address] [id number] [address] [place] [id number] Jun, [facility] [address] [id number] [address] [place] [phone] May, [facility] [address] [id number] [address] [place] [phone] May, [facility] [address] [id number] [address] [place] [phone] Apr, [facility] [address] [id number] [address] [place] [id number] Apr, [facility] [address] [id number] [address] [place] [address], [place] [id number] Mar, [facility] [address] [id number] [address] [place] [address], [place] [id number] Mar, [facility] [address] [id number] [address] [place] [address], [place] [id number] Feb, [facility] [address] [id number] [address] [place] [address], [place] [id number] Feb, [facility] [address] [id number] [address] [place] [address], [place] [id number] Feb, [facility] [address] [id number] [address] [place] [address], [place] [id number] Jan, [facility] [address] [id number] [address] [place] [address], [place] [id number] Jan, [facility] [address] [id number] [address] [place] [address], [place] [id number] Jan, [facility] [address] [id number] [address] [place] [address], [place] [id number] Dec, [facility] [address] [id number] [address] [place] [address], [place] [id number] Dec, [facility] [address] [id number] [address] [place] [address], [place] [id number] Nov, [facility] [address] [id number] [address] [place] [address], [place] [id number] Nov, [facility] [address] [id number] [address] [place] [address], [place] [id number] Nov, [facility] [address] [id number] [address] [place] [address], [place] [id number] Nov, [facility] [address] [id number] [address] [place] [address], [place] [id number] Nov, [facility] [address] [id number] [address] [place] [address], [place] [id number] Nov, [facility] [address] [id number] [address] [place] [address], [place] [id number] October, [facility] [address] [id number] [address] [place] [address], [place] [id number] October, [facility] [address] [id number] [address] [place] [address], [place] [id number] Sep, [facility] [address] [id number] [address] [place] [address], [place] [id number] Sep, [facility] [address] [id number] [address] [place] [address], [place] [id number] Jul, [facility] [address] [id number] [address] [place] [address], [place] [id number] Jul, [facility] [address] [id number] [address] [place] [address], [place] [id number] Jul, [facility] [address] [id number] [address] [place] [address], [place] [id number] Jul, [facility] [address] [id number] [address] [place] [address], [place] [id number] May, [facility] [address] [id number] [address] [place] [address], [place] [id number] May, [facility] [address] [id number] [address] [place] [address], [place] [id number] May, [facility] [address] [id number] [address] [place] [address], [place] [id number] May, [facility] [address] [id number] [address] [place] [address], [place] [id number] Mar, [facility] [address] [id number] [address] [place] [address], [place] [id number] Mar, [facility] [address] [id number] [address] [place] [address], [place] [id number] Mar, [facility] [address] [id number] [address] [place] [address] [place] [id number] 10 Mar, 2013 [facility] [address] [id number] [address] [place] [address], [place] [id number] 04 Mar, 2013 [facility] [address] [id number] [address] [place] [address], [place] [id number] 24 Feb, 2013 [facility] [address] [id number] [address] [place] [address], [place] [id number] 19 Feb, 2013 [facility] [address] [id number] [address] [place] [address], [place] [id number] 16 Feb, 2013 [facility] [address] [id number] [address] [place] [address], [place] [id number] Jan, [facility] [address] [id number] [address] [place] [address], [place] [id number] Jan, [facility] [address] [id number] [address] [place] [address], [place] [id number] Jan, [facility] [address] [id number] [address] [place] [address], [place] [id number] Jan, [facility] [address] [id number] [address] [place] [address], [place] [id number] Jan, [facility] [address] [id number] [address] [place] [address], [place] [id number] Jan, [facility] [address] [id number] [address] [place] [address], [place] [id number] Jan, [facility] [address] [id number] [address] [place] [address], [place] [id number] Dec, [facility] [address] [id number] [address] [place] [address], [place] [id number] Dec, [facility] [address] [id number] [address] [place] [address], [place] [id number] Dec, [facility] [address] [id number] [address] [place] [address], [place] [id number] Nov, [facility] [address] [id number] [address] [place] [address], [place] [id number] October, [facility] [address] [id number] [address] [place] [address], [place] [id number] October, [facility] [address] [id number] [address] [place] [address], [place] [id number] Sep, [facility] [address] [id number] [address] [place] [address], [place] [id number] Jul, [facility] [address] [id number] [address] [place] [address], [place] [id number] Jul, [facility] [address] [id number] [address] [place] [address], [place] [id number] Jun, [facility] [address] [id number] [address] [place] [address], [place] [id number] Jun, [facility] [address] [id number] [address] [place] [address], [place] [id number] Jun, [facility] [address] [id number] [address] [place] [address], [place] [id number] Jun, [facility] [address] [id number] [address] [place] [address], [place] [id number] Jun, [facility] [address] [id number] [address] [place] [address], [place] [id number] May, [facility] [address] [id number] [address] [place] [address], [place] [id number] May, [facility] [address] [id number] [address] [place] [address], [place] [id number] May, [facility] [address] [id number] [address] [place] [address], [place] [id number] May, [facility] [address] [id number] [address] [place] [address], [place] [id number] Apr, [facility] [address] [id number] [place] [address] 20 Apr, 2012 [facility] [address] [id number] [address] [place] [address], [place] [id number] 16 Apr, 2012 [facility] [address] [id number] [address] [place] [address], [place] [id number] 16 Apr, 2012 [facility] [address] [id number] [address] [place] [address], [place] [id number] 13 Apr, 2012 [facility] [address] [id number] [address] [place] [id number] 13 Apr, 2012 [facility] [address] [id number] [address] [place] [address], [place] [id number] 13 Apr, 2012 [facility] [address] [id number] [address] [place] [id number] 13 Apr, 2012 [facility] [address] [id number] [address] [place] [address], [place] [id number] Apr, [facility] [address] [id number] [address] [place] [id number] Apr, [facility] [address] [id number] [address] [place] [address], [place] [id number] Mar, [facility] [address] [id number] [address] [place] [address], [place] [id number] Mar, [facility] [address] [id number] [address] [place] [id number] Mar, [facility] [address] [id number] [address] [place] [id number] Mar, [facility] [address] [id number] [address] [place] [address], [place] [id number] Mar, [facility] [address] [id number] [address] [place] [id number] Mar, [facility] [address] [id number] [address] [place] [id number] Mar, [facility] [address] [id number] [address] [place] [address], [place] [id number] Mar, [facility] [address] [id number] [address] [place] [address], [place] [id number] Feb, [facility] [address] [id number] [address] [place] [address], [place] [id number] Jan, [facility] [address] [id number] [address] [place] [address], [place] [id number] Jan, [facility] [address] [id number] [address] [place] [address], [place] [id number] Dec, [facility] [address] [id number] [address] [place] [address], [place] [id number] Nov, [facility] [address] [id number] [address] [place] [address], [place] [id number] Nov, [facility] [address] [id number] [address] [place] [address], [place] [id number] Nov, [facility] [address] [id number] [address] [place] [address], [place] [id number] Nov, [facility] [address] [id number] [address] [place] [address], [place] [id number] Nov, [facility] [address] [id number] [address] [place] [address], [place] [id number] Nov, [facility] [address] [id number] [address] [place] [address], [place] [id number] October, [facility] [address] [id number] [address] [place] [address], [place] [id number] October, [facility] [address] [id number] [address] [place] [address], [place] [id number] October, [facility] [address] [id number] [address] [place] [address], [place] [id number] October, [facility] [address] [id number] [address] [place] [address], [place] [id number] October, [facility] [address] [id number] [address] [place] [address], [place] [id number] October, [facility] [address] [id number] [address] [place] [address], [place] [id number] October, [facility] [address] [id number] [address] [place] [address], [place] [id number] Sep, [facility] [address] [id number] [address] [place] [address], [place] [id number] Sep, [facility] [address] [id number] [address] [place] [address], [place] [id number] Aug, [facility] [address] [id number] [address] [place] [address], [place] [id number] 15 Aug, 2011 [facility] [address] [id number] [address] [place] [address], [place] [id number] Aug, [facility] [address] [id number] [address] [place] [address], [place] [id number] Aug, [facility] [address] [id number] [address] [place] [address], [place] [id number] Jul, [facility] [address] [id number] [address] [place] [address], [place] [id number] Jul, [facility] [address] [id number] [address] [place] [address], [place] [id number] Jul, [facility] [address] [id number] [address] [place] [address], [place] [id number] Jul, [facility] [address] [id number] [address] [place] [address], [place] [id number] May, [facility] [address] [id number] [address] [place] [address], [place] [id number] May, [facility] [address] [id number] [address] [place] [address], [place] [id number] May, [facility] [address] [id number] [address] [place] [id number] Apr, [facility] [address] [facility] [id number] [address] [place] [id number] Mar, [facility] [address] [facility] [id number] [address] [place] [id number] Mar, IMMUNIZATIONS No Known Immunizations SOCIAL HISTORY Never Assessed REASON FOR VISIT PLAN OF CARE VITAL SIGNS Height 69 in 2013-03-18 Weight 201.38 lbs 2013-03-18 Heart Rate 80 bpm 2013-03-18 Blood pressure systolic 124 mmHg 2013-03-18 Blood pressure diastolic 66 mmHg 2013-03-18 MEDICATIONS Unknown Medications RESULTS No Results PROCEDURES No Known procedures INSTRUCTIONS MEDICATIONS ADMINISTERED No Known Medications MEDICAL (GENERAL) HISTORY Type Description Date Medical History depression Medical History hyperlipidemia Hospitalization History staph in right leg
--- OUTSIDE RECORDS SUMMARY | 2020-01-01 19:04 | XMS REPORT ---
Author Author Aron Lackey [facility] Address [address] [place] [address] Care Team Providers Care Minute Clerk For Basic Traffic Name Role Phone Darya LANI Unavailable PROBLEMS Type Condition ICD9-CM Code EJA98-YY Code Onset Dates Condition S tatus SNOMED Code Problem Nonspecific elevation of lev els of transaminase or lactic acid dehydrogenase (LDH) 790.4 Active 85522266 2 Problem Encounter for long-term (current) use of other medications V58.69 Active 138279517 Problem Edema 782.3 Active 226686146 Problem Spontaneous ecchymoses 782.7 Active 582848023 Problem Trigger finger (acquired) 727.03 Acti ve 9868556 Problem 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 Active 76493751 Problem 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 .42 Active 05118909 Problem 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 Active 78832956 Problem Unspecified local infection of skin and subcutaneous tissu e 686.9 Active 144130728 Problem Unspecified viral hepatitis C without hepatic coma 070.70 Active 80834618 Problem Vascular disorder of skin 709.1 Acti ve 95176759 Problem Dissociative disorder or reaction, 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 Active 14997090 Problem Anxiety state, unspecified 300.00 Act bessy 043260007 Problem Other and unspecified hyperlipidemia 272.4 Active 67502948 Problem Major depressive disorder, recurrent episode, mild 296.31 Active 98758369 ALLERGIES No Information ENCOUNTERS Encounter Location Date Diagnosis [facility] [id number] [place] [id number] Nov, Encounter for other specifie d administrative purpose Z02.89 [facility] [address] [id number] [address] [place] [address] [id number] October, Dental examination Z01.20 an d Dental caries K02.9 [facility] [address] [id number] [address] [place] [phone] 14 Jan, 2015 Edema 782.3 and Family histo ry of coronary artery disease V17.3 [facility] [address] [id number] [address] [place] [id number] 07 Jan, 2015 Edema 782.3 and Family histo ry of coronary artery disease V17.3 [facility] [address] [id number] [address] [place] [address] [id number] Dec, Dental examination V72.2 [facility] [address] [id number] [address] [place] [phone] Sep, [facility] [address] [id number] [address] [place] [phone] Sep, [facility] [address] [id number] [address] [place] [phone] Aug, [facility] [address] [id number] [address] [place] [phone] Aug, [facility] [address] [id number] [address] [place] [phone] Jun, [facility] [address] [id number] [address] [place] [address] Jun, [facility] [address] [id number] [address] [place] [address] Jun, [facility] [address] [id number] [address] [place] [phone] Jun, [facility] [address] [id number] [address] [place] [phone] May, [facility] [address] [id number] [address] [place] [phone] May, [facility] [address] [id number] [address] [place] [phone] Apr, [facility] [address] [id number] [address] [place] [address], [place] [address] Apr, [facility] [address] [id number] [address] [place] [address], [place] [address] Mar, [facility] [address] [id number] [address] [place] [address], [place] [address] Mar, [facility] [address] [id number] [address] [place] [address], [place] [address] Feb, [facility] [address] [id number] [address] [place] [address], [place] [address] Feb, [facility] [address] [id number] [address] [place] [address], [place] [address] Feb, [facility] [address] [id number] [address] [place] [address], [place] [address] Jan, [facility] [address] [id number] [address] [place] [address], [place] [address] Jan, [facility] [address] [id number] [address] [place] [address], [place] [address] Jan, [facility] [address] [id number] [address] [place] [address], [place] [address] Dec, [facility] [address] [id number] [address] [place] [address], [place] [address] Dec, [facility] [address] [id number] [address] [place] [address], [place] [address] Nov, [facility] [address] [id number] [address] [place] [address], [place] [address] Nov, [facility] [address] [id number] [address] [place] [address], [place] [address] Nov, [facility] [address] [id number] [address] [place] [address], [place] [address] Nov, [facility] [address] [id number] [address] [place] [address], [place] [address] Nov, [facility] [address] [id number] [address] [place] [address], [place] [address] Nov, [facility] [address] [id number] [address] [place] [address], [place] [address] October, [facility] [address] [id number] [address] [place] [address], [place] [address] October, [facility] [address] [id number] [address] [place] [address], [place] [address] Sep, [facility] [address] [id number] [address] [place] [address], [place] [address] Sep, [facility] [address] [id number] [address] [place] [address], [place] [address] Jul, [facility] [address] [id number] [address] [place] [address], [place] [address] Jul, [facility] [address] [id number] [address] [place] [address], [place] [address] Jul, [facility] [address] [id number] [address] [place] [address], [place] [address] Jul, [facility] [address] [id number] [address] [place] [address], [place] [address] May, [facility] [address] [id number] [address] [place] [address], [place] [address] May, [facility] [address] [id number] [address] [place] [address], [place] [address] May, [facility] [address] [id number] [address] [place] [address], [place] [address] May, [facility] [address] [id number] [address] [place] [address], [place] [address] Mar, [facility] [address] [id number] [address] [place] [address], [place] [address] Mar, [facility] [address] [id number] [address] [place] [address] [place] [address] 10 Mar, 2013 [facility] [address] [id number] [address] [place] [address], [place] [address] 10 Mar, 2013 [facility] [address] [id number] [address] [place] [address], [place] [address] 04 Mar, 2013 [facility] [address] [id number] [address] [place] [address], [place] [address] 24 Feb, 2013 [facility] [address] [id number] [address] [place] [address], [place] [address] 19 Feb, 2013 [facility] [address] [id number] [address] [place] [address], [place] [address] 16 Feb, 2013 [facility] [address] [id number] [address] [place] [address], [place] [address] Jan, [facility] [address] [id number] [address] [place] [address], [place] [address] Jan, [facility] [address] [id number] [address] [place] [address], [place] [address] Jan, [facility] [address] [id number] [address] [place] [address], [place] [address] Jan, [facility] [address] [id number] [address] [place] [address], [place] [address] Jan, [facility] [address] [id number] [address] [place] [address], [place] [address] Jan, [facility] [address] [id number] [address] [place] [address], [place] [address] Jan, [facility] [address] [id number] [address] [place] [address], [place] [address] Dec, [facility] [address] [id number] [address] [place] [address], [place] [address] Dec, [facility] [address] [id number] [address] [place] [address], [place] [address] Dec, [facility] [address] [id number] [address] [place] [address], [place] [address] 10 Nov, 2012 [facility] [address] [id number] [address] [place] [address], [place] [address] October, [facility] [address] [id number] [address] [place] [address], [place] [address] October, [facility] [address] [id number] [address] [place] [address], [place] [address] Sep, [facility] [address] [id number] [address] [place] [address], [place] [address] Jul, [facility] [address] [id number] [address] [place] [address], [place] [address] Jul, [facility] [address] [id number] [address] [place] [address], [place] [address] Jun, [facility] [address] [id number] [address] [place] [address], [place] [address] Jun, [facility] [address] [id number] [address] [place] [address], [place] [address] Jun, [facility] [address] [id number] [address] [place] [address], [place] [address] Jun, [facility] [address] [id number] [address] [place] [address], [place] [address] Jun, [facility] [address] [id number] [address] [place] [address], [place] [address] May, [facility] [address] [id number] [address] [place] [address], [place] [address] May, [facility] [address] [id number] [address] [place] [address], [place] [address] May, [facility] [address] [id number] [address] [place] [address], [place] [address] 14 May, 2012 [facility] [address] [id number] [address] [address] 20 Apr, 2012 [facility] [address] [id number] [address] [place] [address], [place] [address] 20 Apr, 2012 [facility] [address] [id number] [address] [place] [address], [place] [address] 16 Apr, 2012 [facility] [address] [id number] [address] [place] [address], [place] [address] 16 Apr, 2012 [facility] [address] [id number] [address] [place] [address] 13 Apr, 2012 [facility] [address] [id number] [address] [place] [address], [place] [address] Apr, [facility] [address] [id number] [address] [place] [phone] 13 Apr, 2012 [facility] [address] [id number] [address] [place] [address], [place] [address] Apr, [facility] [address] [id number] [address] [place] [address] Apr, [facility] [address] [id number] [address] [place] [phone] 07 Apr, 2012 [facility] [address] [id number] [address] [place] [address], [place] [address] Mar, [facility] [address] [id number] [address] [place] [address] Mar, [facility] [address] [id number] [address] [place] [address] Mar, [facility] [address] [id number] [address] [place] [address], [place] [address] Mar, [facility] [address] [id number] [address] [place] [address] Mar, [facility] [address] [id number] [address] [place] [address] 10 Mar, 2012 [facility] [address] [id number] [address] [place] [address], [place] [address] Mar, [facility] [address] [id number] [address] [place] [address], [place] [address] Mar, [facility] [address] [id number] [address] [place] [address], [place] [address] Feb, [facility] [address] [id number] [address] [place] [address], [place] [address] Jan, [facility] [address] [id number] [address] [place] [address], [place] [address] Jan, [facility] [address] [id number] [address] [place] [address], [place] [address] Dec, [facility] [address] [id number] [address] [place] [address], [place] [address] Nov, [facility] [address] [id number] [address] [place] [address], [place] [address] Nov, [facility] [address] [id number] [address] [place] [address], [place] [address] Nov, [facility] [address] [id number] [address] [place] [address], [place] [address] Nov, [facility] [address] [id number] [address] [place] [address], [place] [address] Nov, [facility] [address] [id number] [address] [place] [address], [place] [address] Nov, [facility] [address] [id number] [address] [place] [address], [place] [address] October, [facility] [address] [id number] [address] [place] [address], [place] [address] October, [facility] [address] [id number] [address] [place] [address], [place] [address] October, [facility] [address] [id number] [address] [place] [address], [place] [address] October, [facility] [address] [id number] [address] [place] [address], [place] [address] October, [facility] [address] [id number] [address] [place] [address], [place] [address] October, [facility] [address] [id number] [address] [place] [address], [place] [address] October, [facility] [address] [id number] [address] [place] [address], [place] [address] Sep, [facility] [address] [id number] [address] [place] [address], [place] [address] Sep, [facility] [address] [id number] [address] [place] [address], [place] [address] Aug, [facility] [address] [id number] [address] [place] [address], [place] [address] 15 Aug, 2011 [facility] [address] [id number] [address] [place] [address], [place] [address] Aug, [facility] [address] [id number] [address] [place] [address], [place] [address] Aug, [facility] [address] [id number] [address] [place] [address], [place] [address] Jul, [facility] [address] [id number] [address] [place] [address], [place] [address] Jul, [facility] [address] [id number] [address] [place] [address], [place] [address] Jul, [facility] [address] [id number] [address] [place] [address], [place] [address] Jul, [facility] [address] [id number] [address] [place] [address], [place] [address] May, [facility] [address] [id number] [address] [place] [address], [place] [address] May, [facility] [address] [id number] [address] [place] [address] May, [facility] [address] [facility] [id number] [address] [place] [address] Apr, [facility] [address] [facility]] [id number] [address] [place] [address] Mar, [facility] [address] [facility] [id number] [address] [place] [address] Mar, IMMUNIZATIONS No Known Immunizations SOCIAL HISTORY Never Assessed REASON FOR VISIT PLAN OF CARE VITAL SIGNS Height 69 in 2012-09-21 Weight 200.31 lbs 2012-09-21 Temperature 98.3 degrees Fahrenheit 2012-09-21 Heart Rate 96 bpm 2012-09-21 Respiratory Rate 20 2012-09-21 Blood pressure systolic 130 mmHg 2012-09-21 Blood pressure diastolic 78 mmHg 2012-09-21 MEDICATIONS Unknown Medications RESULTS No Results PROCEDURES No Known procedures INSTRUCTIONS MEDICATIONS ADMINISTERED No Known Medications MEDICAL (GENERAL) HISTORY Type Description Date Medical History depression Medical History hyperlipidemia Hospitalization History staph in right leg
--- OUTSIDE RECORDS SUMMARY | 2020-01-01 19:04 | XMS REPORT ---
Author Author Aron Mendes Doctor Organization [facility] Address Unknown Phone Unavailable Care Team Providers Care Buck Presser Name Role Phone Migration, Doctor Unavailable Unavailable PROBLEMS Type Condition ICD9-CM Code [id number] Code Onset Dates Condition S tatus SNOMED Code Problem Nonspecific elevation of lev els of transaminase or lactic acid dehydrogenase (LDH) 790.4 Active 94884027 2 Problem Encounter for long-term (current) use of other medications V58.69 Active 714053999 Problem Edema 782.3 Active 081230692 Problem Spontaneous ecchymoses 782.7 Active 289296473 Problem Trigger finger (acquired) 727.03 Acti ve 3540452 Problem 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 Active 62111757 Problem 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 .42 Active 79777132 Problem 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 Active 46042830 Problem Unspecified local infection of skin and subcutaneous tissu e 686.9 Active 249029210 Problem Unspecified viral hepatitis C without hepatic coma 070.70 Active 82461175 Problem Vascular disorder of skin 709.1 Acti ve 71685584 Problem Dissociative disorder or reaction, 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 Active 21669146 Problem Anxiety state, unspecified 300.00 Act bessy 796492540 Problem Other and unspecified hyperlipidemia 272.4 Active 43376867 Problem Major depressive disorder, recurrent episode, mild 296.31 Active [id number] ALLERGIES No Information ENCOUNTERS Encounter Location Date Diagnosis [facility] [address] [facility] [id number] [address] [place] [address] [id number] Nov, Encounter for other specifie d administrative purpose Z02.89 [facility] [address] [facility] [id number] [address] [place] [address] [id number] October, Dental examination Z01.20 an d Dental caries K02.9 [facility] [address] [facility] [id number] [address] [place] [address] Jan, Edema 782.3 and Family histo ry of coronary artery disease V17.3 [facility] [address] [id number] [address] [place] [address] Jan, Edema 782.3 and Family histo ry of coronary artery disease V17.3 [facility] [address] [id number] [address] [place] [address] [id number] Dec, Dental examination V72.2 [facility] [place] [address] [id number] [address] [place] [address] Sep, [facility] [address] [id number] [address] [place] [address] Sep, [facility] [place] [address] [id number] [address] [place] [address] Aug, [facility] [place] [address] [id number] [address] [place] [address] Aug, [facility] [address] [id number] [address] [place] [address] Jun, [facility] [address] [id number] [address] [place] [address] Jun, [facility] [address] [id number] [address] [place] [address] Jun, [facility] [address] [id number] [address] [place] [address] Jun, [facility] [address] [id number] [address] [place] [address] May, [facility] [address] [id number] [address] [place] [address] May, [facility] [address] [id number] [address] [place] [address] Apr, [facility] [place] [address] [id number] [address] [place] [address] Apr, [facility] [place] [address] [id number] [address] [place] [address], [place] [address] Mar, [facility] [address] [id number] [address] [place] [address], [place] [address] Mar, [facility] [address] [id number] [address] [place] [address], [place] [address] Feb, [facility] [address] [id number] [address] [place] [address], [place] [address] Feb, [facility] [address] [id number] [address] [place] [address], [place] [address] Feb, [facility] [address] [id number] [address] [place] [address], [place] [address] Jan, [facility] [address] [id number] [address] [place] [address], [place] [address] Jan, [facility] [address] [id number] [address] [place] [address], [place] [address] Jan, [facility] [address] [id number] [address] [place] [address], [place] [address] Dec, [facility] [address] [id number] [address] [place] [address], [place] [address] Dec, [facility] [address] [id number] [address] [place] [address], [place] [address] Nov, [facility] [address] [id number] [address] [place] [address], [place] [address] Nov, [facility] [address] [id number] [address] [place] [address], [place] [address] Nov, [facility] [address] [id number] [address] [place] [address], [place] [address] Nov, [facility] [address] [id number] [address] [place] [address], [place] [address] Nov, [facility] [address] [id number] [address] [place] [address], [place] [address] Nov, [facility] [address] [id number] [address] [place] [address], [place] [address] October, [facility] [address] [id number] [address] [place] [address], [place] [address] October, [facility] [address] [id number] [address] [place] [address], [place] [address] Sep, [facility] [address] [id number] [address] [place] [address], [place] [address] Sep, [facility] [address] [id number] [address] [place] [address], [place] [address] Jul, [facility] [address] [id number] [address] [place] [address], [place] [address] Jul, [facility] [address] [id number] [address] [place] [address], [place] [address] Jul, [facility] [address] [id number] [address] [place] [address], [place] [address] Jul, [facility] [address] [id number] [address] [place] [address], [place] [address] May, [facility] [address] [id number] [address] [place] [address], [place] [address] May, [facility] [address] [id number] [address] [place] [address], [place] [address] May, [facility] [address] [id number] [address] [place] [address], [place] [address] May, [facility] [address] [id number] [address] [place] [address], [place] [address] Mar, [facility] [address] [id number] [address] [place] [address], [place] [address] Mar, [facility] [address] [id number] [address] [place] [address], [place] [address] Mar, [facility] [address] [id number] [address] [place] [address] [place] [address] 10 Mar, 2013 [facility] [address] [id number] [address] [place] [address], [place] [address] 04 Mar, 2013 [facility] [address] [id number] [address] [place] [address], [place] [address] 24 Feb, 2013 [facility] [address] [id number] [address] [place] [address], [place] [address] 19 Feb, 2013 [facility] [address] [id number] [address] [place] [address], [place] [address] 16 Feb, 2013 [facility] [address] [id number] [address] [place] [address], [place] [address] Jan, [facility] [address] [id number] [address] [place] [address], [place] [address] Jan, [facility] [place] [address] [id number] [address] [place] [address], [place] [address] Jan, [facility] [address] [id number] [address] [place] [address], [place] [address] Jan, [facility] [address] [id number] [address] [place] [address], [place] [address] Jan, [facility] [place] [address] [id number] [address] [place] [address], [place] [address] Jan, [facility] [address] [id number] [address] [place] [address], [place] [address] Jan, [facility] [address] [id number] [address] [place] [address], [place] [address] Dec, [facility] [address] [id number] [address] [place] [address], [place] [address] Dec, [facility] [address] [id number] [address] [place] [address], [place] [address] Dec, [facility] [address] [id number] [address] [place] [address], [place] [address] Nov, [facility] [address] [id number] [address] [place] [address], [place] [address] October, [facility] [address] [id number] [address] [place] [address], [place] [address] October, [facility] [address] [id number] [address] [place] [address], [place] [address] Sep, [facility] [address] [id number] [address] [place] [address], [place] [address] Jul, [facility] [address] [id number] [address] [place] [address], [place] [address] Jul, [facility] [address] [id number] [address] [place] [address], [place] [address] Jun, [facility] [address] [id number] [address] [place] [address], [place] [address] Jun, [facility] [place] [address] [id number] [address] [place] [address], [place] [address] Jun, [facility] [place] [address] [id number] [address] [place] [address], [place] [address] Jun, [facility] [address] [id number] [address] [place] [address], [place] [address] Jun, [facility] [address] [id number] [address] [place] [address], [place] [address] May, [facility] [address] [id number] [address] [place] [address], [place] [address] May, [facility] [address] [id number] [address] [place] [address], [place] [address] May, [facility] [address] [id number] [address] [place] [address], [place] [address] May, [facility] [address] [id number] [address] [place] [address], [place] [address] Apr, [facility] [address] [id number] [address] [address] 20 Apr, 2012 [facility] [address] [id number] [address] [place] [address], [place] [address] 16 Apr, 2012 [facility] [address] [id number] [address] [place] [address], [place] [address] 16 Apr, 2012 [facility] [address] [id number] [address] [place] [address], [place] [address] 13 Apr, 2012 [facility] [address] [id number] [address] [place] [address] 13 Apr, 2012 [facility] [address] [id number] [address] [place] [address], [place] [address] 13 Apr, 2012 [facility] [address] [id number] [address] [place] [address] 13 Apr, 2012 [facility] [address] [id number] [address] [place] [address], [place] [address] Apr, [facility] [address] [id number] [address] [place] [address] Apr, [facility] [address] [id number] [address] [place] [address], [place] [address] Mar, [facility] [address] [id number] [address] [place] [address], [place] [address] Mar, [facility] [address] [id number] [address] [place] [address] Mar, [facility] [address] [id number] [address] [place] [address] Mar, [facility] [address] [id number] [address] [place] [address], [place] [address] Mar, [facility] [address] [id number] [address] [place] [address] Mar, [facility] [address] [id number] [address] [place] [address] Mar, [facility] [address] [id number] [address] [place] [address], [place] [address] Mar, [facility] [place] [address] [id number] [address] [place] [address], [place] [address] Feb, [facility] [address] [id number] [address] [place] [address], [place] [address] Jan, [facility] [place] [address] [id number] [address] [place] [address], [place] [address] Jan, [facility] [address] [id number] [address] [place] [address], [place] [address] Dec, [facility] [place] [address] [id number] [address] [place] [address], [place] [address] Nov, [facility] [place] [address] [id number] [address] [place] [address], [place] [address] Nov, [facility] [place] [address] [id number] [address] [place] [address], [place] [address] Nov, [facility] [place] [address] [id number] [address] [place] [address], [place] [address] Nov, [facility] [place] [address] [id number] [address] [place] [address], [place] [address] Nov, [facility] [address] [id number] [address] [place] [address], [place] [address] Nov, [facility] [place] [address] [id number] [address] [place] [address], [place] [address] October, [facility] [address] [id number] [address] [place] [address], [place] [address] October, [facility] [address] [id number] [address] [place] [address], [place] [address] October, [facility] [address] [id number] [address] [place] [address], [place] [address] October, [facility] [address] [id number] [address] [place] [address], [place] [address] October, [facility] [address] [id number] [address] [place] [address], [place] [address] October, [facility] [address] [id number] [address] [place] [address], [place] [address] October, [facility] [address] [id number] [address] [place] [address], [place] [address] Sep, [facility] [address] [id number] [address] [place] [address], [place] [address] Sep, [facility] [address] [id number] [address] [place] [address], [place] [address] Aug, [facility] [address] [id number] [address] [place] [address], [place] [address] 15 Aug, 2011 [facility] [address] [id number] [address] [place] [address], [place] [address] Aug, [facility] [address] [id number] [address] [place] [address], [place] [address] Aug, [facility] [address] [id number] [address] [place] [address], [place] [address] Jul, [facility] [address] [id number] [address] [place] [address], [place] [address] Jul, [facility] [address] [id number] [address] [place] [address], [place] [address] Jul, [facility] [address] [id number] [address] [place] [address], [place] [address] Jul, [facility] [address] [id number] [address] [place] [address], [place] [address] May, [facility] [address] [id number] [address] [place] [address], [place] [address] May, [facility] [address] [id number] [address] [place] [address], [place] [address] May, [facility] [address] [id number] [address] [place] [address] Apr, [facility] [address] [facility] [id number] [address] [place] [address] Mar, [facility] [address] [facility] [id number] [address] [place] [address] Mar, IMMUNIZATIONS No Known Immunizations SOCIAL HISTORY Never Assessed REASON FOR VISIT PLAN OF CARE VITAL SIGNS MEDICATIONS Unknown Medications RESULTS No Results PROCEDURES Procedure Date Ordered Result Body Site IRON BINDING TEST Jan 22, 2013 ASSAY OF IRON Jan 22, 2013 ASSAY OF FERRITIN Jan 22, 2013 ACUTE HEPATITIS PANEL Jan 22, 2013 VENIPUNCT, ROUTINE* Jan 22, 2013 INSTRUCTIONS MEDICATIONS ADMINISTERED No Known Medications MEDICAL (GENERAL) HISTORY Type Description Date Medical History depression Medical History hyperlipidemia Hospitalization History staph in right leg
--- OUTSIDE RECORDS SUMMARY | 2020-01-01 19:05 | XMS REPORT ---
Author Author Aron Mendes Doctor Organization [facility] Address Unknown Phone Unavailable Care Team Providers Care Newsagent Name Role Phone Migration, Doctor Unavailable Unavailable PROBLEMS Type Condition ICD9-CM Code JSU01-GQ Code Onset Dates Condition S tatus SNOMED Code Problem Nonspecific elevation of lev els of transaminase or lactic acid dehydrogenase (LDH) 790.4 Active 28580104 2 Problem Encounter for long-term (current) use of other medications V58.69 Active 752312791 Problem Edema 782.3 Active 985779355 Problem Spontaneous ecchymoses 782.7 Active 834642071 Problem Trigger finger (acquired) 727.03 Acti ve 1876969 Problem 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 Active 31788107 Problem 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 .42 Active 65789969 Problem 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 Active 72830328 Problem Unspecified local infection of skin and subcutaneous tissu e 686.9 Active 572638238 Problem Unspecified viral hepatitis C without hepatic coma 070.70 Active 43189637 Problem Vascular disorder of skin 709.1 Acti ve 21604684 Problem Dissociative disorder or reaction, 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 Active 89965092 Problem Anxiety state, unspecified 300.00 Act bessy 355897976 Problem Other and unspecified hyperlipidemia 272.4 Active 06649798 Problem Major depressive disorder, recurrent episode, mild 296.31 Active 37674656 ALLERGIES No Information ENCOUNTERS Encounter Location Date Diagnosis [facility] [address] [id number] Nov, Encounter for other specified administra tive purpose Z02.89 [facility] [address] [id number] October, Dental examination Z01.20 and Dental car ies K02.9 [facility] [id number] [place] [address] 14 Jan, 2015 Edema 782.3 and Family history of de la rosa ry artery disease V17.3 [facility] [address] [id number] [place] [address] Jan, Edema 782.3 and Family history of de la rosa ry artery disease V17.3 [facility] [address] [facility] [id number] [place] [id number] Dec, Dental examination V72.2 [facility] [address] [id number] [place] [address] 14 Sep, 2014 [facility] [id number] [place] [address] Sep, [facility] [id number] [place] [address] Aug, [facility] [id number] [place] [address] Aug, [facility] [id number] [place] [address] Jun, [facility] [id number] [place] [address] Jun, [facility] [id number] [place] [address] Jun, [facility] [id number] [place] [address] Jun, [facility] [id number] [place] [address] May, [facility] [id number] [place] [address] May, [facility] [id number] [place] [address] Apr, [facility] [id number] [place] [address] Apr, [facility] [id number] [place] [address] Mar, [facility] [id number] [place] [address] Mar, [facility] [place] [facility] [address] [facility] [id number] [facility] [address] Feb, [facility] [place] [facility] [address] [facility] [id number] [facility] [place] [address] Feb, [facility] [place] [facility] [address] [id number] [facility] [place] [address] Feb, [facility] [place] [facility] [address] [facility] [id number] [place] [address] Jan, [facility] [place] [facility] [address] [facility] [id number] [place] [address] Jan, [facility] [place] [facility] [address] [id number] [facility] [place] [address] Jan, [facility] [place] [facility] [address] [id number] [place] [address] Dec, [facility] [place] [facility] [address] [id number] [place] [address] Dec, [facility] [place] [facility] [address] [facility] [id number] [facility] [place] [address] Nov, [facility] [place] [facility] [address] [id number] [facility] [place] [address] Nov, [facility] [place] [facility] [address] [id number] [place] [address] Nov, [facility] [place] [facility] [address] [id number] [place] [address] Nov, [facility] [place] [facility] [address] [facility] [id number] [facility] [place] [address] Nov, [facility] [place] [facility] [address] [id number] [place] [address] Nov, [facility] [place] [facility] [address] [id number] [place] [address] October, [facility] [place] [facility] [address] [id number] [place] [address] October, [facility] [place] [facility] [address] [id number] [place] [address] Sep, [facility] [place] [facility] [address] [id number] [place] [address] Sep, [facility] [place] [facility] [address] [id number] [place] [address] Jul, [facility] [place] [facility] [address] [id number] [place] [address] Jul, [facility] [place] [facility] [address] [id number] [place] [address] Jul, [facility] [place] [facility] [address] [id number] [place] [address] Jul, [facility] [place] [facility] [address] [id number] [place] [address] May, [facility] [place] [facility] [address] [id number] [place] [address] May, [facility] [place] [facility] [address] [id number] [place] [address] May, [facility] [place] [facility] [address] [id number] [place] [address] May, [facility] [place] [facility] [address] [id number] [place] [address] Mar, [facility] [place] [facility] [address] [id number] [place] [address] 17 Mar, 2013 [facility] [place] [facility] [address] [id number] [place] [address] 10 Mar, 2013 [facility] [place] [facility] [address] [id number] [place] [address] 10 Mar, 2013 [facility] [place] [facility] [address] [id number] [place] [address] 04 Mar, 2013 [facility] [place] [facility] [address] [id number] [place] [address] 24 Feb, 2013 [facility] [place] [facility] [address] [id number] [place] [address] Feb, [facility] [place] [facility] [address] [id number] [facility] [place] [address] Feb, [facility] [place] [facility] [address] [facility] [id number] [facility] [place] [address] Jan, [facility] [place] [facility] [address] [facility] [id number] [facility] [place] [address] Jan, [facility] [place] [facility] [address] [facility] [id number] [facility] [place] [address] Jan, [facility] [place] [facility] [address] [facility] [id number] [facility] [place] [address] Jan, [facility] [place] [facility] [address] [facility] [id number] [facility] [place] [address] Jan, [facility] [place] [facility] [address] [facility] [id number] [place] [address] Jan, [facility] [place] [facility] [address] [id number] [place] [address] Jan, [facility] [place] [facility] [address] [facility] [id number] [place] [address] Dec, [facility] [place] [facility] [address] [id number] [place] [address] Dec, [facility] [place] [facility] [address] [facility] [id number] [place] [address] Dec, [facility] [place] [facility] [address] [id number] [place] [address] Nov, [facility] [place] [facility] [address] [facility] [id number] [place] [address] October, [facility] [place] [facility] [address] [facility] [id number] [place] [address] October, [facility] [place] [facility] [address] [facility] [id number] [place] [address] Sep, [facility] [place] [facility] [address] [id number] [place] [address] Jul, [facility] [place] [facility] [address] [id number] [place] [address] 11 Jul, 2012 [facility] [place] [facility] [address] [id number] [place] [address] Jun, [facility] [place] [facility] [address] [id number] [place] [address] Jun, [facility] [place] [facility] [address] [id number] [place] [address] Jun, [facility] [place] [facility] [address] [id number] [place] [address] Jun, [facility] [place] [facility] [address] [id number] [place] [address] Jun, [facility] [place] [facility] [address] [id number] [place] [address] May, [facility] [place] [facility] [address] [id number] [place] [address] May, [facility] [place] [facility] [address] [id number] [place] [address] 14 May, 2012 [facility] [place] [facility] [address] [id number] [place] [address] 14 May, 2012 [facility] [place] [facility] [address] [id number] [place] [address] 20 Apr, 2012 [facility] [place] [facility] [address] [id number] [place] [address] 20 Apr, 2012 [facility] [place] [facility] [address] [id number] [place] [address] 16 Apr, 2012 [facility] [place] [facility] [address] [id number] [place] [address] 16 Apr, 2012 [facility] [place] [facility] [id number] [place] [address] 13 Apr, 2012 [facility] [place] [facility] [address] [id number] [place] [address] 13 Apr, 2012 [facility] [place] [facility] [address] [id number] [place] [address] 13 Apr, 2012 [facility] [place] [facility] [address] [id number] [place] [address] Apr, [facility] [place] [facility] [address] [id number] [place] [address] Apr, [facility] [place] [facility] [address] [id number] [place] [address] Apr, [facility] [place] [facility] [address] [id number] [place] [address] Mar, [facility] [place] [facility] [address] [id number] [place] [address] Mar, [facility] [place] [facility] [address] [id number] [place] [address] Mar, [facility] [place] [facility] [address] [id number] [place] [address] Mar, [facility] [place] [facility] [address] [id number] [place] [address] Mar, [facility] [place] [facility] [address] [id number] [place] [address] Mar, [facility] [place] [facility] [address] [id number] [place] [address] Mar, [facility] [place] [facility] [address] [id number] [place] [address] Mar, [facility] [place] [facility] [address] [id number] [place] [address] Feb, [facility] [place] [facility] [address] [id number] [place] [address] Jan, [facility] [place] [facility] [address] [id number] [place] [address] Jan, [facility] [place] [facility] [address] [id number] [place] [address] Dec, [facility] [place] [facility] [address] [id number] [place] [address] Nov, [facility] [place] [facility] [address] [id number] [place] [address] Nov, [facility] [place] [facility] [address] [id number] [place] [address] Nov, [facility] [place] [facility] [address] [id number] [place] [address] Nov, [facility] [place] [facility] [address] [id number] [place] [address] Nov, [facility] [place] [facility] [address] [id number] [place] [address] Nov, [facility] [place] [facility] [address] [facility] [id number] [facility] [place] [address] October, [facility] [place] [facility] [address] [id number] [place] [address] October, [facility] [place] [facility] [address] [id number] [place] [address] October, [facility] [place] [facility] [address] [id number] [place] [address] October, [facility] [place] [facility] [address] [id number] [place] [address] October, [facility] [place] [facility] [address] [id number] [place] [address] October, [facility] [place] [facility] [address] [id number] [place] [address] October, [facility] [place] [facility] [address] [id number] [place] [address] Sep, [facility] [place] [facility] [address] [id number] [place] [address] Sep, [facility] [place] [facility] [address] [id number] [place] [address] Aug, [facility] [place] [facility] [address] [id number] [place] [address] 15 Aug, 2011 [facility] [place] [facility] [address] [id number] [place] [address] Aug, [facility] [place] [facility] [address] [id number] [place] [address] Aug, [facility] [address] [id number] [place] [address] Jul, [facility] [address] [id number] [place] [address] Jul, [facility] [address] [id number] [place] [address] Jul, [facility] [id number] [place] [address] Jul, [facility] [id number] [place] [address] May, [facility] [id number] [place] [address] May, [facility] [id number] [place] [address] May, [facility] [address] [id number] [place] [address] Apr, [facility] [id number] [place] [address] Mar, [facility] [address] [id number] [place] [address] Mar, IMMUNIZATIONS No Known Immunizations SOCIAL HISTORY Never Assessed REASON FOR VISIT PLAN OF CARE VITAL SIGNS MEDICATIONS Unknown Medications RESULTS No Results PROCEDURES No Known procedures INSTRUCTIONS MEDICATIONS ADMINISTERED No Known Medications MEDICAL (GENERAL) HISTORY Type Description Date Medical History depression Medical History hyperlipidemia Hospitalization History staph in right leg
--- OUTSIDE RECORDS SUMMARY | 2020-01-01 19:05 | XMS REPORT ---
Author Author Aron Mendes Doctor Organization [facility] Address Unknown Phone Unavailable Care Team Providers Care Non Categorical Preschool Teacher Name Role Phone Migration, Doctor Unavailable Unavailable PROBLEMS Type Condition ICD9-CM Code [id number] Code Onset Dates Condition S tatus SNOMED Code Problem Nonspecific elevation of lev els of transaminase or lactic acid dehydrogenase (LDH) 790.4 Active 30372550 2 Problem Encounter for long-term (current) use of other medications V58.69 Active 586807425 Problem Edema 782.3 Active 848131220 Problem Spontaneous ecchymoses 782.7 Active 238499356 Problem Trigger finger (acquired) 727.03 Acti ve 1157619 Problem 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 Active 99056803 Problem 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 .42 Active 80976331 Problem 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 Active 16684151 Problem Unspecified local infection of skin and subcutaneous tissu e 686.9 Active 990938330 Problem Unspecified viral hepatitis C without hepatic coma 070.70 Active 51090076 Problem Vascular disorder of skin 709.1 Acti ve 62551202 Problem Dissociative disorder or reaction, 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 Active 24833487 Problem Anxiety state, unspecified 300.00 Act bessy 573221503 Problem Other and unspecified hyperlipidemia 272.4 Active 39073057 Problem Major depressive disorder, recurrent episode, mild 296.31 Active 48982761 ALLERGIES No Information ENCOUNTERS Encounter Location Date Diagnosis [facility] [address] [id number] Nov, Encounter for other specified administra tive purpose Z02.89 [facility] [address] [id number] October, Dental examination Z01.20 and Dental car ies K02.9 [facility] [id number] [place] [address] 14 Jan, 2015 Edema 782.3 and Family history of de la rosa ry artery disease V17.3 [facility] [address] [id number] [place] [address] Jan, Edema 782.3 and Family history of de la rosa ry artery disease V17.3 [facility] [address] [facility] [id number] [place] [id number] Dec, Dental examination V72.2 [facility] [address] [id number] [place] [address] 14 Sep, 2014 [facility] [address] [id number] [place] [address] Sep, [facility] [address] [id number] [place] [address] Aug, [facility] [address] [id number] [place] [address] Aug, [facility] [address] [id number] [place] [address] Jun, [facility] [address] [id number] [place] [address] Jun, [facility] [address] [id number] [place] [address] Jun, [facility] [address] [id number] [place] [address] Jun, [facility] [address] [id number] [place] [address] May, [facility] [address] [id number] [place] [address] May, [facility] [address] [id number] [place] [address] Apr, [facility] [address] [id number] [place] [address] Apr, [facility] [address] [id number] [place] [address] Mar, [facility] [address] [id number] [place] [address] Mar, [facility] [place] [facility] [address] [facility] [id number] [facility], [place] [address] Feb, [facility] [place] [facility] [address] [facility] [id number] [facility], [place] [address] Feb, [facility] [place] [facility] [address] [id number] [facility], [place] [address] Feb, [facility] [place] [facility] [address] [facility] [id number] [place] [address] Jan, [facility] [place] [facility] [address] [facility] [id number] [place] [address] Jan, [facility] [place] [facility] [address] [id number] [facility], [place] [address] Jan, [facility] [place] [facility] [address] [id number] [place] [address] Dec, [facility] [place] [facility] [address] [id number] [place] [address] Dec, [facility] [place] [facility] [address] [facility] [id number] [facility], [place] [address] Nov, [facility] [place] [facility] [address] [id number] [facility], [place] [address] Nov, [facility] [place] [facility] [address] [id number] [place] [address] Nov, [facility] [place] [facility] [address] [id number] [place] [address] Nov, [facility] [place] [facility] [address] [facility] [id number] [facility], [place] [address] Nov, [facility] [place] [facility] [address] [id number] [place] [address] Nov, [facility] [place] [facility] [address] [id number] [place] [address] October, [facility] [place] [facility] [address] [id number] [place] [address] October, [facility] [place] [facility] [address] [id number] [place] [address] Sep, [facility] [place] [facility] [address] [id number] [place] [address] Sep, [facility] [place] [facility] [address] [id number] [place] [address] Jul, [facility] [place] [facility] [address] [id number] [place] [address] Jul, [facility] [place] [facility] [address] [id number] [place] [address] Jul, [facility] [place] [facility] [address] [id number] [place] [address] Jul, [facility] [place] [facility] [address] [id number] [place] [address] May, [facility] [place] [facility] [address] [id number] [place] [address] May, [facility] [place] [facility] [address] [id number] [place] [address] May, [facility] [place] [facility] [address] [id number] [place] [address] May, [facility] [place] [facility] [address] [id number] [place] [address] Mar, [facility] [place] [facility] [address] [id number] [place] [address] 17 Mar, 2013 [facility] [place] [facility] [address] [id number] [place] [address] 10 Mar, 2013 [facility] [place] [facility] [address] [id number] [place] [address] 10 Mar, 2013 [facility] [place] [facility] [address] [id number] [place] [address] 04 Mar, 2013 [facility] [place] [facility] [address] [id number] [place] [address] 24 Feb, 2013 [facility] [place] [facility] [address] [id number] [place] [address] Feb, [facility] [place] [facility] [address] [id number] [facility], [place] [address] Feb, [facility] [place] [facility] [address] [facility] [id number] [facility], [place] [address] Jan, [facility] [place] [facility] [address] [facility] [id number] [facility], [place] [address] Jan, [facility] [place] [facility] [address] [facility] [id number] [facility], [place] [address] Jan, [facility] [place] [facility] [address] [facility] [id number] [facility], [place] [address] Jan, [facility] [place] [facility] [address] [facility] [id number] [facility], [place] [address] Jan, [facility] [place] [facility] [address] [facility] [id number] [place] [address] Jan, [facility] [place] [facility] [address] [id number] [place] [address] Jan, [facility] [place] [facility] [address] [facility] [id number] [place] [address] Dec, [facility] [place] [facility] [address] [id number] [place] [address] Dec, [facility] [place] [facility] [address] [facility] [id number] [place] [address] Dec, [facility] [place] [facility] [address] [id number] [place] [address] Nov, [facility] [place] [facility] [address] [facility] [id number] [place] [address] October, [facility] [place] [facility] [address] [facility] [id number] [place] [address] October, [facility] [place] [facility] [address] [facility] [id number] [place] [address] Sep, [facility] [place] [facility] [address] [id number] [place] [address] Jul, [facility] [place] [facility] [address] [id number] [place] [address] 11 Jul, 2012 [facility] [place] [facility] [address] [id number] [place] [address] Jun, [facility] [place] [facility] [address] [id number] [place] [address] Jun, [facility] [place] [facility] [address] [id number] [place] [address] Jun, [facility] [place] [facility] [address] [id number] [place] [address] Jun, [facility] [place] [facility] [address] [id number] [place] [address] Jun, [facility] [place] [facility] [address] [id number] [place] [address] May, [facility] [place] [facility] [address] [id number] [place] [address] May, [facility] [place] [facility] [address] [id number] [place] [address] 14 May, 2012 [facility] [place] [facility] [address] [id number] [place] [address] 14 May, 2012 [facility] [place] [facility] [address] [id number] [place] [address] 20 Apr, 2012 [facility] [place] [facility] [address] [id number] [place] [address] 20 Apr, 2012 [facility] [place] [facility] [address] [id number] [place] [address] 16 Apr, 2012 [facility] [place] [facility] [address] [id number] [place] [address] 16 Apr, 2012 [facility] [place] [facility] [id number] [place] [address] 13 Apr, 2012 [facility] [place] [facility] [address] [id number] [place] [address] 13 Apr, 2012 [facility] [place] [facility] [address] [id number] [place] [address] 13 Apr, 2012 [facility] [place] [facility] [address] [id number] [place] [address] Apr, [facility] [place] [facility] [address] [id number] [place] [address] Apr, [facility] [place] [facility] [address] [id number] [place] [address] Apr, [facility] [place] [facility] [address] [id number] [place] [address] Mar, [facility] [place] [facility] [address] [id number] [place] [address] Mar, [facility] [place] [facility] [address] [id number] [place] [address] Mar, [facility] [place] [facility] [address] [id number] [place] [address] Mar, [facility] [place] [facility] [address] [id number] [place] [address] Mar, [facility] [place] [facility] [address] [id number] [place] [address] Mar, [facility] [place] [facility] [address] [id number] [place] [address] Mar, [facility] [place] [facility] [address] [id number] [place] [address] Mar, [facility] [place] [facility] [address] [id number] [place] [address] Feb, [facility] [place] [facility] [address] [id number] [place] [address] Jan, [facility] [place] [facility] [address] [id number] [place] [address] Jan, [facility] [place] [facility] [address] [id number] [place] [address] Dec, [facility] [place] [facility] [address] [id number] [place] [address] Nov, [facility] [place] [facility] [address] [id number] [place] [address] Nov, [facility] [place] [facility] [address] [id number] [place] [address] Nov, [facility] [place] [facility] [address] [id number] [place] [address] Nov, [facility] [place] [facility] [address] [id number] [place] [address] Nov, [facility] [place] [facility] [address] [id number] [place] [address] Nov, [facility] [place] [facility] [address] [facility] [id number] [facility], [place] [address] October, [facility] [place] [facility] [address] [id number] [place] [address] October, [facility] [place] [facility] [address] [id number] [place] [address] October, [facility] [place] [facility] [address] [id number] [place] [address] October, [facility] [place] [facility] [address] [id number] [place] [address] October, [facility] [place] [facility] [address] [id number] [place] [address] October, [facility] [place] [facility] [address] [id number] [place] [address] October, [facility] [place] [facility] [address] [id number] [place] [address] Sep, [facility] [place] [facility] [address] [id number] [place] [address] Sep, [facility] [place] [facility] [address] [id number] [place] [address] Aug, [facility] [place] [facility] [address] [id number] [place] [address] 15 Aug, 2011 [facility] [place] [facility] [address] [id number] [place] [address] Aug, [facility] [place] [facility] [address] [id number] [place] [address] Aug, [facility] [address] [id number] [place] [address] Jul, [facility] [address] [id number] [place] [address] Jul, [facility] [address] [id number] [place] [address] Jul, [facility] [id number] [place] [address] Jul, [facility] [address] [id number] [place] [address] May, [facility] [address] [id number] [place] [address] May, [facility] [id number] [place] [address] May, [facility] [address] [id number] [place] [address] Apr, [facility] [id number] [place] [address] Mar, [facility] [address] [id number] [place] [address] Mar, IMMUNIZATIONS No Known Immunizations SOCIAL HISTORY Never Assessed REASON FOR VISIT PLAN OF CARE VITAL SIGNS MEDICATIONS Unknown Medications RESULTS No Results PROCEDURES No Known procedures INSTRUCTIONS MEDICATIONS ADMINISTERED No Known Medications MEDICAL (GENERAL) HISTORY Type Description Date Medical History depression Medical History hyperlipidemia Hospitalization History staph in right leg
--- OUTSIDE RECORDS SUMMARY | 2020-01-01 19:05 | XMS REPORT ---
Author Author Aron LEE Organization [facility] Address [address] [place] [address] Care Team Providers Care Parliamentary Librarian Name Role Phone THANH LEE Unavailable PROBLEMS Type Condition ICD9-CM Code XBS40-NK Code Onset Dates Condition S tatus SNOMED Code Problem Nonspecific elevation of lev els of transaminase or lactic acid dehydrogenase (LDH) 790.4 Active 00456817 2 Problem Encounter for long-term (current) use of other medications V58.69 Active 970795577 Problem Edema 782.3 Active 115177406 Problem Spontaneous ecchymoses 782.7 Active 069565973 Problem Trigger finger (acquired) 727.03 Acti ve 9876970 Problem 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 Active 85322458 Problem 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 .42 Active 79967932 Problem 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 Active 28000873 Problem Unspecified local infection of skin and subcutaneous tissu e 686.9 Active 657451975 Problem Unspecified viral hepatitis C without hepatic coma 070.70 Active 17285693 Problem Vascular disorder of skin 709.1 Acti ve 01299498 Problem Dissociative disorder or reaction, 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 Active 84018294 Problem Anxiety state, unspecified 300.00 Act bessy 278726945 Problem Other and unspecified hyperlipidemia 272.4 Active 16858895 Problem Major depressive disorder, recurrent episode, mild 296.31 Active 38482726 ALLERGIES No Information ENCOUNTERS Encounter Location Date Diagnosis [facility] [address] [id number] Nov, Encounter for other specified administra tive purpose Z02.89 [facility] [address] [id number] October, Dental examination Z01.20 and Dental car ies K02.9 [facility] [address] [id number] [place] [address] 14 Jan, 2015 Edema 782.3 and Family history of de la rosa ry artery disease V17.3 [facility] [address] [id number] [place] [address] 07 Jan, 2015 Edema 782.3 and Family history of de la rosa ry artery disease V17.3 [facility] [address] [id number] [place] [id number] Dec, Dental examination V72.2 [facility] [address] [id number] [place] [address] Sep, [facility] [address] [address] Sep, [facility] [id number] [place] [address] Aug, [facility] [address] [address] Aug, [facility] [id number] [place] [address] Jun, [facility] [address] [address] Jun, [facility] [address] [address] Jun, [facility] [address] [address] Jun, [facility] [id number] [place] [address] May, [facility] [id number] [place] [address] May, [facility] [id number] [place] [address] Apr, [facility] [id number] [place] [address] Apr, [facility] [address] [address] Mar, [facility] [address] [facility] [id number] [facility] [place] [address] Mar, [facility] [address] [facility] [id number] [facility] [place] [address] Feb, [facility] [address] [id number] [facility] [place] [address] Feb, [facility] [address] [id number] [facility] [place] [address] Feb, [facility] [address] [facility] [id number] [facility] [place] [address] Jan, [facility] [address] [id number] [place] [address] Jan, [facility] [address] [id number] [place] [address] Jan, [facility] [address] [id number] [place] [address] Dec, [facility] [address] [id number] [place] [address] Dec, [facility] [address] [id number] [place] [address] Nov, [facility] [address] [id number] [place] [address] Nov, [facility] [address] [id number] [place] [address] Nov, [facility] [address] [id number] [place] [address] Nov, [facility] [address] [id number] [place] [address] Nov, [facility] [address] [id number] [place] [address] Nov, [facility] [address] [id number] [place] [address] October, [facility] [address] [id number] [place] [address] October, [facility] [address] [id number] [place] [address] Sep, [facility] [address] [id number] [place] [address] Sep, [facility] [address] [id number] [place] [address] Jul, [facility] [address] [id number] [place] [address] Jul, [facility] [address] [id number] [place] [address] Jul, [facility] [address] [id number] [place] [address] Jul, [facility] [id number] [place] [address] May, [facility] [address] [id number] [place] [address] May, [facility] [address] [id number] [place] [address] May, [facility] [address] [id number] [place] [address] May, [facility] [address] [id number] [place] [address] Mar, [facility] [address] [id number] [place] [address] Mar, [facility] [address] [id number] [place] [address] Mar, [facility] [address] [id number] [place] [address] Mar, [facility] [address] [id number] [place] [address] Mar, [facility] [address] [id number] [place] [address] Feb, [facility] [address] [id number] [place] [address] 19 Feb, 2013 [facility] [address] [facility] [id number] [facility] [place] [address] Feb, [facility] [address] [facility] [id number] [place] [address] Jan, [facility] [address] [id number] [facility] [place] [address] Jan, [facility] [address] [facility] [id number] [place] [address] Jan, [facility] [address] [id number] [place] [address] Jan, [facility] [address] [id number] [place] [address] Jan, [facility] [address] [id number] [place] [address] Jan, [facility] [address] [id number] [place] [address] Jan, [facility] [address] [id number] [place] [address] Dec, [facility] [address] [id number] [place] [address] Dec, [facility] [address] [id number] [place] [address] Dec, [facility] [address] [id number] [place] [address] Nov, [facility] [address] [id number] [place] [address] October, [facility] [address] [id number] [place] [address] October, [facility] [address] [id number] [place] [address] Sep, [facility] [address] [id number] [place] [address] Jul, [facility] [address] [id number] [place] [address] Jul, [facility] [address] [id number] [place] [address] Jun, [facility] [address] [id number] [place] [address] Jun, [facility] [address] [id number] [place] [address] Jun, [facility] [address] [id number] [place] [address] Jun, [facility] [address] [id number] [place] [address] Jun, [facility] [address] [id number] [place] [address] May, [facility] [address] [id number] [place] [address] May, [facility] [address] [id number] [place] [address] May, [facility] [address] [id number] [place] [address] 14 May, 2012 [facility] [address] [id number] [place] [address] Apr, [facility] [address] [id number] [place] [address] 20 Apr, 2012 [facility] [address] [id number] [place] [address] 16 Apr, 2012 [facility] [address] [id number] [place] [address] 16 Apr, 2012 [facility] [address] [id number] [place] [address] 13 Apr, 2012 [facility] [address] [id number] [place] [address] 13 Apr, 2012 [facility] [address] [id number] [place] [address] Apr, [facility] [address] [id number] [place] [address] Apr, [facility] [address] [id number] [place] [address] Apr, [facility] [address] [id number] [place] [address] Apr, [facility] [address] [id number] [place] [address] Mar, [facility] [address] [id number] [place] [address] Mar, [facility] [address] [id number] [place] [address] Mar, [facility] [address] [id number] [place] [address] Mar, [facility] [address] [id number] [place] [address] Mar, [facility] [address] [id number] [place] [address] Mar, [facility] [address] [id number] [place] [address] Mar, [facility] [address] [id number] [place] [address] Mar, [facility] [address] [id number] [place] [address] Feb, [facility] [address] [id number] [place] [address] Jan, [facility] [address] [id number] [place] [address] Jan, [facility] [address] [id number] [place] [address] Dec, [facility] [address] [id number] [place] [address] Nov, [facility] [address] [facility] [id number] [place] [address] Nov, [facility] [address] [id number] [facility] [place] [address] Nov, [facility] [address] [id number] [place] [address] Nov, [facility] [address] [id number] [place] [address] Nov, [facility] [address] [facility] [id number] [place] [address] Nov, [facility] [address] [id number] [place] [address] October, [facility] [address] [id number] [place] [address] October, [facility] [address] [id number] [place] [address] October, [facility] [address] [id number] [place] [address] October, [facility] [address] [id number] [place] [address] October, [facility] [address] [id number] [place] [address] October, [facility] [address] [id number] [place] [address] October, [facility] [address] [id number] [place] [address] Sep, [facility] [address] [id number] [place] [address] Sep, [facility] [address] [id number] [place] [address] Aug, [facility] [address] [id number] [place] [address] Aug, [facility] [address] [id number] [place] [address] 13 Aug, 2011 [facility] [address] [id number] [place] [address] Aug, [facility] [address] [id number] [place] [address] Jul, [facility] [id number] [place] [address] Jul, [facility] [id number] [place] [address] Jul, [facility] [id number] [place] [address] Jul, [facility] [id number] [place] [address] May, [facility] [id number] [place] [address] May, [facility] [id number] [place] [address] May, [facility] [id number] [place] [address] Apr, [facility] [id number] [place] [address] Mar, [facility] [id number] [place] [address] Mar, IMMUNIZATIONS No Known Immunizations SOCIAL HISTORY Never Assessed REASON FOR VISIT PLAN OF CARE VITAL SIGNS MEDICATIONS Unknown Medications RESULTS No Results PROCEDURES Procedure Date Ordered Result Body Site PSYTX PT&/FAMILY 45 MINUTES September 30, 2013 INSTRUCTIONS MEDICATIONS ADMINISTERED No Known Medications MEDICAL (GENERAL) HISTORY Type Description Date Medical History depression Medical History hyperlipidemia Hospitalization History staph in right leg
--- OUTSIDE RECORDS SUMMARY | 2020-01-01 19:05 | XMS REPORT ---
Author Author Aron LEE Organization [facility] Address [address] [place] [address] Care Team Providers Care Supervisor Last Model Department Name Role Phone THANH LEE Unavailable PROBLEMS Type Condition ICD9-CM Code KSC91-NP Code Onset Dates Condition S tatus SNOMED Code Problem Nonspecific elevation of lev els of transaminase or lactic acid dehydrogenase (LDH) 790.4 Active 36909555 2 Problem Encounter for long-term (current) use of other medications V58.69 Active 988834943 Problem Edema 782.3 Active 281863516 Problem Spontaneous ecchymoses 782.7 Active 606489076 Problem Trigger finger (acquired) 727.03 Acti ve 8307588 Problem 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 Active 60051087 Problem 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 .42 Active 23715222 Problem 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 Active 11971056 Problem Unspecified local infection of skin and subcutaneous tissu e 686.9 Active 340935937 Problem Unspecified viral hepatitis C without hepatic coma 070.70 Active 42540640 Problem Vascular disorder of skin 709.1 Acti ve 99786508 Problem Dissociative disorder or reaction, 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 Active 96139583 Problem Anxiety state, unspecified 300.00 Act bessy 126302491 Problem Other and unspecified hyperlipidemia 272.4 Active 50152070 Problem Major depressive disorder, recurrent episode, mild 296.31 Active [id number] ALLERGIES No Information ENCOUNTERS Encounter Location Date Diagnosis [facility] [address] [id number] Nov, Encounter for other specified administra tive purpose Z02.89 [facility] [address] [id number] October, Dental examination Z01.20 and Dental car ies K02.9 [facility] [address] [id number] [place] [address] 14 Jan, 2015 Edema 782.3 and Family history of de la rosa ry artery disease V17.3 [facility] [address] [id number] [place] [address] 07 Jan, 2015 Edema 782.3 and Family history of de la rosa ry artery disease V17.3 [facility] [address] [id number] [place] [id number] Dec, Dental examination V72.2 [facility] [address] [id number] [place] [address] Sep, [facility] [address] [address] Sep, [facility] [id number] [place] [address] Aug, [facility] [address] [address] Aug, [facility] [id number] [place] [address] Jun, [facility] [address] [address] Jun, [facility] [address] [address] Jun, [facility] [address] [address] Jun, [facility] [id number] [place] [address] May, [facility] [id number] [place] [address] May, [facility] [id number] [place] [address] Apr, [facility] [id number] [place] [address] Apr, [facility] [address] [address] Mar, [facility] [address] [facility] [id number] [facility] [place] [address] Mar, [facility] [address] [facility] [id number] [facility] [place] [address] Feb, [facility] [address] [id number] [facility] [place] [address] Feb, [facility] [address] [id number] [facility] [place] [address] Feb, [facility] [address] [facility] [id number] [facility] [place] [address] Jan, [facility] [address] [id number] [place] [address] Jan, [facility] [address] [id number] [place] [address] Jan, [facility] [address] [id number] [place] [address] Dec, [facility] [address] [id number] [place] [address] Dec, [facility] [address] [id number] [place] [address] Nov, [facility] [address] [id number] [place] [address] Nov, [facility] [address] [id number] [place] [address] Nov, [facility] [address] [id number] [place] [address] Nov, [facility] [address] [id number] [place] [address] Nov, [facility] [address] [id number] [place] [address] Nov, [facility] [address] [id number] [place] [address] October, [facility] [address] [id number] [place] [address] October, [facility] [address] [id number] [place] [address] Sep, [facility] [address] [id number] [place] [address] Sep, [facility] [address] [id number] [place] [address] Jul, [facility] [address] [id number] [place] [address] Jul, [facility] [address] [id number] [place] [address] Jul, [facility] [address] [id number] [place] [address] Jul, [facility] [id number] [place] [address] May, [facility] [address] [id number] [place] [address] May, [facility] [address] [id number] [place] [address] May, [facility] [address] [id number] [place] [address] May, [facility] [address] [id number] [place] [address] Mar, [facility] [address] [id number] [place] [address] Mar, [facility] [address] [id number] [place] [address] Mar, [facility] [address] [id number] [place] [address] Mar, [facility] [address] [id number] [place] [address] Mar, [facility] [address] [id number] [place] [address] Feb, [facility] [address] [id number] [place] [address] 19 Feb, 2013 [facility] [address] [facility] [id number] [facility] [place] [address] Feb, [facility] [address] [facility] [id number] [place] [address] Jan, [facility] [address] [id number] [facility] [place] [address] Jan, [facility] [address] [facility] [id number] [place] [address] Jan, [facility] [address] [id number] [place] [address] Jan, [facility] [address] [id number] [place] [address] Jan, [facility] [address] [id number] [place] [address] Jan, [facility] [address] [id number] [place] [address] Jan, [facility] [address] [id number] [place] [address] Dec, [facility] [address] [id number] [place] [address] Dec, [facility] [address] [id number] [place] [address] Dec, [facility] [address] [id number] [place] [address] Nov, [facility] [address] [id number] [place] [address] October, [facility] [address] [id number] [place] [address] October, [facility] [address] [id number] [place] [address] Sep, [facility] [address] [id number] [place] [address] Jul, [facility] [address] [id number] [place] [address] Jul, [facility] [address] [id number] [place] [address] Jun, [facility] [address] [id number] [place] [address] Jun, [facility] [address] [id number] [place] [address] Jun, [facility] [address] [id number] [place] [address] Jun, [facility] [address] [id number] [place] [address] Jun, [facility] [address] [id number] [place] [address] May, [facility] [address] [id number] [place] [address] May, [facility] [address] [id number] [place] [address] May, [facility] [address] [id number] [place] [address] 14 May, 2012 [facility] [address] [id number] [place] [address] Apr, [facility] [address] [id number] [place] [address] 20 Apr, 2012 [facility] [address] [id number] [place] [address] 16 Apr, 2012 [facility] [address] [id number] [place] [address] 16 Apr, 2012 [facility] [address] [id number] [place] [address] 13 Apr, 2012 [facility] [address] [id number] [place] [address] 13 Apr, 2012 [facility] [address] [id number] [place] [address] Apr, [facility] [address] [id number] [place] [address] Apr, [facility] [address] [id number] [place] [address] Apr, [facility] [address] [id number] [place] [address] Apr, [facility] [address] [id number] [place] [address] Mar, [facility] [address] [id number] [place] [address] Mar, [facility] [address] [id number] [place] [address] Mar, [facility] [address] [id number] [place] [address] Mar, [facility] [address] [id number] [place] [address] Mar, [facility] [address] [id number] [place] [address] Mar, [facility] [address] [id number] [place] [address] Mar, [facility] [address] [id number] [place] [address] Mar, [facility] [address] [id number] [place] [address] Feb, [facility] [address] [id number] [place] [address] Jan, [facility] [address] [id number] [place] [address] Jan, [facility] [address] [id number] [place] [address] Dec, [facility] [address] [id number] [place] [address] Nov, [facility] [address] [facility] [id number] [place] [address] Nov, [facility] [address] [id number] [facility] [place] [address] Nov, [facility] [address] [id number] [place] [address] Nov, [facility] [address] [id number] [place] [address] Nov, [facility] [address] [facility] [id number] [place] [address] Nov, [facility] [address] [id number] [place] [address] October, [facility] [address] [id number] [place] [address] October, [facility] [address] [id number] [place] [address] October, [facility] [address] [id number] [place] [address] October, [facility] [address] [id number] [place] [address] October, [facility] [address] [id number] [place] [address] October, [facility] [address] [id number] [place] [address] October, [facility] [address] [id number] [place] [address] Sep, [facility] [address] [id number] [place] [address] Sep, [facility] [address] [id number] [place] [address] Aug, [facility] [address] [id number] [place] [address] Aug, [facility] [address] [id number] [place] [address] 13 Aug, 2011 [facility] [address] [id number] [place] [address] Aug, [facility] [address] [id number] [place] [address] Jul, [facility] [address] [id number] [place] [address] Jul, [facility] [address] [id number] [place] [address] Jul, [facility] [address] [id number] [place] [address] Jul, [facility] [address] [id number] [place] [address] May, [facility] [address] [id number] [place] [address] May, [facility] [address] [id number] [place] [address] May, [facility] [address] [id number] [place] [address] Apr, [facility] [address] [id number] [place] [address] Mar, [facility] [address] [id number] [place] [address] Mar, IMMUNIZATIONS No Known Immunizations SOCIAL HISTORY Never Assessed REASON FOR VISIT PLAN OF CARE VITAL SIGNS MEDICATIONS Unknown Medications RESULTS No Results PROCEDURES No Known procedures INSTRUCTIONS MEDICATIONS ADMINISTERED No Known Medications MEDICAL (GENERAL) HISTORY Type Description Date Medical History depression Medical History hyperlipidemia Hospitalization History staph in right leg
--- OUTSIDE RECORDS SUMMARY | 2020-01-01 19:05 | XMS REPORT ---
Author Author Aron Mendes Doctor Organization [facility] Address Unknown Phone Unavailable Care Team Providers Care Manuscripts Curator Name Role Phone Migration, Doctor Unavailable Unavailable PROBLEMS Type Condition ICD9-CM Code UOK73-LZ Code Onset Dates Condition S tatus SNOMED Code Problem Nonspecific elevation of lev els of transaminase or lactic acid dehydrogenase (LDH) 790.4 Active 33125849 2 Problem Encounter for long-term (current) use of other medications V58.69 Active 005810550 Problem Edema 782.3 Active 438430535 Problem Spontaneous ecchymoses 782.7 Active 742648866 Problem Trigger finger (acquired) 727.03 Acti ve 0173375 Problem 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 Active 02552752 Problem 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 .42 Active 70091708 Problem 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 Active 14171576 Problem Unspecified local infection of skin and subcutaneous tissu e 686.9 Active 930581129 Problem Unspecified viral hepatitis C without hepatic coma 070.70 Active 83040687 Problem Vascular disorder of skin 709.1 Acti ve 60590359 Problem Dissociative disorder or reaction, 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 Active 48659685 Problem Anxiety state, unspecified 300.00 Act bessy 731890692 Problem Other and unspecified hyperlipidemia 272.4 Active 66429128 Problem Major depressive disorder, recurrent episode, mild 296.31 Active 65703148 ALLERGIES No Information ENCOUNTERS Encounter Location Date Diagnosis [facility] [address] [id number] Nov, Encounter for other specified administra tive purpose Z02.89 [facility] [address] [id number] October, Dental examination Z01.20 and Dental car ies K02.9 [facility] [id number] [place] [address] 14 Jan, 2015 Edema 782.3 and Family history of de la rosa ry artery disease V17.3 [facility] [address] [id number] [place] [address] Jan, Edema 782.3 and Family history of de la rosa ry artery disease V17.3 [facility] [address] [facility] [id number] [place] [id number] Dec, Dental examination V72.2 [facility] [address] [id number] [place] [address] 14 Sep, 2014 [facility] [address] [id number] [place] [address] Sep, [facility] [address] [id number] [place] [address] Aug, [facility] [id number] [place] [address] Aug, [facility] [id number] [place] [address] Jun, [facility] [id number] [place] [address] Jun, [facility] [address] [id number] [place] [address] Jun, [facility] [id number] [place] [address] Jun, [facility] [id number] [place] [address] May, [facility] [id number] [place] [address] May, [facility] [id number] [place] [address] Apr, [facility] [id number] [place] [address] Apr, [facility] [id number] [place] [address] Mar, [facility] [id number] [place] [address] Mar, [facility] [place] [facility] [address] [facility] [id number] [facility] [place] [address] Feb, [facility] [place] [facility] [address] [facility] [id number] [facility] [place] [address] Feb, [facility] [place] [facility] [address] [id number] [facility] [place] [address] Feb, [facility] [place] [facility] [address] [facility] [id number] [place] [address] Jan, [facility] [place] [facility] [address] [facility] [id number] [place] [address] Jan, [facility] [place] [facility] [address] [id number] [facility] [place] [address] Jan, [facility] [place] [facility] [address] [id number] [place] [address] Dec, [facility] [place] [facility] [address] [id number] [place] [address] Dec, [facility] [place] [facility] [address] [facility] [id number] [facility] [place] [address] Nov, [facility] [place] [facility] [address] [id number] [facility] [place] [address] Nov, [facility] [place] [facility] [address] [id number] [place] [address] Nov, [facility] [place] [facility] [address] [id number] [place] [address] Nov, [facility] [place] [facility] [address] [facility] [id number] [facility] [place] [address] Nov, [facility] [place] [facility] [address] [id number] [place] [address] Nov, [facility] [place] [facility] [address] [id number] [place] [address] October, [facility] [place] [facility] [address] [id number] [place] [address] October, [facility] [place] [facility] [address] [id number] [place] [address] Sep, [facility] [place] [facility] [address] [id number] [place] [address] Sep, [facility] [place] [facility] [address] [id number] [place] [address] Jul, [facility] [place] [facility] [address] [id number] [place] [address] Jul, [facility] [place] [facility] [address] [id number] [place] [address] Jul, [facility] [place] [facility] [address] [id number] [place] [address] Jul, [facility] [place] [facility] [address] [id number] [place] [address] May, [facility] [place] [facility] [address] [id number] [place] [address] May, [facility] [place] [facility] [address] [id number] [place] [address] May, [facility] [place] [facility] [address] [id number] [place] [address] May, [facility] [place] [facility] [address] [id number] [place] [address] Mar, [facility] [place] [facility] [address] [id number] [place] [address] 17 Mar, 2013 [facility] [place] [facility] [address] [id number] [place] [address] 10 Mar, 2013 [facility] [place] [facility] [address] [id number] [place] [address] 10 Mar, 2013 [facility] [place] [facility] [address] [id number] [place] [address] 04 Mar, 2013 [facility] [place] [facility] [address] [id number] [place] [address] 24 Feb, 2013 [facility] [place] [facility] [address] [id number] [place] [address] Feb, [facility] [place] [facility] [address] [id number] [facility] [place] [address] Feb, [facility] [place] [facility] [address] [facility] [id number] [facility] [place] [address] Jan, [facility] [place] [facility] [address] [facility] [id number] [facility] [place] [address] Jan, [facility] [place] [facility] [address] [facility] [id number] [facility] [place] [address] Jan, [facility] [place] [facility] [address] [facility] [id number] [facility] [place] [address] Jan, [facility] [place] [facility] [address] [facility] [id number] [facility] [place] [address] Jan, [facility] [place] [facility] [address] [facility] [id number] [place] [address] Jan, [facility] [place] [facility] [address] [id number] [place] [address] Jan, [facility] [place] [facility] [address] [facility] [id number] [place] [address] Dec, [facility] [place] [facility] [address] [id number] [place] [address] Dec, [facility] [place] [facility] [address] [facility] [id number] [place] [address] Dec, [facility] [place] [facility] [address] [id number] [place] [address] Nov, [facility] [place] [facility] [address] [facility] [id number] [place] [address] October, [facility] [place] [facility] [address] [facility] [id number] [place] [address] October, [facility] [place] [facility] [address] [facility] [id number] [place] [address] Sep, [facility] [place] [facility] [address] [id number] [place] [address] Jul, [facility] [place] [facility] [address] [id number] [place] [address] 11 Jul, 2012 [facility] [place] [facility] [address] [id number] [place] [address] Jun, [facility] [place] [facility] [address] [id number] [place] [address] Jun, [facility] [place] [facility] [address] [id number] [place] [address] Jun, [facility] [place] [facility] [address] [id number] [place] [address] Jun, [facility] [place] [facility] [address] [id number] [place] [address] Jun, [facility] [place] [facility] [address] [id number] [place] [address] May, [facility] [place] [facility] [address] [id number] [place] [address] May, [facility] [place] [facility] [address] [id number] [place] [address] 14 May, 2012 [facility] [place] [facility] [address] [id number] [place] [address] 14 May, 2012 [facility] [place] [facility] [address] [id number] [place] [address] 20 Apr, 2012 [facility] [place] [facility] [address] [id number] [place] [address] 20 Apr, 2012 [facility] [place] [facility] [address] [id number] [place] [address] 16 Apr, 2012 [facility] [place] [facility] [address] [id number] [place] [address] 16 Apr, 2012 [facility] [place] [facility] [id number] [place] [address] 13 Apr, 2012 [facility] [place] [facility] [address] [id number] [place] [address] 13 Apr, 2012 [facility] [place] [facility] [address] [id number] [place] [address] 13 Apr, 2012 [facility] [place] [facility] [address] [id number] [place] [address] Apr, [facility] [place] [facility] [address] [id number] [place] [address] Apr, [facility] [place] [facility] [address] [id number] [place] [address] Apr, [facility] [place] [facility] [address] [id number] [place] [address] Mar, [facility] [place] [facility] [address] [id number] [place] [address] Mar, [facility] [place] [facility] [address] [id number] [place] [address] Mar, [facility] [place] [facility] [address] [id number] [place] [address] Mar, [facility] [place] [facility] [address] [id number] [place] [address] Mar, [facility] [place] [facility] [address] [id number] [place] [address] Mar, [facility] [place] [facility] [address] [id number] [place] [address] Mar, [facility] [place] [facility] [address] [id number] [place] [address] Mar, [facility] [place] [facility] [address] [id number] [place] [address] Feb, [facility] [place] [facility] [address] [id number] [place] [address] Jan, [facility] [place] [facility] [address] [id number] [place] [address] Jan, [facility] [place] [facility] [address] [id number] [place] [address] Dec, [facility] [place] [facility] [address] [id number] [place] [address] Nov, [facility] [place] [facility] [address] [id number] [place] [address] Nov, [facility] [place] [facility] [address] [id number] [place] [address] Nov, [facility] [place] [facility] [address] [id number] [place] [address] Nov, [facility] [place] [facility] [address] [id number] [place] [address] Nov, [facility] [place] [facility] [address] [id number] [place] [address] Nov, [facility] [place] [facility] [address] [facility] [id number] [facility] [place] [address] October, [facility] [place] [facility] [address] [id number] [place] [address] October, [facility] [place] [facility] [address] [id number] [place] [address] October, [facility] [place] [facility] [address] [id number] [place] [address] October, [facility] [place] [facility] [address] [id number] [place] [address] October, [facility] [place] [facility] [address] [id number] [place] [address] October, [facility] [place] [facility] [address] [id number] [place] [address] October, [facility] [place] [facility] [address] [id number] [place] [address] Sep, [facility] [place] [facility] [address] [id number] [place] [address] Sep, [facility] [place] [facility] [address] [id number] [place] [address] Aug, [facility] [place] [facility] [address] [id number] [place] [address] 15 Aug, 2011 [facility] [place] [facility] [address] [id number] [place] [address] Aug, [facility] [place] [facility] [address] [id number] [place] [address] Aug, [facility] [address] [id number] [place] [address] Jul, [facility] [address] [id number] [place] [address] Jul, [facility] [address] [id number] [place] [address] Jul, [facility] [id number] [place] [address] Jul, [facility] [id number] [place] [address] May, [facility] [id number] [place] [address] May, [facility] [id number] [place] [address] May, [facility] [id number] [place] [address] Apr, [facility] [id number] [place] [address] Mar, [facility] [id number] [place] [address] Mar, IMMUNIZATIONS No Known Immunizations SOCIAL HISTORY Never Assessed REASON FOR VISIT PLAN OF CARE VITAL SIGNS Weight 193.12 lbs 2013-07-26 Temperature 98 degrees Fahrenheit 2013-07-26 Heart Rate 76 bpm 2013-07-26 Respiratory Rate 24 2013-07-26 Blood pressure systolic 118 mmHg 2013-07-26 Blood pressure diastolic 90 mmHg 2013-07-26 MEDICATIONS Unknown Medications RESULTS No Results PROCEDURES No Known procedures INSTRUCTIONS MEDICATIONS ADMINISTERED No Known Medications MEDICAL (GENERAL) HISTORY Type Description Date Medical History depression Medical History hyperlipidemia Hospitalization History staph in right leg
--- OUTSIDE RECORDS SUMMARY | 2020-01-01 19:05 | XMS REPORT ---
Author Author Aron Mendes Doctor Organization [facility] Address Unknown Phone Unavailable Care Team Providers Care Welder Gas Name Role Phone Migration, Doctor Unavailable Unavailable PROBLEMS Type Condition ICD9-CM Code VPX13-AC Code Onset Dates Condition S tatus SNOMED Code Problem Nonspecific elevation of lev els of transaminase or lactic acid dehydrogenase (LDH) 790.4 Active 66360523 2 Problem Encounter for long-term (current) use of other medications V58.69 Active 079619227 Problem Edema 782.3 Active 067409585 Problem Spontaneous ecchymoses 782.7 Active 731090926 Problem Trigger finger (acquired) 727.03 Acti ve 2963657 Problem 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 Active 42731570 Problem 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 .42 Active 67404115 Problem 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 Active 89447202 Problem Unspecified local infection of skin and subcutaneous tissu e 686.9 Active 435802771 Problem Unspecified viral hepatitis C without hepatic coma 070.70 Active 70584311 Problem Vascular disorder of skin 709.1 Acti ve 92058733 Problem Dissociative disorder or reaction, 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 Active 86615063 Problem Anxiety state, unspecified 300.00 Act bessy 004175433 Problem Other and unspecified hyperlipidemia 272.4 Active 04960463 Problem Major depressive disorder, recurrent episode, mild 296.31 Active 16979741 ALLERGIES No Information ENCOUNTERS Encounter Location Date Diagnosis [facility] [address] [id number] Nov, Encounter for other specified administra tive purpose Z02.89 [facility] [address] [id number] October, Dental examination Z01.20 and Dental car ies K02.9 [facility] [id number] [place] [address] 14 Jan, 2015 Edema 782.3 and Family history of de la rosa ry artery disease V17.3 [facility] [address] [id number] [place] [address] Jan, Edema 782.3 and Family history of de la rosa ry artery disease V17.3 [facility] [address] [facility] [id number] [place] [id number] Dec, Dental examination V72.2 [facility] [address] [id number] [place] [address] 14 Sep, 2014 [facility] [id number] [place] [address] Sep, [facility] [id number] [place] [address] Aug, [facility] [id number] [place] [address] Aug, [facility] [id number] [place] [address] Jun, [facility] [id number] [place] [address] Jun, [facility] [id number] [place] [address] Jun, [facility] [id number] [place] [address] Jun, [facility] [id number] [place] [address] May, [facility] [id number] [place] [address] May, [facility] [id number] [place] [address] Apr, [facility] [id number] [place] [address] Apr, [facility] [id number] [place] [address] Mar, [facility] [id number] [place] [address] Mar, [facility] [place] [facility] [address] [facility] [id number] [place] [address] Feb, [facility] [place] [facility] [address] [facility] [id number] [place] [address] Feb, [facility] [place] [facility] [address] [id number] [place] [address] Feb, [facility] [place] [facility] [address] [facility] [id number] [place] [address] Jan, [facility] [place] [facility] [address] [facility] [id number] [place] [address] Jan, [facility] [place] [facility] [address] [id number] [place] [address] Jan, [facility] [place] [facility] [address] [id number] [place] [address] Dec, [facility] [place] [facility] [address] [id number] [place] [address] Dec, [facility] [place] [facility] [address] [facility] [id number] [place] [address] Nov, [facility] [place] [facility] [address] [id number] [place] [address] Nov, [facility] [place] [facility] [address] [id number] [place] [address] Nov, [facility] [place] [facility] [address] [id number] [place] [address] Nov, [facility] [place] [facility] [address] [facility] [id number] [place] [address] Nov, [facility] [place] [facility] [address] [id number] [place] [address] Nov, [facility] [place] [facility] [address] [id number] [place] [address] October, [facility] [place] [facility] [address] [id number] [place] [address] October, [facility] [place] [facility] [address] [id number] [place] [address] Sep, [facility] [place] [facility] [address] [id number] [place] [address] Sep, [facility] [place] [facility] [address] [id number] [place] [address] Jul, [facility] [place] [facility] [address] [id number] [place] [address] Jul, [facility] [place] [facility] [address] [id number] [place] [address] Jul, [facility] [place] [facility] [address] [id number] [place] [address] Jul, [facility] [place] [facility] [address] [id number] [place] [address] May, [facility] [place] [facility] [address] [id number] [place] [address] May, [facility] [place] [facility] [address] [id number] [place] [address] May, [facility] [place] [facility] [address] [id number] [place] [address] May, [facility] [place] [facility] [address] [id number] [place] [address] Mar, [facility] [place] [facility] [address] [id number] [place] [address] 17 Mar, 2013 [facility] [place] [facility] [address] [id number] [place] [address] 10 Mar, 2013 [facility] [place] [facility] [address] [id number] [place] [address] 10 Mar, 2013 [facility] [place] [facility] [address] [id number] [place] [address] 04 Mar, 2013 [facility] [place] [facility] [address] [id number] [place] [address] 24 Feb, 2013 [facility] [place] [facility] [address] [id number] [place] [address] Feb, [facility] [place] [facility] [address] [id number] [place] [address] Feb, [facility] [place] [facility] [address] [facility] [id number] [place] [address] Jan, [facility] [place] [facility] [address] [facility] [id number] [place] [address] Jan, [facility] [place] [facility] [address] [facility] [id number] [place] [address] Jan, [facility] [place] [facility] [address] [facility] [id number] [place] [address] Jan, [facility] [place] [facility] [address] [facility] [id number] [place] [address] Jan, [facility] [place] [facility] [address] [facility] [id number] [place] [address] Jan, [facility] [place] [facility] [address] [id number] [place] [address] Jan, [facility] [place] [facility] [address] [facility] [id number] [place] [address] Dec, [facility] [place] [facility] [address] [id number] [place] [address] Dec, [facility] [place] [facility] [address] [facility] [id number] [place] [address] Dec, [facility] [place] [facility] [address] [id number] [place] [address] Nov, [facility] [place] [facility] [address] [facility] [id number] [place] [address] October, [facility] [place] [facility] [address] [facility] [id number] [place] [address] October, [facility] [place] [facility] [address] [facility] [id number] [place] [address] Sep, [facility] [place] [facility] [address] [id number] [place] [address] Jul, [facility] [place] [facility] [address] [id number] [place] [address] 11 Jul, 2012 [facility] [place] [facility] [address] [id number] [place] [address] Jun, [facility] [place] [facility] [address] [id number] [place] [address] Jun, [facility] [place] [facility] [address] [id number] [place] [address] Jun, [facility] [place] [facility] [address] [id number] [place] [address] Jun, [facility] [place] [facility] [address] [id number] [place] [address] Jun, [facility] [place] [facility] [address] [id number] [place] [address] May, [facility] [place] [facility] [address] [id number] [place] [address] May, [facility] [place] [facility] [address] [id number] [place] [address] 14 May, 2012 [facility] [place] [facility] [address] [id number] [place] [address] 14 May, 2012 [facility] [place] [facility] [address] [id number] [place] [address] 20 Apr, 2012 [facility] [place] [facility] [address] [id number] [place] [address] 20 Apr, 2012 [facility] [place] [facility] [address] [id number] [place] [address] 16 Apr, 2012 [facility] [place] [facility] [address] [id number] [place] [address] 16 Apr, 2012 [facility] [place] [facility] [id number] [place] [address] 13 Apr, 2012 [facility] [place] [facility] [address] [id number] [place] [address] 13 Apr, 2012 [facility] [place] [facility] [address] [id number] [place] [address] 13 Apr, 2012 [facility] [place] [facility] [address] [id number] [place] [address] Apr, [facility] [place] [facility] [address] [id number] [place] [address] Apr, [facility] [place] [facility] [address] [id number] [place] [address] Apr, [facility] [place] [facility] [address] [id number] [place] [address] Mar, [facility] [place] [facility] [address] [id number] [place] [address] Mar, [facility] [place] [facility] [address] [id number] [place] [address] Mar, [facility] [place] [facility] [address] [id number] [place] [address] Mar, [facility] [place] [facility] [address] [id number] [place] [address] Mar, [facility] [place] [facility] [address] [id number] [place] [address] Mar, [facility] [place] [facility] [address] [id number] [place] [address] Mar, [facility] [place] [facility] [address] [id number] [place] [address] Mar, [facility] [place] [facility] [address] [id number] [place] [address] Feb, [facility] [place] [facility] [address] [id number] [place] [address] Jan, [facility] [place] [facility] [address] [id number] [place] [address] Jan, [facility] [place] [facility] [address] [id number] [place] [address] Dec, [facility] [place] [facility] [address] [id number] [place] [address] Nov, [facility] [place] [facility] [address] [id number] [place] [address] Nov, [facility] [place] [facility] [address] [id number] [place] [address] Nov, [facility] [place] [facility] [address] [id number] [place] [address] Nov, [facility] [place] [facility] [address] [id number] [place] [address] Nov, [facility] [place] [facility] [address] [id number] [place] [address] Nov, [facility] [place] [facility] [address] [facility] [id number] [place] [address] October, [facility] [place] [facility] [address] [id number] [place] [address] October, [facility] [place] [facility] [address] [id number] [place] [address] October, [facility] [place] [facility] [address] [id number] [place] [address] October, [facility] [place] [facility] [address] [id number] [place] [address] October, [facility] [place] [facility] [address] [id number] [place] [address] October, [facility] [place] [facility] [address] [id number] [place] [address] October, [facility] [place] [facility] [address] [id number] [place] [address] Sep, [facility] [place] [facility] [address] [id number] [place] [address] Sep, [facility] [place] [facility] [address] [id number] [place] [address] Aug, [facility] [place] [facility] [address] [id number] [place] [address] 15 Aug, 2011 [facility] [place] [facility] [address] [id number] [place] [address] Aug, [facility] [place] [facility] [address] [id number] [place] [address] Aug, [facility] [address] [id number] [place] [address] Jul, [facility] [address] [id number] [place] [address] Jul, [facility] [id number] [place] [address] Jul, [facility] [id number] [place] [address] Jul, [facility] [id number] [place] [address] May, [facility] [id number] [place] [address] May, [facility] [id number] [place] [address] May, [facility] [id number] [place] [address] Apr, [facility] [id number] [place] [address] Mar, [facility] [id number] [place] [address] Mar, IMMUNIZATIONS No Known Immunizations SOCIAL HISTORY Never Assessed REASON FOR VISIT PLAN OF CARE VITAL SIGNS Height 69 in 2013-11-30 Weight 200.38 lbs 2013-11-30 Temperature 98.9 degrees Fahrenheit 2013-11-30 Heart Rate 72 bpm 2013-11-30 Respiratory Rate 28 2013-11-30 Blood pressure systolic 116 mmHg 2013-11-30 Blood pressure diastolic 80 mmHg 2013-11-30 MEDICATIONS Unknown Medications RESULTS No Results PROCEDURES Procedure Date Ordered Result Body Site PSYTX PT&/FAMILY 45 MINUTES November 30, 2013 INSTRUCTIONS MEDICATIONS ADMINISTERED No Known Medications MEDICAL (GENERAL) HISTORY Type Description Date Medical History depression Medical History hyperlipidemia Hospitalization History staph in right leg
--- OUTSIDE RECORDS SUMMARY | 2020-01-01 19:05 | XMS REPORT ---
Author Author Aron LEE Organization [facility] Address [address] [place] [address] Care Team Providers Care Labor Relations Representative Name Role Phone THANH LEE Unavailable PROBLEMS Type Condition ICD9-CM Code GMZ40-PN Code Onset Dates Condition S tatus SNOMED Code Problem Nonspecific elevation of lev els of transaminase or lactic acid dehydrogenase (LDH) 790.4 Active 98848333 2 Problem Encounter for long-term (current) use of other medications V58.69 Active 903053780 Problem Edema 782.3 Active 868229339 Problem Spontaneous ecchymoses 782.7 Active 421448458 Problem Trigger finger (acquired) 727.03 Acti ve 4914787 Problem 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 Active 28180529 Problem 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 .42 Active 71867042 Problem 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 Active 98753414 Problem Unspecified local infection of skin and subcutaneous tissu e 686.9 Active 156815204 Problem Unspecified viral hepatitis C without hepatic coma 070.70 Active 93683767 Problem Vascular disorder of skin 709.1 Acti ve 36767308 Problem Dissociative disorder or reaction, 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 Active 44575309 Problem Anxiety state, unspecified 300.00 Act bessy 089851701 Problem Other and unspecified hyperlipidemia 272.4 Active 82285439 Problem Major depressive disorder, recurrent episode, mild 296.31 Active 51536090 ALLERGIES No Information ENCOUNTERS Encounter Location Date Diagnosis [facility] [address] [id number] Nov, Encounter for other specified administra tive purpose Z02.89 [facility] [address] [id number] October, Dental examination Z01.20 and Dental car ies K02.9 [facility] [address] [id number] [place] [address] 14 Jan, 2015 Edema 782.3 and Family history of de la rosa ry artery disease V17.3 [facility] [address] [id number] [place] [address] 07 Jan, 2015 Edema 782.3 and Family history of de la rosa ry artery disease V17.3 [facility] [address] [id number] [place] [id number] Dec, Dental examination V72.2 [facility] [address] [id number] [place] [address] Sep, [facility] [address] [address] Sep, [facility] [id number] [place] [address] Aug, [facility] [address] [address] Aug, [facility] [id number] [place] [address] Jun, [facility] [address] [address] Jun, [facility] [address] [address] Jun, [facility] [address] [address] Jun, [facility] [id number] [place] [address] May, [facility] [id number] [place] [address] May, [facility] [id number] [place] [address] Apr, [facility] [id number] [place] [address] Apr, [facility] [address] [address] Mar, [facility] [address] [facility] [id number] [facility] [place] [address] Mar, [facility] [address] [facility] [id number] [facility] [place] [address] Feb, [facility] [address] [id number] [facility] [place] [address] Feb, [facility] [address] [id number] [facility] [place] [address] Feb, [facility] [address] [facility] [id number] [facility] [place] [address] Jan, [facility] [address] [id number] [place] [address] Jan, [facility] [address] [id number] [place] [address] Jan, [facility] [address] [id number] [place] [address] Dec, [facility] [address] [id number] [place] [address] Dec, [facility] [address] [id number] [place] [address] Nov, [facility] [address] [id number] [place] [address] Nov, [facility] [address] [id number] [place] [address] Nov, [facility] [address] [id number] [place] [address] Nov, [facility] [address] [id number] [place] [address] Nov, [facility] [address] [id number] [place] [address] Nov, [facility] [address] [id number] [place] [address] October, [facility] [address] [id number] [place] [address] October, [facility] [address] [id number] [place] [address] Sep, [facility] [address] [id number] [place] [address] Sep, [facility] [address] [id number] [place] [address] Jul, [facility] [address] [id number] [place] [address] Jul, [facility] [address] [id number] [place] [address] Jul, [facility] [address] [id number] [place] [address] Jul, [facility] [id number] [place] [address] May, [facility] [address] [id number] [place] [address] May, [facility] [address] [id number] [place] [address] May, [facility] [address] [id number] [place] [address] May, [facility] [address] [id number] [place] [address] Mar, [facility] [address] [id number] [place] [address] Mar, [facility] [address] [id number] [place] [address] Mar, [facility] [id number] [place] [address] Mar, [facility] [address] [id number] [place] [address] Mar, [facility] [address] [id number] [place] [address] Feb, [facility] [address] [id number] [place] [address] 19 Feb, 2013 [facility] [address] [facility] [id number] [facility] [place] [address] Feb, [facility] [address] [facility] [id number] [place] [address] Jan, [facility] [address] [id number] [facility] [place] [address] Jan, [facility] [address] [facility] [id number] [place] [address] Jan, [facility] [address] [id number] [place] [address] Jan, [facility] [address] [id number] [place] [address] Jan, [facility] [address] [id number] [place] [address] Jan, [facility] [address] [id number] [place] [address] Jan, [facility] [address] [id number] [place] [address] Dec, [facility] [address] [id number] [place] [address] Dec, [facility] [address] [id number] [place] [address] Dec, [facility] [address] [id number] [place] [address] Nov, [facility] [address] [id number] [place] [address] October, [facility] [address] [id number] [place] [address] October, [facility] [address] [id number] [place] [address] Sep, [facility] [address] [id number] [place] [address] Jul, [facility] [address] [id number] [place] [address] Jul, [facility] [address] [id number] [place] [address] Jun, [facility] [address] [id number] [place] [address] Jun, [facility] [address] [id number] [place] [address] Jun, [facility] [address] [id number] [place] [address] Jun, [facility] [address] [id number] [place] [address] Jun, [facility] [address] [id number] [place] [address] May, [facility] [address] [id number] [place] [address] May, [facility] [address] [id number] [place] [address] May, [facility] [address] [id number] [place] [address] 14 May, 2012 [facility] [address] [id number] [place] [address] Apr, [facility] [address] [id number] [place] [address] 20 Apr, 2012 [facility] [address] [id number] [place] [address] 16 Apr, 2012 [facility] [address] [id number] [place] [address] 16 Apr, 2012 [facility] [address] [id number] [place] [address] 13 Apr, 2012 [facility] [address] [id number] [place] [address] 13 Apr, 2012 [facility] [address] [id number] [place] [address] Apr, [facility] [address] [id number] [place] [address] Apr, [facility] [address] [id number] [place] [address] Apr, [facility] [address] [id number] [place] [address] Apr, [facility] [address] [id number] [place] [address] Mar, [facility] [address] [id number] [place] [address] Mar, [facility] [address] [id number] [place] [address] Mar, [facility] [address] [id number] [place] [address] Mar, [facility] [address] [id number] [place] [address] Mar, [facility] [address] [id number] [place] [address] Mar, [facility] [address] [id number] [place] [address] Mar, [facility] [address] [id number] [place] [address] Mar, [facility] [address] [id number] [place] [address] Feb, [facility] [address] [id number] [place] [address] Jan, [facility] [address] [id number] [place] [address] Jan, [facility] [address] [id number] [place] [address] Dec, [facility] [address] [id number] [place] [address] Nov, [facility] [address] [facility] [id number] [place] [address] Nov, [facility] [address] [id number] [facility] [place] [address] Nov, [facility] [address] [id number] [place] [address] Nov, [facility] [address] [id number] [place] [address] Nov, [facility] [address] [facility] [id number] [place] [address] Nov, [facility] [address] [id number] [place] [address] October, [facility] [address] [id number] [place] [address] October, [facility] [address] [id number] [place] [address] October, [facility] [address] [id number] [place] [address] October, [facility] [address] [id number] [place] [address] October, [facility] [address] [id number] [place] [address] October, [facility] [address] [id number] [place] [address] October, [facility] [address] [id number] [place] [address] Sep, [facility] [address] [id number] [place] [address] Sep, [facility] [address] [id number] [place] [address] Aug, [facility] [address] [id number] [place] [address] Aug, [facility] [address] [id number] [place] [address] 13 Aug, 2011 [facility] [address] [id number] [place] [address] Aug, [facility] [address] [id number] [place] [address] Jul, [facility] [id number] [place] [address] Jul, [facility] [id number] [place] [address] Jul, [facility] [id number] [place] [address] Jul, [facility] [id number] [place] [address] May, [facility] [id number] [place] [address] May, [facility] [id number] [place] [address] May, [facility] [id number] [place] [address] Apr, [facility] [id number] [place] [address] Mar, [facility] [id number] [place] [address] Mar, IMMUNIZATIONS No Known Immunizations SOCIAL HISTORY Never Assessed REASON FOR VISIT PLAN OF CARE VITAL SIGNS MEDICATIONS Unknown Medications RESULTS No Results PROCEDURES Procedure Date Ordered Result Body Site PSYTX PT&/FAMILY 45 MINUTES Aug 04, 2013 INSTRUCTIONS MEDICATIONS ADMINISTERED No Known Medications MEDICAL (GENERAL) HISTORY Type Description Date Medical History depression Medical History hyperlipidemia Hospitalization History staph in right leg
--- OUTSIDE RECORDS SUMMARY | 2020-01-01 19:07 | XMS REPORT | Continuity of Care Document ---
Author Organization Unknown Address Unknown Phone Unavailable Allergies Active Description Code Type Severity Reaction Onset Reported/Identified Relationship to Patient Clinical Status Yes No Known Drug Allergies [id number] Drug Allergy Unknown N/A 03/08/2019 Medications There is no data. Problems Date Dx Coded Attending Type Code Diagnosis Diagnosed By 03/14/2011 THANH LEE PHD 728.71 Plantar Fascial Fibromatosis 03/14/2011 LANI PADILLA DO 728 .71 Plantar Fascial Fibromatosis 03/14/2011 THANH LEE PHD 728.71 Plantar Fascial Fibromatosis 03/14/2011 RAJ SINGLETON DO 728.71 Plantar Fascial Fibromatosis 03/14/2011 728.71 Elizabeth ntar Fascial Fibromatosis 03/14/2011 728.71 Elizabeth ntar Fascial Fibromatosis 03/14/2011 728.71 Elizabeth ntar Fascial Fibromatosis 03/14/2011 728.71 Elizabeth ntar Fascial Fibromatosis 03/14/2011 728.71 Elizabeth ntar Fascial Fibromatosis 03/14/2011 CORNELIO TOPETE PA-C 728.71 [...] 728.71 Plantar Fascial Fibromatosis 03/14/2011 MARY JANE ROLE PLAYER, GRETA 728 .71 Plantar Fascial Fibromatosis 03/14/2011 THANH LEE PHD 728.71 Plantar Fascial Fibromatosis 03/14/2011 MARY JANE ROLE PLAYER, GRETA 728 .71 Plantar Fascial Fibromatosis 03/14/2011 THANH LEE PHD 728.71 Plantar Fascial Fibromatosis 03/29/2011 THANH LEE PHD 3 11 DEPRESSIVE DISORDER NOT ELSEWHERE CLASSIFIED 03/29/2011 THANH LEE PHD 729.5 PAIN IN LIMB 03/29/2011 LANI PADILLA DO F 311 DEPRESSIVE DISORDER NOT ELSEWHERE CLASSIFIED 03/29/2011 LANI PADILLA DO F 729 .5 PAIN IN LIMB 03/29/2011 THANH LEE PHD 3 11 DEPRESSIVE DISORDER NOT ELSEWHERE CLASSIFIED 03/29/2011 THANH LEE PHD 729.5 PAIN IN LIMB 03/29/2011 RAJ SINGLETON DO 311 DEPRESSIVE DISORDER NOT ELSEWHERE CLASSIFIED 03/29/2011 RAJ SINGLETON DO 729.5 Pain In Limb 03/29/2011 311 DEPRES SIVE DISORDER NOT ELSEWHERE CLASSIFIED 03/29/2011 729.5 Pain In Limb 03/29/2011 311 DEPRES SIVE DISORDER NOT ELSEWHERE CLASSIFIED 03/29/2011 729.5 Pain In Limb 03/29/2011 311 DEPRES SIVE DISORDER NOT ELSEWHERE CLASSIFIED 03/29/2011 729.5 Pain In Limb 03/29/2011 311 DEPRES SIVE DISORDER NOT ELSEWHERE CLASSIFIED 03/29/2011 729.5 Pain In Limb 03/29/2011 311 DEPRES SIVE DISORDER NOT ELSEWHERE CLASSIFIED 03/29/2011 729.5 Pain In Limb 03/29/2011 CORNELIO TOPETE PA-C 3 11 DEPRESSIVE DISORDER NOT ELSEWHERE CLASSIFIED 03/29/2011 CORNELIO TOPETE PA-C 729.5 Pain In Limb 03/29/2011 THANH LEE PHD 3 11 DEPRESSIVE DISORDER NOT ELSEWHERE CLASSIFIED 03/29/2011 THANH LEE PHD 729.5 Pain In Limb 03/29/2011 SINGLETON DO, RAJ K 311 DEPRESSIVE DISORDER NOT ELSEWHERE CLASSIFIED 03/29/2011 SINGLETON DO, RAJ K 729.5 Pain In Limb 03/29/2011 THANH LEE PHD 3 11 DEPRESSIVE DISORDER NOT ELSEWHERE CLASSIFIED 03/29/2011 THANH LEE PHD A 729.5 Pain In Limb 03/29/2011 ARTURO WELLS APRN 311 DEPRESSIVE DISORDER NOT ELSEWHERE CLASSIFIED 03/29/2011 ARTURO WELLS APRN 729.5 Pain In Limb 03/29/2011 [facility] THANH PULIDO 3 11 DEPRESSIVE DISORDER NOT ELSEWHERE CLASSIFIED 03/29/2011 THANH LEE PHD A 729.5 Pain In Limb 03/29/2011 THANH LEE PHD 3 11 DEPRESSIVE DISORDER NOT ELSEWHERE CLASSIFIED 03/29/2011 THANH LEE PHD 729.5 Pain In Limb 03/29/2011 THANH LEE PHD 3 11 DEPRESSIVE DISORDER NOT ELSEWHERE CLASSIFIED 03/29/2011 THANH LEE PHD 729.5 Pain In Limb 03/29/2011 ARTURO WELLS APRN 311 DEPRESSIVE DISORDER NOT ELSEWHERE CLASSIFIED 03/29/2011 ARTURO WELLS APRN 729.5 Pain In Limb 03/29/2011 THANH LEE PHD 3 11 DEPRESSIVE DISORDER NOT ELSEWHERE CLASSIFIED 03/29/2011 THANH LEE PHD 729.5 Pain In Limb 03/29/2011 SINGLETON DO, RAJ K 311 DEPRESSIVE DISORDER NOT ELSEWHERE CLASSIFIED 03/29/2011 SINGLETON DO RAJ K 729.5 Pain In Limb 03/29/2011 MARY JANE ROLE PLAYER, GRETA 311 DEPRESSIVE DISORDER NOT ELSEWHERE CLASSIFIED 03/29/2011 MARY JANE ROLE PLAYER, GRETA 729 .5 Pain In Limb 03/29/2011 THANH LEE PHD A 3 11 DEPRESSIVE DISORDER NOT ELSEWHERE CLASSIFIED 03/29/2011 THANH LEE PHD A 729.5 Pain In Limb 03/29/2011 MARY JANE ROLE PLAYER, GRETA 311 DEPRESSIVE DISORDER NOT ELSEWHERE CLASSIFIED 03/29/2011 MARY JANE ROLE PLAYER, GRETA 729 .5 Pain In Limb 03/29/2011 THANH LEE PHD A 3 11 DEPRESSIVE DISORDER NOT ELSEWHERE CLASSIFIED 03/29/2011 THANH LEE PHD A 729.5 Pain In Limb 03/30/2011 THANH LEE PHD 296.30 MO DEPRESSIVE RECURRENT UNSPECIFIED 03/30/2011 JESUS PULIDO, THANH Irwin 304.80 SA POLYSUB DEP 03/30/2011 THANH LEE PHD 307.47 SI DYSSOMNIA NOS 03/30/2011 LANI PADILLA DO F 296 .30 MO DEPRESSIVE RECURRENT UNSPECIFIED 03/30/2011 VALERIE DO, LANI F 304 .80 SA POLYSUB DEP 03/30/2011 VALERIE REILLY, LANI F 307 .47 SI DYSSOMNIA NOS 03/30/2011 THANH LEE PHD [...] LEE PHD 307.47 SI DYSSOMNIA NOS 03/30/2011 PRISCILLA LESTER ARTURO AISSATOU 296.30 MO DEPRESSIVE RECURRENT UNSPECIFIED 03/30/2011 ARTURO WELLS APRN 304.80 SA POLYSUB DEP 03/30/2011 ARTURO WELLS [...] LEE PHD 307.47 SI DYSSOMNIA NOS 03/30/2011 PRISCILLA LESTER ARTURO ETIENNEH 296.30 MO DEPRESSIVE RECURRENT UNSPECIFIED 03/30/2011 ARTURO WELLS APRN 304.80 SA POLYSUB DEP 03/30/2011 ARTURO WELLS APRN 307.47 SI DYSSOMNIA NOS 03/30/2011 THANH LEE PHD 296.30 MO DEPRESSIVE RECURRENT UNSPECIFIED 03/30/2011 THANH LEE PHD 304.80 SA POLYSUB DEP 03/30/2011 THANH LEE PHD 307.47 SI DYSSOMNIA NOS 03/30/2011 RAJ SINGLETON DO 296.30 MO DEPRESSIVE RECURRENT UNSPECIFIED 03/30/2011 SINGLETON DORAJ K 304.80 SA POLYSUB DEP 03/30/2011 SINGLETON DORAJ K 307.47 SI DYSSOMNIA NOS 03/30/[address]LE PLAYER, GRETA 296 .30 MO DEPRESSIVE RECURRENT UNSPECIFIED 03/30/[address] JANE [address]LE PLAYER, GRETA 304 .80 SA POLYSUB DEP 03/30/2011 MARY JANE ROLE PLAYER, GRETA 307 .47 SI DYSSOMNIA NOS 03/30/2011 THANH LEE PHD 296.30 MO DEPRESSIVE RECURRENT UNSPECIFIED 03/30/2011 THANH LEE PHD 304.80 SA POLYSUB DEP 03/30/2011 THANH LEE PHD 307.47 SI DYSSOMNIA NOS 03/30/2011 MARY JANE ROLE PLAYER, GRETA 296 .30 MO DEPRESSIVE RECURRENT UNSPECIFIED 03/30/[address] M[address] JANE ROLE PLAYER, GRETA 304 .80 SA POLYSUB DEP 03/30/2011 MARY JANE ROLE PLAYER, GRETA 307 .47 SI DYSSOMNIA NOS 03/30/2011 THANH LEE PHD 296.30 MO DEPRESSIVE RECURRENT UNSPECIFIED 03/30/2011 THANH LEE PHD 304.80 SA POLYSUB DEP 03/30/2011 THANH LEE PHD 307.47 SI DYSSOMNIA NOS 05/29/2011 THANH LEE PHD 296.32 MO DEPRESSIVE RECURRENT MODERATE 05/29/2011 LANI PADILLA DO 296 .32 MO DEPRESSIVE RECURRENT MODERATE 05/29/2011 THANH LEE PHD 296.32 MO DEPRESSIVE RECURRENT MODERATE 05/29/2011 RAJ SINGLETON DO 296.32 MO DEPRESSIVE RECURRENT MODERATE 05/29/2011 296.32 MO DEPRESSIVE RECURRENT MODERATE 05/29/2011 296.32 MO DEPRESSIVE RECURRENT MODERATE 05/29/2011 296.32 MO DEPRESSIVE RECURRENT MODERATE 05/29/2011 296.32 MO DEPRESSIVE RECURRENT MODERATE 05/29/2011 296.32 MO DEPRESSIVE RECURRENT MODERATE 05/29/2011 CORNELIO TOPETE PA-C 296.32 MO DEPRESSIVE RECURRENT MODERATE 05/29/2011 [facility] THANH [place]win 296.32 MO DEPRESSIVE RECURRENT MODERATE 05/29/2011 RAJ SINGLETON DO 296.32 MO DEPRESSIVE RECURRENT MODERATE 05/29/2011[facility] , THANH Irwin 296.32 MO DEPRESSIVE RECURRENT MODERATE 05/29/2011 PRISCILLA LESTER ARTURO REYEZ 296.32 MO DEPRESSIVE RECURRENT MODERATE 05/29/2011 [facility] THANH PULIDO 296.32 MO DEPRESSIVE RECURRENT MODERATE 05/29/2011 [facility] , THANH Irwin 296.32 MO DEPRESSIVE RECURRENT MODERATE 05/29/2011 [facility] THANH [place] 296.32 MO DEPRESSIVE RECURRENT MODERATE 05/29/2011 PRISCILLA LESTER ARTURO REYEZ 296.32 MO DEPRESSIVE RECURRENT MODERATE 05/29/2011 [facility] , THANH A 296.32 MO DEPRESSIVE RECURRENT MODERATE 05/29/2011 RAJ SINGLETON DO 296.32 MO DEPRESSIVE RECURRENT MODERATE 05/29/[address]LE PLAYER, GRETA 296 .32 MO DEPRESSIVE RECURRENT MODERATE 05/29/2011 [facility] THANH PULIDO 296.32 MO DEPRESSIVE RECURRENT MODERATE 05/29/[address]LE PLAYER, GRETA 296 .32 MO DEPRESSIVE RECURRENT MODERATE 05/29/2011 [facility] THANH PULIDO 296.32 MO DEPRESSIVE RECURRENT MODERATE 10/11/2011 THANH LEE PHD 111.0 PITYRIASIS VERSICOLOR 10/11/2011 THANH LEE PHD 272.4 OTHER AND UNSPECIFIED HYPERLIPIDEMIA 10/11/2011 LANI PADILLA DO 111 .0 PITYRIASIS VERSICOLOR 10/11/2011 LANI PADILLA DO 272 .4 OTHER AND UNSPECIFIED HYPERLIPIDEMIA 10/11/2011 THANH LEE PHD 111.0 PITYRIASIS VERSICOLOR 10/11/2011 THANH LEE PHD 272.4 OTHER AND UNSPECIFIED HYPERLIPIDEMIA 10/11/2011 RAJ SINGLETON DO 111.0 PITYRIASIS VERSICOLOR 10/11/2011 RAJ SINGLETON DO 272.4 OTHER AND UNSPECIFIED HYPERLIPIDEMIA 10/11/2011 111.0 PITY RIASIS VERSICOLOR 10/11/2011 272.4 OTHE R AND UNSPECIFIED HYPERLIPIDEMIA 10/11/2011 111.0 PITY RIASIS VERSICOLOR 10/11/2011 272.4 OTHE R AND UNSPECIFIED HYPERLIPIDEMIA 10/11/2011 111.0 PITY RIASIS VERSICOLOR 10/11/2011 272.4 OTHE R AND UNSPECIFIED HYPERLIPIDEMIA 10/11/2011 111.0 PITY RIASIS VERSICOLOR 10/11/2011 272.4 OTHE R AND UNSPECIFIED HYPERLIPIDEMIA 10/11/2011 111.0 PITY RIASIS VERSICOLOR 10/11/2011 272.4 OTHE R AND UNSPECIFIED HYPERLIPIDEMIA 10/11/2011 CORNELIO TOPETE PA-C 111.0 PITYRIASIS VERSICOLOR 10/11/2011 CORNELIO TOPETE PA-C 272.4 OTHER AND UNSPECIFIED HYPERLIPIDEMIA 10/11/2011 THANH LEE PHD 111.0 PITYRIASIS VERSICOLOR 10/11/2011 THANH LEE PHD 272.4 OTHER AND UNSPECIFIED HYPERLIPIDEMIA 10/11/2011 SINGLETON DONANCYA K 111.0 PITYRIASIS VERSICOLOR 10/11/2011 SINGLETON DO RAJ K 272.4 OTHER AND UNSPECIFIED HYPERLIPIDEMIA 10/11/2011 THANH LEE PHD A 111.0 PITYRIASIS VERSICOLOR 10/11/2011 JESUS PULIDO, THANH Irwin 272.4 OTHER AND UNSPECIFIED HYPERLIPIDEMIA 10/11/2011 ARTURO WELLS APRN 111.0 PITYRIASIS VERSICOLOR 10/11/2011 ARTURO WELLS APRN 272.4 OTHER AND UNSPECIFIED HYPERLIPIDEMIA 10/11/2011 JESUS PULIDO, THANH A 111.0 PITYRIASIS VERSICOLOR 10/11/2011 JESUS PULIDO, THANH A 272.4 OTHER AND UNSPECIFIED HYPERLIPIDEMIA 10/11/2011 JESUS PULIDO, THANH A 111.0 PITYRIASIS VERSICOLOR 10/11/2011 THANH LEE PHD 272.4 OTHER AND UNSPECIFIED HYPERLIPIDEMIA 10/11/2011 JESUS PULIDO, THANH A 111.0 PITYRIASIS VERSICOLOR 10/11/2011 JESUS PULIDO, THANH A 272.4 OTHER AND UNSPECIFIED HYPERLIPIDEMIA 10/11/2011 ARTURO WELLS APRN 111.0 PITYRIASIS VERSICOLOR 10/11/2011 WELLS ROLE PLAYER, ARTURO AISSATOU 272.4 OTHER AND UNSPECIFIED HYPERLIPIDEMIA 10/11/2011 THANH LEE PHD 111.0 PITYRIASIS VERSICOLOR 10/11/2011 THANH LEE PHD 272.4 OTHER AND UNSPECIFIED HYPERLIPIDEMIA 10/11/2011 RAJ SINGLETON DO K 111.0 PITYRIASIS VERSICOLOR 10/11/2011 SINGLETON DONANCYA K 272.4 OTHER AND UNSPECIFIED HYPERLIPIDEMIA 10/11/[address] M[address] JANE [address]LE PLAYER, GRETA 111 .0 PITYRIASIS VERSICOLOR 10/11/2011 MARY JANE ROLE PLAYER, GRETA 272 .4 OTHER AND UNSPECIFIED HYPERLIPIDEMIA 10/11/2011 THANH LEE PHD 111.0 PITYRIASIS VERSICOLOR 10/11/2011 THANH LEE PHD 272.4 OTHER AND UNSPECIFIED HYPERLIPIDEMIA 10/11/2011 MARY JANE ROLE PLAYER, GRETA 111 .0 PITYRIASIS VERSICOLOR 10/11/2011 MARY JANE ROLE PLAYER, GRETA 272 .4 OTHER AND UNSPECIFIED HYPERLIPIDEMIA 10/11/2011 THANH LEE PHD 111.0 PITYRIASIS VERSICOLOR 10/11/2011 THANH LEE PHD 272.4 OTHER AND UNSPECIFIED HYPERLIPIDEMIA 10/21/2011 THANH LEE PHD 686.9 UNSPECIFIED LOCAL INFECTION OF SKIN AND SUBCUTANEOUS T ISSUE 10/21/2011 LANI PADILLA DO 686 .9 UNSPECIFIED LOCAL INFECTION OF SKIN AND SUBCUTANEOUS TISSUE 10/21/2011 THANH LEE PHD 686.9 UNSPECIFIED LOCAL INFECTION OF SKIN AND SUBCUTANEOUS T ISSUE 10/21/2011 RAJ SINGLETON DO 686.9 UNSPECIFIED LOCAL INFECTION OF SKIN AND SUBCUTANEOUS TISSUE 10/21/2011 686.9 UNSP ECIFIED LOCAL INFECTION OF SKIN AND SUBCUTANEOUS TISSUE 10/21/2011 686.9 UNSP ECIFIED LOCAL INFECTION OF SKIN AND SUBCUTANEOUS TISSUE 10/21/2011 686.9 UNSP ECIFIED LOCAL INFECTION OF SKIN AND SUBCUTANEOUS TISSUE 10/21/2011 686.9 UNSP ECIFIED LOCAL INFECTION OF SKIN AND SUBCUTANEOUS TISSUE 10/21/2011 686.9 UNSP ECIFIED LOCAL INFECTION OF SKIN AND SUBCUTANEOUS TISSUE 10/21/2011 CORNELIO TOPETE PA-C 686.9 UNSPECIFIED LOCAL INFECTION OF SKIN AND SUBCUTANEOUS T ISSUE 10/21/2011 THANH LEE PHD 686.9 UNSPECIFIED LOCAL INFECTION OF SKIN AND SUBCUTANEOUS T ISSUE 10/21/2011 RAJ SINGLETON DO 686.9 UNSPECIFIED LOCAL INFECTION OF SKIN AND SUBCUTANEOUS TISSUE 10/21/2011 THANH LEE PHD 686.9 UNSPECIFIED LOCAL INFECTION OF SKIN AND SUBCUTANEOUS T ISSUE 10/21/2011 PRISCILLA LESTERARTURO 686.9 UNSPECIFIED LOCAL INFECTION OF SKIN AND SUBCUTANEOUS T ISSUE 10/21/2011 BOETHANH GALICIA PHD 686.9 UNSPECIFIED LOCAL INFECTION OF SKIN AND SUBCUTANEOUS T ISSUE 10/21/2011 BOETHANH GALICIA PHD 686.9 UNSPECIFIED LOCAL INFECTION OF SKIN AND SUBCUTANEOUS T ISSUE 10/21/2011 THANH LEE PHD 686.9 UNSPECIFIED LOCAL INFECTION OF SKIN AND SUBCUTANEOUS T ISSUE 10/21/2011 PRISCILLA LESTER ARTURO REYEZ 686.9 UNSPECIFIED LOCAL INFECTION OF SKIN AND SUBCUTANEOUS T ISSUE 10/21/2011 THANH LEE PHD 686.9 UNSPECIFIED LOCAL INFECTION OF SKIN AND SUBCUTANEOUS T ISSUE 10/21/2011 RAJ SINGLETON DO 686.9 UNSPECIFIED LOCAL INFECTION OF SKIN AND SUBCUTANEOUS TISSUE 10/21/[address]LE PLAYER, GRETA 686 .9 UNSPECIFIED LOCAL INFECTION OF SKIN AND SUBCUTANEOUS TISSUE 10/21/2011 THANH LEE PHD 686.9 UNSPECIFIED LOCAL INFECTION OF SKIN AND SUBCUTANEOUS T ISSUE 10/21/2011 MARY JANE LESTER, GRETA 686 .9 UNSPECIFIED LOCAL INFECTION OF SKIN AND SUBCUTANEOUS TISSUE 10/21/2011 THANH LEE PHD 686.9 UNSPECIFIED LOCAL INFECTION OF SKIN AND SUBCUTANEOUS T ISSUE 11/06/2011 THANH LEE PHD 782.3 EDEMA 11/06/2011 JESUS PULIDO, THANH Irwin 782.7 petichiae 11/06/2011 WERLANI SAUER DO F 782 .3 EDEMA 11/06/2011 WERLANI SAUER DO F 782 .7 petichiae 11/06/2011 THANH LEE PHD 782.3 EDEMA 11/06/2011 THANH LEE PHD 782.7 petichiae 11/06/2011 SINGLETON RAJ REILLY 782.3 Edema 11/06/2011 SINGLETON RAJ REILLY 782.7 Petichiae 11/06/2011 782.3 Edema 11/06/2011 782.7 Peti chiae 11/06/2011 782.3 Edema 11/06/2011 782.7 Peti chiae 11/06/2011 782.3 Edema 11/06/2011 782.7 Peti chiae 11/06/2011 782.3 Edema 11/06/2011 782.7 Peti chiae 11/06/2011 782.3 Edema 11/06/2011 782.7 Peti chiae 11/06/2011 CORNELIO TOPETE PA-C 782.3 Edema 11/06/2011 CORNELIO TOPETE PA-C 782.7 Petichiae 11/06/2011 JESUS PHD, THANH A 782.3 Edema 11/06/2011 BOEGRAYSON PHD, THANH A 782.7 Petichiae 11/06/2011 SINGLETON DO, RAJ K 782.3 Edema 11/06/2011 SINGLETON DO, RAJ K 782.7 Petichiae 11/06/2011 BOEGRAYSON PHD, THANH A 782.3 Edema 11/06/2011 BOEGRAYSON PHD, THANH A 782.7 Petichiae 11/06/2011 WELLS ROLE PLAYER, ARTURO ETIENNEH 782.3 Edema 11/06/2011 WELLS ROLE PLAYER, ARTURO ETIENNEH 782.7 Petichiae 11/06/2011 BOEGRAYSON PHD, THANH A 782.3 Edema 11/06/2011 BOEGRAYSON PHD, THANH A 782.7 Petichiae 11/06/2011 BOEGRAYSON PHD, THANH A 782.3 Edema 11/06/2011 BOEGRAYSON PHD, THANH A 782.7 Petichiae 11/06/2011 BOEGRAYSON PHD, THANH A 782.3 Edema 11/06/2011 BOEGRAYSON PHD, THANH A 782.7 Petichiae 11/06/2011 WELLS ROLE PLAYER, ARTURO ETIENNEH 782.3 Edema 11/06/2011 WELLS ROLE PLAYER, ARTURO ETIENNEH 782.7 Petichiae 11/06/2011 BOEGRAYSON PHD, THANH A 782.3 Edema 11/06/2011 BOEGRAYSON PHD, THANH A 782.7 Petichiae 11/06/2011 SINGLETON DO, RAJ K 782.3 Edema 11/06/2011 SINGLETON DO, RAJ K 782.7 Petichiae 11/06/2011 MARY JANE ROLE PLAYER, GRETA 782 .3 Edema 11/06/2011 MARY JANE ROLE PLAYER, GRETA 782 .7 Petichiae 11/06/2011 THANH LEE PHD 782.3 Edema 11/06/2011 THANH LEE PHD 782.7 Petichiae 11/06/2011 MARY JANE ROLE PLAYER, GRETA 782 .3 Edema 11/06/2011 MARY JANE ROLE PLAYER, GRETA 782 .7 Petichiae 11/06/2011 THANH LEE PHD 782.3 Edema 11/06/2011 THANH LEE PHD 782.7 Petichiae 11/20/2011 THANH LEE PHD 709.1 VASCULAR DISORDERS OF SKIN 11/20/2011 LANI PADILLA DO 709 .1 VASCULAR DISORDERS OF SKIN 11/20/2011 HTANH LEE PHD 709.1 VASCULAR DISORDERS OF SKIN 11/20/2011 RAJ SINGLETON DO 709.1 Vascular Disorders Of Skin 11/20/2011 709.1 Vasc ular Disorders Of Skin 11/20/2011 709.1 Vasc ular Disorders Of Skin 11/20/2011 709.1 Vasc ular Disorders Of Skin 11/20/2011 709.1 Vasc ular Disorders Of Skin 11/20/2011 709.1 Vasc ular Disorders Of Skin 11/20/2011 EFREM CHANCE, CORNELIO [...] Disorders Of Skin 11/20/2011 GRETA HINTON APRN 709 .1 Vascular Disorders Of Skin 11/20/2011 THANH LEE PHD 709.1 Vascular Disorders Of Skin 11/20/2011 MARY JANE LESTER [place] 709 .1 Vascular Disorders Of Skin 11/20/2011 THANH LEE PHD 709.1 Vascular Disorders Of Skin 2012 THANH LEE PHD 296.31 MO DEPRESSIVE RECURRENT MILD 2012 LANI PADILLA DO 296 .31 MO DEPRESSIVE RECURRENT MILD 2012 THANH LEE [...] PHD 296.31 MO DEPRESSIVE RECURRENT MILD 2012 ARJ SINGLETON DO 296.31 MO DEPRESSIVE RECURRENT MILD 2012 GRETA HINTON APRN 296 .31 MO DEPRESSIVE RECURRENT MILD 2012 THANH LEE PHD 296.31 MO DEPRESSIVE RECURRENT MILD 2012 GRETA HINTON APRN 296 .31 MO DEPRESSIVE RECURRENT MILD 2012 JESUS PULIDO, THANH Irwin 296.31 MO DEPRESSIVE RECURRENT MILD 11/30/2012 VITALY ELIAS, PARUL Larson Ot 276.51 DEHYDRATION 11/30/2012 PARUL HAIDER MD Ot 787.03 VOMITING ALONE 11/30/2012 PARUL HAIDER MD Ot 789.00 ABDOMINAL PAIN, UNSPECIFIED SITE 01/18/2013 727.03 TRI GGER FINGER (ACQUIRED) 01/18/2013 727.03 TRI GGER FINGER (ACQUIRED) 01/18/2013 727.03 TRI GGER FINGER (ACQUIRED) 01/18/2013 CORNELIO TOPETE PA-C 727.03 TRIGGER FINGER (ACQUIRED) 01/18/2013 THANH LEE PHD A 727.03 TRIGGER FINGER (ACQUIRED) 01/18/2013 RAJ SINGLETON DO 727.03 TRIGGER FINGER (ACQUIRED) 01/18/2013 THANH LEE PHD A 727.03 TRIGGER FINGER (ACQUIRED) 01/18/2013 ARTURO WELLS APRN 727.03 TRIGGER FINGER (ACQUIRED) 01/18/2013 THANH LEE PHD A 727.03 TRIGGER FINGER (ACQUIRED) 01/18/2013 THANH LEE PHD A 727.03 TRIGGER FINGER (ACQUIRED) 01/18/2013 THANH LEE PHD A 727.03 TRIGGER FINGER (ACQUIRED) 01/18/2013 ARTURO WELLS APRN 727.03 TRIGGER FINGER (ACQUIRED) 01/18/2013 THANH LEE PHD A 727.03 TRIGGER FINGER (ACQUIRED) 01/18/2013 RAJ SINGLETON DO 727.03 TRIGGER FINGER (ACQUIRED) 01/18/2013 GRE[place] HINTON APRN 727 .03 TRIGGER FINGER (ACQUIRED) 01/18/2013 THANH LEE PHD A 727.03 TRIGGER FINGER (ACQUIRED) 01/18/2013 GRETA HINTON APRN 727 .03 TRIGGER FINGER (ACQUIRED) 01/18/2013 [facility] , THANH Irwin 727.03 TRIGGER FINGER (ACQUIRED) 01/19/2013 790.4 ABNO RMAL LFT (ELEVATED) 01/19/2013 790.4 ABNO RMAL LFT (ELEVATED) 01/19/2013 CORNELIO TOPETE PA-C 790.4 ABNORMAL LFT (ELEVATED) 01/19/2013 [facility] THANH Irwin 790.4 ABNORMAL LFT (ELEVATED) 01/19/2013 RAJ SINGLETON DO 790.4 ABNORMAL LFT (ELEVATED) 01/19/2013 [facility] , THANH Irwin 790.4 ABNORMAL LFT (ELEVATED) 01/19/2013 ARTURO WELLS APRN 790.4 ABNORMAL LFT (ELEVATED) 01/19/2013 [facility] , THANH Irwin 790.4 ABNORMAL LFT (ELEVATED) 01/19/2013 [facility] THANH Irwin 790.4 ABNORMAL LFT (ELEVATED) 01/19/2013 [facility] , THANH Irwin 790.4 ABNORMAL LFT (ELEVATED) 01/19/2013 ARTURO WELLS APRN 790.4 ABNORMAL LFT (ELEVATED) 01/19/2013 [facility] , THANH Irwin 790.4 ABNORMAL LFT (ELEVATED) 01/19/2013 RAJ SINGLETON DO 790.4 ABNORMAL LFT (ELEVATED) 01/19/2013 GRETA HINTON APRN 790 .4 ABNORMAL LFT (ELEVATED) 01/19/2013 [facility] , THANH Irwin 790.4 ABNORMAL LFT (ELEVATED) 01/19/2013 GRETA HINTON APRN 790 .4 ABNORMAL LFT (ELEVATED) 01/19/2013 [facility] , THANH Irwin 790.4 ABNORMAL LFT (ELEVATED) 01/22/2013 070.70 HEP ATITIS C, UNSPEC 01/22/2013 CORNELIO TOPETE PA-C 070.70 HEPATITIS C, UNSPEC 01/22/2013 [facility] THANH [place]win 070.70 HEPATITIS C, UNSPEC 01/22/2013 RAJ SINGLETON DO 070.70 HEPATITIS C, UNSPEC 01/22/2013 [facility] THANH [place] 070.70 HEPATITIS C, UNSPEC 01/22/2013 PRISCILLA LESTER ARTURO ETIENNEH 070.70 HEPATITIS C, UNSPEC 01/22/2013 JESUS PULIDO, THANH Irwin 070.70 HEPATITIS C, UNSPEC 01/22/2013 JESUS PULIDO, THANH A 070.70 HEPATITIS C, UNSPEC 01/22/2013 [facility] , THANH A 070.70 HEPATITIS C, UNSPEC 01/22/2013 PRISCILLA LESTER ARTURO AISSATOU 070.70 HEPATITIS C, UNSPEC 01/22/2013 [facility] , THANH A 070.70 HEPATITIS C, UNSPEC 01/22/2013 RAJ SINGLETON DO 070.70 HEPATITIS C, UNSPEC 01/22/2013 MARY JANE ROLE PLAYER, GRETA 070 .70 HEPATITIS C, UNSPEC 01/22/2013 JESUS PULIDO, THANH Irwin 070.70 HEPATITIS C, UNSPEC 01/22/2013 MARY JANE ROLE PLAYER, GRETA 070 .70 HEPATITIS C, UNSPEC 01/22/2013 JESUS PULIDO, THANH [...] INITIATING OR MAINTAINING SLEEP 03/18/2013 MARY JANE ROLE PLAYER, GRETA 307 .42 PERSISTENT DISORDER OF INITIATING OR MAINTAINING SLEEP 03/18/2013 THANH LEE PHD 307.42 PERSISTENT DISORDER OF INITIATING OR MAINTAINING SLEEP 03/18/2013 MARY JANE ROLE PLAYER, GRETA 307 .42 PERSISTENT DISORDER OF INITIATING OR MAINTAINING SLEEP 03/18/2013 THANH LEE PHD 307.42 PERSISTENT DISORDER OF INITIATING OR MAINTAINING SLEEP 03/25/2013 RJA SINGLETON DO 454.1 VARICOSE VEINS OF LOWER [...] EXTREMITIES WITH INFLAMMATION 03/25/2013 GRETA HINTON APRN 454 .1 VARICOSE VEINS OF LOWER EXTREMITIES WITH INFLAMMATION 03/25/2013 THANH LEE PHD 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 WITH INFLAMMATION 03/25/2013 GRETA HINTON APRN 454 .1 VARICOSE VEINS OF LOWER EXTREMITIES WITH INFLAMMATION 03/25/2013 THANH LEE PHD 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 WITH INFLAMMATION 07/26/2013 ARTURO WELLS APRN 300.00 AN ANXIETY UNSPEC 07/26/2013 THANH LEE PHD 300.00 AN ANXIETY UNSPEC 07/26/2013 THANH LEE PHD 300.00 AN ANXIETY UNSPEC 07/26/2013 THANH LEE PHD 300.00 AN ANXIETY UNSPEC 07/26/2013 ARTURO WELLS APRN 300.00 AN ANXIETY UNSPEC 07/26/2013 THANH LEE PHD 300.00 AN ANXIETY UNSPEC 07/26/2013 RAJ SINGLETON DO 300.00 AN ANXIETY UNSPEC 07/26/2013 GRETA HINTON APRN 300 .00 AN ANXIETY UNSPEC 07/26/2013 BOEKHOUT PHD, THANH A 300.00 AN ANXIETY UNSPEC 07/26/2013 MARY JANE ROLE PLAYER, GRETA 300 .00 AN ANXIETY UNSPEC 07/26/2013 JESUS PHD, THANH A 300.00 AN ANXIETY UNSPEC 11/30/2013 JESUS PHD, THANH A V58.69 MEDICATION HIGH RISK 11/30/2013 PRISCILLA TREVONARTURO V58.69 MEDICATION HIGH RISK 11/30/2013 JESUS PHD, THANH Irwin V58.69 MEDICATION HIGH RISK 11/30/2013 MANI RAJ REILLY V58.69 MEDICATION HIGH RISK 11/30/2013 MARY JANE ROLE PLAYER, GRETA V58 .69 MEDICATION HIGH RISK 11/30/2013 JESUS PHD, THANH A V58.69 MEDICATION HIGH RISK 11/30/2013 MARY JANE ROLE PLAYER, GRETA V58 .69 MEDICATION HIGH RISK 11/30/2013 JESUS PHD, THANH A V58.69 MEDICATION HIGH RISK 04/07/2014 MARY JANE LESTER, GRETA 300 .15 DS DISSOCIATIVE DIS NOS 04/07/2014 JESUS PHD, THANH Irwin 300.15 DS DISSOCIATIVE DIS NOS 04/07/2014 MARY JANE MILANN, GRETA 300 .15 DS DISSOCIATIVE DIS NOS 04/07/2014 JESUS PHD, THANH Irwin 300.15 DS DISSOCIATIVE DIS NOS 02/23/2018 CINDY REILLY ALBERTO B Ot F32.9 MAJOR DEPRESSIVE DISORDER, SINGLE EPISOD 02/23/2018 CINDY REILLY ALBERTO B Ot K21.9 GASTRO-ESOPHAGEAL REFLUX DISEASE WITHOUT 02/23/2018 CINDY REILLY, ALBERTO B Ot 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 02/23/2018 CINDY REILLY ALBERTO B Ot R82.9 9 OTHER ABNORMAL FINDINGS IN URINE 02/23/2018 CINDY REILLY ALBERTO B Ot Z79.8 99 OTHER TRAVEL NURSE (CURRENT) DRUG THERAPY 02/25/2018 CINDY REILLY ALBERTO B Ot F32.9 MAJOR DEPRESSIVE DISORDER, SINGLE EPISOD 02/25/2018 CINDY REILLY ALBERTO B Ot K21.9 GASTRO-ESOPHAGEAL REFLUX DISEASE WITHOUT 02/25/2018 DELMAN , ALBERTO B Ot 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 02/25/2018 CINDY REILLY ALBERTO B Ot R82.9 9 OTHER ABNORMAL FINDINGS IN URINE 02/25/2018 CINDY REILLY ALBERTO B Ot Z79.8 99 OTHER FPC (CURRENT) DRUG THERAPY 03/26/2018 JOLEENMARIVEL ALBERTO REILLY B Ot Z01.8 18 ENCOUNTER FOR OTHER PREPROCEDURAL EXAMIN 03/26/2018 CINDY REILLYALBERTO B Ot Z01.8 18 ENCOUNTER FOR OTHER PREPROCEDURAL EXAMIN 04/03/2018 JOLEENALBERTO ORTA DO B Ot D12.2 BENIGN NEOPLASM OF ASCENDING COLON 04/03/2018 ALBERTO WHITE DO B Ot D12.3 BENIGN NEOPLASM OF TRANSVERSE COLON 04/03/2018 OUMAR WHITE DOIC B Ot D12.4 BENIGN NEOPLASM OF DESCENDING COLON 04/03/2018 OUMAR WHITE DOIC B Ot E78.5 HYPERLIPIDEMIA, UNSPECIFIED 04/03/2018 OUMAR WHITE DOIC B Ot F32.9 MAJOR DEPRESSIVE DISORDER, SINGLE EPISOD 04/03/2018 OUMAR WHITE DOIC B Ot 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 AB 04/03/2018 ALBERTO WHITE DO B Ot K64.8 OTHER HEMORRHOIDS 04/03/2018 ALBERTO WHITE DO B Ot Z12.1 1 ENCOUNTER FOR SCREENING FOR MALIGNANT NE 04/03/2018 ALBERTO WHITE DO B Ot Z86.1 9 PERSONAL HISTORY OF OTHER INFECTIOUS AND 04/03/2018 ALBERTO WHITE DO B Ot Z87.1 9 PERSONAL HISTORY OF OTHER DISEASES OF TH 04/08/2018 ALBERTO WHITE DO B Ot D12.2 BENIGN NEOPLASM OF ASCENDING COLON 04/08/2018 ALBERTO WHITE DO B Ot D12.3 BENIGN NEOPLASM OF TRANSVERSE COLON 04/08/2018 ALBERTO WHITE DO B Ot D12.4 BENIGN NEOPLASM OF DESCENDING COLON 04/08/2018 OUMAR WHITE DOIC B Ot E78.5 HYPERLIPIDEMIA, UNSPECIFIED 04/08/2018 ALBERTO WHITE DO B Ot F32.9 MAJOR DEPRESSIVE DISORDER, SINGLE EPISOD 04/08/2018 OUMAR WHITE DOIC B Ot 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 AB 04/08/2018 OUMAR WHITE DOIC B Ot K64.8 OTHER HEMORRHOIDS 04/08/2018 ALBERTO WHITE DO B Ot Z12.1 1 ENCOUNTER FOR SCREENING FOR MALIGNANT NE 04/08/2018 JOLEENMARIVEL OUMAR REILLYIC B Ot Z86.1 9 PERSONAL HISTORY OF OTHER INFECTIOUS AND 04/08/2018 JOLEENMARIVEL OUMAR REILLYIC B Ot Z87.1 9 PERSONAL HISTORY OF OTHER DISEASES OF TH 04/16/2018 CINDY REILLYOUMARIC B Ot D12.2 BENIGN NEOPLASM OF ASCENDING COLON 04/16/2018 JOLEENMARIVEL DO ALBERTO B Ot D12.3 BENIGN NEOPLASM OF TRANSVERSE COLON 04/16/2018 OUMAR WHITE DOIC B Ot D12.4 BENIGN NEOPLASM OF DESCENDING COLON 04/16/2018 JOLEENMARIVEL DO ALBERTO B Ot E78.5 HYPERLIPIDEMIA, UNSPECIFIED 04/16/2018 CINDY DO ALBERTO B Ot F32.9 MAJOR DEPRESSIVE DISORDER, SINGLE EPISOD 04/16/2018 CINDY DO ALBERTO B Ot 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 AB 04/16/2018 CINDY REILLY ALBERTO B Ot K64.8 OTHER HEMORRHOIDS 04/16/2018 OUMAR WHITE DOIC B Ot Z12.1 1 ENCOUNTER FOR SCREENING FOR MALIGNANT NE 04/16/2018 OUMAR WHITE DOIC B Ot Z86.1 9 PERSONAL HISTORY OF OTHER INFECTIOUS AND 04/16/2018 JOLEENMARIVEL DO ALBERTO B Ot Z87.1 9 PERSONAL HISTORY OF OTHER DISEASES OF TH 07/13/2018 JOLEENMARIVEL OUMAR REILLYIC B Ot D12.2 BENIGN NEOPLASM OF ASCENDING COLON 07/13/2018 OUMAR WHITE DOIC B Ot D12.3 BENIGN NEOPLASM OF TRANSVERSE COLON 07/13/2018 OUMAR WHITE DOIC B Ot D12.4 BENIGN NEOPLASM OF DESCENDING COLON 07/13/2018 OUMAR WHITE DOIC B Ot E78.5 HYPERLIPIDEMIA, UNSPECIFIED 07/13/2018 JOLEENMARIVEL OUMAR REILLYIC B Ot F32.9 MAJOR DEPRESSIVE DISORDER, SINGLE EPISOD 07/13/2018 JOLEENMARIVEL OUMAR REILLYIC B Ot 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 AB 07/13/2018 CINDY REILLY ALBERTO B Ot K64.8 OTHER HEMORRHOIDS 07/13/2018 CINDY REILLY ALBERTO B Ot Z12.1 1 ENCOUNTER FOR SCREENING FOR MALIGNANT NE 07/13/2018 OUMAR WHITE DOIC B Ot Z86.1 9 PERSONAL HISTORY OF OTHER INFECTIOUS AND 07/13/2018 DELMAN DO, ALBERTO B Ot Z87.1 9 PERSONAL HISTORY OF OTHER DISEASES OF TH 07/13/2018 OUMAR WHITE DOIC B Ot D12.2 BENIGN NEOPLASM OF ASCENDING COLON 07/13/2018 CINDY REILLY, ALBERTO B Ot D12.3 BENIGN NEOPLASM OF TRANSVERSE COLON 07/13/2018 CINDY REILLY, ALBERTO B Ot D12.4 BENIGN NEOPLASM OF DESCENDING COLON 07/13/2018 CINDY REILLY, ALBERTO B Ot E78.5 HYPERLIPIDEMIA, UNSPECIFIED 07/13/2018 CINDY REILLY, ALBERTO B Ot F32.9 MAJOR DEPRESSIVE DISORDER, SINGLE EPISOD 07/13/2018 CINDY REILLY, ALBERTO B Ot 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 AB 07/13/2018 CINDY REILLY ALBERTO B Ot K64.8 OTHER HEMORRHOIDS 07/13/2018 CINDY REILLY ALBERTO B Ot Z12.1 1 ENCOUNTER FOR SCREENING FOR MALIGNANT NE 07/13/2018 JOLEENMARIVEL REILLY ALBERTO B Ot Z86.1 9 PERSONAL HISTORY OF OTHER INFECTIOUS AND 07/13/2018 CINDY REILLY ALBERTO B Ot Z87.1 9 PERSONAL HISTORY OF OTHER DISEASES OF TH 07/13/2018 CINDY REILLY ALBERTO B Ot D12.2 BENIGN NEOPLASM OF ASCENDING COLON 07/13/2018 CINDY REILLY ALBERTO B Ot D12.3 BENIGN NEOPLASM OF TRANSVERSE COLON 07/13/2018 CINDY REILLY, ALBERTO B Ot D12.4 BENIGN NEOPLASM OF DESCENDING COLON 07/13/2018 CINDY REILLY ALBERTO B Ot E78.5 HYPERLIPIDEMIA, UNSPECIFIED 07/13/2018 CINDY REILLY ALBERTO B Ot F32.9 MAJOR DEPRESSIVE DISORDER, SINGLE EPISOD 07/13/2018 CINDY REILLY ALBERTO B Ot 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 AB 07/13/2018 JOELENMARIVEL REILLY ALBERTO B Ot K64.8 OTHER HEMORRHOIDS 07/13/2018 JOLEENMARIVEL REILLYOUMARIC B Ot Z12.1 1 ENCOUNTER FOR SCREENING FOR MALIGNANT NE 07/13/2018 JOLEENMARIVEL REILLY ALBERTO B Ot Z86.1 9 PERSONAL HISTORY OF OTHER INFECTIOUS AND 07/13/2018 JOLEENMARIVEL REILLY ALBERTO B Ot Z87.1 9 PERSONAL HISTORY OF OTHER DISEASES OF 03/09/2019 ALBERTO WHITE DO Ot Z01.8 18 ENCOUNTER FOR OTHER PREPROCEDURAL EXAMIN 03/14/2019 ALBERTO WHITE DO Ot Z01.8 18 ENCOUNTER FOR OTHER PREPROCEDURAL EXAMIN 03/20/2019 ALBERTO WHITE DO Ot D12.4 BENIGN NEOPLASM OF DESCENDING COLON 03/20/2019 ALBERTO WHITE DO Ot E78.5 HYPERLIPIDEMIA, UNSPECIFIED 03/20/2019 ALBERTO WHITE DO Ot F32.9 MAJOR DEPRESSIVE DISORDER, SINGLE EPISOD 03/20/2019 ALBERTO WHITE DO Ot 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 AB 03/20/2019 ALBERTO WHITE DO Ot K64.8 OTHER HEMORRHOIDS 03/20/2019 ALBERTO WHITE DO Ot Z12.1 1 ENCOUNTER FOR SCREENING FOR MALIGNANT NE 03/20/2019 ALBERTO WHITE DO Ot Z79.8 99 OTHER TRAVEL NURSE (CURRENT) DRUG THERAPY 03/20/2019 ALBERTO WHITE DO Ot Z80.9 FAMILY HISTORY OF MALIGNANT NEOPLASM, UN 03/20/2019 ALBERTO WHITE DO Ot Z83.3 FAMILY HISTORY OF DIABETES MELLITUS 03/20/2019 ALBERTO WHITE DO Ot Z86.0 10 PERSONAL HISTORY OF COLONIC POLYPS Procedures Code Description [place] [address] PSYC H PHARM MGMT 04/17/2012 22115 JAMILA V PSYTX 45/50 MIN 04/27/2012 65257 ROUT INE VENIPUNCTURE 05/29/2012 11667 CMP 05/29/2012 35025 LIPI D PANEL 05/29/2012 [id number] GF R CALC (RESULT ONLY) 05/29/2012 27535 PSYT X PT&/FAMILY 45 MINUTES 06/22/2012 10346 PSYT X PT&/FAMILY 45 MINUTES 08/03/2012 03600 PSYC H IND W/MED CK 20 09/28/2012 69584 ROUT INE VENIPUNCTURE 01/19/2013 20094 CMP 01/19/2013 93870 LIPI D PANEL 01/19/2013 [id number] GF R CALC (RESULT ONLY) 01/19/2013 18256 ROUT INE VENIPUNCTURE 01/22/2013 61141 FERRITIN 01/22/2013 68680 IRON SERUM 01/22/2013 37016 IRON BNDNG CAP 01/22/2013 [id number] HC V INDEX (RESULT ONLY) 01/22/2013 17386 HEPA TITIS PROFILE 01/22/2013 IRGROUP IR ON GROUP (Iron,TIBC, Ferritin) 01/25/2013 19343 ROUT INE VENIPUNCTURE 02/25/2013 31338 CBC 02/25/2013 37710 PT/INR 02/25/2013 65887 HEP C PCR QUANT (SERIAL) 03/02/2013 06107 PSYT X PT&/FAMILY 45 MINUTES 03/15/2013 29727 PSYT X PT&/FAMILY 45 MINUTES 05/24/2013 55444 PSYT X PT&/FAMILY 45 MINUTES 08/05/2013 41656 PSYT X PT&/FAMILY 45 MINUTES 09/30/2013 33977 PSYT X PT&/FAMILY 45 MINUTES 12/01/2013 58667 ROUT INE VENIPUNCTURE 12/31/2013 80889 CBC 12/31/2013 [id number] GF R CALC (RESULT ONLY) 12/31/2013 91466 CMP 12/31/2013 11806 LIPI D PANEL 12/31/2013 78821 IRON SERUM 12/31/2013 73914 IRON BNDNG CAP 12/31/2013 31100 FERRITIN 12/31/2013 [id number] HC V INDEX (RESULT ONLY) 12/31/2013 04876 HEPA TITIS PROFILE 12/31/2013 10695 PSYT X PT&/FAMILY 45 MINUTES 01/28/2014 95847 ROUT INE VENIPUNCTURE 02/15/2014 IRGROUP IR ON GROUP (Iron,TIBC, Ferritin) 02/15/2014 [id number] GF R CALC (RESULT ONLY) 02/16/2014 03386 CMP 02/16/2014 60203 PSYT X PT&/FAMILY 45 MINUTES 04/19/2014 68116 PSYT X PT&/FAMILY 45 MINUTES 06/17/2014 Results Test Result Range Complete blood count (CBC) with automate d white blood cell (WBC) differential - 02/18/18 16:20 Blood leukocytes automated count (number/volume) 12.7 10*3/uL 4.3-11.0 Blood erythrocytes automated count (number/volume) 5.21 10*6/uL 4.35-5.85 Venous blood hemoglobin measurement (mass/volume) 16.8 g/dL 13.3-17.7 Blood hematocrit (volume fraction) 48 % 40-54 Automated erythrocyte mean corpuscular volume 92 [ foz_us] 80-99 Automated erythrocyte mean corpuscular h emoglobin (mass per erythrocyte) 32 pg 25-34 Automated erythrocyte mean corpuscular h emoglobin concentration measurement (mass/volume) 35 g/dL 32-36 Automated erythrocyte distribution width ratio 13. 1 % 10.0- 14.5 Automated blood platelet count (count/volume) 220 10*3/uL [...] 10*3 1.0-4.0 Blood monocytes automated count (number/volume) 1. 0 10*3 0.0-1.0 Automated eosinophil count 0.1 10*3/uL 0 .0-0.3 Automated blood basophil count (count/volume) 0.0 10*3/uL 0.0-0.1 Comprehensive metabolic panel - 02/18/18 16:20 Serum or plasma sodium measurement (moles/volume) 138 mmol/L 135-145 Serum or plasma potassium measurement (moles/volume) 3.9 mmol/L 3.6-5.0 Serum or plasma chloride measurement (moles/volume) 105 mmol/L 98-107 Carbon dioxide 22 mmol/L 21-32 Serum or plasma anion gap determination (moles/volume) 11 mmol/L 5-14 Serum or plasma urea nitrogen measurement (mass/volume ) 9 mg/dL 7-18 Serum or plasma creatinine measurement (mass/volume) 0.93 mg/dL 0.60-1.30 Serum or plasma urea nitrogen/creatinine mass ratio 10 NRG Serum or plasma creatinine measurement w ith calculation of estimated glomerular filtration rate > NRG Serum or plasma glucose measurement (mass/volume) 107 mg/dL 70-105 Serum or plasma calcium measurement (mass/volume) 9.5 mg/dL 8.5-10.1 Serum or plasma total bilirubin measurement (mass/volu me) 1.3 mg/dL 0.1-1.0 Serum or plasma alkaline phosphatase kristel surement (enzymatic activity/volume) 85 U/L 40-136 Serum or plasma aspartate aminotransfera se measurement (enzymatic activity/volume) 17 U/L 5-34 Serum or plasma alanine aminotransferase measurement (enzymatic activity/volume) 24 U/L 0-55 Serum or plasma protein measurement (mass/volume) 7.8 g/dL 6.4-8.2 Serum or plasma albumin measurement (mass/volume) 4.5 g/dL 3.2-4.5 CALCIUM CORRECTED 9.1 mg/dL 8.5-10.1 Magnesium - 02/18/18 16:20 Magnesium 2.2 mg/dL 1.8-2.4 Blood lactic acid measurement (moles/vol ume) - 02/18/18 16:55 Blood lactic acid measurement (moles/volume) 1.27 mmol/L 0.50-2.00 Complete urinalysis with reflex to cultu re - 02/18/18 17:35 Urine color determination YELLOW NRG Urine clarity determination CLEAR NR G Urine pH measurement by test strip 5 5-9 Specific gravity of urine by test strip 1.005 1.016-1.022 Urine protein assay by test strip, semi-quantitative 1+ NEGATIVE Urine glucose detection by automated test strip NE GATIVE NEGATIVE Erythrocytes detection in urine sediment by light micr oscopy 2+ NEGATIVE Urine ketones detection by automated test strip 1+ NEGATIVE Urine nitrite detection by test strip NEGATIVE NEGATIVE Urine total bilirubin detection by test strip NEGA TIVE NEGATIVE Urine urobilinogen measurement by automated test strip (mass/volume) NORMAL NORMAL Urine leukocyte esterase detection by dipstick 2+ NEGATIVE Automated urine sediment erythrocyte cou nt by microscopy (number/high power field) [HPF] NRG Automated urine sediment leukocyte count by microscopy (number/high power field) [HPF] NRG Bacteria detection in urine sediment by light microsco py FEW NRG Crystals detection in urine sediment by light microsco py NONE NRG Casts detection in urine sediment by light microscopy NONE NRG Mucus detection in urine sediment by light microscopy NEGATIVE NRG Complete urinalysis with reflex to culture YES NRG Bacterial urine culture - 02/18/18 17:35 Bacterial urine culture NG NRG Complete blood count (CBC) with automate d white blood cell (WBC) differential - 02/19/18 05:15 Blood leukocytes automated count (number/volume) 10.1 10*3/uL 4.3-11.0 Blood erythrocytes automated count (number/volume) 4.46 10*6/uL 4.35-5.85 Venous blood hemoglobin measurement (mass/volume) 14.3 g/dL 13.3-17.7 Blood hematocrit (volume fraction) 42 % 40-54 Automated erythrocyte mean corpuscular volume 94 [ foz_us] 80-99 Automated erythrocyte mean corpuscular h emoglobin (mass per erythrocyte) 32 pg 25-34 Automated erythrocyte mean corpuscular h emoglobin concentration measurement (mass/volume) 34 g/dL 32-36 Automated erythrocyte distribution width ratio 13. 0 % 10.0- 14.5 Automated blood platelet count (count/volume) 175 10*3/uL [...] 10*3 1.0-4.0 Blood monocytes automated count (number/volume) 1. 1 10*3 0.0-1.0 Automated eosinophil count 0.0 10*3/uL 0 .0-0.3 Automated blood basophil count (count/volume) 0.0 10*3/uL 0.0-0.1 Comprehensive metabolic panel - 02/19/18 05:15 Serum or plasma sodium measurement (moles/volume) 136 mmol/L 135-145 Serum or plasma potassium measurement (moles/volume) 3.6 mmol/L 3.6-5.0 Serum or plasma chloride measurement (moles/volume) 105 mmol/L 98-107 Carbon dioxide 18 mmol/L 21-32 Serum or plasma anion gap determination (moles/volume) 13 mmol/L 5-14 Serum or plasma urea nitrogen measurement (mass/volume ) 10 mg/dL 7-18 Serum or plasma creatinine measurement (mass/volume) 0.83 mg/dL 0.60-1.30 Serum or plasma urea nitrogen/creatinine mass ratio 12 NRG Serum or plasma creatinine measurement w ith calculation of estimated glomerular filtration rate > NRG Serum or plasma glucose measurement (mass/volume) 118 mg/dL 70-105 Serum or plasma calcium measurement (mass/volume) 8.5 mg/dL 8.5-10.1 Serum or plasma total bilirubin measurement (mass/volu me) 1.4 mg/dL 0.1-1.0 Serum or plasma alkaline phosphatase kristel surement (enzymatic activity/volume) 63 U/L 40-136 Serum or plasma aspartate aminotransfera se measurement (enzymatic activity/volume) 12 U/L 5-34 Serum or plasma alanine aminotransferase measurement (enzymatic activity/volume) 17 U/L 0-55 Serum or plasma protein measurement (mass/volume) 5.8 g/dL 6.4-8.2 Serum or plasma albumin measurement (mass/volume) 3.5 g/dL 3.2-4.5 CALCIUM CORRECTED 8.9 mg/dL 8.5-10.1 Complete blood count (CBC) with automate d white blood cell (WBC) differential - 02/21/18 05:27 Blood leukocytes automated count (number/volume) 6.5 10*3/uL 4.3-11.0 Blood erythrocytes automated count (number/volume) 4.28 10*6/uL 4.35-5.85 Venous blood hemoglobin measurement (mass/volume) 13.9 g/dL 13.3-17.7 Blood hematocrit (volume fraction) 40 % 40-54 Automated erythrocyte mean corpuscular volume 94 [ foz_us] 80-99 Automated erythrocyte mean corpuscular h emoglobin (mass per erythrocyte) 32 pg 25-34 Automated erythrocyte mean corpuscular h emoglobin concentration measurement (mass/volume) 35 g/dL 32-36 Automated erythrocyte distribution width ratio 12. 8 % 10.0- 14.5 Automated blood platelet count (count/volume) 170 10*3/uL [...] 10*3 1.0-4.0 Blood monocytes automated count (number/volume) 0. 7 10*3 0.0-1.0 Automated eosinophil count 0.2 10*3/uL 0 .0-0.3 Automated blood basophil count (count/volume) 0.0 10*3/uL 0.0-0.1 Comprehensive metabolic panel - 02/21/18 05:27 Serum or plasma sodium measurement (moles/volume) 136 mmol/L 135-145 Serum or plasma potassium measurement (moles/volume) 3.8 mmol/L 3.6-5.0 Serum or plasma chloride measurement (moles/volume) 104 mmol/L 98-107 Carbon dioxide 18 mmol/L 21-32 Serum or plasma anion gap determination (moles/volume) 14 mmol/L 5-14 Serum or plasma urea nitrogen measurement (mass/volume ) 7 mg/dL 7-18 Serum or plasma creatinine measurement (mass/volume) 0.80 mg/dL 0.60-1.30 Serum or plasma urea nitrogen/creatinine mass ratio 9 NRG Serum or plasma creatinine measurement w ith calculation of estimated glomerular filtration rate > NRG Serum or plasma glucose measurement (mass/volume) 91 mg/dL 70-105 Serum or plasma calcium measurement (mass/volume) 9.0 mg/dL 8.5-10.1 Serum or plasma total bilirubin measurement (mass/volu me) 0.9 mg/dL 0.1-1.0 Serum or plasma alkaline phosphatase kristel surement (enzymatic activity/volume) 56 U/L 40-136 Serum or plasma aspartate aminotransfera se measurement (enzymatic activity/volume) 12 U/L 5-34 Serum or plasma alanine aminotransferase measurement (enzymatic activity/volume) 12 U/L 0-55 Serum or plasma protein measurement (mass/volume) 6.4 g/dL 6.4-8.2 Serum or plasma albumin measurement (mass/volume) 3.5 g/dL 3.2-4.5 CALCIUM CORRECTED 9.4 mg/dL 8.5-10.1 Automated blood complete blood count (he mogram) panel - 02/23/18 05:39 Blood leukocytes automated count (number/volume) 4.8 10*3/uL 4.3-11.0 Blood erythrocytes automated count (number/volume) 4.14 10*6/uL 4.35-5.85 Venous blood hemoglobin measurement (mass/volume) 13.1 g/dL 13.3-17.7 Blood hematocrit (volume fraction) 39 % 40-54 Automated erythrocyte mean corpuscular volume 93 [ foz_us] 80-99 Automated erythrocyte mean corpuscular h emoglobin (mass per erythrocyte) 32 pg 25-34 Automated erythrocyte mean corpuscular h emoglobin concentration measurement (mass/volume) 34 g/dL 32-36 Automated erythrocyte distribution width ratio 12. 5 % 10.0- 14.5 Automated blood platelet count (count/volume) 211 10*3/uL 130-400 Automated blood platelet mean volume measurement 9.8 [foz_us] 7.4-10.4 Whole blood basic metabolic panel - 02/07 12/24 05:39 Serum or plasma sodium measurement (moles/volume) 137 mmol/L 135-145 Serum or plasma potassium measurement (moles/volume) 3.2 mmol/L 3.6-5.0 Serum or plasma chloride measurement (moles/volume) 109 mmol/L 98-107 Carbon dioxide 21 mmol/L 21-32 Serum or plasma anion gap determination (moles/volume) 7 mmol/L 5-14 Serum or plasma urea nitrogen measurement (mass/volume ) 5 mg/dL 7-18 Serum or plasma creatinine measurement (mass/volume) 0.71 mg/dL 0.60-1.30 Serum or plasma urea nitrogen/creatinine mass ratio 7 NRG Serum or plasma creatinine measurement w ith calculation of estimated glomerular filtration rate > NRG Serum or plasma glucose measurement (mass/volume) 110 mg/dL 70-105 Serum or plasma calcium measurement (mass/volume) 8.7 mg/dL 8.5-10.1 Encounters ACCT No. Visit Date/Time Discharge Status Pt. Type Provider Facility Loc./Unit Complaint [id number] 06/17/2014 13:26:00 06/17/2014 23:59: 59 [facility] Outpatient JESUS PHD, THANH Irwin [id number] 05/19/2014 15:54:00 05/19/2014 23:59: 59 CLS Outpatient MARY JANE [facility] PLAYER[facility]TA Porras [id number] 04/19/2014 09:49:00 04/19/2014 23:59: 59 CLS Outpatient SUMMERMADI THANH [id number] 04/07/2014 14:04:00 04/07/2014 23:59: 59 CLS Outpatient GRETA HINTON APRN [id number] 02/15/2014 14:46:00 02/15/2014 23:59: 59 CLS Outpatient RAJ SINGLETON DO [id number] 01/28/2014 12:54:00 01/28/2014 23:59: 59 CLS Outpatient THANH LEE PHD [id number] 12/31/2013 12:27:00 12/31/2013 23:59: 59 CLS Outpatient PRISCILLA ROLE PLAYERARTURO Porras [id number] 11/30/2013 14:05:00 11/30/2013 23:59: 59 CLS Outpatient THANH LEE PHD [id number] 09/30/2013 13:52:00 09/30/2013 23:59: 59 CLS Outpatient THANH LEE PHD [id number] 08/04/2013 13:55:00 08/04/2013 23:59: 59 CLS Outpatient LINNETTETHANH GALICIA PHD [id number] 07/26/2013 11:22:00 07/26/2013 23:59: 59 CLS Outpatient PRISCILLA [employer] [place] [id number] 05/21/2013 12:47:00 05/21/2013 23:59: 59 CLS Outpatient THANH LEE PHD [id number] 03/25/2013 09:42:00 03/25/2013 23:59: 59 CLS Outpatient RAJ SINGLETON DO [id number] 03/12/2013 12:42:00 03/12/2013 23:59: 59 CLS Outpatient THANH LEE PHD [id number] 02/25/2013 14:41:00 02/25/2013 23:59: 59 CLS Outpatient CORNELIO TOPETE PA-C [id number] 07/31/2012 15:44:00 07/31/2012 23:59: 59 CLS Outpatient [id number] 06/26/2012 10:41:00 06/26/2012 23:59: 59 CLS Outpatient RAJ SINGLETON DO [id number] 06/19/2012 10:42:00 06/19/2012 23:59: 59 CLS Outpatient THANH LEE PHD [id number] 05/29/2012 09:43:00 05/29/2012 23:59: 59 CLS Outpatient LANI PADILLA DO [id number] 04/15/2012 17:01:00 04/15/2012 23:59:5 9 CLS Outpatient THANH LEE PHD [id number] 01/23/2013 11:07:00 Document Registration [id number] 01/19/2013 08:08:00 Document Registration [id number] 01/18/2013 16:10:00 Document Registration [id number] 09/21/2012 15:07:00 Document Registration [id number] 03/15/2019 07:43:00 11:00:00 DIS Outpatient CINDY REILLY ALBERTO B [facility] ENDO SCREENING [id number] 03/08/2019 05:46:00 15:30:00 DIS Outpatient CINDY REILLY ALBERTO B [facility] PREOP COLONOSCOPY [id number] 03/30/2018 11:45:00 23:59:59 CLS Outpatient CINDY REILLY ALBERTO B [facility] ENDO SCREENING [id number] 03/26/2018 14:33:00 14:39:00 DIS Outpatient CINDY REILLY ALBERTO B [facility] PREOP COLONOSCOPY [id number] 02/18/2018 19:15:00 15:55:00 DIS Inpatient CINDY REILLY ALBERTO B [facility] 4TH DIVERTICULITIS [id number] 11/30/2012 08:49:00 013 11:15:00 DIS Emergency VITALY ELIAS, PARUL Larson [facility] ER VOMITING
[2020-01-01] MEDS ORDERED: LIDOCAINE 1% INJ 20 ML 20 ML VIAL INJ ONE (19:15)
[2020-01-01] MEDS ORDERED: SULF1TAB35 PO (19:37)
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
[2020-01-01] MEDS ORDERED: TRIM/SULFAMETH 160/800 (SEPTRA DS) TAB PO ONE (19:45)
== END 2020-01-01 19:46 | disposition home or self-care (01) ==
LOC: EDUNIT# 18:57 → ER 18:58
DX: S51.812A Laceration without foreign body of left forearm, initial encounter (principal); F10.229 Alcohol dependence with intoxication, unspecified; E78.00 Pure hypercholesterolemia, unspecified; Z82.49 Family history of ischemic heart disease and other diseases of the circulatory system; W18.39XA Other fall on same level, initial encounter; W22.8XXA Striking against or struck by other objects, initial encounter; Y92.009 Unspecified place in unspecified non-institutional (private) residence as the place of occurrence of the external cause
CPT/HCPCS: 12015

== ENCOUNTER 2020-01-12 13:59 | Emergency (ER) | payer OTHER ==
[~2020-01-12 13:59] MED LIST changes: +SULF1TAB35 PO
--- OUTSIDE RECORDS SUMMARY | 2020-01-12 15:37 | XMS REPORT ---
Author Author Aron LEE [facility] Address [address] [place] [address] Care Team Providers Care Clinical Trainer Name Role Phone THANH LEE Unavailable PROBLEMS Type Condition ICD9-CM Code KCG91-AQ Code Onset Dates Condition S tatus SNOMED Code Problem Nonspecific elevation of lev els of transaminase or lactic acid dehydrogenase (LDH) 790.4 Active 35529499 2 Problem Encounter for long-term (current) use of other medications V58.69 Active 012408178 Problem Edema 782.3 Active 791986333 Problem Spontaneous ecchymoses 782.7 Active 984716624 Problem Trigger finger (acquired) 727.03 Acti ve 4126793 Problem 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 Active 12811267 Problem 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 .42 Active 96452032 Problem 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 Active 75646936 Problem Unspecified local infection of skin and subcutaneous tissu e 686.9 Active 044271267 Problem Unspecified viral hepatitis C without hepatic coma 070.70 Active 41156262 Problem Vascular disorder of skin 709.1 Acti ve 67261676 Problem Dissociative disorder or reaction, 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 Active 77603201 Problem Anxiety state, unspecified 300.00 Act bessy 875433373 Problem Other and unspecified hyperlipidemia 272.4 Active 97401364 Problem Major depressive disorder, recurrent episode, mild 296.31 Active 40702799 ALLERGIES No Information ENCOUNTERS Encounter Location Date Diagnosis [facility] [id number] [place] [id number] Nov, Encounter for other specifie d administrative purpose Z02.89 [facility] [address] [facility] [id number] [address] [place] [address] [id number] October, Dental examination Z01.20 an d Dental caries K02.9 [facility] [address] [id number] [address] [place] [id number] 14 Jan, 2015 Edema 782.3 and Family histo ry of coronary artery disease V17.3 [facility] [address] [id number] [address] [place] [id number] 07 Jan, 2015 Edema 782.3 and Family histo ry of coronary artery disease V17.3 [facility] [address] [id number] [address] [place] [address] [id number] Dec, Dental examination V72.2 [facility] [address] [id number] [address] [place] [id number] Sep, [facility] [address] [id number] [address] [place] [address] Sep, [facility] [address] [id number] [address] [place] [phone] Aug, [facility] [address] [id number] [address] [place] [phone] Aug, [facility] [address] [id number] [address] [place] [address] Jun, [facility] [address] [id number] [address] [place] [phone] Jun, [facility] [address] [id number] [address] [place] [address] Jun, [facility] [address] [id number] [address] [place] [address] Jun, [facility] [address] [id number] [address] [place] [phone] May, [facility] [address] [id number] [address] [place] [address] May, [facility] [address] [id number] [address] [place] [address] Apr, [facility] [address] [id number] [address] [place] [address] [place] [address] Apr, [facility] [address] [id number] [address] [place] [address], [place] [address] Mar, [facility] [address] [id number] [address] [place] [address], [place] [address] Mar, [facility] [address] [id number] [address] [place] [address], [place] [address] Feb, [facility] [address] [id number] [address] [place] [address], [place] [address] Feb, [facility] [address] [id number] [address] [place] [address], [place] [address] Feb, [facility] [address] [id number] [address] [place] [address], [place] [address] Jan, [facility] [address] [id number] [address] [place] [address], [place] [address] Jan, [facility] [address] [id number] [address] [place] [address], [place] [address] Jan, [facility] [address] [id number] [address] [place] [address], [place] [address] Dec, [facility] [address] [id number] [address] [place] [address], [place] [address] Dec, [facility] [address] [id number] [address] [place] [address], [place] [id number] Nov, [facility] [address] [id number] [address] [place] [address], [place] [address] Nov, [facility] [address] [id number] [address] [place] [address], [place] [address] Nov, [facility] [address] [id number] [address] [place] [address], [place] [address] Nov, [facility] [address] [id number] [address] [place] [address], [place] [address] Nov, [facility] [address] [id number] [address] [place] [address], [place] [address] Nov, [facility] [address] [id number] [address] [place] [address], [place] [address] October, [facility] [address] [id number] [address] [place] [address], [place] [address] October, [facility] [address] [id number] [address] [place] [address], [place] [address] Sep, [facility] [address] [id number] [address] [place] [address], [place] [address] Sep, [facility] [address] [id number] [address] [place] [address], [place] [address] Jul, [facility] [address] [id number] [address] [place] [address], [place] [address] Jul, [facility] [address] [id number] [address] [place] [address], [place] [address] Jul, [facility] [address] [id number] [address] [place] [address], [place] [address] Jul, [facility] [address] [id number] [address] [place] [address], [place] [address] May, [facility] [address] [id number] [address] [place] [address], [place] [address] May, [facility] [address] [id number] [address] [place] [address], [place] [address] May, [facility] [address] [id number] [address] [place] [address], [place] [address] May, [facility] [address] [id number] [address] [place] [address], [place] [address] Mar, [facility] [address] [id number] [address] [place] [address], [place] [address] Mar, [facility] [address] [id number] [address] [place] [address], [place] [address] Mar, [facility] [address] [id number] [address] [place] [address], [place] [address] Mar, [facility] [address] [id number] [address] [place] [address], [place] [address] 04 Mar, 2013 [facility] [address] [id number] [address] [place] [address], [place] [address] 24 Feb, 2013 [facility] [address] [id number] [address] [place] [address], [place] [address] 19 Feb, 2013 [facility] [address] [id number] [address] [place] [address], [place] [address] 16 Feb, 2013 [facility] [address] [id number] [address] [place] [address], [place] [address] Jan, [facility] [address] [id number] [address] [place] [address], [place] [address] Jan, [facility] [address] [id number] [address] [place] [address], [place] [address] Jan, [facility] [address] [id number] [address] [place] [address], [place] [address] Jan, [facility] [address] [id number] [address] [place] [address], [place] [address] Jan, [facility] [address] [id number] [address] [place] [address], [place] [address] Jan, [facility] [address] [id number] [address] [place] [address], [place] [address] Jan, [facility] [address] [id number] [address] [place] [address], [place] [address] Dec, [facility] [address] [id number] [address] [place] [address], [place] [address] Dec, [facility] [address] [id number] [address] [place] [address], [place] [address] Dec, [facility] [address] [id number] [address] [place] [address], [place] [address] 10 Nov, 2012 [facility] [address] [id number] [address] [place] [address], [place] [address] October, [facility] [address] [id number] [address] [place] [address], [place] [address] October, [facility] [address] [id number] [address] [place] [address], [place] [address] Sep, [facility] [address] [id number] [address] [place] [address], [place] [address] Jul, [facility] [address] [id number] [address] [place] [address], [place] [address] Jul, [facility] [address] [id number] [address] [place] [address], [place] [address] Jun, [facility] [address] [id number] [address] [place] [address], [place] [address] Jun, [facility] [address] [id number] [address] [place] [address], [place] [address] Jun, [facility] [address] [id number] [address] [place] [address], [place] [address] Jun, [facility] [address] [id number] [address] [place] [address], [place] [address] Jun, [facility] [address] [id number] [address] [place] [address], [place] [address] May, [facility] [address] [id number] [address] [place] [address], [place] [address] May, [facility] [address] [id number] [address] [place] [address], [place] [address] May, [facility] [address] [id number] [address] [place] [address], [place] [address] May, [facility] [address] [id number] [address] [place] [address], [place] [address] 20 Apr, 2012 [facility] [address] [id number] [address] [place] [address], [place] [address] 20 Apr, 2012 [facility] [address] [id number] [address] [place] [address], [place] [address] 16 Apr, 2012 [facility] [address] [id number] [address] [place] [address], [place] [address] 16 Apr, 2012 [facility] [address] [id number] [address] [place] [address], [place] [address] 13 Apr, 2012 [facility] [address] [id number] [address] [place] [address], [place] [address] 13 Apr, 2012 [facility] [address] [id number] [address] [place] [address], [place] [address] 13 Apr, 2012 [facility] [address] [id number] [address] [place] [address], [place] [address] Apr, [facility] [address] [id number] [address] [place] [address], [place] [address] Apr, [facility] [address] [id number] [address] [place] [address], [place] [address] Apr, [facility] [address] [id number] [address] [place] [address], [place] [address] Mar, [facility] [address] [id number] [address] [place] [address], [place] [address] Mar, [facility] [address] [id number] [address] [place] [address] Mar, [facility] [address] [id number] [address] [place] [address], [place] [address] Mar, [facility] [address] [id number] [address] [place] [address], [place] [address] Mar, [facility] [address] [id number] [address] [place] [address], [place] [address] 10 Mar, 2012 [facility] [address] [id number] [address] [place] [address], [place] [address] Mar, [facility] [address] [id number] [address] [place] [address], [place] [address] Mar, [facility] [address] [id number] [address] [place] [address], [place] [address] Feb, [facility] [address] [id number] [address] [place] [address], [place] [address] Jan, [facility] [address] [id number] [address] [place] [address], [place] [address] Jan, [facility] [address] [id number] [address] [place] [address], [place] [address] Dec, [facility] [address] [id number] [address] [place] [address], [place] [address] Nov, [facility] [address] [id number] [address] [place] [address], [place] [address] Nov, [facility] [address] [id number] [address] [place] [address], [place] [address] Nov, [facility] [address] [id number] [address] [place] [address], [place] [address] Nov, [facility] [address] [id number] [address] [place] [address], [place] [address] Nov, [facility] [address] [id number] [address] [place] [address], [place] [address] Nov, [facility] [address] [id number] [address] [place] [address], [place] [address] October, [facility] [address] [id number] [address] [place] [address], [place] [address] October, [facility] [address] [id number] [address] [place] [address], [place] [address] October, [facility] [address] [id number] [address] [place] [address], [place] [address] October, [facility] [address] [id number] [address] [place] [address], [place] [address] October, [facility] [address] [id number] [address] [place] [address], [place] [address] October, [facility] [address] [id number] [address] [place] [address], [place] [address] October, [facility] [address] [id number] [address] [place] [address], [place] [address] Sep, [facility] [address] [id number] [address] [place] [address], [place] [address] Sep, [facility] [address] [id number] [address] [place] [address], [place] [address] Aug, [facility] [address] [id number] [address] [place] [address], [place] [id number] Aug, [facility] [address] [id number] [address] [place] [address], [place] [id number] Aug, [facility] [address] [id number] [address] [place] [address], [place] [address] Aug, [facility] [address] [id number] [address] [place] [address], [place] [address] Jul, [facility] [address] [id number] [address] [place] [address], [place] [address] Jul, [facility] [address] [id number] [address] [place] [address], [place] [id number] Jul, [facility] [address] [id number] [address] [place] [address], [place] [address] Jul, [facility] [address] [id number] [address] [place] [address], [place] [id number] May, [facility] [address] [id number] [address] [place] [address], [place] [address] May, [facility] [address] [id number] [address] [place] [address] May, [facility] [address] [facility] [id number] [address] [place] [address] Apr, [facility] [address] [facility] [id number] [address] [place] [address] Mar, [facility] [address] [facility] [id number] [address] [place] [id number] Mar, IMMUNIZATIONS No Known Immunizations SOCIAL HISTORY Never Assessed REASON FOR VISIT PLAN OF CARE VITAL SIGNS MEDICATIONS Unknown Medications RESULTS No Results PROCEDURES No Known procedures INSTRUCTIONS MEDICATIONS ADMINISTERED No Known Medications MEDICAL (GENERAL) HISTORY Type Description Date Medical History depression Medical History hyperlipidemia Hospitalization History staph in right leg
--- OUTSIDE RECORDS SUMMARY | 2020-01-12 15:37 | XMS REPORT ---
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 Name Role Phone Darya LANI Unavailable PROBLEMS Type Condition ICD9-CM Code ZYL53-YT Code Onset Dates Condition S tatus SNOMED Code Problem Nonspecific elevation of lev els of transaminase or lactic acid dehydrogenase (LDH) 790.4 Active 16606608 2 Problem Encounter for long-term (current) use of other medications V58.69 Active 996757960 Problem Edema 782.3 Active 948681886 Problem Spontaneous ecchymoses 782.7 Active 218480093 Problem Trigger finger (acquired) 727.03 Acti ve 1900836 Problem 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 Active 86015273 Problem 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 .42 Active 19227610 Problem 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 Active 02300649 Problem Unspecified local infection of skin and subcutaneous tissu e 686.9 Active 681888221 Problem Unspecified viral hepatitis C without hepatic coma 070.70 Active 27994874 Problem Vascular disorder of skin 709.1 Acti ve 14222147 Problem Dissociative disorder or reaction, 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 Active 90990183 Problem Anxiety state, unspecified 300.00 Act bessy 430907494 Problem Other and unspecified hyperlipidemia 272.4 Active 59201764 Problem Major depressive disorder, recurrent episode, mild 296.31 Active [id number] ALLERGIES No Information ENCOUNTERS Encounter Location Date Diagnosis [facility] [id number] [place] [address] [id number] Nov, Encounter for other specifie d administrative purpose Z02.89 [facility] [address] [id number] [address] [place] [address] [id number] October, Dental examination Z01.20 an d Dental caries K02.9 [facility] [address] [id number] [address] [place] [address] 14 Jan, 2015 Edema 782.3 and Family histo ry of coronary artery disease V17.3 [facility] [address] [id number] [address] [place] [address] 07 Jan, 2015 Edema 782.3 and Family histo ry of coronary artery disease V17.3 [facility] [address] [id number] [address] [place] [address] [id number] Dec, Dental examination V72.2 [facility] [address] [id number] [address] [place] [address] Sep, [facility] [address] [id number] [address] [place] [address] Sep, [facility] [address] [id number] [address] [place] [phone] Aug, [facility] [address] [id number] [address] [place] [phone] Aug, [facility] [address] [id number] [address] [place] [address] Jun, [facility] [address] [id number] [address] [place] [address] Jun, [facility] [address] [id number] [address] [place] [address] Jun, [facility] [address] [id number] [address] [place] [address] Jun, [facility] [address] [id number] [address] [place] [address] May, [facility] [address] [id number] [address] [place] [phone] May, [facility] [address] [id number] [address] [place] [phone] Apr, [facility] [address] [id number] [address] [place] [address], [place] [address] Apr, [facility] [address] [id number] [address] [place] [address], [place] [address] Mar, [facility] [address] [id number] [address] [place] [address], [place] [address] Mar, [facility] [address] [id number] [address] [place] [address], [place] [address] Feb, [facility] [address] [id number] [address] [place] [address], [place] [address] Feb, [facility] [address] [id number] [address] [place] [address], [place] [address] Feb, [facility] [address] [id number] [address] [place] [address], [place] [address] Jan, [facility] [address] [id number] [address] [place] [address], [place] [address] Jan, [facility] [address] [id number] [address] [place] [address], [place] [address] Jan, [facility] [address] [id number] [address] [place] [address], [place] [address] Dec, [facility] [address] [id number] [address] [place] [address], [place] [address] Dec, [facility] [address] [id number] [address] [place] [address], [place] [address] Nov, [facility] [address] [id number] [address] [place] [address], [place] [address] Nov, [facility] [address] [id number] [address] [place] [address], [place] [address] Nov, [facility] [address] [id number] [address] [place] [address], [place] [address] Nov, [facility] [address] [id number] [address] [place] [address], [place] [address] Nov, [facility] [address] [id number] [address] [place] [address], [place] [address] Nov, [facility] [address] [id number] [address] [place] [address], [place] [address] October, [facility] [address] [id number] [address] [place] [address], [place] [address] October, [facility] [address] [id number] [address] [place] [address], [place] [address] Sep, [facility] [address] [id number] [address] [place] [address], [place] [address] Sep, [facility] [address] [id number] [address] [place] [address], [place] [address] Jul, [facility] [address] [id number] [address] [place] [address], [place] [address] Jul, [facility] [address] [id number] [address] [place] [address], [place] [address] Jul, [facility] [address] [id number] [address] [place] [address], [place] [address] Jul, [facility] [address] [id number] [address] [place] [address], [place] [address] May, [facility] [address] [id number] [address] [place] [address], [place] [address] May, [facility] [address] [id number] [address] [place] [address], [place] [address] May, [facility] [address] [id number] [address] [place] [address], [place] [address] May, [facility] [address] [id number] [address] [place] [address], [place] [address] Mar, [facility] [address] [id number] [address] [place] [address], [place] [address] Mar, [facility] [address] [id number] [address] [place] [address] [place] [address] 10 Mar, 2013 [facility] [address] [id number] [address] [place] [address], [place] [address] 10 Mar, 2013 [facility] [address] [id number] [address] [place] [address], [place] [address] 04 Mar, 2013 [facility] [address] [id number] [address] [place] [address], [place] [address] 24 Feb, 2013 [facility] [address] [id number] [address] [place] [address], [place] [address] 19 Feb, 2013 [facility] [address] [id number] [address] [place] [address], [place] [address] 16 Feb, 2013 [facility] [address] [id number] [address] [place] [address], [place] [address] Jan, [facility] [address] [id number] [address] [place] [address], [place] [address] Jan, [facility] [address] [id number] [address] [place] [address], [place] [address] Jan, [facility] [address] [id number] [address] [place] [address], [place] [address] Jan, [facility] [address] [id number] [address] [place] [address], [place] [address] Jan, [facility] [address] [id number] [address] [place] [address], [place] [address] Jan, [facility] [address] [id number] [address] [place] [address], [place] [address] Jan, [facility] [address] [id number] [address] [place] [address], [place] [address] Dec, [facility] [address] [id number] [address] [place] [address], [place] [address] Dec, [facility] [address] [id number] [address] [place] [address], [place] [address] Dec, [facility] [address] [id number] [address] [place] [address], [place] [address] 10 Nov, 2012 [facility] [address] [id number] [address] [place] [address], [place] [address] October, [facility] [address] [id number] [address] [place] [address], [place] [address] October, [facility] [address] [id number] [address] [place] [address], [place] [address] Sep, [facility] [address] [id number] [address] [place] [address], [place] [address] Jul, [facility] [address] [id number] [address] [place] [address], [place] [address] Jul, [facility] [address] [id number] [address] [place] [address], [place] [address] Jun, [facility] [address] [id number] [address] [place] [address], [place] [address] Jun, [facility] [address] [id number] [address] [place] [address], [place] [address] Jun, [facility] [address] [id number] [address] [place] [address], [place] [address] Jun, [facility] [address] [id number] [address] [place] [address], [place] [address] Jun, [facility] [address] [id number] [address] [place] [address], [place] [address] May, [facility] [address] [id number] [address] [place] [address], [place] [address] May, [facility] [address] [id number] [address] [place] [address], [place] [address] May, [facility] [address] [id number] [address] [place] [address], [place] [address] 14 May, 2012 [facility] [address] [id number] [address] [address] 20 Apr, 2012 [facility] [address] [id number] [address] [place] [address], [place] [address] 20 Apr, 2012 [facility] [address] [id number] [address] [place] [address], [place] [address] 16 Apr, 2012 [facility] [address] [id number] [address] [place] [address], [place] [address] 16 Apr, 2012 [facility] [address] [id number] [address] [place] [address] 13 Apr, 2012 [facility] [address] [id number] [address] [place] [address], [place] [address] Apr, [facility] [address] [id number] [address] [place] [address] 13 Apr, 2012 [facility] [address] [id number] [address] [place] [address], [place] [address] Apr, [facility] [address] [id number] [address] [place] [address] Apr, [facility] [address] [id number] [address] [place] [address] 07 Apr, 2012 [facility] [address] [id number] [address] [place] [address], [place] [address] Mar, [facility] [address] [id number] [address] [place] [address] Mar, [facility] [address] [id number] [address] [place] [address] Mar, [facility] [address] [id number] [address] [place] [address], [place] [address] Mar, [facility] [address] [id number] [address] [place] [address] Mar, [facility] [address] [id number] [address] [place] [address] 10 Mar, 2012 [facility] [address] [id number] [address] [place] [address], [place] [address] Mar, [facility] [address] [id number] [address] [place] [address], [place] [address] Mar, [facility] [address] [id number] [address] [place] [address], [place] [address] Feb, [facility] [address] [id number] [address] [place] [address], [place] [address] Jan, [facility] [address] [id number] [address] [place] [address], [place] [address] Jan, [facility] [address] [id number] [address] [place] [address], [place] [address] Dec, [facility] [address] [id number] [address] [place] [address], [place] [address] Nov, [facility] [address] [id number] [address] [place] [address], [place] [address] Nov, [facility] [address] [id number] [address] [place] [address], [place] [address] Nov, [facility] [address] [id number] [address] [place] [address], [place] [address] Nov, [facility] [address] [id number] [address] [place] [address], [place] [address] Nov, [facility] [address] [id number] [address] [place] [address], [place] [address] Nov, [facility] [address] [id number] [address] [place] [address], [place] [address] October, [facility] [address] [id number] [address] [place] [address], [place] [address] October, [facility] [address] [id number] [address] [place] [address], [place] [address] October, [facility] [address] [id number] [address] [place] [address], [place] [address] October, [facility] [address] [id number] [address] [place] [address], [place] [address] October, [facility] [address] [id number] [address] [place] [address], [place] [address] October, [facility] [address] [id number] [address] [place] [address], [place] [address] October, [facility] [address] [id number] [address] [place] [address], [place] [address] Sep, [facility] [address] [id number] [address] [place] [address], [place] [address] Sep, [facility] [address] [id number] [address] [place] [address], [place] [address] Aug, [facility] [address] [id number] [address] [place] [address], [place] [address] 15 Aug, 2011 [facility] [address] [id number] [address] [place] [address], [place] [address] Aug, [facility] [address] [id number] [address] [place] [address], [place] [address] Aug, [facility] [address] [id number] [address] [place] [address], [place] [address] Jul, [facility] [address] [id number] [address] [place] [address], [place] [address] Jul, [facility] [address] [id number] [address] [place] [address], [place] [address] Jul, [facility] [address] [id number] [address] [place] [address], [place] [address] Jul, [facility] [address] [id number] [address] [place] [address], [place] [address] May, [facility] [address] [id number] [address] [place] [address], [place] [address] May, [facility] [address] [id number] [address] [place] [address] May, [facility] [address] [facility] [id number] [address] [place] [address] Apr, [facility] [address] [facility] [id number] [address] [place] [address] Mar, [facility] [address] [facility] [id number] [address] [place] [address] Mar, IMMUNIZATIONS No Known Immunizations SOCIAL HISTORY Never Assessed REASON FOR VISIT PLAN OF CARE VITAL SIGNS MEDICATIONS Unknown Medications RESULTS No Results PROCEDURES No Known procedures INSTRUCTIONS MEDICATIONS ADMINISTERED No Known Medications MEDICAL (GENERAL) HISTORY Type Description Date Medical History depression Medical History hyperlipidemia Hospitalization History staph in right leg
--- OUTSIDE RECORDS SUMMARY | 2020-01-12 15:37 | XMS REPORT ---
Author Author Aron Mendes Doctor Organization [facility] Address Unknown Phone Unavailable Care Team Providers Care Patrol Police Sergeant Name Role Phone Migration, Doctor Unavailable Unavailable PROBLEMS Type Condition ICD9-CM Code ASO66-EZ Code Onset Dates Condition S tatus SNOMED Code Problem Nonspecific elevation of lev els of transaminase or lactic acid dehydrogenase (LDH) 790.4 Active 42742847 2 Problem Encounter for long-term (current) use of other medications V58.69 Active 798030721 Problem Edema 782.3 Active 925432545 Problem Spontaneous ecchymoses 782.7 Active 823597550 Problem Trigger finger (acquired) 727.03 Acti ve 3190439 Problem 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 Active 03426337 Problem 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 .42 Active 59420940 Problem 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 Active 17819453 Problem Unspecified local infection of skin and subcutaneous tissu e 686.9 Active 578380426 Problem Unspecified viral hepatitis C without hepatic coma 070.70 Active 19367073 Problem Vascular disorder of skin 709.1 Acti ve 09094421 Problem Dissociative disorder or reaction, 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 Active 88797296 Problem Anxiety state, unspecified 300.00 Act bessy 093941052 Problem Other and unspecified hyperlipidemia 272.4 Active 09696089 Problem Major depressive disorder, recurrent episode, mild 296.31 Active 80332217 ALLERGIES No Information ENCOUNTERS Encounter Location Date Diagnosis [facility] [address] [facility] [id number] [address] [place] [address] [id number] Nov, Encounter for other specifie d administrative purpose Z02.89 [facility] [address] [facility] [id number] [address] [place] [address] [id number] October, Dental examination Z01.20 an d Dental caries K02.9 [facility] [address] [facility] [id number] [address] [place] [address] Jan, Edema 782.3 and Family histo ry of coronary artery disease V17.3 [facility] [address] [id number] [address] [place] [address] Jan, Edema 782.3 and Family histo ry of coronary artery disease V17.3 [facility] [address] [id number] [address] [place] [address] [id number] Dec, Dental examination V72.2 [facility] [address] [id number] [address] [place] [address] Sep, [facility] [address] [id number] [address] [place] [address] Sep, [facility] [address] [id number] [address] [place] [address] Aug, [facility] [address] [id number] [address] [place] [address] Aug, [facility] [address] [id number] [address] [place] [address] Jun, [facility] [address] [id number] [address] [place] [address] Jun, [facility] [address] [id number] [address] [place] [address] Jun, [facility] [address] [id number] [address] [place] [address] Jun, [facility] [address] [id number] [address] [place] [address] May, [facility] [address] [id number] [address] [place] [address] May, [facility] [address] [id number] [address] [place] [address] Apr, [facility] [address] [id number] [address] [place] [address] Apr, [facility] [address] [id number] [address] [place] [address], [place] [address] Mar, [facility] [address] [id number] [address] [place] [address], [place] [address] Mar, [facility] [address] [id number] [address] [place] [address], [place] [address] Feb, [facility] [address] [id number] [address] [place] [address], [place] [address] Feb, [facility] [address] [id number] [address] [place] [address], [place] [address] Feb, [facility] [address] [id number] [address] [place] [address], [place] [address] Jan, [facility] [address] [id number] [address] [place] [address], [place] [address] Jan, [facility] [address] [id number] [address] [place] [address], [place] [address] Jan, [facility] [address] [id number] [address] [place] [address], [place] [address] Dec, [facility] [address] [id number] [address] [place] [address], [place] [address] Dec, [facility] [address] [id number] [address] [place] [address], [place] [address] Nov, [facility] [address] [id number] [address] [place] [address], [place] [address] Nov, [facility] [address] [id number] [address] [place] [address], [place] [address] Nov, [facility] [address] [id number] [address] [place] [address], [place] [address] Nov, [facility] [address] [id number] [address] [place] [address], [place] [address] Nov, [facility] [address] [id number] [address] [place] [address], [place] [address] Nov, [facility] [address] [id number] [address] [place] [address], [place] [address] October, [facility] [address] [id number] [address] [place] [address], [place] [address] October, [facility] [address] [id number] [address] [place] [address], [place] [address] Sep, [facility] [address] [id number] [address] [place] [address], [place] [address] Sep, [facility] [address] [id number] [address] [place] [address], [place] [address] Jul, [facility] [address] [id number] [address] [place] [address], [place] [address] Jul, [facility] [address] [id number] [address] [place] [address], [place] [address] Jul, [facility] [address] [id number] [address] [place] [address], [place] [address] Jul, [facility] [address] [id number] [address] [place] [address], [place] [address] May, [facility] [address] [id number] [address] [place] [address], [place] [address] May, [facility] [address] [id number] [address] [place] [address], [place] [address] May, [facility] [address] [id number] [address] [place] [address], [place] [address] May, [facility] [address] [id number] [address] [place] [address], [place] [address] Mar, [facility] [address] [id number] [address] [place] [address], [place] [address] Mar, [facility] [address] [id number] [address] [place] [address], [place] [address] Mar, [facility] [address] [id number] [address] [place] [address] [place] [address] 10 Mar, 2013 [facility] [address] [id number] [address] [place] [address], [place] [address] 04 Mar, 2013 [facility] [address] [id number] [address] [place] [address], [place] [address] 24 Feb, 2013 [facility] [address] [id number] [address] [place] [address], [place] [address] 19 Feb, 2013 [facility] [address] [id number] [address] [place] [address], [place] [address] 16 Feb, 2013 [facility] [address] [id number] [address] [place] [address], [place] [address] Jan, [facility] [address] [id number] [address] [place] [address], [place] [address] Jan, [facility] [address] [id number] [address] [place] [address], [place] [address] Jan, [facility] [address] [id number] [address] [place] [address], [place] [address] Jan, [facility] [address] [id number] [address] [place] [address], [place] [address] Jan, [facility] [address] [id number] [address] [place] [address], [place] [address] Jan, [facility] [address] [id number] [address] [place] [address], [place] [address] Jan, [facility] [address] [id number] [address] [place] [address], [place] [address] Dec, [facility] [address] [id number] [address] [place] [address], [place] [address] Dec, [facility] [address] [id number] [address] [place] [address], [place] [address] Dec, [facility] [address] [id number] [address] [place] [address], [place] [address] Nov, [facility] [address] [id number] [address] [place] [address], [place] [address] October, [facility] [address] [id number] [address] [place] [address], [place] [address] October, [facility] [address] [id number] [address] [place] [address], [place] [address] Sep, [facility] [address] [id number] [address] [place] [address], [place] [address] Jul, [facility] [address] [id number] [address] [place] [address], [place] [address] Jul, [facility] [address] [id number] [address] [place] [address], [place] [address] Jun, [facility] [address] [id number] [address] [place] [address], [place] [address] Jun, [facility] [address] [id number] [address] [place] [address], [place] [address] Jun, [facility] [address] [id number] [address] [place] [address], [place] [address] Jun, [facility] [address] [id number] [address] [place] [address], [place] [address] Jun, [facility] [address] [id number] [address] [place] [address], [place] [address] May, [facility] [address] [id number] [address] [place] [address], [place] [address] May, [facility] [address] [id number] [address] [place] [address], [place] [address] May, [facility] [address] [id number] [address] [place] [address], [place] [address] May, [facility] [address] [id number] [address] [place] [address], [place] [address] Apr, [facility] [address] [id number] [address] [address] 20 Apr, 2012 [facility] [address] [id number] [address] [place] [address], [place] [address] 16 Apr, 2012 [facility] [address] [id number] [address] [place] [address], [place] [address] 16 Apr, 2012 [facility] [address] [id number] [address] [place] [address], [place] [address] 13 Apr, 2012 [facility] [address] [id number] [address] [place] [address] 13 Apr, 2012 [facility] [address] [id number] [address] [place] [address], [place] [address] 13 Apr, 2012 [facility] [address] [id number] [address] [place] [address] 13 Apr, 2012 [facility] [address] [id number] [address] [place] [address], [place] [address] Apr, [facility] [address] [id number] [address] [place] [address] Apr, [facility] [address] [id number] [address] [place] [address], [place] [address] Mar, [facility] [address] [id number] [address] [place] [address], [place] [address] Mar, [facility] [address] [id number] [address] [place] [address] Mar, [facility] [address] [id number] [address] [place] [address] Mar, [facility] [address] [id number] [address] [place] [address], [place] [address] Mar, [facility] [address] [id number] [address] [place] [address] Mar, [facility] [address] [id number] [address] [place] [address] Mar, [facility] [address] [id number] [address] [place] [address], [place] [address] Mar, [facility] [address] [id number] [address] [place] [address], [place] [address] Feb, [facility] [address] [id number] [address] [place] [address], [place] [address] Jan, [facility] [address] [id number] [address] [place] [address], [place] [address] Jan, [facility] [address] [id number] [address] [place] [address], [place] [address] Dec, [facility] [address] [id number] [address] [place] [address], [place] [address] Nov, [facility] [address] [id number] [address] [place] [address], [place] [address] Nov, [facility] [address] [id number] [address] [place] [address], [place] [address] Nov, [facility] [address] [id number] [address] [place] [address], [place] [address] Nov, [facility] [address] [id number] [address] [place] [address], [place] [address] Nov, [facility] [address] [id number] [address] [place] [address], [place] [address] Nov, [facility] [address] [id number] [address] [place] [address], [place] [address] October, [facility] [address] [id number] [address] [place] [address], [place] [address] October, [facility] [address] [id number] [address] [place] [address], [place] [address] October, [facility] [address] [id number] [address] [place] [address], [place] [address] October, [facility] [address] [id number] [address] [place] [address], [place] [address] October, [facility] [address] [id number] [address] [place] [address], [place] [address] October, [facility] [address] [id number] [address] [place] [address], [place] [address] October, [facility] [address] [id number] [address] [place] [address], [place] [address] Sep, [facility] [address] [id number] [address] [place] [address], [place] [address] Sep, [facility] [address] [id number] [address] [place] [address], [place] [address] Aug, [facility] [address] [id number] [address] [place] [address], [place] [address] 15 Aug, 2011 [facility] [address] [id number] [address] [place] [address], [place] [address] Aug, [facility] [address] [id number] [address] [place] [address], [place] [address] Aug, [facility] [address] [id number] [address] [place] [address], [place] [address] Jul, [facility] [address] [id number] [address] [place] [address], [place] [address] Jul, [facility] [address] [id number] [address] [place] [address], [place] [address] Jul, [facility] [address] [id number] [address] [place] [address], [place] [address] Jul, [facility] [address] [id number] [address] [place] [address], [place] [address] May, [facility] [address] [id number] [address] [place] [address], [place] [address] May, [facility] [address] [id number] [address] [place] [address], [place] [address] May, [facility] [address] [id number] [address] [place] [address] Apr, [facility] [address] [facility] [id number] [address] [place] [address] Mar, [facility] [address] [facility] [id number] [address] [place] [address] Mar, IMMUNIZATIONS No Known Immunizations SOCIAL HISTORY Never Assessed REASON FOR VISIT PLAN OF CARE VITAL SIGNS MEDICATIONS Unknown Medications RESULTS No Results PROCEDURES No Known procedures INSTRUCTIONS MEDICATIONS ADMINISTERED No Known Medications MEDICAL (GENERAL) HISTORY Type Description Date Medical History depression Medical History hyperlipidemia Hospitalization History staph in right leg
--- OUTSIDE RECORDS SUMMARY | 2020-01-12 15:37 | XMS REPORT ---
Author Author Aron Lackey [facility] Address [address] [place] [address] Care Team Providers Care Environmental Intern Name Role Phone Darya LANI Unavailable PROBLEMS Type Condition ICD9-CM Code FTC35-FR Code Onset Dates Condition S tatus SNOMED Code Problem Nonspecific elevation of lev els of transaminase or lactic acid dehydrogenase (LDH) 790.4 Active 45865069 2 Problem Encounter for long-term (current) use of other medications V58.69 Active 443133210 Problem Edema 782.3 Active 088703936 Problem Spontaneous ecchymoses 782.7 Active 880758673 Problem Trigger finger (acquired) 727.03 Acti ve 2098475 Problem 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 Active 52597981 Problem 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 .42 Active 55479798 Problem 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 Active 35051829 Problem Unspecified local infection of skin and subcutaneous tissu e 686.9 Active 042618564 Problem Unspecified viral hepatitis C without hepatic coma 070.70 Active 76667775 Problem Vascular disorder of skin 709.1 Acti ve 36917574 Problem Dissociative disorder or reaction, 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 Active 89257214 Problem Anxiety state, unspecified 300.00 Act bessy 908247324 Problem Other and unspecified hyperlipidemia 272.4 Active 53680287 Problem Major depressive disorder, recurrent episode, mild 296.31 Active 52153997 ALLERGIES No Information ENCOUNTERS Encounter Location Date Diagnosis [facility] [id number] [place] [address] [id number] Nov, Encounter for other specifie d administrative purpose Z02.89 [facility] [address] [id number] [address] [place] [address] [id number] October, Dental examination Z01.20 an d Dental caries K02.9 [facility] [address] [id number] [address] [place] [id number] 14 Jan, 2015 Edema 782.3 and Family histo ry of coronary artery disease V17.3 [facility] [address] [id number] [address] [place] [id number] 07 Jan, 2015 Edema 782.3 and Family histo ry of coronary artery disease V17.3 [facility] [address] [id number] [address] [place] [address] [id number] Dec, Dental examination V72.2 [facility] [address] [id number] [address] [place] [phone] Sep, [facility] [address] [id number] [address] [place] [phone] Sep, [facility] [address] [id number] [address] [place] [id number] Aug, [facility] [address] [id number] [address] [place] [phone] Aug, [facility] [address] [id number] [address] [place] [phone] Jun, [facility] [address] [id number] [address] [place] [id number] Jun, [facility] [address] [id number] [address] [place] [phone] Jun, [facility] [address] [id number] [address] [place] [id number] Jun, [facility] [address] [id number] [address] [place] [phone] May, [facility] [address] [id number] [address] [place] [id number] May, [facility] [address] [id number] [address] [place] [id number] Apr, [facility] [address] [id number] [address] [place] [address], [place] [address] Apr, [facility] [address] [id number] [address] [place] [address], [place] [address] Mar, [facility] [address] [id number] [address] [place] [address], [place] [address] Mar, [facility] [address] [id number] [address] [place] [address], [place] [address] Feb, [facility] [address] [id number] [address] [place] [address], [place] [address] Feb, [facility] [address] [id number] [address] [place] [address], [place] [address] Feb, [facility] [address] [id number] [address] [place] [address], [place] [address] Jan, [facility] [address] [id number] [address] [place] [address], [place] [address] Jan, [facility] [address] [id number] [address] [place] [address], [place] [address] Jan, [facility] [address] [id number] [address] [place] [address], [place] [address] Dec, [facility] [address] [id number] [address] [place] [address], [place] [address] Dec, [facility] [address] [id number] [address] [place] [address], [place] [address] Nov, [facility] [address] [id number] [address] [place] [address], [place] [address] Nov, [facility] [address] [id number] [address] [place] [address], [place] [address] Nov, [facility] [address] [id number] [address] [place] [address], [place] [address] Nov, [facility] [address] [id number] [address] [place] [address], [place] [address] Nov, [facility] [address] [id number] [address] [place] [address], [place] [address] Nov, [facility] [address] [id number] [address] [place] [address], [place] [address] October, [facility] [address] [id number] [address] [place] [address], [place] [address] October, [facility] [address] [id number] [address] [place] [address], [place] [address] Sep, [facility] [address] [id number] [address] [place] [address], [place] [address] Sep, [facility] [address] [id number] [address] [place] [address], [place] [address] Jul, [facility] [address] [id number] [address] [place] [address], [place] [address] Jul, [facility] [address] [id number] [address] [place] [address], [place] [address] Jul, [facility] [address] [id number] [address] [place] [address], [place] [address] Jul, [facility] [address] [id number] [address] [place] [address], [place] [address] May, [facility] [address] [id number] [address] [place] [address], [place] [address] May, [facility] [address] [id number] [address] [place] [address], [place] [address] May, [facility] [address] [id number] [address] [place] [address], [place] [address] May, [facility] [address] [id number] [address] [place] [address], [place] [address] Mar, [facility] [address] [id number] [address] [place] [address], [place] [address] Mar, [facility] [address] [id number] [address] [place] [address] [place] [address] 10 Mar, 2013 [facility] [address] [id number] [address] [place] [address], [place] [address] 10 Mar, 2013 [facility] [address] [id number] [address] [place] [address], [place] [address] 04 Mar, 2013 [facility] [address] [id number] [address] [place] [address], [place] [address] 24 Feb, 2013 [facility] [address] [id number] [address] [place] [address], [place] [address] 19 Feb, 2013 [facility] [address] [id number] [address] [place] [address], [place] [address] 16 Feb, 2013 [facility] [address] [id number] [address] [place] [address], [place] [address] Jan, [facility] [address] [id number] [address] [place] [address], [place] [address] Jan, [facility] [address] [id number] [address] [place] [address], [place] [address] Jan, [facility] [address] [id number] [address] [place] [address], [place] [address] Jan, [facility] [address] [id number] [address] [place] [address], [place] [address] Jan, [facility] [address] [id number] [address] [place] [address], [place] [address] Jan, [facility] [address] [id number] [address] [place] [address], [place] [address] Jan, [facility] [address] [id number] [address] [place] [address], [place] [address] Dec, [facility] [address] [id number] [address] [place] [address], [place] [address] Dec, [facility] [address] [id number] [address] [place] [address], [place] [address] Dec, [facility] [address] [id number] [address] [place] [address], [place] [address] 10 Nov, 2012 [facility] [address] [id number] [address] [place] [address], [place] [address] October, [facility] [address] [id number] [address] [place] [address], [place] [address] October, [facility] [address] [id number] [address] [place] [address], [place] [address] Sep, [facility] [address] [id number] [address] [place] [address], [place] [address] Jul, [facility] [address] [id number] [address] [place] [address], [place] [address] Jul, [facility] [address] [id number] [address] [place] [address], [place] [address] Jun, [facility] [address] [id number] [address] [place] [address], [place] [address] Jun, [facility] [address] [id number] [address] [place] [address], [place] [address] Jun, [facility] [address] [id number] [address] [place] [address], [place] [address] Jun, [facility] [address] [id number] [address] [place] [address], [place] [address] Jun, [facility] [address] [id number] [address] [place] [address], [place] [address] May, [facility] [address] [id number] [address] [place] [address], [place] [address] May, [facility] [address] [id number] [address] [place] [address], [place] [address] May, [facility] [address] [id number] [address] [place] [address], [place] [address] 14 May, 2012 [facility] [address] [id number] [place] [address] 20 Apr, 2012 [facility] [address] [id number] [address] [place] [address], [place] [address] 20 Apr, 2012 [facility] [address] [id number] [address] [place] [address], [place] [address] 16 Apr, 2012 [facility] [address] [id number] [address] [place] [address], [place] [address] 16 Apr, 2012 [facility] [address] [id number] [address] [place] [id number] 13 Apr, 2012 [facility] [address] [id number] [address] [place] [address], [place] [address] Apr, [facility] [address] [id number] [address] [place] [address] 13 Apr, 2012 [facility] [address] [id number] [address] [place] [address], [place] [address] Apr, [facility] [address] [id number] [address] [place] [address] Apr, [facility] [address] [id number] [address] [place] [id number] 07 Apr, 2012 [facility] [address] [id number] [address] [place] [address], [place] [address] Mar, [facility] [address] [id number] [address] [place] [address] Mar, [facility] [address] [id number] [address] [place] [id number] Mar, [facility] [address] [id number] [address] [place] [address], [place] [address] Mar, [facility] [address] [id number] [address] [place] [address] Mar, [facility] [address] [id number] [address] [place] [id number] 10 Mar, 2012 [facility] [address] [id number] [address] [place] [address], [place] [address] Mar, [facility] [address] [id number] [address] [place] [address], [place] [address] Mar, [facility] [address] [id number] [address] [place] [address], [place] [address] Feb, [facility] [address] [id number] [address] [place] [address], [place] [address] Jan, [facility] [address] [id number] [address] [place] [address], [place] [address] Jan, [facility] [address] [id number] [address] [place] [address], [place] [address] Dec, [facility] [address] [id number] [address] [place] [address], [place] [address] Nov, [facility] [address] [id number] [address] [place] [address], [place] [address] Nov, [facility] [address] [id number] [address] [place] [address], [place] [address] Nov, [facility] [address] [id number] [address] [place] [address], [place] [address] Nov, [facility] [address] [id number] [address] [place] [address], [place] [address] Nov, [facility] [address] [id number] [address] [place] [address], [place] [address] Nov, [facility] [address] [id number] [address] [place] [address], [place] [address] October, [facility] [address] [id number] [address] [place] [address], [place] [address] October, [facility] [address] [id number] [address] [place] [address], [place] [address] October, [facility] [address] [id number] [address] [place] [address], [place] [address] October, [facility] [address] [id number] [address] [place] [address], [place] [address] October, [facility] [address] [id number] [address] [place] [address], [place] [address] October, [facility] [address] [id number] [address] [place] [address], [place] [address] October, [facility] [address] [id number] [address] [place] [address], [place] [address] Sep, [facility] [address] [id number] [address] [place] [address], [place] [address] Sep, [facility] [address] [id number] [address] [place] [address], [place] [address] Aug, [facility] [address] [id number] [address] [place] [address], [place] [address] 15 Aug, 2011 [facility] [address] [id number] [address] [place] [address], [place] [address] Aug, [facility] [address] [id number] [address] [place] [address], [place] [address] Aug, [facility] [address] [id number] [address] [place] [address], [place] [address] Jul, [facility] [address] [id number] [address] [place] [address], [place] [address] Jul, [facility] [address] [id number] [address] [place] [address], [place] [address] Jul, [facility] [address] [id number] [address] [place] [address], [place] [address] Jul, [facility] [address] [id number] [address] [place] [address], [place] [address] May, [facility] [address] [id number] [address] [place] [address], [place] [address] May, [facility] [address] [id number] [address] [place] [address] May, [facility] [address] [facility] [id number] [address] [place] [address] Apr, [facility] [address] [facility] [id number] [address] [place] [address] Mar, [facility] [address] [facility] [id number] [address] [place] [address] Mar, IMMUNIZATIONS No Known Immunizations SOCIAL HISTORY Never Assessed REASON FOR VISIT PLAN OF CARE VITAL SIGNS MEDICATIONS Unknown Medications RESULTS No Results PROCEDURES No Known procedures INSTRUCTIONS MEDICATIONS ADMINISTERED No Known Medications MEDICAL (GENERAL) HISTORY Type Description Date Medical History depression Medical History hyperlipidemia Hospitalization History staph in right leg
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
== END 2020-01-12 14:29 | disposition home or self-care (01) ==
LOC: EDUNIT# 13:59 → ER 14:03
DX: Z48.02 Encounter for removal of sutures (principal)

== ENCOUNTER → 2023-01-02 | Outpatient (CLI) | payer OTHER ==
[~2023-01-02] MED LIST changes: +MIRT-68 PO; +MIRT-69 PO; -MIRT15TA6 PO; -MIRT30TA6 PO; -SULF1TAB35 PO
--- NOTE | 2023-01-02 13:22 | Diagnostic Imaging Report ---
PROCEDURE: MRI right joint upper extremity without contrast. TECHNIQUE: Multiplanar, multisequence non contrast-enhanced MRI of the right upper extremity was accomplished. INDICATION: Right shoulder pain, fall in October 2022. Surgery 20 years ago. COMPARISON: None FINDINGS: No acute fracture seen in the right shoulder. Alignment is normal. There is no joint effusion. The supraspinatus tendon appears intact. There is a small low-grade partial-thickness tear at the insertion of the infraspinatus tendon. The teres minor tendon is intact. Subscapularis tendon is intact. There is no muscular atrophy. The long head of the biceps tendon is normal in course and signal. The glenoid labrum is suboptimally evaluated in the absence of intra-articular contrast. There is suspected tearing at the anterior inferior labrum with no para labral cysts seen. This is likely degenerative. The acromion has a curved undersurface with a small subacromial spur. There are severe degenerative changes in the acromioclavicular joint. The coracoclavicular and coracoacromial ligaments appear intact. Soft tissues about the right shoulder demonstrate no acute abnormality. IMPRESSION: 1. Small low-grade partial-thickness tear in the infraspinatus tendon with no high-grade partial-thickness or full-thickness rotator cuff tear seen. 2. Marked degenerative changes in the acromioclavicular joint with mild subacromial spurring. Dictated by: Dictated on workstation # [id number]
== END ==
LOC: RAD 10:13
PROVIDERS: ATTEND Hospitalist
DX: S46.911A Strain of unspecified muscle, fascia and tendon at shoulder and upper arm level, right arm, initial encounter (principal); M19.011 Primary osteoarthritis, right shoulder; M77.8 Other enthesopathies, not elsewhere classified; X58.XXXA Exposure to other specified factors, initial encounter
CPT/HCPCS: 73221

== ENCOUNTER 2023-01-07 05:34 | Outpatient (CLI) | payer MEDICARE, OTHER ==
[~2023-01-07] VITALS: Ht 175.3 cm; Wt 78.8 kg
[2023-01-07] MEDS ORDERED: ATOR20TA66 PO (10:18)
[2023-01-07] MEDS ORDERED: INDO25CA99 PO (10:18)
[2023-01-07] MEDS ORDERED: DICL100G13 TP (10:18)
[2023-01-07] MEDS ORDERED: CETI10TA17 PO (10:18)
== END 2023-01-07 10:43 | disposition home or self-care (01) ==
LOC: PREOP 05:34
PROVIDERS: ATTEND Specialist
DX: Z01.818 Encounter for other preprocedural examination (principal)

== ENCOUNTER 2023-01-10 09:16 | Day surgery (SDC) | payer MEDICARE, OTHER ==
[~2023-01-10] VITALS: Ht 175.3 cm; Wt 78.8 kg
[~2023-01-10 09:16] MED LIST changes: +DICL100G13 TP; +INDO25CA99 PO
[2023-01-10] MEDS ORDERED: POVIDONE (BETADINE) OPHTH SOLN 5% 30 ML OP ONE (10:30)
[2023-01-10] MEDS ORDERED: LIDOCAINE PF 1% 2 ML VIAL IR PRN (10:30)
[2023-01-10] MEDS ORDERED: TIMOLOL 0.5% (CATARACTS) 0.3 ML BTL OU PRN (10:30)
[2023-01-10] MEDS ORDERED: MOXIFLOXACIN OPHTH SOLN 5 MG/ML 0.3 ML SYRINGE OP ONE (10:30)
[2023-01-10] MEDS: TETRACAINE 0.5% OPHTH SOLN 4 ML BTL (SINGLE DOSE ONLY) OU PRN ×4 (10:36→10:55)
[2023-01-10 10:40] VITALS: BP 139/83
[2023-01-10] MEDS: PHENYLEPHRINE 10% OPHTH (NEO-SYN) 5 ML BTL OU SCH ×3 (10:43→10:55)
[2023-01-10] MEDS: TROPICAMIDE 1% OPH SOLN (MYDRIACYL) 15 ML BTL OP SCH ×3 (10:43→10:55)
--- NOTE | 2023-01-10 11:26 | Ophthalmologist Pre-Op Note ---
Pre-Operative Progress Note H&P Reviewed The H&P was reviewed, patient examined and no changes noted. Date H&P Reviewed: Jan 10, 2023 Time H&P Reviewed: 11:26 Pre-Op Dx Cataract, Right Eye LINDSEY PIMENTEL MD Jan 10, 2023 11:26
[2023-01-10] MEDS ORDERED: MIDAZOLAM 2 MG/2 ML (VERSED) VIAL ONE (11:32)
--- NOTE | 2023-01-10 11:48 | Ophthalmology Operative Report ---
Cataract removal/placement IOL PREOPERATIVE DIAGNOSIS: Cataract Right Eye POSTOPERATIVE DIAGNOSIS: Cataract Right Eye PROCEDURE: Cataract removal and placement of posterior chamber implant, right eye SURGEON: Nadeem Pimentel ANESTHESIA: Topical with sedation COMPLICATIONS: None ESTIMATED BLOOD LOSS: Minimal DESCRIPTION OF PROCEDURE: After proper informed consent was obtained, the patient, a 67 male, was taken to the Operating Room and the right eye was anesthetized with tetracaine. The right eye was then prepped and draped in the usual manner. A wire lid speculum was placed. A paracentesis was made at the left hand position. Preservative free lidocaine was injected into the anterior chamber followed by viscoelastic. A clear corneal incision was made in the temporal position. A capsulorrhexis was preformed and the central nuclear and cortical material were removed. The posterior capsule was polished and Vidal 19.5 AU00T0 IOL was placed into the capsular bag. The residual viscoelastic was aspirated and balanced saline solution was injected into the anterior chamber. Moxifloxacin was injected into the anterior chamber. The wound was checked and found to be water tight. The patient tolerated the procedure well without complications. NADEEM PIMENTEL MD Jan 10, 2023 11:48
[2023-01-10 11:53] VITALS: BP 135/88
--- NOTE | 2023-01-10 13:59 | Anesthesia-General Post-Op ---
MAC Patient Condition Mental Status/LOC: Same as Preop Cardiovascular: Satisfactory Nausea/Vomiting: Absent Respiratory: Satisfactory Pain: Controlled Complications: Absent Post Op Complications Complications None Follow Up Care/Instructions Patient Instructions None needed. Anesthesiology Discharge Order Discharge Order Patient is doing well, no complaints, stable vital signs, no apparent adverse anesthesia problems. No complications reported per nursing. SUELLEN MITTAL CRNA Jan 10, 2023 13:59
== END 2023-01-10 11:56 | disposition home or self-care (01) ==
LOC: SDC 09:16
PROVIDERS: ATTEND Specialist
DX: H25.9 Unspecified age-related cataract (principal)

== ENCOUNTER 2023-03-05 12:36 | Outpatient (RCR) | payer OTHER ==
[~2023-03-05 12:36] MED LIST changes: -DICL100G13 TP; +DICL100G60 TP
== END 2023-03-08 | disposition home or self-care (01) ==
PROVIDERS: ATTEND Hospitalist
DX: M75.111 Incomplete rotator cuff tear or rupture of right shoulder, not specified as traumatic (principal)

== ENCOUNTER 2023-04-07 14:28 | Outpatient (RCR) | payer OTHER | END 2023-04-08 | disposition home or self-care (01) | PROVIDERS: ATTEND Hospitalist | DX: S49.91XD Unspecified injury of right shoulder and upper arm, subsequent encounter (principal); X58.XXXD Exposure to other specified factors, subsequent encounter ==